=== PATIENT | male | born 1950 | race Caucasian/White ===

== ENCOUNTER 2020-04-30 17:19 | Inpatient (IN) ==
--- NOTE | 2020-04-30 18:06 | Emergency Department Note ---
Impression & Plan Acute confusion, Hyponatremia ED Provider Note NAME: JAMES JACKSON AGE: 69 SEX: M : 1950 ARRIVES VIA: Walk-In INFORMANT: Patient, ED PROVIDER(S): Kumar Moore MD Chief Complaint: Confusion, low sodium HPI: Patient does present from the outpatient setting due to concern for confusion and low sodium. The patient does have a known history of hypertension, hyperlipidemia, tobacco use, alcohol abuse, aortic root enlargement, pulmonary nodules and COPD. The patient has been confused and apparently when he showed up to the hospital today was not sure where he was. Patient did have a fall 2 weeks prior and broke 2 ribs. Patient has had some pain from that. The patient is not on any blood thinning medications and no falls within the last several days. Patient does drink greater than 6 drinks p er day. The patient did have blood work completed and was told that his sodium was quite low in the 120s. Patient has fevers chills chest pains or shortness of breath. The patient has had some right lower extremity edema which has been chronic in nature and has improved since beginning 2 weeks ago. Patient currently has no acute symptomatic complaints at this time. ROS: See HPI for pertinent positives and negatives. A total of 10 systems were reviewed and otherwise negative. Past medical history: See below Surgical history: See below Social history: See below Physical Exam: GENERAL: Wearing glasses and a mask. NAD, non-toxic. EYE EXAM: Normal conjunctiva. PERRL, no anisocoria and EOM's grossly intact w/o pain. NECK: Supple, no nuchal rigidity, no adenopathy, non-tender. No signs of meningismus. LUNGS: Clear to auscultation. Normal chest wall mechanics. HEART: NSR, no MRG. ABDOMEN: Abdomen soft, non-tender, normo-active bowel sounds, no masses, no rebound or guarding. BACK: No CVA TTP. SKIN: No rashes and no bruising. UPPER EXTREMITIES: Upper extremities are grossly normal. LOWER EXTREMITIES: Grossly normal, slight right lower extremity edema without any erythema or calf pain. Compartments are soft. NEURO EXAM: A&O x3, cranial nerves II-XII grossly intact, normal speech, moves all 4 extremities on command w/o issue. Differential diagnoses: Infection, dehydration, metabolic abnormality, hypo/hyperglycemia, electrolyte disturbance, anemia, hypoxia, cardiac sources, intracerebral event, toxicologic, neurologic, as well as other pathologies. Course: Patient was seen and evaluated the bedside. Full history physical exam was performed. EKG: Indication: Confusion Normal sinus rhythm, rate of 71, normal intervals, normal axis, T wave inversion in lead III not in contiguous leads. Slight depressions in the V5 and V6. Not in the high lateral leads. No prior EKG for comparison. Imaging Studies: Radiology results as stated below per my review in the radiologist's interpretation: CT OF THE HEAD WITHOUT CONTRAST CLINICAL HISTORY: Confusion. COMPARISON STUDY: No previous studies for comparison. CT DOSE: 614.27 mGy.cm TECHNIQUE: Helical axial images of the head were obtained without IV contrast. Automated exposure control was utilized for the study. A dose lowering technique was utilized adhering to the principles of ALARA. FINDINGS: No acute intracranial hemorrhage, midline shift or mass effect is present. The ventricular system is unremarkable. White matter hypodensity suggests small vessel disease. The basal cisterns are patent. No extra-axial collections are present. There are no findings to suggest acute dural sinus thrombosis or acute territorial infarct. No significant calvarial abnormalities are present. Visualized portions of the sinuses and mastoid air cells are clear. IMPRESSION: No acute intracranial findings. ACT 112: Negative or not required by law. Electronically signed by: Danny Hurtado M.D. 04/30/2020 7:15 PM Dictated: 04/30/201912 Transcribed: 04/30/201912 XR chest 1V portable CLINICAL HISTORY: weakness COMPARISON STUDY: No previous studies for comparison. FINDINGS: Lung volumes are normal. Lungs are clear. There is no pneumothorax or pleural effusion. Cardiac size is at the upper limits of normal. Mediastinal contours are normal. There is no evidence for pulmonary edema. IMPRESSION: No acute cardiopulmonary findings. ACT 112: Negative or not required by law. Electronically signed by: Danny Hurtado M.D. 04/30/2020 6:19 PM Dictated: 04/30/201817 Transcribed: 04/30/201817 Cardiac monitoring: An order was placed for continuous cardiac monitoring. The monitor shows a rate of 91 with sinus rhythm. MDM: Patient does present with concern for confusion and low sodium. Blood was obtained along with urine and serum awesome's as well as urine electrolytes. Alcohol level was obtained and the patient was given some IV fluids. Patient's last drink was sometime around 930. Patient does have a normal white count and hemoglobin. Platelet count is unrema rkable. Patient does have some hyponatremia with low serum osmolality. Urine awesome is also low likely secondary to beer potomania. Alcohol negative. Urinalysis negative. Covid was ordered. I did speak with the hospitalist Dr. Tyson the patient was admitted to the medicine service. CT of the head and chest x-ray unremarkable. EKG nonischemic. Past Med/Surg History Social History (Updated 04/30/20 @ 20:18 by Kumar Moore MD) Smoking Status: Current every day smoker Hx Alcohol Use: Yes Alcohol type: beer Alcohol Intake Frequency: 4 or More x per/Week Hx Substance Use: No Feels Safe at Home: Yes Allergies Allergies Allergy/AdvReac Type Severity Reaction Status Date / Time No Known Allergies Allergy Unverified 04/30/20 20:50 Home Meds Home Medications Medication Instructions Recorded Confirmed amlodipine [Norvasc] 5 mg PO DAILY 04/30/20 04/30/20 atorvastatin [Lipitor] 20 mg PO DAILY 04/30/20 04/30/20 losartan [Cozaar] 100 mg PO DAILY 04/30/20 04/30/20 metoprolol succinate 50 mg PO DAILY 04/30/20 04/30/20 thiamine HCl (vitamin B1) [Vitamin 100 mg PO DAILY 04/30/20 04/30/20 B-1] umeclidinium [Incruse Ellipta] 1 inh INHALATION DAILY 04/30/20 04/30/20 Results & Data (ED) Vital Signs Vital Signs - 24 hr 04/30/20 17:29 04/30/20 18:31 04/30/20 19:00 Temperature 36.7 C Temperature Source Oral Pulse Rate 114 H 77 77 Pulse Rate from SpO2 Sensor 76 76 Respiratory Rate 18 14 16 Respiratory Effort / Characteristics Non-Labored Respiratory Depth Normal Respiratory Pattern Regular Blood Pressure 150/77 H 142/65 H 142/69 H Blood Pressure Mean 101 90 93 Blood Pressure Position Sitting Pulse Oximetry 100 98 99 Oxygen Delivery Method Room Air Room Air Room Air Sepsis Recent Fever Within 48 Hours No Sepsis New/Unexplained Change in Mental Status No Sepsis Action Taken by Nursing No Action Required 04/30/20 19:30 04/30/20 20:00 04/30/20 20:30 Temperature Temperature Source Pulse Rate 76 78 91 H Pulse Rate from SpO2 Sensor 77 76 86 Respiratory Rate 14 19 25 H Respiratory Effort / Characteristics Respiratory Depth Respiratory Pattern Blood Pressure 137/69 138/65 149/80 H Blood Pressure Mean 91 89 103 Blood Pressure Position Pulse Oximetry 100 99 98 Oxygen Delivery Method Room Air Room Air Room Air Sepsis Recent Fever Within 48 Hours Sepsis New/Unexplained Change in Mental Status Sepsis Action Taken by Nursing Laboratory Data Result diagrams: 04/30/20 18:48 04/30/20 18:48 Lab Results 04/30/20 04/30/20 04/30/20 Range/Units 18:48 18:48 18:48 WBC 5.62 (4.8-10.8) K/uL RBC 4.21 L (4.7-6.1) M/uL Hgb 14.0 (14.0-18.0) g/dL Hct 38.2 L (42-52) % MCV 90.7 (80-100) fL MCH 33.3 (25-34) pg MCHC 36.6 H (32-36) g/dL RDW Std Deviation 41.6 (36.4-46.3) fL RDW Coeff of Daquan 12.6 (11.5-14.5) % Plt Count 274 (130-400) K/uL MPV 8.6 (7.4-10.4) fL Immature Gran % (Auto) 0.4 % Neut % (Auto) 73.8 % Lymph % (Auto) 16.9 % Parmer % (Auto) 8.4 % Eos % (Auto) 0.5 % Baso % (Auto) 0.0 % Neut # (Auto) 4.15 (1.4-6.5) K/uL Lymph # (Auto) 0.95 L (1.2-3.4) K/uL Parmer # (Auto) 0.47 (0.11-0.59) K/uL Eos # (Auto) 0.03 (0-0.5) K/uL Baso # (Auto) 0.00 (0-0.2) K/uL Immature Gran # (Auto) 0.02 (0.00-0.02) K/uL PT (9.0-12.0) Seconds INR (0.9-1.1) APTT (21.0-31.0) Seconds PTT Ratio Sodium 127 L (136-145) mmol/L Potassium 4.6 (3.5-5.1) mmol/L Chloride 96 L (98-107) mmol/L Carbon Dioxide 24 (21-32) mmol/L Anion Gap 7.0 (3-11) BUN 8 (7-18) mg/dl Creatinine 0.79 (0.6-1.4) mg/dl Est Cr Clr Drug Dosing Not Reportable Est GFR ( Amer) 105.4 Est GFR (Non-Af Amer) 91.0 BUN/Creatinine Ratio 9.6 L (10-20) Glucose 84 (70-99) mg/dl Osmolality 264 L (280-300) mOsm/kg Calcium 9.6 (8.5-10.1) mg/dl Total Bilirubin 0.9 (0.2-1) mg/dl AST 19 (15-37) U/L ALT 18 (12-78) U/L Alkaline Phosphatase 59 (45-117) U/L Total Protein 7.9 (6.4-8.2) gm/dl Albumin 3.8 (3.4-5.0) gm/dl Globulin 4.1 H (2.5-4.0) gm/dl Albumin/Globulin Ratio 0.9 (0.9-2) TSH 2.380 (0.300-4.500) uIu/ml Urine Color Urine Appearance (Clear) Urine pH (4.5-7.5) Ur Specific Bonneau (1.000-1.030) Urine Protein (Negative) Urine Glucose (UA) (Negative) Urine Ketones (Negative) Urine Blood (Negative) Urine Nitrite (Negative) Urine Bilirubin (Negative) Urine Urobilinogen (Negative) Ur Leukocyte Esterase (Negative) Urine Osmolality (500-800) mOsm/kg Urine Sodium mmol/L Urine Potassium mmol/L Urine Chloride mmol/L Ethyl Alcohol mg/dL (0-3) mg/dl COVID-19 Eval Order SARS-CoV-2, RNA, NAAT (NEGATIVE) 04/30/20 04/30/20 04/30/20 Range/Units 18:48 18:48 19:32 WBC (4.8-10.8) K/uL RBC (4.7-6.1) M/uL Hgb (14.0-18.0) g/dL Hct (42-52) % MCV (80-100) fL MCH (25-34) pg MCHC (32-36) g/dL RDW Std Deviation (36.4-46.3) fL RDW Coeff of Daquan (11.5-14.5) % Plt Count (130-400) K/uL MPV (7.4-10.4) fL Immature Gran % (Auto) % Neut % (Auto) % Lymph % (Auto) % Parmer % (Auto) % Eos % (Auto) % Baso % (Auto) % Neut # (Auto) (1.4-6.5) K/uL Lymph # (Auto) (1.2-3.4) K/uL Parmer # (Auto) (0.11-0.59) K/uL Eos # (Auto) (0-0.5) K/uL Baso # (Auto) (0-0.2) K/uL Immature Gran # (Auto) (0.00-0.02) K/uL PT 9.9 (9.0-12.0) Seconds INR 1.0 (0.9-1.1) APTT 26.2 (21.0-31.0) Seconds PTT Ratio 1.0 Sodium (136-145) mmol/L Potassium (3.5-5.1) mmol/L Chloride (98-107) mmol/L Carbon Dioxide (21-32) mmol/L Anion Gap (3-11) BUN (7-18) mg/dl Creatinine (0.6-1.4) mg/dl Est Cr Clr Drug Dosing Est GFR ( Amer) Est GFR (Non-Af Amer) BUN/Creatinine Ratio (10-20) Glucose (70-99) mg/dl Osmolality (280-300) mOsm/kg Calcium (8.5-10.1) mg/dl Total Bilirubin (0.2-1) mg/dl AST (15-37) U/L ALT (12-78) U/L Alkaline Phosphatase (45-117) U/L Total Protein (6.4-8.2) gm/dl Albumin (3.4-5.0) gm/dl Globulin (2.5-4.0) gm/dl Albumin/Globulin Ratio (0.9-2) TSH (0.300-4.500) uIu/ml Urine Color Yellow Urine Appearance Clear (Clear) Urine pH 7.0 (4.5-7.5) Ur Specific Bonneau 1.008 (1.000-1.030) Urine Protein Negative (Negative) Urine Glucose (UA) Negative (Negative) Urine Ketones Negative (Negative) Urine Blood Negative (Negative) Urine Nitrite Negative (Negative) Urine Bilirubin Negative (Negative) Urine Urobilinogen Negative (Negative) Ur Leukocyte Esterase Negative (Negative) Urine Osmolality (500-800) mOsm/kg Urine Sodium mmol/L Urine Potassium mmol/L Urine Chloride mmol/L Ethyl Alcohol mg/dL < 3.0 (0-3) mg/dl COVID-19 Eval Order SARS-CoV-2, RNA, NAAT (NEGATIVE) 04/30/20 04/30/20 04/30/20 Range/Units 19:32 19:32 20:26 WBC (4.8-10.8) K/uL RBC (4.7-6.1) M/uL Hgb (14.0-18.0) g/dL Hct (42-52) % MCV (80-100) fL MCH (25-34) pg MCHC (32-36) g/dL RDW Std Deviation (36.4-46.3) fL RDW Coeff of Daquan (11.5-14.5) % Plt Count (130-400) K/uL MPV (7.4-10.4) fL Immature Gran % (Auto) % Neut % (Auto) % Lymph % (Auto) % Parmer % (Auto) % Eos % (Auto) % Baso % (Auto) % Neut # (Auto) (1.4-6.5) K/uL Lymph # (Auto) (1.2-3.4) K/uL Parmer # (Auto) (0.11-0.59) K/uL Eos # (Auto) (0-0.5) K/uL Baso # (Auto) (0-0.2) K/uL Immature Gran # (Auto) (0.00-0.02) K/uL PT (9.0-12.0) Seconds INR (0.9-1.1) APTT (21.0-31.0) Seconds PTT Ratio Sodium (136-145) mmol/L Potassium (3.5-5.1) mmol/L Chloride (98-107) mmol/L Carbon Dioxide (21-32) mmol/L Anion Gap (3-11) BUN (7-18) mg/dl Creatinine (0.6-1.4) mg/dl Est Cr Clr Drug Dosing Est GFR ( Amer) Est GFR (Non-Af Amer) BUN/Creatinine Ratio (10-20) Glucose (70-99) mg/dl Osmolality (280-300) mOsm/kg Calcium (8.5-10.1) mg/dl Total Bilirubin (0.2-1) mg/dl AST (15-37) U/L ALT (12-78) U/L Alkaline Phosphatase (45-117) U/L Total Protein (6.4-8.2) gm/dl Albumin (3.4-5.0) gm/dl Globulin (2.5-4.0) gm/dl Albumin/Globulin Ratio (0.9-2) TSH (0.300-4.500) uIu/ml Urine Color Urine Appearance (Clear) Urine pH (4.5-7.5) Ur Specific Bonneau (1.000-1.030) Urine Protein (Negative) Urine Glucose (UA) (Negative) Urine Ketones (Negative) Urine Blood (Negative) Urine Nitrite (Negative) Urine Bilirubin (Negative) Urine Urobilinogen (Negative) Ur Leukocyte Esterase (Negative) Urine Osmolality 160 L (500-800) mOsm/kg Urine Sodium 40 mmol/L Urine Potassium 16.6 mmol/L Urine Chloride 33 mmol/L Ethyl Alcohol mg/dL (0-3) mg/dl COVID-19 Eval [facility] SARS-CoV-2, RNA, NAAT (NEGATIVE) 04/30/20 Range/Units 20:26 WBC (4.8-10.8) K/uL RBC (4.7-6.1) M/uL Hgb (14.0-18.0) g/dL Hct (42-52) % MCV (80-100) fL MCH (25-34) pg MCHC (32-36) g/dL RDW Std Deviation (36.4-46.3) fL RDW Coeff of Daquan (11.5-14.5) % Plt Count (130-400) K/uL MPV (7.4-10.4) fL Immature Gran % (Auto) % Neut % (Auto) % Lymph % (Auto) % Parmer % (Auto) % Eos % (Auto) % Baso % (Auto) % Neut # (Auto) (1.4-6.5) K/uL Lymph # (Auto) (1.2-3.4) K/uL Parmer # (Auto) (0.11-0.59) K/uL Eos # (Auto) (0-0.5) K/uL Baso # (Auto) (0-0.2) K/uL Immature Gran # (Auto) (0.00-0.02) K/uL PT (9.0-12.0) Seconds INR (0.9-1.1) APTT (21.0-31.0) Seconds PTT Ratio Sodium (136-145) mmol/L Potassium (3.5-5.1) mmol/L Chloride (98-107) mmol/L Carbon Dioxide (21-32) mmol/L Anion Gap (3-11) BUN (7-18) mg/dl Creatinine (0.6-1.4) mg/dl Est Cr Clr Drug Dosing Est GFR ( Amer) Est GFR (Non-Af Amer) BUN/Creatinine Ratio (10-20) Glucose (70-99) mg/dl Osmolality (280-300) mOsm/kg Calcium (8.5-10.1) mg/dl Total Bilirubin (0.2-1) mg/dl AST (15-37) U/L ALT (12-78) U/L Alkaline Phosphatase (45-117) U/L Total Protein (6.4-8.2) gm/dl Albumin (3.4-5.0) gm/dl Globulin (2.5-4.0) gm/dl Albumin/Globulin Ratio (0.9-2) TSH (0.300-4.500) uIu/ml Urine Color Urine Appearance (Clear) Urine pH (4.5-7.5) Ur Specific Bonneau (1.000-1.030) Urine Protein (Negative) Urine Glucose (UA) (Negative) Urine Ketones (Negative) Urine Blood (Negative) Urine Nitrite (Negative) Urine Bilirubin (Negative) Urine Urobilinogen (Negative) Ur Leukocyte Esterase (Negative) Urine Osmolality (500-800) mOsm/kg Urine Sodium mmol/L Urine Potassium mmol/L Urine Chloride mmol/L Ethyl Alcohol mg/dL (0-3) mg/dl COVID-19 Eval Order SARS-CoV-2, RNA, NAAT NEGATIVE (NEGATIVE) Administered Medications Discontinued Medications Sodium Chloride (Nss 1000ml) 1,000 mls @ 999 mls/hr IV .Q1H1M ONE Stop: 04/30/20 19:17 Last Infusion: 04/30/20 20:36 Dose: 0 mls/hr Documented by: [id number] Admin: 04/30/20 19:31 Dose: 999 mls/hr Documented by: [id number] Discharge Plan Visit Data Chief Complaint: Abnormal Labs/Diagnostic Testing Stated Complaint: LOW SODIUM, DR REF OVER ED Provider: Kumar Moore Discharge Problem: Acute confusion, Hyponatremia Forms Stand Alone Forms: My [facility] Prescriptions Prescriptions: No Action atorvastatin [Lipitor] 20 mg tablet 20 mg PO DAILY RF: 0 metoprolol succinate 50 mg Tablet Extended Release 24 Hr 50 mg PO DAILY RF: 0 thiamine HCl (vitamin B1) [Vitamin B-1] 100 mg Tablet 100 mg PO DAILY RF: 0 amlodipine [Norvasc] 5 mg tablet 5 mg PO DAILY RF: 0 losartan [Cozaar] 100 mg tablet 100 mg PO DAILY RF: 0 Incruse Ellipta 62.5 mcg/actuation blister with device 1 inh INHALATION DAILY RF: 0
[2020-04-30] MEDS ORDERED: SODIUM CHLORIDE 0.9% 1000ML 1,000 ML IV ONE (18:17)
--- NOTE | 2020-04-30 18:20 | XRay Report ---
XR chest 1V portable CLINICAL HISTORY: weakness COMPARISON STUDY: No previous studies for comparison. FINDINGS: Lung volumes are normal. Lungs are clear. There is no pneumothorax or pleural effusion. Car diac size is at the upper limits of normal. Mediastinal contours are normal. There is no evidence for pulmonary edema. IMPRESSION: No acute cardiopulmonary findings. ACT 112: Negative or not required by law. Electronically signed by: Danny Hurtado M.D. 04/30/2020 6:19 PM
[2020-04-30 19:11] LABS: Eosinophils # (auto) 0.03 K/uL (0-0.5); Eosinophils % (auto) 0.5 %; Hematocrit (blood only) 38.2 % (42-52); Immature Granulocytes # (auto) 0.02 K/uL (0.00-0.02); Immature Granulocytes % (auto) 0.4 %; Lymphocytes # (auto) 0.95 K/uL (1.2-3.4); Lymphocytes % (auto) 16.9 %; Mean Corpuscular Hemoglobin 33.3 pg (25-34); Mean Corpuscular Hgb Conc 36.6 g/dL (32-36); Mean Corpuscular Volume 90.7 fL (80-100); Mean Platelet Volume 8.6 fL (7.4-10.4); Monocytes # (auto) 0.47 K/uL (0.11-0.59); Monocytes % (auto) 8.4 %; Neutrophils # (auto) 4.15 K/uL (1.4-6.5); Neutrophils % (auto) 73.8 %; Platelet Count 274 K/uL (130-400); RDW Coefficient of Variation 12.6 % (11.5-14.5); RDW Standard Deviation 41.6 fL (36.4-46.3); Red Blood Count 4.21 M/uL (4.7-6.1); White Blood Count 5.62 K/uL (4.8-10.8)
[2020-04-30 19:14] LABS: Partial Thromboplastin Time 26.2 Seconds (21.0-31.0); Prothrombin Time 9.9 Seconds (9.0-12.0)
--- NOTE | 2020-04-30 19:16 | CT Scan Report ---
CT OF THE HEAD WITHOUT CONTRAST CLINICAL HISTORY: Confusion. COMPARISON STUDY: No previous studies for comparison. CT DOSE: 614.27 mGy.cm TECHNIQUE: Helical axial images of the head were obtained without IV contrast. Automated exposure con trol was utilized for the study. A dose lowering technique was utilized adhering to the principles o f ALARA. FINDINGS: No acute intracranial hemorrhage, midline shift or mass effect is present. The ventricular system is unremarkable. White matter hypodensity suggests small vessel disease. The basal cisterns ar e patent. No extra-axial collections are present. There are no findings to suggest acute dural sinus thrombosis or acute territorial infarct. No significant calvarial abnormalities are present. Visualiz ed portions of the sinuses and mastoid air cells are clear. IMPRESSION: No acute intracranial findings. ACT 112: Negative or not required by law. Electronically signed by: Danny Hurtado M.D. 04/30/2020 7:15 PM
[2020-04-30 19:34] LABS: Alanine Aminotransferase 18 U/L (12-78); Albumin Level 3.8 gm/dl (3.4-5.0); Aspartate Aminotransferase 19 U/L (15-37); BUN Creatinine Ratio 9.6 (10-20); Blood Urea Nitrogen 8 mg/dl (7-18); Calcium 9.6 mg/dl (8.5-10.1); Carbon Dioxide 24 mmol/L (21-32); Chloride 96 mmol/L (98-107); Est GFR (African American) 105.4; Glucose 84 mg/dl (70-99); Potassium 4.6 mmol/L (3.5-5.1); Sodium 127 mmol/L (136-145)
[2020-04-30 19:41] LABS: Appearance Urine Clear (Clear); Bilirubin Urine Negative (Negative); Blood Urine Negative (Negative); Color Urine Yellow; Glucose Urine UA Negative (Negative); Ketones Urine Negative (Negative); Leukocyte Esterase Urine Negative (Negative); Nitrite Urine Negative (Negative); Protein Urine Negative (Negative); Specific Gravity Urine 1.008 (1.000-1.030); Urobilinogen Urine Negative (Negative)
[2020-04-30 19:45] LABS: Albumin Globulin Ratio 0.9 (0.9-2); Alkaline Phosphatase 59 U/L (45-117); Bilirubin,Total 0.9 mg/dl (0.2-1); Globulin 4.1 gm/dl (2.5-4.0); Total Protein 7.9 gm/dl (6.4-8.2)
[2020-04-30 20:12] LABS: Urine Potassium 16.6 mmol/L
[2020-04-30] MEDS ORDERED: NITROGLYCERIN SL 0.4 MG/TAB TAB SL PRN (21:49)
[2020-04-30] MEDS ORDERED: ALBUTEROL 0.083% NEBU SOLN 3 ML VIAL INH PRN (21:49)
[2020-04-30] MEDS ORDERED: LORazepam 1 MG/2 ML VIAL IV PRN (21:49)
[2020-04-30] MEDS ORDERED: ATIVAN IV ALCOHOL WITHDRAWL IV PRN (21:49)
[2020-04-30] MEDS ORDERED: LORazepam 2 MG/4 ML VIAL IV PRN (21:49)
[2020-04-30] MEDS ORDERED: ONDANSETRON INJ 2 MG/ML 2 ML VIAL IV PRN (21:49)
[2020-04-30] MEDS ORDERED: LORazepam 3 MG/6 ML VIAL IV PRN (21:49)
[2020-04-30] MEDS ORDERED: GABAPENTIN 1200MG ALCOHOL WITHDRAWAL LOAD PO STA (21:49)
[2020-04-30] MEDS ORDERED: ACETAMINOPHEN 325 MG TAB PO PRN (21:49)
[2020-04-30] MEDS ORDERED: POLYETHYLENE (MIRALAX) 17 GM PACK PO PRN (21:49)
[2020-04-30] MEDS ORDERED: PHARMACIST DISCHARGE MED REC CONSULT PRN (21:49)
[2020-04-30] MEDS ORDERED: MULTI-VITAMIN INFUSION 10 ML, THIAMINE HCL 100 MG, FOLIC ACID 1 MG in SODIUM CHLORIDE 0... IV ONE (22:15)
[2020-04-30] MEDS ORDERED: GABAPENTIN 600 MG TAB PO ONE (22:15)
[2020-04-30] MEDS ORDERED: GADOBUTROL 65ML VIAL IV ONE (23:01)
--- NOTE | 2020-04-30 23:43 | History and Physical Report ---
DATE OF ADMISSION: 04/30/2020 Dictation ends here.
[2020-04-30] MEDS: NICOTINE 21 MG/24 HR TDSY TD SCH (23:47)
[2020-04-30] MEDS: THIAMINE HCL 100 MG TAB PO SCH (23:49)
--- NOTE | 2020-05-01 00:36 | History and Physical Report ---
DATE OF ADMISSION: 04/30/2020 CHIEF COMPLAINT: Confusion. HISTORY OF PRESENT ILLNESS: This is a 69-year-old male with past medical history significant for hyperlipidemia, COPD, history of lung nodule, history of aortic root enlargement, moderate aortic regurgitation, hypertension, history of colon polyp, ongoing alcohol abuse and tobacco abuse. Lives with his , was brought in because of confusion. The patient had a fall 2 weeks prior with healing fracture of the ribs left side, fell on the snow. The patient reports confusion this morning when the alarm went off. He had some appointment, could not remember what it was or where he was supposed to go, could not remember how to go to the office today. His who is a nurse, checked his pulse, it seemed to be regular on 2 occasions. He drinks 5-6 beers every day and smokes 1-2 packs of cigarettes everyday for many years. It seemed the patient had similar episode a couple of months ago, but the confusion lasted only for a couple of hours but since this lasted longer, he went to PCP's office and checked labs showing low sodium and he was advised to come to the hospital. At that time, he did not have any facial droop. No slurred speech, no imbalance. No weakness in the hands or legs. Currently resting comfortably and hemodynamically stable, able to answer all his questions. Denies any headache. Earlier he had some dizziness. Denies any blurred vision or double vision, no earache, no runny nose, no sore throat, no cough, no dysphagia. Appetite is okay. No chest pain, no shortness of breath, no nausea, no abdominal pain. Normal bowel and bladder movements. No blood in stools or black stools. No hematuria or burning micturition, no rash. Sleeps okay. is concerned that he was having TIAs. His father has history of TIAs and after that he had a stroke. ALLERGIES: No known drug allergies. PAST MEDICAL HISTORY: As mentioned above. PAST SURGICAL HISTORY: Biopsy of testes, cataract surgery, colonoscopy, EGDs, tooth removal. MEDICATIONS: The patient is on Incruse Ellipta 62.5 mcg 1 puff daily, amlodipine 5 mg p.o. daily, atorvastatin 20 mg p.o. daily, losartan 100 mg p.o. daily, metoprolol XL 50 mg p.o. daily, thiamine 100 mg p.o. daily, albuterol nebulization p.r.n. FAMILY HISTORY: Significant for sister has breast cancer. Father had CVA. Mother has bone cancer. SOCIAL HISTORY: and lives with his . Currently smokes 1-2 packs a day for the last 40 years. Alcohol, drinks 5-6 beers every day for last 50 years. No drug use. REVIEW OF SYMPTOMS: As per HPI. Rest of the review of systems negative. PHYSICAL EXAMINATION: GENERAL: The patient is of moderate build, not in acute distress. VITAL SIGNS: Temperature 36.7, pulse 91, respiratory rate 25, blood pressure 114/80, oxygen 98% on room air. HEENT: Pupils equal, round, and reactive to light. Extraocular muscles intact. No pallor, no icterus. Oral mucosa moist. No facial droop. NECK: No JVD, no neck masses. No rhonchi. CARDIOVASCULAR: S1, S2 heard, regular rate and rhythm, no murmur, no gallop. RESPIRATORY SYSTEM: Normal AP diameter. No accessory muscle use. No wheezing, no crackles. ABDOMEN: Soft, bowel sounds present, nontender. No distention. CENTRAL NERVOUS SYSTEM: Cranial nerves II-XII grossly intact. Speech clear. No facial droop. Extraocular muscles intact. Power 5/5 in all extremities. Sensation is intact, position sense intact. No pronator drift. Coordination of movements normal. EXTREMITIES: Bilateral lower extremity pedal edema present. No erythema seen. LABORATORY DATA: WBC 5.6, hemoglobin 14, hematocrit 38.2, platelets 274. PT 10.9, INR 1, APTT 26.2. Sodium 127, potassium 4.6, chloride 96, bicarbonate 24, BUN 38, creatinine 0.7, serum glucose 84. Osmolality 264, calcium 9.6, total bilirubin 0.9, AST 19, ALT 18, alkaline phosphatase 59. TSH 2.3. Urinalysis, negative , urine osmolality 160. Ethyl alcohol less than 3. SARS-CoV-[address] of the head: No acute intracranial findings. Chest x-ray: No acute cardiopulmonary findings. EKG: Normal sinus rhythm, rate of 71. No previous EKGs available. ASSESSMENT AND PLAN: This is a 69-year-old male who presents with confusion and hyponatremia. 1. Confusion, probably metabolic from hyponatremia, could be from his chronic alcoholism, rule out TIA, CVA. CT of the head is unremarkable. We will follow the stroke workup with, MRI scan, carotid Doppler, echo and neurology consult in a.m. and PT/OT. Monitor in the [facility] tele. 2. Hyponatremia. Sodium 127 could be possible beer potomania. We will give fluid restriction 1500 mL per hour, received fluids in the ER. We will follow the repeat labs in a.m. and consult nephrology. 3. Alcoholism, drinks 5-6 beers every day. Monitor for withdrawal, starting on gabapentin protocol, IV Ativan p.r.n., banana bag and continue with p.o. thiamine and folic acid in a.m. 4. Tobacco abuse, needs counseling. 5. COPD, continue his home inhalers, currently stable. 6. Hypertension. Continue his losartan, metoprolol and amlodipine. We will follow the blood pressure. 7. Hyperlipidemia. Continue statin. 8. History of aortic root enlargement, moderate aortic regurgitation. Follow the echocardiogram. 9. Deep venous thrombosis prophylaxis, sequential compression devices for now. 10. Disposition: Closely monitor in the [facility] tele. Level 1 full code. Expect discharge home and follow with family doctor. RUTH
[2020-05-01] MEDS: GABAPENTIN 600 MG TAB PO SCH ×3 (06:03→22:09)
[2020-05-01 07:17] LABS: Basophils # (auto) 0.01 K/uL (0-0.2); Basophils % (auto) 0.2 %; Eosinophils # (auto) 0.07 K/uL (0-0.5); Eosinophils % (auto) 1.7 %; Hematocrit (blood only) 34.8 % (42-52); Hemoglobin 12.4 g/dL (14.0-18.0); Immature Granulocytes # (auto) 0.01 K/uL (0.00-0.02); Immature Granulocytes % (auto) 0.2 %; Lymphocytes # (auto) 1.12 K/uL (1.2-3.4); Lymphocytes % (auto) 26.7 %; Mean Corpuscular Hemoglobin 32.7 pg (25-34); Mean Corpuscular Hgb Conc 35.6 g/dL (32-36); Mean Corpuscular Volume 91.8 fL (80-100); Mean Platelet Volume 8.4 fL (7.4-10.4); Monocytes # (auto) 0.75 K/uL (0.11-0.59); Monocytes % (auto) 17.9 %; Neutrophils # (auto) 2.23 K/uL (1.4-6.5); Neutrophils % (auto) 53.3 %; Platelet Count 248 K/uL (130-400); RDW Coefficient of Variation 12.7 % (11.5-14.5); RDW Standard Deviation 42.9 fL (36.4-46.3); Red Blood Count 3.79 M/uL (4.7-6.1); White Blood Count 4.19 K/uL (4.8-10.8)
--- NOTE | 2020-05-01 07:20 | Magnetic Resonance Report ---
MRI OF THE BRAIN WITHOUT AND WITH IV CONTRAST CLINICAL HISTORY: Confusion. Possible stroke. HISTORY OF FALL 2 WEEKS AGO. FEVER, CHILLS. COMPARISON STUDY: Noncontrast head CT dated 04/30/2020 TECHNIQUE: MRI of the brain was performed from the vertex to the skull base utilizing various T1 and T2 weighted sequences. Following the IV administration of 7 mL of Gadavist contrast, additional enhan samuel images were obtained. FINDINGS: Sagittal T1, axial diffusion, proton density and T2 weighted axial, coronal FLAIR, and pre and post a xial T1-weighted images were acquired. These were supplemented with post gadolinium coronal T1 weight ed images. No intra or extra-axial mass lesions are visualized. Axial diffusion-weighted images reveal no evidence of acute or subacute infarction. There is no evidence of ventricular dilatation. Proton density T2-weighted and FLAIR images reveal scattered foci of increased T2 signal within the w chinyere matter, likely on a small vessel basis. There are no abnormal flow voids. There is no evidence of pathologic enhancement. IMPRESSION: 1. No acute intracranial findings. 2. No evidence of acute or subacute infarction 3. No evidence of intracranial mass ACT 112: Negative or not required by law. Electronically signed by: José Miguel Floyd M.D. 05/01/2020 7:19 AM
[2020-05-01 07:22] LABS: Estimated Average Glucose 100 mg/dl; Hemoglobin A1C 5.1 % (4.5-5.6)
--- NOTE | 2020-05-01 07:39 | Ultrasound Report ---
BILATERAL CAROTID DOPPLER STUDY HISTORY: Confusion. COMPARISON: None. TECHNIQUE: Real-time, grayscale, and color Doppler sonography of the carotid arteries was performed. Imaging reviewed in the transverse and longitudinal planes. All measurements were calculated based on NASCET criteria. FINDINGS: Antegrade flow is seen in the bilateral vertebral arteries. The brachial pressures are hemodynamically similar. Mild calcified plaque within the bilateral carotid bifurcations and proximal left common carotid glenis ry. The peak systolic velocity within the right ICA is 105 cm/s. The right systolic ratio is 1.2. The peak systolic velocity within the left ICA is 90 cm/s. The left systolic ratio is 0.9. Mild stenosis within the right external carotid artery with a peak systolic velocity of 218 cm/s. IMPRESSION: No hemodynamically significant stenosis seen within the bilateral common or internal carotid arteries . Mild stenosis within the right external carotid artery. ACT 112: Negative or not required by law. Electronically signed by: Keny Malin M.D. 05/01/2020 7:38 AM
[2020-05-01 07:50] LABS: BUN Creatinine Ratio 9.2 (10-20); Calcium 8.8 mg/dl (8.5-10.1); Creatinine Clr Calc Pharmacy 88.1 ml/min; Est GFR (African American) 107.7; Est GFR (Non-African American) 92.9
[2020-05-01] MEDS: LOSARTAN POTASSIUM 50 MG TAB PO SCH (08:06)
[2020-05-01] MEDS: amLODIPine BESYLATE 5 MG TAB PO SCH (08:06)
[2020-05-01] MEDS: METOPROLOL SUCC 50MG EXT REL TAB PO SCH (08:07)
[2020-05-01] MEDS: FOLIC ACID 1 MG in SYRINGE 9.8 ML IV SCH (08:07)
[2020-05-01] MEDS: THIAMINE HCL 100 MG TAB PO SCH (08:08)
[2020-05-01] MEDS: NICOTINE 21 MG/24 HR TDSY TD SCH (08:08)
[2020-05-01] MEDS: ATORVASTATIN 20 MG TAB PO SCH (08:08)
[2020-05-01] MEDS: UMECLIDINIUM BROMIDE 62.5MCG/BLISTER 7 PUFFS/INHALER INH SCH (08:09)
--- NOTE | 2020-05-01 10:47 | Hospitalist Progress Note ---
Date of Service May 01, 2020 Assessment & Plan (1) Acute metabolic encephalopathy: Metabolic & Alcoholic encephalopathy in setting of hyponatremia and alcoholism (2) Hyponatremia: (3) Alcohol abuse: This is a 69 y/o male who presents with confusion and hyponatremia. 1. Confusion, probably metabolic from hyponatremia, could be from his chronic alcoholism, rule out TIA, CVA. CT of the head is unremarkable. MRI brain - negative for acute stroke. Carotid Doppler - No hemodynamically significant stenosis seen within the bilateral common or internal carotid arteries. Mild stenosis within the right external carotid artery. Echo - normal LV chamber size with moderate concentric LVH. Normal LV systolic function, EF 55 to 60%. No segmental left ventricular wall motion abnormalities are noted. Grade 1 diastolic dysfunction. Trileaflet aortic valve with mild sclerosis, no stenosis. Mild aortic regurg. Mild tricuspid regurg. Mild enlargement of the ascending aorta measuring 4.2 cm. The interatrial septum is intact with no evidence of an atrial septal defect. Injection of contrast documented no interatrial shunt. Neurology was also consulted, appreciate their input PT/OT. Monitor in the med tele. 2. Hyponatremia. Sodium 127, urine osmolality 160, urine sodium 40 Hyponatremia most likely due to beer potomania. Patient received 1 L of normal saline overnight from ED, and was on fluid restriction of 1500 mL. Sodium this a.m. 135 Nephrology consulted, appreciate their input. - pt does not necessarily need a fluid restriction like we do for SIADH as this is not a case of SIADH, but more of a case of beer potomania. - Recommend to increase food intake, especially protein. - Decrease the fluid intake to a normal level from excessive level at this time. - Follow up with primary care next week with BMP. 3. Alcoholism, drinks 5-6 beers every day. Monitor for withdrawal, starting on gabapentin protocol, IV Ativan p.r.n., banana bag and continue with p.o. thiamine and folic acid. 4. Tobacco abuse, counseling. 5. COPD, continue his home inhalers, currently stable. 6. Hypertension. Continue his losartan, metoprolol and amlodipine. We will follow the blood pressure. 7. Hyperlipidemia. Continue statin. 8. History of aortic root enlargement, moderate aortic regurgitation. Follow the echocardiogram, as above. DVT prophylaxis, SCDs for now. Disposition: Closely monitor in the med tele. Expect discharge home and follow with family doctor. Admission and Anticipated Discharge Date Admission Date: April 30, 2020 Subjective Patient seen in follow-up of AMS, hyponatremia Patient is sitting in bed, in no acute distress Reports that he feels back to himself, and is inquiring about going home Sodium this morning 135, last evening 127. Denies chest pain, shortness of breath, headache, dizziness Review of Systems Review of Systems: All systems reviewed & are unremarkable except as noted in HPI & below Constitutional: no fever and no chills Respiratory: no cough and no dyspnea Cardiovascular: no chest pain and no palpitations Gastrointestinal: no abdominal pain, no nausea and no vomiting Physical Exam Physical Exam: GENERAL: The patient is of moderate build, not in acute distress. HEENT: Pupils equal, round, and reactive to light. Extraocular muscles intact. No pallor, no icterus. Oral mucosa moist. No facial droop. NECK: No JVD, no neck masses. No rhonchi. CARDIOVASCULAR: S1, S2 heard, regular rate and rhythm, no murmur, no gallop. RESPIRATORY SYSTEM: Normal AP diameter. No accessory muscle use. No wheezing, no crackles. ABDOMEN: Soft, bowel sounds present, nontender. No distention. NEURO: Alert and oriented x3, speech fluent, no facial asymmetry, cranial nerves II-XII grossly intact. Extraocular muscles intact. Moves extremities spontaneously EXTREMITIES: Bilateral lower extremity pedal edema present. No erythema Results & Data Results & Data ([facility]) Vital Signs (Past 12 Hours) Vital Signs Temp Pulse Pulse Resp BP Pulse Ox 05/01/20 07:49 36.9 C 71 20 127/63 91 05/01/20 07:23 75 05/01/20 04:00 36.9 C 73 18 128/66 96 05/01/20 03:16 69 04/30/20 23:57 36.4 C L 72 18 144/66 H 99 Laboratory Results 05/01/20 05/01/20 05/01/20 Range/Units 06:58 06:58 06:58 WBC 4.19 L (4.8-10.8) K/uL RBC 3.79 L (4.7-6.1) M/uL Hgb 12.4 L (14.0-18.0) g/dL Hct 34.8 L (42-52) % MCV 91.8 (80-100) fL MCH 32.7 (25-34) pg MCHC 35.6 (32-36) g/dL RDW Std Deviation 42.9 (36.4-46.3) fL RDW Coeff of Daquan 12.7 (11.5-14.5) % Plt Count 248 (130-400) K/uL MPV 8.4 (7.4-10.4) fL Immature Gran % (Auto) 0.2 % Neut % (Auto) 53.3 % Lymph % (Auto) 26.7 % [place] % (Auto) 17.9 % Eos % (Auto) 1.7 % Baso % (Auto) 0.2 % Neut # (Auto) 2.23 (1.4-6.5) K/uL Lymph # (Auto) 1.12 L (1.2-3.4) K/uL [place] # (Auto) 0.75 H (0.11-0.59) K/uL Eos # (Auto) 0.07 (0-0.5) K/uL Baso # (Auto) 0.01 (0-0.2) K/uL Immature Gran # (Auto) 0.01 (0.00-0.02) K/uL PT (9.0-12.0) Seconds INR (0.9-1.1) APTT (21.0-31.0) Seconds PTT Ratio Sodium 135 L D (136-145) mmol/L Potassium 4.0 (3.5-5.1) mmol/L Chloride 104 (98-107) mmol/L Carbon Dioxide 24 (21-32) mmol/L Anion Gap 7.0 (3-11) BUN 7 (7-18) mg/dl Creatinine 0.75 (0.6-1.4) mg/dl Est Cr Clr Drug Dosing 88.1 Est GFR ( Amer) 107.7 Est GFR (Non-Af Amer) 92.9 BUN/Creatinine Ratio 9.2 L (10-20) Glucose 76 (70-99) mg/dl Estimat Average Glucose 100 mg/dl Hemoglobin A1c 5.1 (4.5-5.6) % Osmolality (280-300) mOsm/kg Calcium 8.8 (8.5-10.1) mg/dl Total Bilirubin (0.2-1) mg/dl AST (15-37) U/L ALT (12-78) U/L Alkaline Phosphatase (45-117) U/L Total Protein (6.4-8.2) gm/dl Albumin (3.4-5.0) gm/dl Globulin (2.5-4.0) gm/dl Albumin/Globulin Ratio (0.9-2) Triglycerides 64 (0-150) mg/dl Cholesterol 150 (0-200) mg/dl LDL Cholesterol, Calc 65 mg/dl VLDL Cholesterol, Calc 13 mg/dl HDL Cholesterol 72 mg/dl Cholesterol/HDL Ratio 2 TSH (0.300-4.500) uIu/ml Urine Color Urine Appearance (Clear) Urine pH (4.5-7.5) Ur Specific [place] (1.000-1.030) Urine Protein (Negative) Urine Glucose (UA) (Negative) Urine Ketones (Negative) Urine Blood (Negative) Urine Nitrite (Negative) Urine Bilirubin (Negative) Urine Urobilinogen (Negative) Ur Leukocyte Esterase (Negative) Urine Osmolality (500-800) mOsm/kg Urine Sodium mmol/L Urine Potassium mmol/L Urine Chloride mmol/L Ethyl Alcohol mg/dL (0-3) mg/dl COVID-19 Eval Order SARS-CoV-2, RNA, NAAT (NEGATIVE) 04/30/20 04/30/20 04/30/20 Range/Units 20:26 20:26 19:32 WBC (4.8-10.8) K/uL RBC (4.7-6.1) M/uL Hgb (14.0-18.0) g/dL Hct (42-52) % MCV (80-100) fL MCH (25-34) pg MCHC (32-36) g/dL RDW Std Deviation (36.4-46.3) fL RDW Coeff of Daquan (11.5-14.5) % Plt Count (130-400) K/uL MPV (7.4-10.4) fL Immature Gran % (Auto) % Neut % (Auto) % Lymph % (Auto) % [place] % (Auto) % Eos % (Auto) % Baso % (Auto) % Neut # (Auto) (1.4-6.5) K/uL Lymph # (Auto) (1.2-3.4) K/uL [place] # (Auto) (0.11-0.59) K/uL Eos # (Auto) (0-0.5) K/uL Baso # (Auto) (0-0.2) K/uL Immature Gran # (Auto) (0.00-0.02) K/uL PT (9.0-12.0) Seconds INR (0.9-1.1) APTT (21.0-31.0) Seconds PTT Ratio Sodium (136-145) mmol/L Potassium (3.5-5.1) mmol/L Chloride (98-107) mmol/L Carbon Dioxide (21-32) mmol/L Anion Gap (3-11) BUN (7-18) mg/dl Creatinine (0.6-1.4) mg/dl Est Cr Clr Drug Dosing Est GFR ( Amer) Est GFR (Non-Af Amer) BUN/Creatinine Ratio (10-20) Glucose (70-99) mg/dl Estimat Average Glucose mg/dl Hemoglobin A1c (4.5-5.6) % Osmolality (280-300) mOsm/kg Calcium (8.5-10.1) mg/dl Total Bilirubin (0.2-1) mg/dl AST (15-37) U/L ALT (12-78) U/L Alkaline Phosphatase (45-117) U/L Total Protein (6.4-8.2) gm/dl Albumin (3.4-5.0) gm/dl Globulin (2.5-4.0) gm/dl Albumin/Globulin Ratio (0.9-2) Triglycerides (0-150) mg/dl Cholesterol (0-200) mg/dl LDL Cholesterol, Calc mg/dl VLDL Cholesterol, Calc mg/dl HDL Cholesterol mg/dl Cholesterol/HDL Ratio TSH (0.300-4.500) uIu/ml Urine Color Urine Appearance (Clear) Urine pH (4.5-7.5) Ur Specific [place] (1.000-1.030) Urine Protein (Negative) Urine Glucose (UA) (Negative) Urine Ketones (Negative) Urine Blood (Negative) Urine Nitrite (Negative) Urine Bilirubin (Negative) Urine Urobilinogen (Negative) Ur Leukocyte Esterase (Negative) Urine Osmolality (500-800) mOsm/kg Urine Sodium 40 mmol/L Urine Potassium 16.6 mmol/L Urine Chloride 33 mmol/L Ethyl Alcohol mg/dL (0-3) mg/dl COVID-19 Eval Order Covid19 IDNow atMIAC SARS-CoV-2, RNA, NAAT NEGATIVE (NEGATIVE) 04/30/20 04/30/20 04/30/20 Range/Units 19:32 19:32 18:48 WBC (4.8-10.8) K/uL RBC (4.7-6.1) M/uL Hgb (14.0-18.0) g/dL Hct (42-52) % MCV (80-100) fL MCH (25-34) pg MCHC (32-36) g/dL RDW Std Deviation (36.4-46.3) fL RDW Coeff of Daquan (11.5-14.5) % Plt Count (130-400) K/uL MPV (7.4-10.4) fL Immature Gran % (Auto) % Neut % (Auto) % Lymph % (Auto) % [place] % (Auto) % Eos % (Auto) % Baso % (Auto) % Neut # (Auto) (1.4-6.5) K/uL Lymph # (Auto) (1.2-3.4) K/uL [place] # (Auto) (0.11-0.59) K/uL Eos # (Auto) (0-0.5) K/uL Baso # (Auto) (0-0.2) K/uL Immature Gran # (Auto) (0.00-0.02) K/uL PT (9.0-12.0) Seconds INR (0.9-1.1) APTT (21.0-31.0) Seconds PTT Ratio Sodium (136-145) mmol/L Potassium (3.5-5.1) mmol/L Chloride (98-107) mmol/L Carbon Dioxide (21-32) mmol/L Anion Gap (3-11) BUN (7-18) mg/dl Creatinine (0.6-1.4) mg/dl Est Cr Clr Drug Dosing Est GFR ( Amer) Est GFR (Non-Af Amer) BUN/Creatinine Ratio (10-20) Glucose (70-99) mg/dl Estimat Average Glucose mg/dl Hemoglobin A1c (4.5-5.6) % Osmolality (280-300) mOsm/kg Calcium (8.5-10.1) mg/dl Total Bilirubin (0.2-1) mg/dl AST (15-37) U/L ALT (12-78) U/L Alkaline Phosphatase (45-117) U/L Total Protein (6.4-8.2) gm/dl Albumin (3.4-5.0) gm/dl Globulin (2.5-4.0) gm/dl Albumin/Globulin Ratio (0.9-2) Triglycerides (0-150) mg/dl Cholesterol (0-200) mg/dl LDL Cholesterol, Calc mg/dl VLDL Cholesterol, Calc mg/dl HDL Cholesterol mg/dl Cholesterol/HDL Ratio TSH (0.300-4.500) uIu/ml Urine Color Yellow Urine Appearance Clear (Clear) Urine pH 7.0 (4.5-7.5) Ur Specific [place] 1.008 (1.000-1.030) Urine Protein Negative (Negative) Urine Glucose (UA) Negative (Negative) Urine Ketones Negative (Negative) Urine Blood Negative (Negative) Urine Nitrite Negative (Negative) Urine Bilirubin Negative (Negative) Urine Urobilinogen Negative (Negative) Ur Leukocyte Esterase Negative (Negative) Urine Osmolality 160 L (500-800) mOsm/kg Urine Sodium mmol/L Urine Potassium mmol/L Urine Chloride mmol/L Ethyl Alcohol mg/dL < 3.0 (0-3) mg/dl COVID-19 Eval Order SARS-CoV-2, RNA, NAAT (NEGATIVE) 04/30/20 04/30/20 04/30/20 Range/Units 18:48 18:48 18:48 WBC (4.8-10.8) K/uL RBC (4.7-6.1) M/uL Hgb (14.0-18.0) g/dL Hct (42-52) % MCV (80-100) fL MCH (25-34) pg MCHC (32-36) g/dL RDW Std Deviation (36.4-46.3) fL RDW Coeff of Daquan (11.5-14.5) % Plt Count (130-400) K/uL MPV (7.4-10.4) fL Immature Gran % (Auto) % Neut % (Auto) % Lymph % (Auto) % [place] % (Auto) % Eos % (Auto) % Baso % (Auto) % Neut # (Auto) (1.4-6.5) K/uL Lymph # (Auto) (1.2-3.4) K/uL [place] # (Auto) (0.11-0.59) K/uL Eos # (Auto) (0-0.5) K/uL Baso # (Auto) (0-0.2) K/uL Immature Gran # (Auto) (0.00-0.02) K/uL PT 9.9 (9.0-12.0) Seconds INR 1.0 (0.9-1.1) APTT 26.2 (21.0-31.0) Seconds PTT Ratio 1.0 Sodium 127 L (136-145) mmol/L Potassium 4.6 (3.5-5.1) mmol/L Chloride 96 L (98-107) mmol/L Carbon Dioxide 24 (21-32) mmol/L Anion Gap 7.0 (3-11) BUN 8 (7-18) mg/dl Creatinine 0.79 (0.6-1.4) mg/dl Est Cr Clr Drug Dosing Not Reportable Est GFR ( Amer) 105.4 Est GFR (Non-Af Amer) 91.0 BUN/Creatinine Ratio 9.6 L (10-20) Glucose 84 (70-99) mg/dl Estimat Average Glucose mg/dl Hemoglobin A1c (4.5-5.6) % Osmolality 264 L (280-300) mOsm/kg Calcium 9.6 (8.5-10.1) mg/dl Total Bilirubin 0.9 (0.2-1) mg/dl AST 19 (15-37) U/L ALT 18 (12-78) U/L Alkaline Phosphatase 59 (45-117) U/L Total Protein 7.9 (6.4-8.2) gm/dl Albumin 3.8 (3.4-5.0) gm/dl Globulin 4.1 H (2.5-4.0) gm/dl Albumin/Globulin Ratio 0.9 (0.9-2) Triglycerides (0-150) mg/dl Cholesterol (0-200) mg/dl LDL Cholesterol, Calc mg/dl VLDL Cholesterol, Calc mg/dl HDL Cholesterol mg/dl Cholesterol/HDL Ratio TSH 2.380 (0.300-4.500) uIu/ml Urine Color Urine Appearance (Clear) Urine pH (4.5-7.5) Ur Specific [place] (1.000-1.030) Urine Protein (Negative) Urine Glucose (UA) (Negative) Urine Ketones (Negative) Urine Blood (Negative) Urine Nitrite (Negative) Urine Bilirubin (Negative) Urine Urobilinogen (Negative) Ur Leukocyte Esterase (Negative) Urine Osmolality (500-800) mOsm/kg Urine Sodium mmol/L Urine Potassium mmol/L Urine Chloride mmol/L Ethyl Alcohol mg/dL (0-3) mg/dl COVID-19 Eval Order SARS-CoV-2, RNA, NAAT (NEGATIVE) 04/30/20 Range/Units 18:48 WBC 5.62 (4.8-10.8) K/uL RBC 4.21 L (4.7-6.1) M/uL Hgb 14.0 (14.0-18.0) g/dL Hct 38.2 L (42-52) % MCV 90.7 (80-100) fL MCH 33.3 (25-34) pg MCHC 36.6 H (32-36) g/dL RDW Std Deviation 41.6 (36.4-46.3) fL RDW Coeff of Daquan 12.6 (11.5-14.5) % Plt Count 274 (130-400) K/uL MPV 8.6 (7.4-10.4) fL Immature Gran % (Auto) 0.4 % Neut % (Auto) 73.8 % Lymph % (Auto) 16.9 % [place] % (Auto) 8.4 % Eos % (Auto) 0.5 % Baso % (Auto) 0.0 % Neut # (Auto) 4.15 (1.4-6.5) K/uL Lymph # (Auto) 0.95 L (1.2-3.4) K/uL [place] # (Auto) 0.47 (0.11-0.59) K/uL Eos # (Auto) 0.03 (0-0.5) K/uL Baso # (Auto) 0.00 (0-0.2) K/uL Immature Gran # (Auto) 0.02 (0.00-0.02) K/uL PT (9.0-12.0) Seconds INR (0.9-1.1) APTT (21.0-31.0) Seconds PTT Ratio Sodium (136-145) mmol/L Potassium (3.5-5.1) mmol/L Chloride (98-107) mmol/L Carbon Dioxide (21-32) mmol/L Anion Gap (3-11) BUN (7-18) mg/dl Creatinine (0.6-1.4) mg/dl Est Cr Clr Drug Dosing Est GFR ( Amer) Est GFR (Non-Af Amer) BUN/Creatinine Ratio (10-20) Glucose (70-99) mg/dl Estimat Average Glucose mg/dl Hemoglobin A1c (4.5-5.6) % Osmolality (280-300) mOsm/kg Calcium (8.5-10.1) mg/dl Total Bilirubin (0.2-1) mg/dl AST (15-37) U/L ALT (12-78) U/L Alkaline Phosphatase (45-117) U/L Total Protein (6.4-8.2) gm/dl Albumin (3.4-5.0) gm/dl Globulin (2.5-4.0) gm/dl Albumin/Globulin Ratio (0.9-2) Triglycerides (0-150) mg/dl Cholesterol (0-200) mg/dl LDL Cholesterol, Calc mg/dl VLDL Cholesterol, Calc mg/dl HDL Cholesterol mg/dl Cholesterol/HDL Ratio TSH (0.300-4.500) uIu/ml Urine Color Urine Appearance (Clear) Urine pH (4.5-7.5) Ur Specific [place] (1.000-1.030) Urine Protein (Negative) Urine Glucose (UA) (Negative) Urine Ketones (Negative) Urine Blood (Negative) Urine Nitrite (Negative) Urine Bilirubin (Negative) Urine Urobilinogen (Negative) Ur Leukocyte Esterase (Negative) Urine Osmolality (500-800) mOsm/kg Urine Sodium mmol/L Urine Potassium mmol/L Urine Chloride mmol/L Ethyl Alcohol mg/dL (0-3) mg/dl COVID-19 Eval Order SARS-CoV-2, RNA, NAAT (NEGATIVE)
--- NOTE | 2020-05-01 11:03 | Consultation Report ---
DATE OF CONSULTATION: 05/01/2020 NEPHROLOGY CONSULTATION NOTE REASON FOR CONSULT: Hyponatremia. HISTORY OF PRESENT ILLNESS: The patient is a 69-year-old male who presented to the hospital yesterday because of confusion. He was brought by his who thought the patient was very confused. The patient had a fall 2 weeks prior with healing fracture of the ribs on the left side. The patient has problem with drinking alcohol and even now he drinks at least 5-6 beers every day and smokes 1-2 pack of cigarettes every day. The patient was noted to have hyponatremia with a serum sodium of 127. Overnight, he was on fluid restriction and with that, serum sodium improved very fast and is now 135. He also got some IV fluid overnight. At this time, patient seems somewhat better from confusion standpoint. He denied any symptoms at this time. REVIEW OF SYSTEMS: Twelve systems reviewed and is negative. SOCIAL HISTORY: and lives with his , currently smokes 1-2 packs per day for the last 40 years. Alcohol, drinks 5-6 beers every day for the last 50 years. No drug use. FAMILY HISTORY: Negative for renal disease or dialysis. MEDICATIONS: At home includes Ellipta, amlodipine, atorvastatin, losartan, metoprolol, thiamine, and albuterol. It does not appear he is on any diuretics. No NSAIDs. PAST SURGICAL HISTORY: Testicular biopsy, cataracts, colonoscopy, EGDs. PAST MEDICAL HISTORY: Includes hyperlipidemia, COPD, hypertension, history of lung nodule, history of aortic root enlargement, moderate aortic regurgitation, history of colon polyp, ongoing alcohol abuse and tobacco abuse. ALLERGIES: None. PHYSICAL EXAMINATION: GENERAL: Elderly white male who is not in any major respiratory distress. He is of moderate build. VITAL SIGNS: Blood pressure 127/63, pulse rate 71, temperature 36.9, 91% on room air. HEENT: Mucous membranes moist. He does have facial redness. NECK: Supple. No jugular venous distention. CHEST: Bilaterally decreased breath sounds with prolonged expiration. CARDIOVASCULAR: S1 and S2, regular. Soft systolic murmur heard. ABDOMEN: Soft, nontender. EXTREMITIES: Show no edema. LABORATORY TESTS: Blood work shows serum sodium was 127 yesterday evening, this morning it is 135. Renal function is normal with a BUN of 7 and creatinine of 0.75. He had an MRI of his brain done yesterday, which did not show any acute findings. Chest x-ray shows unremarkable. ASSESSMENT AND PLAN: A 69-year-old male admitted with confusion. He was noted to have hyponatremia, which does not seem to be a completely new problem. I have been consulted for hyponatremia. Hyponatremia: This is related with excessive fluid intake in the form of beer. He drinks 5-6 beers that he admits to every day, but I have a strong suspicion he drinks more than that. Serum sodium was 127, which is low, but not really low enough to cause confusion. Overnight, it improved to 135 fairly easily and quickly. Even though the rate of rise is pretty high, but it is happening at a much higher level of hyponatremia, so there is really no risk of any overcorrection at this level. No further workup is needed. RECOMMENDATIONS: 1. Stable from hyponatremia standpoint. 2. At home, he needs to cut back on the amount of beer he is drinking. He does not necessarily need a fluid restriction like we do for SIADH as this is not a case of SIADH, but more of a case of beer potomania. 3. Recommend to increase food intake, especially protein. 4. Decrease the fluid intake to a normal level from excessive level at this time. 5. Follow up with primary care next week with BMP.
--- NOTE | 2020-05-01 13:01 | Neurology Consultation ---
Date of Consultation May 01, 2020 Assessment & Plan (1) Acute metabolic encephalopathy: 1. MRI no evidence of stroke, significant white matter changes 2. no evidence of seizure 3. if no contra indiction would start aspirin 81 mg 4. optimize HTN, HLD, LDL <70 5. no follow up with neurology needed back to baseline (2) Hyponatremia: 1. corrected and patient back to baseline 2. needs nutritional education Present on Admission?: Yes (3) Alcohol abuse: 1. currently EtOH use is 5-6 drinks or more per day- needs education on withdrawal symptoms 2. outpatient counciling for EtOH abuse 3. discussed smoking cessations- 03/14 ppd smoker currently 4. follow up with PCP for further medical management Present on Admission?: Yes Supervising Physician Co-Signing Physician Notes I have seen and discussed above patient with Dr Marcelo Ray, neurology I have examined and interviewed this man reviewed his chart discussed the above note with Dina Ch PA-C and suspect that this is a recurrent episode of hyponatremia with transient encephalopathy now improving. We certainly have no significant changes on MRI and some leukoencephalopathy and nothing acute, there is no evidence of significant extracranial vascular disease and an EEG is normal but his serum sodium was 127 and he does have a history of excessive ethanol use on a daily basis. Some of this may be delusional hyponatremia. I do not know how much the work-up he had on an outpatient basis guarding SIADH and I will know if he was on a program of fluid restriction but at this point I think he needs to try to taper off his ethanol consumption or least the volume of fluid he drinks per day and follow-up with his primary care physician and have his serum sodium monitored on a regular basis if it has not been done so already Neurology really does not need to see him in follow-up as there is no evidence for cerebrovascular event, an abnormality on EEG, a clinical seizure and I do not think this was an episode of transient global amnesia as he recalls all the events of yesterday but was unable to really formulate his thinking and was amnestic for appointments that he needed to attend. At this point his memory seems to be normal and his neurologic examination is unremarkable in terms revealing no focal findings or clear evidence of a polyneuropathy or cerebellar syndrome that may reflect the effects of his chronic ethanol ingestion If stable from medical point of view neurology has no reason to recommend that he stay in the hospital and no reason that he needs to be followed up in our clinic Marcelo Ray MD History of Present Illness Reason for Consultation: confusion TIA Requesting Physician: Ryan Mejia MD Attending Physician: Ryan Mejia MD History of Present Illness Handy is a 69 year old male with PMH- HLD, COPD, history of lung nodule, history of aortic root enlargement, moderate aortic regurgitation, HTN, history of colon polyp, ongoing EtOH and tobacco abuse. Lives with his and was brought to [facility] to be evaluated for confusion. He had a fall 2 weeks prior with healing fracture of the ribs left side, fell on the snow. He had some appointment, could not remember what it was or where he was supposed to go, could not remember how to go to the office today. His who is a nurse, checked his pulse, it seemed to be regular on 2 occasions. He drinks 5-6 beers every day and smokes 1-2 packs of cigarettes everyday for many years. There have been similar episodes in the past but only lasted a couple of hours. He went to his PCP showing low sodium and he was advised to come to the hospital. is concerned that he was having TIAs. he is feeling back to his baseline. He is planning on stopping his drinking habits and also plans to stop smoking. denies CP, SOB, abdominal pain, N, V. Allergies Allergy/AdvReac Type Severity Reaction Status Date / Time No Known Allergies Allergy Unverified 04/30/20 20:50 Home Medications Medication Instructions Recorded Confirmed Type amlodipine [Norvasc] 5 mg PO DAILY 04/30/20 04/30/20 History atorvastatin [Lipitor] 20 mg PO DAILY 04/30/20 04/30/20 History losartan [Cozaar] 100 mg PO DAILY 04/30/20 04/30/20 History metoprolol succinate 50 mg PO DAILY 04/30/20 04/30/20 History thiamine HCl (vitamin B1) [Vitamin 100 mg PO DAILY 04/30/20 04/30/20 History B-1] umeclidinium [Incruse Ellipta] 1 inh INHALATION DAILY 04/30/20 04/30/20 History Patient History Social History (Updated 04/30/20 @ 20:18 by Kumar Moore MD) Smoking Status: Current every day smoker Cigarettes Per Day: 1.5-2; Hx Alcohol Use: Yes Alcohol type: beer Alcohol Intake Frequency: 4 or More x per/Week Hx Substance Use: No Preferred Language: [place] Communication Ability: Effective Cellophane Bath Mixer Required: Yes Beliefs That Will Affect Care: None Current Living Situation: Spouse Other Information That Helps Us Care for You: No Feels Safe at Home: Yes Assistive Devices: None Review of Systems Review of Systems: All systems reviewed & are unremarkable except as noted in HPI & below Physical Exam Physical Exam: Physical Exam: Constitutional: appearance thin Ears, Nose, Mouth and Throat: mucous membranes moist, no injection and skin normal, eyes normal Cardiovascular: normal S-1 and S-2 and regular rate and rhythm Respiratory: course breath sounds Musculoskeletal: no peripheral edema Skin: rosacea of nose, LE to mid thigh venous stasis Eyes: extraocular muscles intact (EOMI) and pupils equal, round and reactive to light (PERRL) NEUROLOGIC EXAMINATION: Mental status: Alert and interactive Oriented to full date and location Oriented to person Speech fluent with no evidence of aphasia Cranial Nerves smile eye brow raise symmetric Reflexes: Deep tendon reflexes were symmetrical and graded 2/5. down going toes Sensory: decreased sensation mid calf to feet with cool touch, vibration hypersensative Coordination: finger to nose, fine tremor, heel to ashton Gait/Stance: Posture normal. Gait normal: with steady with steps, base, turning, tandem gait. Motor: Negative for pronator drift of out stretched arms with eyes closed. Strength: hand web feeder biceps triceps 5/5 bilaterally hip flex patellar plantar flex ext 5/5 bilaterally Results & Data ([facility]) Vital Signs (Past 12 Hours) Vital Signs Temp Pulse Pulse Resp BP Pulse Ox 05/01/20 07:49 36.9 C 71 20 127/63 91 05/01/20 07:23 75 05/01/20 04:00 36.9 C 73 18 128/66 96 05/01/20 03:16 69 Laboratory Results Abnormal lab results 04/30/20 04/30/20 04/30/20 Range/Units 18:48 18:48 18:48 WBC (4.8-10.8) K/uL RBC 4.21 L (4.7-6.1) M/uL Hgb (14.0-18.0) g/dL Hct 38.2 L (42-52) % MCHC 36.6 H (32-36) g/dL Lymph # (Auto) 0.95 L (1.2-3.4) K/uL [place] # (Auto) (0.11-0.59) K/uL Sodium 127 L (136-145) mmol/L Chloride 96 L (98-107) mmol/L BUN/Creatinine Ratio 9.6 L (10-20) Osmolality 264 L (280-300) mOsm/kg Globulin 4.1 H (2.5-4.0) gm/dl Urine Osmolality (500-800) mOsm/kg 04/30/20 05/01/20 05/01/20 Range/Units 19:32 06:58 06:58 WBC 4.19 L (4.8-10.8) K/uL RBC 3.79 L (4.7-6.1) M/uL Hgb 12.4 L (14.0-18.0) g/dL Hct 34.8 L (42-52) % MCHC (32-36) g/dL Lymph # (Auto) 1.12 L (1.2-3.4) K/uL [place] # (Auto) 0.75 H (0.11-0.59) K/uL Sodium 135 L D (136-145) mmol/L Chloride (98-107) mmol/L BUN/Creatinine Ratio 9.2 L (10-20) Osmolality (280-300) mOsm/kg Globulin (2.5-4.0) gm/dl Urine Osmolality 160 L (500-800) mOsm/kg Diagnostic Findings carotid doppler- No hemodynamically significant stenosis seen within the bilateral common or internal carotid arteries. Mild stenosis within the right external carotid artery. MRI brain- No acute intracranial findings. No evidence of acute or subacute infarction No evidence of intracranial mass This EEG is normal and reveals no evidence for focal generalized encephalopathy no evidence for potentially epileptogenic activity.
--- NOTE | 2020-05-01 13:43 | Electroencephalogram ---
EEG Procedure Note Date of Service May 01, 2020 Start / End Times Start Time: 216 End Time: 236 Referring Physician Ryan Mejia MD History Confusion with hyponatremia question nonconvulsive seizures Home Medication List Medication Instructions Recorded Confirmed Type amlodipine [Norvasc] 5 mg PO DAILY 04/30/20 04/30/20 History atorvastatin [Lipitor] 20 mg PO DAILY 04/30/20 04/30/20 History losartan [Cozaar] 100 mg PO DAILY 04/30/20 04/30/20 History metoprolol succinate 50 mg PO DAILY 04/30/20 04/30/20 History thiamine HCl (vitamin B1) [Vitamin 100 mg PO DAILY 04/30/20 04/30/20 History B-1] umeclidinium [Incruse Ellipta] 1 inh INHALATION DAILY 04/30/20 04/30/20 History Inpatient Medication List Acetaminophen (Acetaminophen 325 Mg Tab) 650 mg PO Q4H PRN PRN Reason: Pain or Fever Stop: 05/30/20 21:48 Last Admin: 05/01/20 09:42 Dose: 650 mg Documented by: [id number] Amlodipine Besylate (Amlodipine Besylate 5 Mg Tab) 5 mg PO DAILY [facility] Stop: 05/31/20 08:59 Last Admin: 05/01/20 08:06 Dose: 5 mg Documented by: [id number] Atorvastatin Calcium (Atorvastatin 20 Mg Tab) 20 mg PO DAILY [facility] Stop: 05/31/20 08:59 Last Admin: 05/01/20 08:08 Dose: 20 mg Documented by: [id number] Folic Acid 1 mg/ Syringe 10 mls @ 5 mls/min IV QAM [facility] Stop: 05/31/20 08:59 Last Admin: 05/01/20 08:07 Dose: 5 mls/min Documented by: [id number] Losartan Potassium (Losartan Potassium 50 Mg Tab) 100 mg PO DAILY [facility] Stop: 05/31/20 08:59 Last Admin: 05/01/20 08:06 Dose: 100 mg Documented by: [id number] Metoprolol Succinate (Metoprolol Succ 50mg Ext Rel Tab) 50 mg PO DAILY [facility] Stop: 05/31/20 08:59 Last Admin: 05/01/20 08:07 Dose: 50 mg Documented by: [id number] Miscellaneous (Remove Nicoderm Patch) 1 ea N/A DAILY@[id number] [facility] Stop: 05/31/20 08:58 Last Admin: 05/01/20 08:09 Dose: Not Given Documented by: [id number] Nicotine (Nicotine 21 Mg/24 Hr Tdsy) 21 mg TD DAILY [facility] Stop: 05/30/20 22:14 Last Admin: 05/01/20 08:08 Dose: 21 mg Documented by: [id number] Admin: 04/30/20 23:47 Dose: Not Given Documented by: [id number] Thiamine HCl (Thiamine Hcl 100 Mg Tab) 100 mg PO QAM [facility] Stop: 05/30/20 22:14 Last Admin: 05/01/20 08:08 Dose: 100 mg Documented by: [id number] Admin: 04/30/20 23:49 Dose: 100 mg Documented by: [id number] Umeclidinium [place] (Umeclidinium [place] 62.5mcg/Blister 7 Puffs/Inhaler) 1 puffs INH DAILY [facility] Stop: 05/31/20 08:59 Last Admin: 05/01/20 08:09 Dose: 1 puffs Documented by: [id number] Discontinued Medications Gabapentin (Gabapentin 600 Mg Tab) 1,200 mg PO NOW ONE Stop: 04/30/20 22:16 Last Admin: 04/30/20 23:49 Dose: 1,200 mg Documented by: [id number] Gabapentin (Gabapentin 600 Mg Tab) 600 mg PO Q6H [facility] Stop: 05/01/20 12:01 Last Admin: 05/01/20 11:35 Dose: 600 mg Documented by: [id number] Admin: 05/01/20 06:03 Dose: 600 mg Documented by: [id number] Gadobutrol (Gadobutrol 65ml Vial) 7 ml IV ONCE ONE Stop: 04/30/20 23:02 Last Admin: 04/30/20 23:01 Dose: 7 ml Documented by: [id number] Sodium Chloride (Nss 1000ml) 1,000 mls @ 999 mls/hr IV .Q1H1M ONE Stop: 04/30/20 19:17 Last Infusion: 04/30/20 20:36 Dose: 0 mls/hr Documented by: [id number] Admin: 04/30/20 19:31 Dose: 999 mls/hr Documented by: [id number] Multivitamins 10 ml/ Thiamine HCl 100 mg/ Folic Acid 1 mg/Sodium Chloride 1,011.2 mls @ 500 mls/hr IV .Q2H2M ONE Stop: 05/01/20 00:16 Last Infusion: 05/01/20 01:51 Dose: 0 mls/hr Documented by: [id number] Admin: 04/30/20 23:48 Dose: 500 mls/hr Documented by: [id number] Description This is a 21 electrode EEG with a single channel dedicated to limited EKG. The electrodes were placed in accordance with the International 10-20 system. This EEG is done as a bedside recording and is of excellent technical quality with few or no muscle movement artifacts. Video analysis of patient behavior was obtained. Photic stimulation was performed. After elation was not obtained nor were drowsiness and light sleep. Under these conditions there is evidence for normal-appearing background rhythm in the alpha range of up to 10 Hz maximal frequency of up to 30 V maximal amplitude. This attenuates during eye opening. The pattern is maximumin posterior head regions, is bilaterally symmetrical. Theta activity of mid range and of moderate amplitude is seen symmetrically over the central regions. Beta activity seen bifrontally. Functionally provokes modest driving response No evidence for potentially epileptogenic activity was seen Interpretation This a normal EEG during wakefulness Clinical Correlation This EEG is normal and reveals no evidence for focal generalized encephalopathy no evidence for potentially epileptogenic activity. Marcelo Ray MD
--- NOTE | 2020-05-02 05:05 | Electrocardiogram Report ---
Test Reason : Blood Pressure : / mmHG Vent. Rate : 071 BPM Atrial Rate : 071 BPM P-R Int : 152 ms QRS Dur : 080 ms QT Int : 430 ms P-R-T Axes : 041 -26 010 degrees QTc Int : 467 ms Normal sinus rhythm Cannot rule out Septal infarct , age undetermined Abnormal ECG No previous ECGs available Confirmed by Bryant Ruiz ([id number]) on 05/02/2020 5:05:06 AM Referred By: REFERRED SELF Confirmed By:Bryant Ruiz
[2020-05-02] MEDS: GABAPENTIN 600 MG TAB PO SCH (06:07)
[2020-05-02 07:29] LABS: Basophils # (auto) 0.02 K/uL (0-0.2); Basophils % (auto) 0.4 %; Eosinophils # (auto) 0.15 K/uL (0-0.5); Eosinophils % (auto) 3.1 %; Hematocrit (blood only) 33.6 % (42-52); Immature Granulocytes # (auto) 0.01 K/uL (0.00-0.02); Immature Granulocytes % (auto) 0.2 %; Lymphocytes # (auto) 1.24 K/uL (1.2-3.4); Lymphocytes % (auto) 25.3 %; Mean Corpuscular Hgb Conc 35.7 g/dL (32-36); Mean Corpuscular Volume 92.3 fL (80-100); Mean Platelet Volume 8.5 fL (7.4-10.4); Monocytes # (auto) 0.82 K/uL (0.11-0.59); Monocytes % (auto) 16.7 %; Neutrophils # (auto) 2.67 K/uL (1.4-6.5); Neutrophils % (auto) 54.3 %; Platelet Count 232 K/uL (130-400); RDW Coefficient of Variation 12.9 % (11.5-14.5); RDW Standard Deviation 43.7 fL (36.4-46.3); Red Blood Count 3.64 M/uL (4.7-6.1); White Blood Count 4.91 K/uL (4.8-10.8)
[2020-05-02 07:57] LABS: BUN Creatinine Ratio 18.6 (10-20); Calcium 8.5 mg/dl (8.5-10.1); Creatinine Clr Calc Pharmacy 78.7 ml/min; Est GFR (African American) 102.8; Est GFR (Non-African American) 88.7; Potassium 3.6 mmol/L (3.5-5.1)
--- NOTE | 2020-05-02 08:00 | Hospitalist Progress Note ---
Date of Service May 02, 2020 Assessment & Plan (1) Acute metabolic encephalopathy: Metabolic & Alcoholic encephalopathy in setting of hyponatremia and alcoholism (2) Hyponatremia: (3) Alcohol abuse: This is a 69 y/o male who presents with confusion and hyponatremia. 1. Confusion, probably metabolic from hyponatremia, could be from his chronic alcoholism, rule out TIA, CVA. CT of the head is unremarkable. MRI brain - negative for acute stroke. Carotid Doppler - No hemodynamically significant stenosis seen within the bilateral common or internal carotid arteries. Mild stenosis within the right external carotid artery. Echo - normal LV chamber size with moderate concentric LVH. Normal LV systolic function, EF 55 to 60%. No segmental left ventricular wall motion abnormalities are noted. Grade 1 diastolic dysfunction. Trileaflet aortic valve with mild sclerosis, no stenosis. Mild aortic regurg. Mild tricuspid regurg. Mild enlargement of the ascending aorta measuring 4.2 cm. The interatrial septum is intact with no evidence of an atrial septal defect. Injection of contrast documented no interatrial shunt. Neurology was also consulted, appreciate their input EEG - negative for any possible seizure activity Recommend smoking cessation, and taper off alcohol use Consider aspirin 81 mg daily PT/OT. Monitor in the med tele. 2. Hyponatremia. Sodium 127, urine osmolality 160, urine sodium 40 Hyponatremia most likely due to beer potomania. Patient received 1 L of normal saline overnight from ED, and was on fluid restriction of 1500 mL. Sodium repeat a.m. 135, now 133 Nephrology consulted, appreciate their input. - pt does not necessarily need a fluid restriction like we do for SIADH as this is not a case of SIADH, but more of a case of beer potomania. - Recommend to increase food intake, especially protein. - Decrease the fluid intake to a normal level from excessive level at this time. - Follow up with primary care next week with BMP. 3. Alcoholism, drinks 5-6 beers every day. Monitor for withdrawal, starting on gabapentin protocol, IV Ativan p.r.n., banana bag and continue with p.o. thiamine and folic acid. 4. Tobacco abuse, counseling. 5. COPD, continue his home inhalers, currently stable. 6. Hypertension. Continue his losartan, metoprolol and amlodipine. We will follow the blood pressure. 7. Hyperlipidemia. Continue statin. 8. History of aortic root enlargement, moderate aortic regurgitation. Follow the echocardiogram, as above. DVT prophylaxis, SCDs . Disposition: Closely monitor in the med tele. Expect discharge home and follow with family doctor. Admission and Anticipated Discharge Date Admission Date: April 30, 2020 Subjective Patient seen in follow-up of AMS, hyponatremia Patient is sitting in bed, in no acute distress Reports that he feels back to himself, and is inquiring about going home Sodium this morning 133 Denies chest pain, shortness of breath, headache, dizziness Review of Systems Review of Systems: All systems reviewed & are unremarkable except as noted in HPI & below Constitutional: no fever and no chills Respiratory: no cough and no dyspnea Cardiovascular: no chest pain and no palpitations Gastrointestinal: no abdominal pain, no nausea and no vomiting Physical Exam Physical Exam: GENERAL: The patient is of moderate build, not in acute distress. HEENT: Pupils equal, round, and reactive to light. Extraocular muscles intact. No pallor, no icterus. Oral mucosa moist. No facial droop. NECK: No JVD, no neck masses. No rhonchi. CARDIOVASCULAR: S1, S2 heard, regular rate and rhythm, no murmur, no gallop. RESPIRATORY SYSTEM: Normal AP diameter. No accessory muscle use. No wheezing, no crackles. ABDOMEN: Soft, bowel sounds present, nontender. No distention. NEURO: Alert and oriented x3, speech fluent, no facial asymmetry, cranial nerves II-XII grossly intact. Extraocular muscles intact. Moves extremities spontaneously EXTREMITIES: Bilateral lower extremity pedal edema present. No erythema Results & Data Results & Data ([facility]) Vital Signs (Past 12 Hours) Vital Signs Temp Pulse Pulse Resp BP Pulse Ox 05/02/20 07:21 37.4 C 67 18 114/60 94 05/02/20 04:34 36.4 C L 67 18 115/60 96 05/02/20 04:04 70 05/01/20 23:19 36.7 C 73 18 116/58 L 96 Laboratory Results 05/02/20 05/02/20 Range/Units 07:07 07:07 WBC 4.91 (4.8-10.8) K/uL RBC 3.64 L (4.7-6.1) M/uL Hgb 12.0 L (14.0-18.0) g/dL Hct 33.6 L (42-52) % MCV 92.3 (80-100) fL MCH 33.0 (25-34) pg MCHC 35.7 (32-36) g/dL RDW Std Deviation 43.7 (36.4-46.3) fL RDW Coeff of [place]qu[place] 12.9 (11.5-14.5) % Plt Count 232 (130-400) K/uL MPV 8.5 (7.4-10.4) fL Immature Gran % (Auto) 0.2 % Neut % (Auto) 54.3 % Lymph % (Auto) 25.3 % [place] % (Auto) 16.7 % Eos % (Auto) 3.1 % Baso % (Auto) 0.4 % Neut # (Auto) 2.67 (1.4-6.5) K/uL Lymph # (Auto) 1.24 (1.2-3.4) K/uL [place] # (Auto) 0.82 H (0.11-0.59) K/uL Eos # (Auto) 0.15 (0-0.5) K/uL Baso # (Auto) 0.02 (0-0.2) K/uL Immature Gran # (Auto) 0.01 (0.00-0.02) K/uL Sodium 133 L (136-145) mmol/L Potassium 3.6 (3.5-5.1) mmol/L Chloride 103 (98-107) mmol/L Carbon Dioxide 25 (21-32) mmol/L Anion Gap 5.0 (3-11) BUN 16 D (7-18) mg/dl Creatinine 0.84 (0.6-1.4) mg/dl Est Cr Clr Drug Dosing 78.7 ml/min Est GFR ( Amer) 102.8 Est GFR (Non-Af Amer) 88.7 BUN/Creatinine Ratio 18.6 (10-20) Glucose 88 (70-99) mg/dl Calcium 8.5 (8.5-10.1) mg/dl Medications Administered Current Inpatient Medications Acetaminophen (Acetaminophen 325 Mg Tab) 650 mg PO Q4H PRN PRN Reason: Pain or Fever Stop: 05/30/20 21:48 Last Admin: 05/01/20 09:42 Dose: 650 mg Documented by: Albuterol (Albuterol 0.083% Nebu Soln 3 Ml Vial) 2.5 mg INH QID PRN PRN Reason: Shortness Of Breath Or Wheezing Stop: 05/30/20 21:48 Amlodipine Besylate (Amlodipine Besylate 5 Mg Tab) 5 mg PO DAILY [facility] Stop: 05/31/20 08:59 Last Admin: 05/01/20 08:06 Dose: 5 mg Documented by: Atorvastatin Calcium (Atorvastatin 20 Mg Tab) 20 mg PO DAILY [facility] Stop: 05/31/20 08:59 Last Admin: 05/01/20 08:08 Dose: 20 mg Documented by: Gabapentin (Gabapentin 600 Mg Tab) 600 mg PO Q8H [facility] Stop: 05/02/20 14:01 Last Admin: 05/02/20 06:07 Dose: 600 mg Documented by: Gabapentin (Gabapentin 600 Mg Tab) 600 mg PO Q12H [facility] Stop: 05/03/20 12:01 Gabapentin (Gabapentin 600 Mg Tab) 600 mg PO Q24H [facility] Stop: 05/04/20 12:01 Folic Acid 1 mg/ Syringe 10 mls @ 5 mls/min IV QAM [facility] Stop: 05/31/20 08:59 Last Admin: 05/01/20 08:07 Dose: 5 mls/min Documented by: Lorazepam (Ativan) 1 mg in 2 mls @ 2 mls/min IV UD PRN; Protocol PRN Reason: EtOH Withdrawl AWSS Score 6,7 Stop: 05/30/20 21:48 Lorazepam (Ativan) 2 mg in 4 mls @ 4 mls/min IV UD PRN; Protocol PRN Reason: EtOH Withdrawl AWSS Score 8,9 Stop: 05/30/20 21:48 Lorazepam (Ativan) 3 mg in 6 mls @ 4 mls/min IV ONCE PRN; Protocol PRN Reason: EtOH Withdrawl AWSS Score >=10 Stop: 05/30/20 21:48 Losartan Potassium (Losartan Potassium 50 Mg Tab) 100 mg PO DAILY [facility] Stop: 05/31/20 08:59 Last Admin: 05/01/20 08:06 Dose: 100 mg Documented by: Metoprolol Succinate (Metoprolol Succ 50mg Ext Rel Tab) 50 mg PO DAILY [facility] Stop: 05/31/20 08:59 Last Admin: 05/01/20 08:07 Dose: 50 mg Documented by: Miscellaneous (Remove Nicoderm Patch) 1 ea N/A DAILY@0859 [facility] Stop: 05/31/20 08:58 Last Admin: 05/01/20 08:09 Dose: Not Given Documented by: Miscellaneous Information (Pharmacist Discharge Med Rec Consult) 1 ea N/A UD PRN PRN Reason: Consult Stop: 05/30/20 21:48 Nicotine (Nicotine 21 Mg/24 Hr Tdsy) 21 mg TD DAILY [facility] Stop: 05/30/20 22:14 Last Admin: 05/01/20 08:08 Dose: 21 mg Documented by: Nitroglycerin (Nitroglycerin Sl 0.4 Mg/Tab Tab) 0.4 mg SL UD PRN PRN Reason: Chest Pain Stop: 05/30/20 21:48 Ondansetron HCl (Ondansetron Inj 2 Mg/Ml 2 Ml Vial) 4 mg IV Q6H PRN PRN Reason: Nausea Stop: 05/30/20 21:48 Polyethylene Glycol (Polyethylene (Miralax) 17 Gm Pack) 17 gm PO DAILY PRN PRN Reason: Constipation Stop: 05/30/20 21:48 Thiamine HCl (Thiamine Hcl 100 Mg Tab) 100 mg PO QAM [facility] Stop: 05/30/20 22:14 Last Admin: 05/01/20 08:08 Dose: 100 mg Documented by: Umeclidinium [place] (Umeclidinium [place] 62.5mcg/Blister 7 Puffs/Inhaler) 1 puffs INH DAILY [facility] Stop: 05/31/20 08:59 Last Admin: 05/01/20 08:09 Dose: 1 puffs Documented by:
[2020-05-02] MEDS: UMECLIDINIUM BROMIDE 62.5MCG/BLISTER 7 PUFFS/INHALER INH SCH (08:22)
[2020-05-02] MEDS: NICOTINE 21 MG/24 HR TDSY TD SCH (08:23)
[2020-05-02] MEDS: LOSARTAN POTASSIUM 50 MG TAB PO SCH (08:23)
[2020-05-02] MEDS: METOPROLOL SUCC 50MG EXT REL TAB PO SCH (08:23)
[2020-05-02] MEDS: ATORVASTATIN 20 MG TAB PO SCH (08:23)
[2020-05-02] MEDS: THIAMINE HCL 100 MG TAB PO SCH (08:23)
[2020-05-02] MEDS: FOLIC ACID 1 MG in SYRINGE 9.8 ML IV SCH (08:23)
[2020-05-02] MEDS: amLODIPine BESYLATE 5 MG TAB PO SCH (08:24)
[2020-05-02] MEDS ORDERED: STROKE PATIENT DISCHARGE STA (09:37)
--- NOTE | 2020-05-02 09:47 | Discharge Summary ---
Date of Service May 02, 2020 Admission HPI Per Admitting Provider This is a 69-year-old male with past medical history significant for hyperlipidemia, COPD, history of lung nodule, history of aortic root enlargement, moderate aortic regurgitation, hypertension, history of colon polyp, ongoing alcohol abuse and tobacco abuse. Lives with his , was brought in because of confusion. The patient had a fall 2 weeks prior with healing fracture of the ribs left side, fell on the snow. The patient reports confusion this morning when the alarm went off. He had some appointment, could not remember what it was or where he was supposed to go, could not remember how to go to the office today. His who is a nurse, checked his pulse, it seemed to be regular on 2 occasions. He drinks 5-6 beers every day and smokes 1-2 packs of cigarettes everyday for many years. It seemed the patient had similar episode a couple of months ago, but the confusion lasted only for a couple of hours but since this lasted longer, he went to PCP's office and checked labs showing low sodium and he was advised to come to the hospital. At that time, he did not have any facial droop. No slurred speech, no imbalance. No weakness in the hands or legs. Currently resting comfortably and hemodynamically stable, able to answer all his questions. Denies any headache. Earlier he had some dizziness. Denies any blurred vision or double vision, no earache, no runny nose, no sore throat, no cough, no dysphagia. Appetite is okay. No chest pain, no shortness of breath, no nausea, no abdominal pain. Normal bowel and bladder movements. No blood in stools or black stools. No hematuria or burning micturition, no rash. Sleeps okay. is concerned that he was having TIAs. His father has history of TIAs and after that he had a stroke. Admission Exam Per Admitting Provider GENERAL: The patient is of moderate build, not in acute distress. VITAL SIGNS: Temperature 36.7, pulse 91, respiratory rate 25, blood pressure 114/80, oxygen 98% on room air. HEENT: Pupils equal, round, and reactive to light. Extraocular muscles intact. No pallor, no icterus. Oral mucosa moist. No facial droop. NECK: No JVD, no neck masses. No rhonchi. CARDIOVASCULAR: S1, S2 heard, regular rate and rhythm, no murmur, no gallop. RESPIRATORY SYSTEM: Normal AP diameter. No accessory muscle use. No wheezing, no crackles. ABDOMEN: Soft, bowel sounds present, nontender. No distention. CENTRAL NERVOUS SYSTEM: Cranial nerves II-XII grossly intact. Speech clear. No facial droop. Extraocular muscles intact. Power 5/5 in all extremities. Sensation is intact, position sense intact. No pronator drift. Coordination of movements normal. EXTREMITIES: Bilateral lower extremity pedal edema present. No erythema seen. Principal Diagnosis Acute metabolic encephalopathy secondary to hyponatremia and alcohol use Discharge Exam GENERAL: The patient is of moderate build, not in acute distress. HEENT: Pupils equal, round, and reactive to light. Extraocular muscles intact. No pallor, no icterus. Oral mucosa moist. No facial droop. NECK: No JVD, no neck masses. No rhonchi. CARDIOVASCULAR: S1, S2 heard, regular rate and rhythm, no murmur, no gallop. RESPIRATORY SYSTEM: Normal AP diameter. No accessory muscle use. No wheezing, no crackles. ABDOMEN: Soft, bowel sounds present, nontender. No distention. NEURO: Alert and oriented x3, speech fluent, no facial asymmetry, cranial nerves II-XII grossly intact. Extraocular muscles intact. Moves extremities spontaneously EXTREMITIES: Bilateral lower extremity pedal edema present. No erythema Discharge Data Allergies Allergy/AdvReac Type Severity Reaction Status Date / Time No Known Allergies Allergy Unverified 04/30/20 20:50 Consultations 04/30/20 19:41 ED Decision to Admit Stat 04/30/20 21:49 Consult Case Management - Discharge Planning Routine Consult Case Management - Discharge Planning Routine 05/01/20 08:00 Consult Nephrology Routine Consult Neurology Routine Ordered Studies 04/30/20 18:17 CT head/brain wo con Stat IMPRESSION: No acute intracranial findings. 04/30/20 21:49 MR brain wo/w con Urgent IMPRESSION: 1. No acute intracranial findings. 2. No evidence of acute or subacute infarction 3. No evidence of intracranial mass US carotid doppler BI Routine IMPRESSION: No hemodynamically significant stenosis seen within the bilateral common or internal carotid arteries. Mild stenosis within the right external carotid artery. Hospital Course (1) Acute metabolic encephalopathy: Metabolic & Alcoholic encephalopathy in setting of hyponatremia and alcoholism (2) Hyponatremia: (3) Alcohol abuse: This is a 69 y/o male who presents with confusion and hyponatremia. 1. Confusion, probably metabolic from hyponatremia, could be from his chronic alcoholism, rule out TIA, CVA. CT of the head is unremarkable. MRI brain - negative for acute stroke. Carotid Doppler - No hemodynamically significant stenosis seen within the bilateral common or internal carotid arteries. Mild stenosis within the right external carotid artery. Echo - normal LV chamber size with moderate concentric LVH. Normal LV systolic function, EF 55 to 60%. No segmental left ventricular wall motion abnormalities are noted. Grade 1 diastolic dysfunction. Trileaflet aortic valve with mild sclerosis, no stenosis. Mild aortic regurg. Mild tricuspid regurg. Mild enlargement of the ascending aorta measuring 4.2 cm. The interatrial septum is intact with no evidence of an atrial septal defect. Injection of contrast documented no interatrial shunt. Neurology was also consulted, appreciate their input EEG - negative for any possible seizure activity Recommend smoking cessation, and taper off alcohol use Consider aspirin 81 mg daily PT/OT. Monitor in the med tele. 2. Hyponatremia. Sodium 127, urine osmolality 160, urine sodium 40 Hyponatremia most likely due to beer potomania. Patient received 1 L of normal saline overnight from ED, and was on fluid restriction of 1500 mL. Sodium repeat a.m. 135, now 133 Nephrology consulted, appreciate their input. - pt does not necessarily need a fluid restriction like we do for SIADH as this is not a case of SIADH, but more of a case of beer potomania. - Recommend to increase food intake, especially protein. - Decrease the fluid intake to a normal level from excessive level at this time. - Follow up with primary care next week with BMP. 3. Alcoholism, drinks 5-6 beers every day. Monitor for withdrawal, starting on gabapentin protocol, IV Ativan p.r.n., banana bag and continue with p.o. thiamine and folic acid. 4. Tobacco abuse, counseling provided. Also provided the patient with 1 800 quit now, free smoke cessation line. 5. COPD, continue his home inhalers, currently stable. 6. Hypertension. Continue his losartan, metoprolol and amlodipine. We will follow the blood pressure. 7. Hyperlipidemia. Continue statin. 8. History of aortic root enlargement, moderate aortic regurgitation. Follow the echocardiogram, as above. Disposition:Expect discharge home and follow with family doctor. Total Time Total Time Spent Total Time Spent (In Minutes): 35 Total Time Includes: Examination of the Patient, Discharge Planning, Medication Reconciliation and Communication With Other Providers Discharge Plan Discharge Items Patient Disposition: Home - Self-Care Reason For Visit: CONFUSION, ABNORMAL LABS Discharge Diagnosis: Acute metabolic encephalopathy secondary to hyponatremia and alcohol use Activity: Per Instructions section Non-emergency contact: Primary Care Provider Call non-emergency contact if: you have any medication questions and your symptoms worsen Follow-up/Referrals: Conner Pedersen MD [Primary Care Provider] - (Date & Time 05/08/2020 12:00 PM Provider Conner Pedersen MD Department General Internal Medicine [facility] ) Diet: Regular Diet Comment: Recommend increased protein intake Addtl Attending Provider Instructions: Follow-up with your primary care doctor, the appointment was scheduled for you for May 08. At that time you will need blood work done, BMP, to monitor your sodium level. It is recommended that you have a good healthy diet, and increase your protein intake. You can try to drink protein shakes, such as boost. It is strongly recommended that you significantly decrease your beer intake. For smoking cessation, consider calling 1 [employer] smoking cessation line. Your sodium level will need to be monitored by your primary care doctor. Pending Studies at Discharge: No Stand-Alone Forms: [facility], Smoking Cessation Medications and DC Order Prescriptions: Continued atorvastatin [Lipitor] 20 mg tablet 20 mg PO DAILY RF: 0 metoprolol succinate 50 mg Tablet Extended Release 24 Hr 50 mg PO DAILY RF: 0 thiamine HCl (vitamin B1) [Vitamin B-1] 100 mg Tablet 100 mg PO DAILY RF: 0 amlodipine [Norvasc] 5 mg tablet 5 mg PO DAILY RF: 0 losartan [Cozaar] 100 mg tablet 100 mg PO DAILY RF: 0 Incruse Ellipta 62.5 mcg/actuation blister with device 1 inh INHALATION DAILY RF: 0 Discharge Orders: Discharge Order (Routine); Ordered 05/02/20 Ordered By: Ryan Mejia Admission Data Admit Date/Time: 04/30/20 20:36 Attending Provider: Ryan Mejia Admit Provider: Mukul Tyson Primary Care Provider: Conner Pedersen Other Providers: Mukul Tyson ; Leticia Yoder ; Dina Ch ; Marcelo Ray ; Dina Stratton ; Maurizio Romero.
--- NOTE | 2020-05-02 09:56 | Nephrology Progress Note ---
Date of Service May 02, 2020 Assessment & Plan (1) Hyponatremia: Hyponatremia secondary to alcohol intake- beer potomania. Sodium is improved today down to 125 with fluid restriction. Is back to baseline alert and oriented. Okay to DC the strict fluid restriction, but he needs to cut down on his alcohol and stop it altogether. Increase calorie intake. Especially protein Needs to follow-up with PCP in 1 week with repeat BMP. (2) Acute metabolic encephalopathy: Resolved patient back to baseline. UNLikely secondary to hyponatremia sodium was more than 120. Admission and Anticipated Discharge Date Admission Date: April 30, 2020 Subjective Seen for hyponatremia. Sodium 127, reactive to 135 with fluid restriction within 24 hours. Admitted with confusion, History of alcohol abuse. Patient is sitting in bed, in no acute distress Reports that he feels back to himself, no complaints wants to go home Review of Systems Review of Systems: All systems reviewed & are unremarkable except as noted in HPI & below Physical Exam Physical Exam: GENERAL: Elderly white male, comfortable, normal mentation He is of moderate build. HEENT: Mucous membranes moist. He does have facial redness. NECK: Supple. No jugular venous distention. CHEST: Bilaterally decreased breath sounds with prolonged expiration. CARDIOVASCULAR: S1 and S2, regular. Soft systolic murmur heard. ABDOMEN: Soft, nontender. EXTREMITIES: Show no edema Results & Data ([facility]) Vital Signs (Past 12 Hours) Vital Signs Temp Pulse Pulse Resp BP Pulse Ox 05/02/20 07:30 64 05/02/20 07:21 37.4 C 67 18 114/60 94 05/02/20 04:34 36.4 C L 67 18 115/60 96 05/02/20 04:04 70 05/01/20 23:19 36.7 C 73 18 116/58 L 96 Laboratory Results 05/02/20 07:07 05/02/20 07:07
[2020-05-03] MEDS ORDERED: GABAPENTIN 600 MG TAB PO SCH
[2020-05-04] MEDS ORDERED: GABAPENTIN 600 MG TAB PO SCH (12:00)
== END 2020-05-02 10:59 | disposition home or self-care (01) | DRG 640 ==
LOC: ED 17:19 → 2N 20:36

== ENCOUNTER 2021-08-19 10:42 | Inpatient (IN) ==
[2021-08-19] MEDS ORDERED: MULTI-VITAMIN INFUSION 10 ML, THIAMINE HCL 100 MG, FOLIC ACID 1 MG in SODIUM CHLORIDE 0... IV ONE (11:17)
--- NOTE | 2021-08-19 11:24 | Emergency Department Note ---
History of Present Illness General Chief complaint: Abnormal Labs/Diagnostic Testing Stated complaint: REF BY , ABNORMAL LABS Time Seen by Provider: 08/19/21 11:04 Source: patient Mode of arrival: ambulatory Limitations: no limitations History of Present Illness Maximum Pain Intensity: 4 This patient is a 71-year-old male who comes in after he has had some intermittent confusion over the last week or so. His said he got lost when he was driving an area he should not of. He also fell 2 days ago after he was confused and hit the nightstand with his left arm. He saw his doctor yesterday and had labs done this morning was told that his sodium was low and and he was anemic and was told to come to the ED. He has had hyponatremia before he does drink alcohol and his says he is an alcoholic. He last drank yesterday he does not typically withdrawal or get shaky both the patient and his tell me. He denies any pain anywhere with exception of his left arm slightly. Denies headache or head trauma no neck pain or trauma no change in vision no difficulty speaking or swallowing no focal numbness weakness. No nausea vomiting or blood or melena stool no dysuria hematuria no chest pain or nuris rtness of breath or abdominal pain Home Medications Medication Instructions Recorded Confirmed Type atorvastatin 20 mg tablet (Lipitor) 20 mg PO DAILY 04/30/20 08/19/21 History losartan 100 mg tablet (Cozaar) 100 mg PO DAILY 04/30/20 08/19/21 History metoprolol succinate 50 mg 50 mg PO DAILY 04/30/20 08/19/21 History tablet,extended release 24 hr thiamine HCl (vitamin B1) 100 mg 100 mg PO DAILY 04/30/20 08/19/21 History tablet (Vitamin B-1) umeclidinium 62.5 mcg/actuation 1 inh INHALATION DAILY 04/30/20 08/19/21 History blister powder for inhalation (Incruse Ellipta) amlodipine 2.5 mg tablet 2.5 mg PO DAILY 08/19/21 08/19/21 History cholecalciferol (vitamin D3) 25 25 mcg PO 5XWK 08/19/21 08/19/21 History mcg (1,000 unit) capsule (Vitamin D3) ketoconazole 2 % topical cream 1 applic TOPICAL DAILY 08/19/21 08/19/21 History Allergies Allergy/AdvReac Type Severity Reaction Status Date / Time No Known Allergies Allergy Verified 08/19/21 12:42 Past Med/Surg History Medical History (Updated 08/19/21 @ 14:54 by Francis Francisco MD) Alcohol use disorder Complex renal cyst HLD (hyperlipidemia) HTN (hypertension) Hyponatremia SIADH (syndrome of inappropriate ADH production) Tobacco use disorder Surgical History (Updated 08/19/21 @ 14:11 by Laura Adan PA-C) Cataract History of dental surgery Family History (Updated 08/19/21 @ 14:11 by Laura Adan PA-C) Other Cancer Stroke Social History Smoking Status: Current every day smoker Tobacco Type: Cigarettes Cigarettes Per Day: 1.5-2; Hx Alcohol Use: Yes Alcohol type: beer Alcohol Intake Frequency: 4 or More x per/Week Alcohol Intake Frequency Comment: 5+ beers nightly Hx Substance Use: No Preferred Language: Austrian Communication Ability: Effective Infection Control Practitioner Required: Yes Beliefs That Will Affect Care: None Current Living Situation: Spouse Feels Safe at Home: Yes Assistive Devices: None Review of Systems A total of 10 systems reviewed and were otherwise negative Physical Exam Vital Signs Vital Signs - 24 hr 08/19/21 10:46 08/19/21 11:17 08/19/21 11:59 Temperature 36.5 C Temperature Source Temporal Artery Scan Pulse Rate 66 62 Pulse Rate from SpO2 Sensor 61 Respiratory Rate 16 17 Blood Pressure 140/71 Blood Pressure Mean 94 Pulse Oximetry 99 97 Oxygen Delivery Method Room Air Room Air Sepsis Recent Fever Within 48 Hours No Sepsis New/Unexplained Change in Mental Status No Sepsis Action Taken by Nursing No Action Required 08/19/21 12:00 08/19/21 12:10 08/19/21 12:28 Temperature Temperature Source Pulse Rate 58 L 60 62 Pulse Rate from SpO2 Sensor 58 L 60 62 Respiratory Rate 17 20 16 Blood Pressure 147/67 H Blood Pressure Mean 93 Pulse Oximetry 96 96 94 Oxygen Delivery Method Sepsis Recent Fever Within 48 Hours Sepsis New/Unexplained Change in Mental Status Sepsis Action Taken by Nursing 08/19/21 12:30 08/19/21 12:40 08/19/21 12:50 Temperature Temperature Source Pulse Rate 57 L 62 60 Pulse Rate from SpO2 Sensor 57 L 61 59 L Respiratory Rate 18 23 20 Blood Pressure 134/64 Blood Pressure Mean 87 Pulse Oximetry 97 97 96 Oxygen Delivery Method Sepsis Recent Fever Within 48 Hours Sepsis New/Unexplained Change in Mental Status Sepsis Action Taken by Nursing 08/19/21 13:00 08/19/21 13:10 08/19/21 13:20 Temperature Temperature Source Pulse Rate 59 L 65 59 L Pulse Rate from SpO2 Sensor 59 L 60 59 L Respiratory Rate 15 17 18 Blood Pressure 131/64 Blood Pressure Mean 86 Pulse Oximetry 98 98 99 Oxygen Delivery Method Sepsis Recent Fever Within 48 Hours Sepsis New/Unexplained Change in Mental Status Sepsis Action Taken by Nursing 08/19/21 13:26 08/19/21 13:30 08/19/21 13:31 Temperature Temperature Source Pulse Rate 65 63 Pulse Rate from SpO2 Sensor 65 61 Respiratory Rate 18 21 Blood Pressure 106/73 Blood Pressure Mean 84 Pulse Oximetry 97 94 Oxygen Delivery Method Sepsis Recent Fever Within 48 Hours Sepsis New/Unexplained Change in Mental Status Sepsis Action Taken by Nursing 08/19/21 13:40 08/19/21 13:50 08/19/21 14:00 Temperature Temperature Source Pulse Rate 65 67 63 Pulse Rate from SpO2 Sensor 65 67 63 Respiratory Rate 25 H 23 20 Blood Pressure 136/64 Blood Pressure Mean 88 Pulse Oximetry 94 99 98 Oxygen Delivery Method Sepsis Recent Fever Within 48 Hours Sepsis New/Unexplained Change in Mental Status Sepsis Action Taken by Nursing 08/19/21 14:10 08/19/21 14:20 Temperature Temperature Source Pulse Rate 64 63 Pulse Rate from SpO2 Sensor 64 63 Respiratory Rate 21 20 Blood Pressure Blood Pressure Mean Pulse Oximetry 99 99 Oxygen Delivery Method Sepsis Recent Fever Within 48 Hours Sepsis New/Unexplained Change in Mental Status Sepsis Action Taken by Nursing General: Well developed well nourished older male who appears in no acute distress, breathing comfortably on room air. Normal speech HEENT: Normal cephalic atraumatic. Pupils are equal round and reactive to light . Extraocular movements are intact. Oropharynx is pink with moist mucous membranes. No swelling of the mouth lips or tongue. Neck: Supple with a midline trachea. No meningeal signs or stiffness, no JVD or bruits. No Stridor. Chest: Clear to auscultation bilaterally. No wheezes or rhonchi. No increased work of breathing. Heart: Regular rate and rhythm without murmurs or gallops. Abdomen: Soft nontender, nondistended without rebound guarding or rigidity. Extremities: No cyanosis clubbing or edema. No calf tenderness or assymetry Spine/Back. Non tender to palpation. No CVA tenderness Skin: Good turgor without rashes. Neurologic exam: Cranial nerves two through 12 are intact. Motor and sensation are intact and symmetrical throughout. Not shaky and does not appear to be withdrawing. No tremor. Course Administered Medications Sodium Chloride (Nss 1000ml) 1,000 mls @ 70 mls/hr IV .[id number] SINDY Stop: 08/20/21 04:47 Last Admin: 08/19/21 14:38 Dose: 70 mls/hr Documented by: [id number] Discontinued Medications Multivitamins 10 ml/ Thiamine HCl 100 mg/ Folic Acid 1 mg/Sodium Chloride 1,011.2 mls @ 1,011.2 mls/hr IV .Q1H ONE Stop: 08/19/21 12:16 Last Admin: 08/19/21 11:58 Dose: 1,011.2 mls/hr Documented by: [id number] Medical Decision Making Differential Diagnosis Hyponatremia, electrolyte or metabolic abnormality. Alcohol withdrawal, alcohol intoxication, cardiac disease, neurologic disease, anemia, GI bleed, infection, covid Medical Records Attestation: I reviewed the patient's medical records. Home Medications Current Medication List: was personally reviewed by me Laboratory Data Attestation: I reviewed the patient's lab results. Result diagrams: 08/19/21 11:40 08/19/21 11:40 Lab Results 08/19/21 08/19/21 08/19/21 Range/Units 11:40 11:40 11:40 WBC 6.18 (4.8-10.8) K/uL RBC 4.19 L (4.7-6.1) M/uL Hgb 14.1 (14.0-18.0) g/dL Hct 39.1 L (42-52) % MCV 93.3 (80-100) fL MCH 33.7 (25-34) pg MCHC 36.1 H (32-36) g/dL RDW Std Deviation 44.8 (36.4-46.3) fL RDW Coeff of Daqu[place] 13.0 (11.5-14.5) % Plt Count 255 (130-400) K/uL MPV 8.7 (7.4-10.4) fL Immature Gran % (Auto) 0.3 % Neut % (Auto) 59.9 % Lymph % (Auto) 24.8 % Ponce % (Auto) 12.3 % Eos % (Auto) 2.4 % Baso % (Auto) 0.3 % Neut # (Auto) 3.70 (1.4-6.5) K/uL Lymph # (Auto) 1.53 (1.2-3.4) K/uL Ponce # (Auto) 0.76 H (0.11-0.59) K/uL Eos # (Auto) 0.15 (0-0.5) K/uL Baso # (Auto) 0.02 (0-0.2) K/uL Immature Gran # (Auto) 0.02 (0.00-0.02) K/uL PT 10.7 (9.0-12.0) Seconds INR 1.0 (0.9-1.1) Sodium 125 L (136-145) mmol/L Potassium 4.0 (3.5-5.1) mmol/L Chloride 94 L (98-107) mmol/L Carbon Dioxide 26 (21-32) mmol/L Anion Gap 5 (3-11) BUN 12 (6-23) mg/dl Creatinine 0.75 (0.6-1.4) mg/dl Est Cr Clr Drug Dosing 85.8 ml/min Est GFR ( Amer) 106.2 ml/min Est GFR (Non-Af Amer) 91.6 ml/min BUN/Creatinine Ratio 16.0 (10-20) Glucose 89 (70-99(Fasting)) mg/dl Osmolality (280-300) mOsm/kg Calcium 9.2 (8.5-10.1) mg/dl Magnesium 1.8 (1.7-2.4) mg/dl Total Bilirubin 0.8 (0.2-1.0) mg/dl AST 22 (13-39) U/L ALT 10 (7-52) U/L Alkaline Phosphatase 31 L (34-104) U/L Troponin I High Sens 3.4 (0-20) pg/ml Total Protein 6.8 (6.0-8.3) gm/dl Albumin 4.1 (3.4-5.0) gm/dl Globulin 2.7 (2.5-4.0) gm/dl Albumin/Globulin Ratio 1.5 (0.9-2) TSH (0.300-4.500) uIu/ml Urine Color Urine Appearance (Clear) Urine pH (4.5-7.5) Ur Specific [place] (1.000-1.030) Urine Protein (Negative) Urine Glucose (UA) (Negative) Urine Ketones (Negative) Urine Blood (Negative) Urine Nitrite (Negative) Urine Bilirubin (Negative) Urine Urobilinogen (Negative) Ur Leukocyte Esterase (Negative) Ethyl Alcohol mg/dL (<10.0) mg/dl SARS-CoV-2, RNA, NAAT (NEGATIVE) 08/19/21 08/19/21 08/19/21 Range/Units 11:40 11:40 11:40 WBC (4.8-10.8) K/uL RBC (4.7-6.1) M/uL Hgb (14.0-18.0) g/dL Hct (42-52) % MCV (80-100) fL MCH (25-34) pg MCHC (32-36) g/dL RDW Std Deviation (36.4-46.3) fL RDW Coeff of Daquan (11.5-14.5) % Plt Count (130-400) K/uL MPV (7.4-10.4) fL Immature Gran % (Auto) % Neut % (Auto) % Lymph % (Auto) % Ponce % (Auto) % Eos % (Auto) % Baso % (Auto) % Neut # (Auto) (1.4-6.5) K/uL Lymph # (Auto) (1.2-3.4) K/uL Ponce # (Auto) (0.11-0.59) K/uL Eos # (Auto) (0-0.5) K/uL Baso # (Auto) (0-0.2) K/uL Immature Gran # (Auto) (0.00-0.02) K/uL PT (9.0-12.0) Seconds INR (0.9-1.1) Sodium (136-145) mmol/L Potassium (3.5-5.1) mmol/L Chloride (98-107) mmol/L Carbon Dioxide (21-32) mmol/L Anion Gap (3-11) BUN (6-23) mg/dl Creatinine (0.6-1.4) mg/dl Est Cr Clr Drug Dosing ml/min Est GFR ( Amer) ml/min Est GFR (Non-Af Amer) ml/min BUN/Creatinine Ratio (10-20) Glucose (70-99(Fasting)) mg/dl Osmolality 260 L (280-300) mOsm/kg Calcium (8.5-10.1) mg/dl Magnesium (1.7-2.4) mg/dl Total Bilirubin (0.2-1.0) mg/dl AST (13-39) U/L ALT (7-52) U/L Alkaline Phosphatase (34-104) U/L Troponin I High Sens (0-20) pg/ml Total Protein (6.0-8.3) gm/dl Albumin (3.4-5.0) gm/dl Globulin (2.5-4.0) gm/dl Albumin/Globulin Ratio (0.9-2) TSH 2.129 (0.300-4.500) uIu/ml Urine Color Urine Appearance (Clear) Urine pH (4.5-7.5) Ur Specific [place] (1.000-1.030) Urine Protein (Negative) Urine Glucose (UA) (Negative) Urine Ketones (Negative) Urine Blood (Negative) Urine Nitrite (Negative) Urine Bilirubin (Negative) Urine Urobilinogen (Negative) Ur Leukocyte Esterase (Negative) Ethyl Alcohol mg/dL (<10.0) mg/dl SARS-CoV-2, RNA, NAAT NEGATIVE (NEGATIVE) 08/19/21 08/19/21 Range/Units 12:08 12:30 WBC (4.8-10.8) K/uL RBC (4.7-6.1) M/uL Hgb (14.0-18.0) g/dL Hct (42-52) % MCV (80-100) fL MCH (25-34) pg MCHC (32-36) g/dL RDW Std Deviation (36.4-46.3) fL RDW Coeff of Daquan (11.5-14.5) % Plt Count (130-400) K/uL MPV (7.4-10.4) fL Immature Gran % (Auto) % Neut % (Auto) % Lymph % (Auto) % [place]once % (Auto) % Eos % (Auto) % Baso % (Auto) % Neut # (Auto) (1.4-6.5) K/uL Lymph # (Auto) (1.2-3.4) K/uL [place]once # (Auto) (0.11-0.59) K/uL Eos # (Auto) (0-0.5) K/uL Baso # (Auto) (0-0.2) K/uL Immature Gran # (Auto) (0.00-0.02) K/uL PT (9.0-12.0) Seconds INR (0.9-1.1) Sodium (136-145) mmol/L Potassium (3.5-5.1) mmol/L Chloride (98-107) mmol/L Carbon Dioxide (21-32) mmol/L Anion Gap (3-11) BUN (6-23) mg/dl Creatinine (0.6-1.4) mg/dl Est Cr Clr Drug Dosing ml/min Est GFR ( Amer) ml/min Est GFR (Non-Af Amer) ml/min BUN/Creatinine Ratio (10-20) Glucose (70-99(Fasting)) mg/dl Osmolality (280-300) mOsm/kg Calcium (8.5-10.1) mg/dl Magnesium (1.7-2.4) mg/dl Total Bilirubin (0.2-1.0) mg/dl AST (13-39) U/L ALT (7-52) U/L Alkaline Phosphatase (34-104) U/L Troponin I High Sens (0-20) pg/ml Total Protein (6.0-8.3) gm/dl Albumin (3.4-5.0) gm/dl Globulin (2.5-4.0) gm/dl Albumin/Globulin Ratio (0.9-2) TSH (0.300-4.500) uIu/ml Urine Color Dark Yellow Urine Appearance Clear (Clear) Urine pH 7.0 (4.5-7.5) Ur Specific [place] 1.007 (1.000-1.030) Urine Protein Negative (Negative) Urine Glucose (UA) Negative (Negative) Urine Ketones Negative (Negative) Urine Blood Negative (Negative) Urine Nitrite Negative (Negative) Urine Bilirubin Negative (Negative) Urine Urobilinogen Negative (Negative) Ur Leukocyte Esterase Negative (Negative) Ethyl Alcohol mg/dL < 10.0 (<10.0) mg/dl SARS-CoV-2, RNA, NAAT (NEGATIVE) Imaging Data Attestation: I personally reviewed and interpreted this imaging study as follows: My Impression: Chest x-rayno acute infiltrate, failure, pneumothorax seen Radiologist's Impression: Chest X-Ray 08/19/21 11:17 XR chest 1V portable CLINICAL HISTORY: weakness. Evaluate cardiopulmonary status COMPARISON STUDY: 04/30/2020 TECHNIQUE: 1 view of the chest FINDINGS: Single frontal view of the chest demonstrates the cardiomediastinal silhouette to be within normal limits. The lungs are clear of alveolar opacities. There is no evidence for pleural effusion. There is no evidence for vascular congestion. There is no acute osseous pathology. IMPRESSION: 1. No acute cardiopulmonary disease. ACT 112: Negative or not required by law. Electronically signed by: Anthony Hernandez M.D. 08/19/2021 11:[address] 08/19/21 11:17 CT head/brain wo con CLINICAL HISTORY: 71 years-old Male with weakness. Acute weakness TECHNIQUE: Multiple axial CT images of the head were obtained without contrast. A dose lowering technique was utilized adhering to the principles of ALARA. CT DOSE: 614.27 mGy.cm COMPARISON: Head CT 05/21/2020 FINDINGS: No acute intracranial hemorrhage, midline shift, intracranial mass, hydrocephalus, territorial ischemia or abnormal extra-axial collection. Age- related involutional changes. Mild white matter hypodensities are suggestive of chronic microvascular ischemic disease. Cerebral vascular calcifications. The calvarium is intact. Prior left-sided lens replacement. Mastoid air cells are clear. Mild mucosal thickening of the paranasal sinuses. IMPRESSION: No acute intracranial abnormality. ACT 112: Negative or not required by law. The above report was generated using voice recognition software. It may contain grammatical, syntax or spelling errors. Electronically signed by: Mt Uriostegui M.D. 08/19/2021 12:27 PM ECG Data Attestation: I personally reviewed and interpreted this ECG as follows: Indication: + weakness Rate (beats per minute): 61 Rhythm: + normal sinus ECG Intervals/blocks: + Normal QRS, + Normal QT and + Normal MD ECG [place]: + Left axis deviation ECG ST segments: + Normal ST segments ECG Findings: no PACs or no PVCs Comparison ECG Date: from (04/30/20) Change: no significant change MDM Narrative This patient comes in as described above. He was placed in room A4 on a awake overnight monitor. He looks well at present but apparently has had low sodium and has been intermittently confused. He also had a low hemoglobin. He said no blood or melena stool. he has no external signs of trauma to the abdomen or any abdominal tenderness. IV access was established and he was given an IV banana bag given his history of alcohol abuse. EKG was obtained as well as multiple blood testing. I also did a CAT scan of his head. He was reassessed frequent ly. His sodium was low at 125. EKG does not suggest any acute coronary syndrome or arrhythmia or any significant abnormality of his intervals. He is hemoglobin was normal here he has not suggest infection or sepsis. CAT scan of his head is unremarkable he has a nonfocal neurologic exam. I do think he needs to be admitted/observed given his symptoms and his low sodium and I have consulted the [facility] hospitalist. He was also COVID tested and was negative. He does not have any signs of alcohol withdrawal in the ED. Continuous cardiac monitoring: Orders placed in EMR for continuous cardiac monitoring. Upon my interpretation the patient noted to be normal sinus rhythm with a rate of 60 Impression & Plan Hyponatremia, Alcohol abuse, Episodic confusion, Lab test negative for COVID-19 virus Discharge Plan Visit Data Chief Complaint: Abnormal Labs/Diagnostic Testing Stated Complaint: REF BY , ABNORMAL LABS ED Provider: Francis Francisco Discharge Problem: Hyponatremia, Alcohol abuse, Episodic confusion, Lab test negative for COVID-19 virus Forms Stand Alone Forms: My [facility] Prescriptions Prescriptions: No Action atorvastatin [Lipitor] 20 mg tablet 20 mg PO DAILY RF: 0 metoprolol succinate 50 mg Tablet Extended Release 24 Hr 50 mg PO DAILY RF: 0 thiamine HCl (vitamin B1) [Vitamin B-1] 100 mg Tablet 100 mg PO DAILY RF: 0 losartan [Cozaar] 100 mg tablet 100 mg PO DAILY RF: 0 Incruse Ellipta 62.5 mcg/actuation blister with device 1 inh INHALATION DAILY RF: 0 ketoconazole 2 % cream 1 applic TOPICAL DAILY RF: 0 cholecalciferol (vitamin D3) [Vitamin D3] 25 mcg (1,000 unit) Capsule 25 mcg PO 5XWK RF: 0 amlodipine 2.5 mg tablet 2.5 mg PO DAILY RF: 0 Referrals Referrals: Conner Pedersen MD [Primary Care Provider] -
--- NOTE | 2021-08-19 11:55 | XRay Report ---
XR chest 1V portable CLINICAL HISTORY: weakness. Evaluate cardiopulmonary status COMPARISON STUDY: 04/30/2020 TECHNIQUE: 1 view of the chest FINDINGS: Single frontal view of the chest demonstrates the cardiomediastinal silhouette to be within normal li mits. The lungs are clear of alveolar opacities. There is no evidence for pleural effusion. There is no evidence for vascular congestion. There is no acute osseous pathology. IMPRESSION: 1. No acute cardiopulmonary disease. ACT 112: Negative or not required by law. Electronically signed by: Anthony Hernandez M.D. 08/19/2021 11:53 AM
[2021-08-19 12:20] LABS: Basophils # (auto) 0.02 K/uL (0-0.2); Basophils % (auto) 0.3 %; Eosinophils # (auto) 0.15 K/uL (0-0.5); Eosinophils % (auto) 2.4 %; Hematocrit (blood only) 39.1 % (42-52); Hemoglobin 14.1 g/dL (14.0-18.0); Immature Granulocytes # (auto) 0.02 K/uL (0.00-0.02); Immature Granulocytes % (auto) 0.3 %; Lymphocytes # (auto) 1.53 K/uL (1.2-3.4); Lymphocytes % (auto) 24.8 %; Mean Corpuscular Hemoglobin 33.7 pg (25-34); Mean Corpuscular Hgb Conc 36.1 g/dL (32-36); Mean Corpuscular Volume 93.3 fL (80-100); Mean Platelet Volume 8.7 fL (7.4-10.4); Monocytes # (auto) 0.76 K/uL (0.11-0.59); Monocytes % (auto) 12.3 %; Neutrophils % (auto) 59.9 %; Platelet Count 255 K/uL (130-400); RDW Standard Deviation 44.8 fL (36.4-46.3); Red Blood Count 4.19 M/uL (4.7-6.1); White Blood Count 6.18 K/uL (4.8-10.8)
[2021-08-19 12:22] LABS: Prothrombin Time 10.7 Seconds (9.0-12.0)
--- NOTE | 2021-08-19 12:29 | CT Scan Report ---
CT head/brain wo con CLINICAL HISTORY: 71 years-old Male with weakness. Acute weakness TECHNIQUE: Multiple axial CT images of the head were obtained without contrast. A dose lowering tech nique was utilized adhering to the principles of ALARA. CT DOSE: 614.27 mGy.cm COMPARISON: Head CT 05/21/2020 FINDINGS: No acute intracranial hemorrhage, midline shift, intracranial mass, hydrocephalus, territorial ischem ia or abnormal extra-axial collection. Age-related involutional changes. Mild white matter hypodensit ies are suggestive of chronic microvascular ischemic disease. Cerebral vascular calcifications. The calvarium is intact. Prior left-sided lens replacement. Mastoid air cells are clear. Mild mucosal thickening of the paranasal sinuses. IMPRESSION: No acute intracranial abnormality. ACT 112: Negative or not required by law. The above report was generated using voice recognition software. It may contain grammatical, syntax o r spelling errors. Electronically signed by: Mt Uriostegui M.D. 08/19/2021 12:27 PM
[2021-08-19 12:38] LABS: Albumin Globulin Ratio 1.5 (0.9-2); Albumin Level 4.1 gm/dl (3.4-5.0); Bilirubin,Total 0.8 mg/dl (0.2-1.0); Calcium 9.2 mg/dl (8.5-10.1); Creatinine Clr Calc Pharmacy 85.8 ml/min; Est GFR (African American) 106.2 ml/min; Est GFR (Non-African American) 91.6 ml/min; Globulin 2.7 gm/dl (2.5-4.0); Magnesium 1.8 mg/dl (1.7-2.4); Total Protein 6.8 gm/dl (6.0-8.3)
[2021-08-19 12:41] LABS: Troponin I High Sensitivity 3.4 pg/ml (0-20)
[2021-08-19 12:51] LABS: Appearance Urine Clear (Clear); Bilirubin Urine Negative (Negative); Blood Urine Negative (Negative); Color Urine Dark Yellow; Glucose Urine UA Negative (Negative); Ketones Urine Negative (Negative); Leukocyte Esterase Urine Negative (Negative); Nitrite Urine Negative (Negative); Protein Urine Negative (Negative); Specific Gravity Urine 1.007 (1.000-1.030); Urobilinogen Urine Negative (Negative)
[2021-08-19] MEDS ORDERED: POLYETHYLENE (MIRALAX) 17 GM PACK PO PRN (13:15)
[2021-08-19] MEDS ORDERED: ACETAMINOPHEN 325 MG TAB PO PRN (13:15)
[2021-08-19] MEDS ORDERED: ONDANSETRON INJ 2 MG/ML 2 ML VIAL IV PRN (13:15)
--- NOTE | 2021-08-19 13:27 | History & Physical Report ---
Date of Service August 19, 2021 Assessment & Plan (1) Hyponatremia: Plan: This is a 71yo M with a PMH of chronic hyponatremia in the setting of alcohol abuse, COPD, current tobacco use, HTN and other medical problems listed below who presents with worsening confusion over the past week. 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 No longer on a diuretics. Instructed to fluid restriction of 60 oz, increase protein - goal sodium ~ 130 Serum, urine osm pending. CT head without acute intracranial abnormality Received banana bag in ED. Will give 1 L NSS @ 70 ml/hr, fluid restriction of 1.5, nephrology consult Repeat BMP this evening Fall precautions (2) HLD (hyperlipidemia): Plan: Continue statin (3) HTN (hypertension): Plan: Normotensive. Continue amlodipine, losartan, Toprol (4) Alcohol use disorder: Plan: Chronic alcohol use, at least 5 beers nightly indicated some alcohol withdrawal during previous admission Alcohol withdrawal precaution with gabapentin and as needed IV Ativan Daily folate, continue home dose thiamine (5) Tobacco use disorder: Plan: Nicotine patch ordered. Smoking cessation discussed DVT Ppx: SQ Lovenox Code status: FULL PCP: Slava Dispo: Admitted to PCU Patient seen in collaboration with Dr. Bailey. Please see addendum. (6) Acute metabolic encephalopathy: History of Present Illness Chief Complaint: confusion Primary Care Provider: Conner Pedersen MD This is a 71yo M with a PMH of chronic hyponatremia in the setting of alcohol abuse, COPD, current tobacco use, HTN and other medical problems listed below who presents with worsening confusion over the past week. Patient was seen in PCPs office yesterday for confusion that has been progressing over the past few years but more prominent since last Monday. Got lost while driving, which is unusual for him. Got out of bed 2 nights ago and lost balance, falling onto L elbow. Had episode of urinary incontinence 2 nights ago when this happened. No LOC or head trauma. Has history of alcohol use, drinking at least 5 beers a night. Last drink last evening. Denies history of withdrawal although does not remember the last time he went without alcohol. Smokes 1-1.5 ppd. Had lab work done in clinic revealing low sodium and was directed to come to ED for further evaluation. No fever, chills, headache, chest pain, SOB, nausea, vomiting, abdominal pain, dysuria, diarrhea or constipation. Denies focal weakness or sensory deficits. 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 Allergies Allergy/AdvReac Type Severity Reaction Status Date / Time No Known Allergies Allergy Verified 08/19/21 12:42 Home Medications Medication Instructions Recorded Confirmed Type atorvastatin 20 mg tablet (Lipitor) 20 mg PO DAILY 04/30/20 08/19/21 History losartan 100 mg tablet (Cozaar) 100 mg PO DAILY 04/30/20 08/19/21 History metoprolol succinate 50 mg 50 mg PO DAILY 04/30/20 08/19/21 History tablet,extended release 24 hr thiamine HCl (vitamin B1) 100 mg 100 mg PO DAILY 04/30/20 08/19/21 History tablet (Vitamin B-1) umeclidinium 62.5 mcg/actuation 1 inh INHALATION DAILY 04/30/20 08/19/21 History blister powder for inhalation (Incruse Ellipta) amlodipine 2.5 mg tablet 2.5 mg PO DAILY 08/19/21 08/19/21 History cholecalciferol (vitamin D3) 25 25 mcg PO 5XWK 08/19/21 08/19/21 History mcg (1,000 unit) capsule (Vitamin D3) ketoconazole 2 % topical cream 1 applic TOPICAL DAILY 08/19/21 08/19/21 History Past Med/Surg History Medical History (Updated 08/19/21 @ 14:11 by Laura Adan PA-C) Alcohol use disorder Complex renal cyst HLD (hyperlipidemia) HTN (hypertension) Hyponatremia SIADH (syndrome of inappropriate ADH production) Tobacco use disorder Surgical History (Updated 08/19/21 @ 14:11 by Laura Adan PA-C) Cataract History of dental surgery Family History (Updated 08/19/21 @ 14:11 by Laura Adan PA-C) Other Cancer Stroke Social History Smoking Status: Current every day smoker Tobacco Type: Cigarettes Cigarettes Per Day: 1.5-2; Hx Alcohol Use: Yes Alcohol type: beer Alcohol Intake Frequency: 4 or More x per/Week Alcohol Intake Frequency Comment: 5+ beers nightly Hx Substance Use: No Preferred Language: Japanese Communication Ability: Effective 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 Physical Exam Physical Exam: Please see Dr. Bailey's addendum for physical exam. Results & Data Results & Data ([facility]) Vital Signs (Past 12 Hours) Vital Signs Temp Pulse Resp BP Pulse Ox 08/19/21 10:46 36.5 C 66 16 140/71 99 Laboratory Results Short CBC 08/19/21 Range/Units 11:40 WBC 6.18 (4.8-10.8) K/uL Hgb 14.1 (14.0-18.0) g/dL Hct 39.1 L (42-52) % Plt Count 255 (130-400) K/uL BMP 08/19/21 11:40 Sodium 125 L Potassium 4.0 Chloride 94 L Carbon Dioxide 26 BUN 12 Creatinine 0.75 Glucose 89 Calcium 9.2 Liver Function 08/19/21 Range/Units 11:40 Total Bilirubin 0.8 (0.2-1.0) mg/dl AST 22 (13-39) U/L ALT 10 (7-52) U/L Alkaline Phosphatase 31 L (34-104) U/L Albumin 4.1 (3.4-5.0) gm/dl Urine 08/19/21 Range/Units 12:30 Urine Color Dark Yellow Urine Appearance Clear (Clear) Urine pH 7.0 (4.5-7.5) Ur Specific [place] 1.007 (1.000-1.030) Urine Protein Negative (Negative) Urine Glucose (UA) Negative (Negative) Diagnostic Findings Chest X-Ray 08/19/21 11:17 XR chest 1V portable CLINICAL HISTORY: weakness. Evaluate cardiopulmonary status COMPARISON STUDY: 04/30/2020 TECHNIQUE: 1 view of the chest FINDINGS: Single frontal view of the chest demonstrates the cardiomediastinal silhouette to be within normal limits. The lungs are clear of alveolar opacities. There is no evidence for pleural effusion. There is no evidence for vascular congestion. There is no acute osseous pathology. IMPRESSION: 1. No acute cardiopulmonary disease. ACT 112: Negative or not required by law. Electronically signed by: Anthony Hernandez M.D. 08/19/2021 11:[address] 08/19/21 11:17 CT head/brain wo con CLINICAL HISTORY: 71 years-old Male with weakness. Acute weakness TECHNIQUE: Multiple axial CT images of the head were obtained without contrast. A dose lowering technique was utilized adhering to the principles of ALARA. CT DOSE: 614.27 mGy.cm COMPARISON: Head CT 05/21/2020 FINDINGS: No acute intracranial hemorrhage, midline shift, intracranial mass, hydrocephalus, territorial ischemia or abnormal extra-axial collection. Age- related involutional changes. Mild white matter hypodensities are suggestive of chronic microvascular ischemic disease. Cerebral vascular calcifications. The calvarium is intact. Prior left-sided lens replacement. Mastoid air cells are clear. Mild mucosal thickening of the paranasal sinuses. IMPRESSION: No acute intracranial abnormality. ACT 112: Negative or not required by law. The above report was generated using voice recognition software. It may contain grammatical, syntax or spelling errors. Electronically signed by: Mt Uriostegui M.D. 08/19/2021 12:27 PM Supervising Physician Co-Signing Physician Notes 71 yo M w/ PMH of SIADH, chronic hyponatremia, alc abuse, tobacco abuse, HLD, aortic root enlargement, renal cyst, monoclonal paraproteinemia presented 08/19 to our ED w/ c/o worsening confusion frequency on and off. Per pt's present at bedside, pt is on and off confused for "a long time" but since the last week, the frequency has worsened. Pt fell 2 days ago and was incontinent of urine as well. He hit his left forearm. denies loc and hitting head. Pt continues to smoke 1.5 PPD for 50+ years and drinks 4-5 beers a day, last drink yesterday evening. Labs reviewed, N 125, TSH wnl, BMP 6hours, ?? Nephro consult, IVF for now. OP records w/ Na around 129-130. F/u BMP in evening. Admitting imagings CT Head and CXR w/ no acute findings. AWSS protocol.folate and thiamine supplementation. PT/OT. Upon exam: GENERAL: Alert and oriented x3. NAD, on RA. Flushed face. HEENT: No pallor, no icterus. Pupils equal, round and reactive to light. Oral mucosa moist. NECK: No JVD, no neck masses. HEART: S1 and S2 heard. Regular rate and rhythm. Systolic murmur at Aortic area, no gallop. RESPIRATORY SYSTEM: Normal AP diameter. No accessory muscle use. No wheezing, no crackles. ABDOMEN: Soft, bowel sounds present, nontender, no distention. CENTRAL NERVOUS SYSTEM: No facial droop. Speech is clear. Obeys simple commands. Moves extremities. EXTREMITIES: No edema, no erythema seen. I have seen and examined the patient and have discussed the case with the provider above. I agree with the assessment and plan as stated.
[2021-08-19] MEDS ORDERED: SODIUM CHLORIDE 0.9% 1000ML 1,000 ML IV SCH (14:30)
[2021-08-19] MEDS ORDERED: GABAPENTIN 1200MG ALCOHOL WITHDRAWAL LOAD PO STA (16:22)
[2021-08-19] MEDS ORDERED: LORazepam 2 MG/1 ML VIAL IV PRN ×2 (16:22)
[2021-08-19] MEDS ORDERED: ATIVAN IV ALCOHOL WITHDRAWL IV PRN (16:22)
[2021-08-19] MEDS ORDERED: GABAPENTIN 600 MG TAB PO ONE (16:45)
[2021-08-19] MEDS: NICOTINE 21 MG/24 HR TDSY TD SCH (17:24)
[2021-08-19] MEDS: CHOLECALCIFEROL 1,000 UNITS 25 MCG TAB PO SCH (17:24)
[2021-08-19] MEDS: ENOXAPARIN INJ 40 MG/0.4 ML SYR SQ SCH (17:25)
[2021-08-19 19:28] LABS: BUN Creatinine Ratio 13.6 (10-20); Calcium 8.4 mg/dl (8.5-10.1); Creatinine Clr Calc Pharmacy 78.6 ml/min; Est GFR (African American) 102.9 ml/min; Est GFR (Non-African American) 88.8 ml/min; Potassium 3.8 mmol/L (3.5-5.1)
[2021-08-19] MEDS: GABAPENTIN 600 MG TAB PO SCH (21:28)
[2021-08-20] MEDS: GABAPENTIN 600 MG TAB PO SCH ×3 (03:20→21:21)
--- NOTE | 2021-08-20 03:39 | Consultation Report ---
NEPHROLOGY CONSULTATION NOTE REASON FOR CONSULTATION: Hyponatremia. HISTORY OF PRESENT ILLNESS: The patient is a 71-year-old male who has a history of chronic hyponatre cade secondary to underlying SIADH with beer potomania. The patient usually has a serum sodium in the 127-130 range and does follow with me in the clinic for hyponatremia. Even now, the patient is drin shahid at least 8-10 beers according to his and is every day. He also smokes a lot and has underl kavin COPD. The patient was brought to the hospital because of increasing confusion for the last 1 we ek. He was seen by primary care yesterday and had blood work done. Serum sodium 125. He also had a recent fall. CT head did not show any active pathology. Serum sodium on admission was 125. Kidney function is normal. Serum osmolarity is 260, which is slightly low. Urine osmolarity is pending. est x-ray with no acute pathology. As per the , the patient did have some withdrawal syndrome du ring his previous admission. The patient is currently getting normal saline at 70 mL per hour. He i s also getting gabapentin for withdrawal protocol. The patient was not having any nausea, vomiting, diarrhea, fever, chills or really any other symptoms prior to hospitalization. PAST MEDICAL HISTORY: Includes alcohol use disorder, complex renal cyst, hypertension, hyperlipidemi a, hyponatremia, SIADH, tobacco use disorder. PAST SURGICAL HISTORY: Cataract and dental surgery. FAMILY HISTORY: Negative for renal disease or dialysis. SOCIAL HISTORY: Current everyday smoker. Current heavy alcohol use as much as 8-10 beers every day. He is and lives with his spouse who is a retired registered nurse. ALLERGIES: List reviewed. CURRENT MEDICATIONS: Home medication list was reviewed and includes Lipitor, losartan, metoprolol, t hiamine, Incruse Ellipta, amlodipine, vitamin D, ketoconazole. REVIEW OF SYSTEMS: Essentially 12-system was reviewed and everything was negative, except for increa sing confusion and forgetfulness for the last 1 week. PHYSICAL EXAMINATION: GENERAL: Elderly white male who is not in any overt respiratory distress. He is awake, alert and or iented x3. VITAL SIGNS: Blood pressure is 131/59, pulse rate 65, temperature 36.5, 100% on room air. HEENT: Mucous membrane is moist. NECK: Supple. No jugular venous distention. CHEST: Bilateral decreased breath sounds, occasional wheezing. CARDIOVASCULAR: S1 and S2, regular. ABDOMEN: Soft, nontender. EXTREMITIES: Show no edema. LABORATORY TEST: Reviewed and shows sodium 125, potassium 4.0, chloride 94, CO2 of 26. Serum osmola rity 260, BUN 12, creatinine 0.75. TSH 2.129. Urine specific gravity was 1.007. Urine sodium, urin e osmolarity is pending at this time. Chest x-ray unremarkable. CT head unremarkable. ASSESSMENT AND PLAN: A 71-year-old male with chronic established diagnosis of underlying syndrome of inappropriate antidiuretic hormone secretion with superimposed beer potomania. The patient is admit ezra because of increasing confusion and forgetfulness for the last 1 week and was brought to the hosp ital by his . 1. Hyponatremia. This is not a new diagnosis for him. He has been admitted with same problem in e past and the diagnosis has been established as underlying SIADH with beer potomania from excessive beer drinking every day. On top of that, he eats very little solid food as per his . He is stil l having ongoing smoking and has underlying COPD. No further workup is needed for the etiology of hy ponatremia. RECOMMENDATIONS: 1. Continue normal saline at 70 mL per hour as is being done. 2. Fluid restriction 1800 mL per day. 3. Since serum sodium is 125, there is no real danger of very excessive correction. If his serum so dium is more than 130+ and he is otherwise stable, can be discharged tomorrow. 4. Extensive discussion with the patient as well as his who is at the bedside about the need to stop excessive chronic beer intake. As long as he continues to drink this much beer, there is absol utely no way to control the serum sodium. This was clearly explained to the patient. He says he tena l have to listen to his now. Thank you very much for the consult. Job ID: [id number]
[2021-08-20 07:18] LABS: Hematocrit (blood only) 34.8 % (42-52); Hemoglobin 12.3 g/dL (14.0-18.0); Mean Corpuscular Hemoglobin 32.9 pg (25-34); Mean Corpuscular Hgb Conc 35.3 g/dL (32-36); Mean Platelet Volume 8.6 fL (7.4-10.4); Platelet Count 220 K/uL (130-400); RDW Coefficient of Variation 13.3 % (11.5-14.5); RDW Standard Deviation 45.2 fL (36.4-46.3); Red Blood Count 3.74 M/uL (4.7-6.1); White Blood Count 5.36 K/uL (4.8-10.8)
[2021-08-20 07:46] LABS: BUN Creatinine Ratio 13.6 (10-20); Calcium 7.9 mg/dl (8.5-10.1); Creatinine Clr Calc Pharmacy 96.4 ml/min; Est GFR (African American) 111.9 ml/min; Est GFR (Non-African American) 96.6 ml/min; Potassium 4.1 mmol/L (3.5-5.1)
[2021-08-20] MEDS: NICOTINE 21 MG/24 HR TDSY TD SCH (09:14)
[2021-08-20] MEDS: amLODIPine BESYLATE 5 MG TAB PO SCH (09:18)
[2021-08-20] MEDS: THIAMINE HCL 100 MG TAB PO SCH (09:19)
[2021-08-20] MEDS: CHOLECALCIFEROL 1,000 UNITS 25 MCG TAB PO SCH (09:19)
[2021-08-20] MEDS: ATORVASTATIN 20 MG TAB PO SCH (09:19)
[2021-08-20] MEDS: FOLIC ACID 1 MG TAB PO SCH (09:19)
[2021-08-20] MEDS: METOPROLOL SUCC 50MG EXT REL TAB PO SCH (09:20)
[2021-08-20] MEDS: LOSARTAN POTASSIUM 50 MG TAB PO SCH (09:21)
[2021-08-20] MEDS: UMECLIDINIUM BROMIDE 62.5MCG/BLISTER 7 PUFFS/INHALER INH SCH (09:21)
[2021-08-20] MEDS: KETOCONAZOLE 2% CR 15 GM TUBE EXT SCH (09:22)
--- NOTE | 2021-08-20 11:38 | Hospitalist Progress Note ---
Date of Service August 20, 2021 Assessment & Plan (1) Hyponatremia: Plan: 71yo M with a PMH of chronic hyponatremia in the setting of alcohol abuse, COPD, current tobacco use, HTN and other medical problems listed below who presents with worsening confusion over the past week. 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 No longer on diuretics. Instructed to fluid restriction of 60 oz, increase protein Serum osm [address] head without acute intracranial abnormality Nephrology consult noted Counseled patient extensively on need to stop alcohol intake and to stick to daily fluid restriction Na 129 today Will continue fluid restriction and monitor (2) HLD (hyperlipidemia): Plan: Continue statin (3) HTN (hypertension): Plan: Normotensive. Continue amlodipine, losartan, Toprol (4) Alcohol use disorder: Plan: Chronic alcohol use, at least 5 beers nightly indicated some alcohol withdrawal during previous admission Alcohol withdrawal precaution with gabapentin and as needed IV Ativan Daily folate, continue home dose thiamine (5) Tobacco use disorder: Plan: Nicotine patch ordered. Smoking cessation discussed DVT Ppx: SQ Lovenox Code status: FULL PCP: Slava Plan for DC tomorrow (6) Acute metabolic encephalopathy: Plan: Resolved Admission and Anticipated Discharge Date Admission Date: August 19, 2021 Subjective Patient seen and examined Reports feeling better. Stated the confusion he had at home is resolved Denied any dizziness, headache Denied any cough, SOB, palpitations, chest pain Denied fever, chills, nausea, vomiting, abd pain, diarrhea Denied dysuria, freq, urgency Physical Exam Constitutional: + well hydrated; no acute distress Eyes: PERRL, conjunctivae normal, anicteric sclerae ENMT: external ear and nose normal, oropharynx normal Respiratory: normal respiratory effort, lungs clear to auscultation Cardiovascular: Rate/Rhythm: regular rate and regular rhythm S1 S2 Gastrointestinal (Abdomen): normal bowel sounds, soft, nontender, no hepatosplenomegaly Musculoskeletal: no cyanosis or clubbing, extremities motor strength 5/5 Neurologic: PERRL, EOMI, accommodation nl, no face palsy, no dysarthria Psychiatric: A+Ox3, euthymic affect Results & Data Results & Data ([facility]) Vital Signs (Past 12 Hours) Vital Signs Temp Pulse Pulse Resp BP Pulse Ox 08/20/21 10:19 67 08/20/21 09:17 116/70 08/20/21 09:15 82 08/20/21 07:28 36.7 C 74 16 155/76 H 98 08/20/21 03:27 36.6 C 64 18 125/70 96 Laboratory Results Abnormal lab results 08/19/21 08/19/21 08/19/21 Range/Units 11:40 11:40 11:40 RBC 4.19 L (4.7-6.1) M/uL Hgb (14.0-18.0) g/dL Hct 39.1 L (42-52) % MCHC 36.1 H (32-36) g/dL [place] # (Auto) 0.76 H (0.11-0.59) K/uL Sodium 125 L (136-145) mmol/L Chloride 94 L (98-107) mmol/L Glucose (70-99(Fasting)) mg/dl Osmolality 260 L (280-300) mOsm/kg Calcium (8.5-10.1) mg/dl Alkaline Phosphatase 31 L (34-104) U/L Urine Osmolality (500-800) mOsm/kg 08/19/21 08/20/21 08/20/21 Range/Units 18:51 01:59 06:50 RBC 3.74 L (4.7-6.1) M/uL Hgb 12.3 L (14.0-18.0) g/dL Hct 34.8 L (42-52) % MCHC (32-36) g/dL [place] # (Auto) (0.11-0.59) K/uL Sodium 128 L (136-145) mmol/L Chloride (98-107) mmol/L Glucose 117 H (70-99(Fasting)) mg/dl Osmolality (280-300) mOsm/kg Calcium 8.4 L (8.5-10.1) mg/dl Alkaline Phosphatase (34-104) U/L Urine Osmolality 226 L (500-800) mOsm/kg 08/20/21 Range/Units 06:50 RBC (4.7-6.1) M/uL Hgb (14.0-18.0) g/dL Hct (42-52) % MCHC (32-36) g/dL [place] # (Auto) (0.11-0.59) K/uL Sodium 129 L (136-145) mmol/L Chloride (98-107) mmol/L Glucose (70-99(Fasting)) mg/dl Osmolality (280-300) mOsm/kg Calcium 7.9 L (8.5-10.1) mg/dl Alkaline Phosphatase (34-104) U/L Urine Osmolality (500-800) mOsm/kg
--- NOTE | 2021-08-20 15:05 | Nephrology Progress Note ---
Date of Service August 20, 2021 Assessment & Plan Admission and Anticipated Discharge Date Admission Date: August 19, 2021 Subjective S--no new issues PHYSICAL EXAMINATION: GENERAL: Elderly white male who is not in any overt respiratory distress. He is awake, alert and oriented x3. HEENT: Mucous membrane is moist. NECK: Supple. No jugular venous distention. CHEST: Bilateral decreased breath sounds, occasional wheezing. CARDIOVASCULAR: S1 and S2, regular. ABDOMEN: Soft, nontender. EXTREMITIES: Show no edema. LABORATORY TEST: Reviewed and shows sodium 129 now, ASSESSMENT AND PLAN: A 71-year-old male with chronic established diagnosis of underlying syndrome of inappropriate antidiuretic hormone secretion with superimposed beer potomania. The patient is admitted because of increasing confusion and forgetfulness for the last 1 week and was brought to the hospital by his . 1. Hyponatremia. This is not a new diagnosis for him. He has been admitted with same problem in the past and the diagnosis has been established as underlying SIADH with beer potomania from excessive beer drinking every day. On top of that, he eats very little solid food as per his . He is still having ongoing smoking and has underlying COPD. No further workup is needed for the etiology of hyponatremia. RECOMMENDATIONS: 1. Can stop iv fluid. 2. Fluid restriction 1500 mL per day. 3. Give urea na 30 gm today x 1 . If his serum sodium is more than 130+ and he is otherwise stable, can be discharged tomorrow. 4. Extensive discussion with the patient as well as his who is at the bedside about the need to stop excessive chronic beer intake. As long as he continues to drink this much beer, there is absolutely no way to control the serum sodium. This was clearly explained to the patient. He says he will have to listen to his now. Results & Data ([facility]) Vital Signs (Past 12 Hours) Vital Signs Temp Pulse Pulse Resp BP Pulse Ox 08/20/21 12:52 36.4 C L 70 16 132/73 97 08/20/21 11:56 36.7 C 08/20/21 10:19 67 08/20/21 09:17 116/70 08/20/21 09:15 82 08/20/21 07:28 36.7 C 74 16 155/76 H 98 08/20/21 03:27 36.6 C 64 18 125/70 96
[2021-08-20] MEDS ORDERED: UREA (UREA-NA) 15 GM PACK PO ONE (15:06)
[2021-08-20 15:51] LABS: BUN Creatinine Ratio 18.4 (10-20); Calcium 8.8 mg/dl (8.5-10.1); Creatinine Clr Calc Pharmacy 83.3 ml/min; Est GFR (African American) 105.6 ml/min; Est GFR (Non-African American) 91.1 ml/min; Potassium 4.2 mmol/L (3.5-5.1)
--- NOTE | 2021-08-20 18:49 | Electrocardiogram Report ---
Test Reason : Blood Pressure : / mmHG Vent. Rate : 061 BPM Atrial Rate : 061 BPM P-R Int : 170 ms QRS Dur : 080 ms QT Int : 462 ms P-R-T Axes : 037 -36 033 degrees QTc Int : 465 ms Normal sinus rhythm Left axis deviation Septal infarct (cited on or before 30-APR-2020) Abnormal ECG When compared with ECG of 30-APR-2020 19:18, No significant change was found Confirmed by Bryant Ruiz ([id number]) on 08/20/2021 6:48:56 PM Referred By: SELF Confirmed By:Bryant Ruiz
[2021-08-20] MEDS: ENOXAPARIN INJ 40 MG/0.4 ML SYR SQ SCH (19:10)
[2021-08-21] MEDS: GABAPENTIN 600 MG TAB PO SCH (05:31)
[2021-08-21 07:31] LABS: Hemoglobin 12.4 g/dL (14.0-18.0); Mean Corpuscular Hgb Conc 35.4 g/dL (32-36); Mean Corpuscular Volume 93.1 fL (80-100); Platelet Count 236 K/uL (130-400); RDW Coefficient of Variation 13.3 % (11.5-14.5); RDW Standard Deviation 45.5 fL (36.4-46.3); Red Blood Count 3.76 M/uL (4.7-6.1); White Blood Count 5.18 K/uL (4.8-10.8)
[2021-08-21 07:50] LABS: Est GFR (African American) 108.6 ml/min
[2021-08-21 07:51] LABS: Calcium 8.3 mg/dl (8.5-10.1); Creatinine Clr Calc Pharmacy 90.3 ml/min; Est GFR (Non-African American) 93.7 ml/min
[2021-08-21] MEDS: amLODIPine BESYLATE 5 MG TAB PO SCH (08:14)
[2021-08-21] MEDS: ATORVASTATIN 20 MG TAB PO SCH (08:15)
[2021-08-21] MEDS: FOLIC ACID 1 MG TAB PO SCH (08:16)
[2021-08-21] MEDS: KETOCONAZOLE 2% CR 15 GM TUBE EXT SCH (08:16)
[2021-08-21] MEDS: NICOTINE 21 MG/24 HR TDSY TD SCH (08:17)
[2021-08-21] MEDS: METOPROLOL SUCC 50MG EXT REL TAB PO SCH (08:17)
[2021-08-21] MEDS: LOSARTAN POTASSIUM 50 MG TAB PO SCH (08:17)
[2021-08-21] MEDS: THIAMINE HCL 100 MG TAB PO SCH (08:17)
[2021-08-21] MEDS: UMECLIDINIUM BROMIDE 62.5MCG/BLISTER 7 PUFFS/INHALER INH SCH (08:18)
--- NOTE | 2021-08-21 10:42 | Discharge Summary ---
Date of Service August 21, 2021 Admission HPI Per Admitting Provider This is a 71yo M with a PMH of chronic hyponatremia in the setting of alcohol abuse, COPD, current tobacco use, HTN and other medical problems listed below who presents with worsening confusion over the past week. Patient was seen in PCPs office yesterday for confusion that has been progressing over the past few years but more prominent since last Monday. Got lost while driving, which is unusual for him. Got out of bed 2 nights ago and lost balance, falling onto L elbow. Had episode of urinary incontinence 2 nights ago when this happened. No LOC or head trauma. Has history of alcohol use, drinking at least 5 beers a night. Last drink last evening. Denies history of withdrawal although does not remember the last time he went without alcohol. Smokes 1-1.5 ppd. Had lab work done in clinic revealing low sodium and was directed to come to ED for further evaluation. No fever, chills, headache, chest pain, SOB, nausea, vomiting, abdominal pain, dysuria, diarrhea or constipation. Denies focal weakness or sensory deficits. 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 Admission Exam Per Admitting Provider GENERAL: Alert and oriented x3. NAD, on RA. Flushed face. HEENT: No pallor, no icterus. Pupils equal, round and reactive to light. Oral mucosa moist. NECK: No JVD, no neck masses. HEART: S1 and S2 heard. Regular rate and rhythm. Systolic murmur at Aortic area, no gallop. RESPIRATORY SYSTEM: Normal AP diameter. No accessory muscle use. No wheezing, no crackles. ABDOMEN: Soft, bowel sounds present, nontender, no distention. CENTRAL NERVOUS SYSTEM: No facial droop. Speech is clear. Obeys simple commands. Moves extremities. EXTREMITIES: No edema, no erythema seen. Principal Diagnosis Hyponatremia Alcohol use disorder Discharge Exam Constitutional + well hydrated; no acute distress Eyes PERRL, conjunctivae normal, anicteric sclerae ENMT external ear and nose normal, oropharynx normal Respiratory normal respiratory effort, lungs clear to auscultation Cardiovascular Rate/Rhythm: regular rate and regular rhythm S1 S2 Gastrointestinal (Abdomen) normal bowel sounds, soft, nontender, no hepatosplenomegaly Musculoskeletal no cyanosis or clubbing, extremities motor strength 5/5 Neurologic PERRL, EOMI, accommodation nl, no face palsy, no dysarthria Psychiatric A+Ox3, euthymic affect Discharge Data Allergies Allergy/AdvReac Type Severity Reaction Status Date / Time No Known Allergies Allergy Verified 08/19/21 12:42 Consultations 08/19/21 13:25 ED Decision to Admit Stat 08/19/21 14:25 Consult Nephrology Routine Ordered Studies 08/19/21 11:17 CT head/brain wo con Stat No acute intracranial hemorrhage, midline shift, intracranial mass, hydro cephalus, territorial ischemia or abnormal extra-axial collection. Age-related involutional changes. Mild white matter hypodensities are suggestive of chronic microvascular ischemic disease. Cerebral vascular calcifications. The calvarium is intact. Prior left-sided lens replacement. Mastoid air cells are clear. Mild mucosal thickening of the paranasal sinuses. IMPRESSION: No acute intracranial abnormality. Hospital Course (1) Hyponatremia: 71yo M with a PMH of chronic hyponatremia in the setting of alcohol abuse, COPD, current tobacco use, HTN and other medical problems listed below who presents with worsening confusion over the past week. 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 No longer on diuretics. 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 Continue amlodipine, losartan, Toprol (4) Alcohol use disorder: (5) Tobacco use disorder: Chronic alcohol use, at least 5 beers nightly Patient counseled about quitting alcohol and smoking cessation (6) Acute metabolic encephalopathy: Resolved Total Time Total Time Spent Total Time Spent (In Minutes): 45 Total Time Includes: Examination of the Patient, Discharge Planning, Medication Reconciliation and Communication With Other Providers Discharge Plan Discharge Items Patient Disposition: Home - Self-Care Reason For Visit: HYPONATREMIA, CONFUSION Discharge Diagnosis: Hyponatremia Activity: Resume your previous activity Non-emergency contact: Primary Care Provider Call non-emergency contact if: you have any medication questions Follow-up/Referrals: Conner Pedersen MD [Primary Care Provider] - (Call for appointment within 1 week) Diet: Heart Healthy Fluids: 1500ml (6 cups) Addtl Attending Provider Instructions: Mr Colindres You came to the hospital with confusion and you were noted to have low sodium levels. It is very important that you quit alcohol use completely and stick to the daily fluid restriction. You were started on urea sodium. Please follow up with your Primary Doctor. Pending Studies at Discharge: No Stand-Alone Forms: My [facility] Doctor Fun, Smoking Cessation Medications and DC Order Prescriptions: New Ure-Na 15 gram powder in packet 1 packet PO BID Qty: 8 RF: 1 Continued atorvastatin [Lipitor] 20 mg tablet 20 mg PO DAILY RF: 0 metoprolol succinate 50 mg Tablet Extended Release 24 Hr 50 mg PO DAILY RF: 0 thiamine HCl (vitamin B1) [Vitamin B-1] 100 mg Tablet 100 mg PO DAILY RF: 0 losartan [Cozaar] 100 mg tablet 100 mg PO DAILY RF: 0 Incruse Ellipta 62.5 mcg/actuation blister with device 1 inh INHALATION DAILY RF: 0 ketoconazole 2 % cream 1 applic TOPICAL DAILY RF: 0 cholecalciferol (vitamin D3) [Vitamin D3] 25 mcg (1,000 unit) Capsule 25 mcg PO 5XWK RF: 0 amlodipine 2.5 mg tablet 2.5 mg PO DAILY RF: 0 Discharge Orders: Discharge Order (Routine); Ordered 08/21/21 Ordered By: Katie Max Admission Data Admit Date/Time: 08/19/21 13:15 Attending Provider: Katie Max I. Admit Provider: Deysi Bailey Primary Care Provider: Conner Pedersen Other Providers: Db Marie ; Deysi Bailey Other Interventions: Discharge Summary Assessment (RN) Last Done: 08/21/21 10:51
[2021-08-21] MEDS ORDERED: GABAPENTIN 600 MG TAB PO SCH (18:00)
[2021-08-23] MEDS ORDERED: GABAPENTIN 600 MG TAB PO SCH (06:00)
== END 2021-08-21 11:29 | disposition home or self-care (01) | DRG 643 ==
LOC: ED 10:42 → EDINP 13:15 → SUATTDRO 13:15 → 2S 16:07

== ENCOUNTER 2023-06-16 11:15 | Inpatient (IN) ==
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
--- NOTE | 2023-06-16 11:53 | XRay Report ---
XR shoulder RT min 2V routine CLINICAL HISTORY: fall, pain COMPARISON: Right shoulder radiographs May 21, 2020. FINDINGS: Alignment of the right shoulder is anatomic. There is no acute fracture. There are no osse ous lesions. There is mild osteoarthritis of the right acromioclavicular and glenohumeral joints. IMPRESSION: No fracture or dislocation within the right shoulder. ACT 112: Negative or not required by law. Electronically signed by: Danny Hurtado M.D. 06/16/2023 11:51 AM
[2023-06-16] MEDS: ACETAMINOPHEN 500 MG TAB PO STA (12:06)
[2023-06-16 12:12] LABS: Basophils # (auto) 0.03 K/uL (0.00-0.20); Basophils % (auto) 0.4 %; Eosinophils # (auto) 0.15 K/uL (0.00-0.50); Eosinophils % (auto) 1.8 %; Hematocrit (blood only) 39.5 % (42.0-52.0); Hemoglobin 14.5 g/dl (14.0-18.0); Immature Granulocytes # (auto) 0.03 K/uL (0.01-0.20); Immature Granulocytes % (auto) 0.4 %; Lymphocytes # (auto) 0.79 K/uL (1.20-3.40); Lymphocytes % (auto) 9.5 %; Mean Corpuscular Hgb Conc 36.7 g/dL (32.0-36.0); Mean Platelet Volume 8.5 fL (9.4-12.4); Monocytes # (auto) 0.91 K/uL (0.11-0.59); Monocytes % (auto) 10.9 %; Neutrophils # (auto) 6.41 K/uL (1.40-6.50); Platelet Count 224 K/uL (130-400); RDW Coefficient of Variation 12.3 % (11.5-14.5); RDW Standard Deviation 40.3 fL (36.4-46.3); Red Blood Count 4.39 M/uL (4.70-6.10); White Blood Count 8.32 K/ul (4.8-10.8)
--- NOTE | 2023-06-16 12:12 | XRay Report ---
XR elbow LT min 3V routine HISTORY: 73 years-old Male fall, skin tear acute left elbow pain status post fall COMPARISON: None TECHNIQUE: 3 views of the left elbow FINDINGS: Mild osteoarthritis. Moderate dorsal soft tissue swelling. No acute fracture, dislocation or large jose alfredo int effusion. No opaque foreign bodies. IMPRESSION: No acute fracture or dislocation. ACT 112: Negative or not required by law. The above report was generated using voice recognition software. It may contain grammatical, syntax o r spelling errors. Electronically signed by: Mt Uriostegui M.D. 06/16/2023 12:11 PM
[2023-06-16 12:32] LABS: Albumin Globulin Ratio 1.3 (0.9-2); Albumin Level 3.9 gm/dl (3.4-5.0); BUN Creatinine Ratio 9.8 (10-20); Bilirubin,Total 0.6 mg/dl (0.2-1.0); Calcium 8.8 mg/dl (8.6-10.3); Est GFR (Non-African American) 87.1 ml/min; Potassium 4.3 mmol/L (3.5-5.1); Total Protein 6.9 gm/dl (6.0-8.3)
[2023-06-16 12:38] LABS: Troponin I High Sensitivity 10.4 pg/ml (0-20)
--- NOTE | 2023-06-16 12:59 | CT Scan Report ---
CT OF THE HEAD WITHOUT CONTRAST CLINICAL HISTORY: fall COMPARISON STUDY: MRI of the brain April 30, 2020. Head CT August 19, 2021. TECHNIQUE: Helical axial images of the head were obtained without IV contrast. Automated exposure con trol was utilized for the study. A dose lowering technique was utilized adhering to the principles o f ALARA. FINDINGS: No acute intracranial hemorrhage, midline shift or mass effect is present. The ventricular system is unremarkable. The basal cisterns are patent. No extra-axial collections are present. There are no findings to suggest acute dural sinus thrombosis or acute territorial infarct. White matter hy podensities favor small vessel disease. There are no calvarial fractures. IMPRESSION: 1. No acute intracranial findings. 2. No calvarial fractures. ACT 112: Negative or not required by law. Electronically signed by: Danny Hurtado M.D. 06/16/2023 12:58 PM
--- NOTE | 2023-06-16 13:18 | CT Scan Report ---
CT SCAN OF THE CERVICAL SPINE CLINICAL HISTORY: Fall. COMPARISON STUDY: CT of the cervical spine dated 05/21/2020. TECHNIQUE: CT scan of the cervical spine is performed from the skull base to the upper thoracic spine . Images are reviewed in the axial, sagittal, and coronal planes. IV contrast was not administered fo r this examination. A dose lowering technique was utilized adhering to the principles of ALARA. FINDINGS: Skeletal structures: The skeletal structures are osteopenic. There is no evidence of fracture or subl uxation involving the cervical spine. Vertebral body height is maintained. There is minimal anteroli sthesis at C7-T1. Alignment is otherwise preserved. There is straightening of the cervical lordosis. Anterior osteophytes are seen throughout. The odontoid process and lateral masses are intact. The mera antoaxial articulation is preserved noting advanced productive degenerative change. The spinous proce sses appear intact. There is moderate multilevel cervical spondylosis. Uncovertebral and facet arthro ana contribute to neural foraminal narrowing at several levels. Intervertebral discs: There is severe disc space narrowing at C4-C5, C5-C6, and C6-C7 with multilevel endplate sclerosis. Moderate disc space narrowing is seen at C7-T1. Central canal: Posterior disc osteophyte complexes are seen at all cervical levels between C4-C5 and C7-T1. This likely contributes to multilevel acquired compromise of the central canal. Soft tissues: The prevertebral and paraspinous soft tissues are within normal limits. There is athero sclerotic calcification of the carotid bulbs. Calvarium: The visualized calvarium at the skull base appears intact. Brain parenchyma: Partially visualized brain parenchyma at the skull base is within normal limits. Sinuses and mastoids: There is mild mucosal thickening in the right maxillary antrum. Trace mucosal t hickening is noted in the sphenoid sinuses. The mastoid air cells are well pneumatized. Lung apices: Clear as visualized. IMPRESSION: 1. There is no evidence of fracture or subluxation involving the cervical spine. 2. Osteopenia and spondylotic change as above. ACT 112: Negative or not required by law. Electronically signed by: Alvarado Gray M.D. 06/16/2023 1:16 PM
--- NOTE | 2023-06-16 13:33 | CT Scan Report ---
CT SCAN OF THE LUMBAR SPINE WITHOUT IV CONTRAST CLINICAL HISTORY: Fall. COMPARISON STUDY: MRI of the lumbar spine dated 05/21/2020. Abdominal CT dated 03/17/2020. TECHNIQUE: CT scan of the lumbar spine is performed from the lower thoracic spine to the sacrum. Imag es are reviewed in the axial, sagittal, and coronal planes. IV contrast was not administered for this examination. A dose lowering technique was utilized adhering to the principles of ALARA. CT DOSE: 2422.13 mGy.cm FINDINGS: The skeletal structures are osteopenic. There is a chronic compression deformity of T12 wit h evidence of previous vertebroplasty. There is a mild chronic superior endplate compression deformit y of L1. Loss of height has modestly progressed from 05/21/2020. There is an age-indeterminate but chr onic-appearing superior endplate compression deformity of L2, which is new from the 2020 examinations . Fragments are retropulsed at this level by up to 4.5 mm. This does not contribute to significant ce ntral canal stenosis. There is a minimal chronic superior endplate compression deformity of L3. Verte bral body height at L4 and L5 is preserved. Alignment is maintained. Anterior and lateral marginal os teophytes are seen throughout. The transverse and spinous processes appear intact. There is no spondy lolysis. No lytic or blastic lesion is seen. There is sggz-va-[id number] multilevel degenerative disc s pace narrowing, greatest at L3-L4 where there is associated endplate sclerosis. Posterior disc bulges are seen at several levels. There is no CT evidence of high-grade central canal stenosis. Facet arth ropathy is noted in the lower lumbar region. A right lateral disc bulge at L5-S1 contributes to subar ticular stenosis and may abut the exiting right L5 nerve root. The visualized sacrum and bony pelvis appear intact. There is no significant paravertebral edema. Fatty atrophy is noted in the paraspinous musculature. There is ubrujarf-sp-kvprwtij atherosclerotic calcification and ectasia of the abdomina l aorta. No retroperitoneal lymphadenopathy is seen. IMPRESSION: 1. No acute fracture or malalignment is clearly identified involving the lumbar spine. 2. A compression deformity of L2 is chronic-appearing but new from 2020. 3. Additional chronic compression deformities detailed above were seen on prior examinations. ACT 112: Negative or not required by law. Dictated: 06/16/2023 1:17 PM Transcribed: 06/16/2023 1:30 PM Jose Antonio [id number] [email or web address] Electronically signed by: Alvarado Gray M.D. 06/16/2023 1:32 PM
[2023-06-16] MEDS ORDERED: ALUMINUM/MAGNESIUM SUSP 30 ML UDC PO PRN (14:13)
[2023-06-16] MEDS ORDERED: ONDANSETRON INJ 2 MG/ML 2 ML VIAL IV PRN (14:13)
[2023-06-16] MEDS ORDERED: POLYETHYLENE (MIRALAX) 17 GM PACK PO PRN (14:13)
[2023-06-16] MEDS ORDERED: MAGNESIUM HYDROXIDE SUSP 30 ML UDC PO PRN (14:13)
[2023-06-16] MEDS ORDERED: LORazepam 1 MG in SYRINGE 0.5 ML IV PRN (14:13)
[2023-06-16] MEDS: SODIUM CHLORIDE 0.9% 1,000 ML IV SCH (14:28)
[2023-06-16] MEDS: NICOTINE 21 MG/24 HR TDSY TD SCH (14:28)
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
[2023-06-16] MEDS: FOLIC ACID 1 MG in SYRINGE 9.8 ML IV SCH (16:14)
[2023-06-16] MEDS: THIAMINE HCL 100 MG in SYRINGE 9 ML IV SCH (16:15)
[2023-06-16] MEDS: GABAPENTIN 600 MG TAB PO ONE (16:17)
[2023-06-16] MEDS: ENOXAPARIN INJ 40 MG/0.4 ML SYR SQ SCH (16:18)
[2023-06-16] MEDS: CYANOCOBALAMIN 1000 MCG/ML VIAL IM SCH (16:18)
[2023-06-16] MEDS: ACETAMINOPHEN 325 MG TAB PO PRN (16:21)
[2023-06-16] MEDS: LIDOCAINE 5% 1 PATCH TD STA (16:22)
[2023-06-16] MEDS: GABAPENTIN 1200MG ALCOHOL WITHDRAWAL LOAD PO ONE (16:26)
[2023-06-16] MEDS: DICLOFENAC SOD 1% GEL 100 GM TUBE EXT SCH (19:58)
[2023-06-16 22:06] LABS: Calcium 8.2 mg/dl (8.6-10.3); Creatinine Clr Calc Pharmacy 64.8 ml/min; Est GFR (African American) 85.6 ml/min; Est GFR (Non-African American) 73.8 ml/min; Potassium 3.9 mmol/L (3.5-5.1)
[2023-06-16] MEDS: GABAPENTIN 600 MG TAB PO SCH (22:16)
[2023-06-16] MEDS: ACETAMINOPHEN 325 MG TAB PO SCH (22:16)
--- OUTSIDE RECORDS SUMMARY | 2023-06-16 23:12 | External Medical Summary | Summary of Care ---
Author Name Unknown Organization [facility] Address [address] [place] [address] Phone [phone] Care Team Providers Care Drawing Instructor Name Role Phone Conner Pedersen MD Primary Care Provider + Encounter Details Date Type Department Care Team (Late st Contact Info) Description 03/15/2023 Telephone Dermatology [facility] [address] [place], [place] [phone] Services, Scheduling [address] [place] [address] Allergies Active Allergy Reactions Criticality Noted Date Comments Fexofenadine-Pseudoephed Er Other (Please comment) 03/22/2023 Jittery Losartan Rash 11/02/2022 documented as of this encounter (statuses as of 06/14/2023) Medications Medication Sig Dispensed Refills Start Date End Date Status THIAMINE (VITAMIN B-1) 100 MG Tablet Take 1 Tablet by mouth in the morning. 0 07/31/2018 Active Vitamin D3 25 MCG (1000 UT) Oral Tablet (Vitamin D3) Take 1 Tablet by mouth in the morning. Takes once daily 5 times per week . 0 Active Incruse Ellipta 62.5 MCG/ACT Inhalation Aerosol Powder Breath Activated (umeclidinium [place])Indications:PBX TECHNICIAN D, group A, by GOLD 2017 classification ([facility]) INHALE 1 PUFF BY MOUTH EVERY DAY 90 Each 3 08/10/2022 Active Aspirin 81 MG Oral Tablet ChewableIndications:Chr onic right arterial ischemic stroke, MCA (middle cerebral artery),Ataxia Take 1 Tablet by mouth in the morning. 90 Tablet 3 09/27/2022 Active documented as of this encounter (statuses as of 06/14/2023) Active Problems Problem Noted Date Diagnosed Date Chronic right arterial ische obdulia stroke, MCA (middle cerebral artery) 11/02/2022 MGUS (monoclonal gammopathy of unknown significa nce) 11/02/2022 Mild carotid artery disease 10/20/2021 SIADH (syndrome of inappropriate ADH production) 04/08/2021 Vasospasm 04/08/2021 Essential hypertension with goal blood pressure less than 130/80 04/08/2021 Monoclonal paraproteinemia 04/08/2021 Bicuspid aortic valve 04/08/2021 Overview: Partial fusion Chronic hyponatremia 10/02/2020 High risk for fracture due to osteoporosis by DE XA scan 07/08/2020 Renal cyst 05/12/2020 Mixed hyperlipidemia 01/31/2019 COPD, group A, by GOLD 2017 classification 08/20 Overview: Per COPD GOLD Classification In Check dial performed to assess inhaler technique: 04/10/19 Name of inhalers Albuterol Pass: Yes at 55L/min and Incruse Ellipta Pass: Yes at 45 L/min. Encouraged to take deep breaths, use aero chamber, and rinse after steroid. Test performed by [facility] PRESSURE WASHER CPFT Alcohol abuse 01/29/2018 Lung nodule 10/26/2017 Aortic root enlargement 07/25/2017 Moderate aortic regurgitation 07/17/2017 Tobacco abuse documented as of this encounter (statuses as of 06/14/2023) Resolved Problems Problem Noted Date Diagnosed Date Resolved Date Compression fracture of T12 vertebra with routine healing 05/14/2020 04/26/2022 COPD, mild 01/29/2018 08/22/2018 Overview: Per COPD GOLD Classification HTN, goal below 140/90 10/26/201704/08 Emphysema lung 10/26/2017 01/29/2018 Colonic polyp 05/12/2014 04/26/2022 Tendonitis 05/12/2014 06/15/2017 Overview: Shoulder pain - Dr. Chacon documented as of this encounter (statuses as of 06/14/2023) Immunizations Name Administration Dates Next Due COVID-19 mRNA, LNP-s, No Pre serve, 2-Dose Series (Sova) 01/08/2021,06/04/2020,05/08/2020 COVID-19, MRNA-LNP, 23-24, P F, 30 MCG/0.3 mL, 12 YRS AND ABOVE, IM (PFIZER-Comirnaty) 03/04/2023 Pneumococcal Conjugate Vacc, 13 Valent (Prevnar) 12/03/2015 Pneumococcal Polysaccharide PPV23 (Pneumovax) 12/11/2019,05/12/2014 Seasonal Influenza Virus Vac cine, Unspecified Formulation 02/19/2023 Seasonal Influenza, PF, 6 M & above, IM , (FluLaval or Fluzone) 12/20/2017 Seasonal Influenza, Quadriva lent Hd (Fluzone Hd) 11/28/2020 Seasonal Influenza, Quadriva lent Hd, 65+ Yrs 01/03/2022,11/05/2019 Seasonal Influenza, Trivalen t, Adjuvanted, 65+ yrs 11/10/2019,12/04/2018 TDAP (age 10 and older)(Boostrix) 10/20/2013 documented as of this encounter Social History Tobacco Use Types Packs/Day Years Used Date Smoking Tobacco: Every Day Cigarettes 1.5 49.3 Started: 1975 Smokeless Tobacco: Never Alcohol Use Standard Drinks/Week Comments Yes 21 (1 standard drink = 0.6 oz pu re alcohol) PHQ-2 Answer Date Recorded PHQ Adult Total Score 0 03/22/2023 Hunger Vital Sign Answer Date Recorded Within the past 12 months, y ou worried that your food would run out before you got the money to buy more. Never true 03/21/19 23 Within the past 12 months, t he food you bought just didn't last and you didn't have money to get more. Never true 03/21/2022 Sex and Gender Information Value Date Recorded Sex Assigned at Male 07/31/2018 8:57 AM EDT Gender Identity Male 07/31/2018 8:57 AM EDT Sexual Orientation Straight 07/31/2018 8: 57 AM EDT Job Start Date Occupation Industry Not on file Not on file Not on file documented as of this encounter Plan of Treatment Upcoming Encounters Date Type Department Care Team (Late st Contact Info) Description 07/03/2023 9:30 AM EDT Office Visit Allergy/Immunology [facility] [address] [place] [address] Adriana Robb PA-C [address] [place] [address] 09/04/2023 10:30 AM EDT Imaging Radiology [facility] [address] [place] [address] 09/06/2023 2:30 PM EDT Hospital Encounter ENDO [facility], Endoscopy Room [facility] [address] [place] [phone] Justin Ernst MD [address] [place] [address] 09/06/2023 2:30 PM EDT - 09/06/2023 3:00 PM EDT Surgery ENDO [facility], Endoscopy Room [facility] [address] [place] [phone] Justin Ernst MD [address] [place] [address] COLONOSCOPY FLEXIBLE PROXIMAL DIAGNOSTIC 09/19/2023 11:45 AM EDT Office Visit Urology, [facility] [place] [address] Sivakumar Huston MD [address] [address] [place] [address] 10/11/2023 2:30 PM EDT Nurse Only Rheumatology [facility] [address] [place] [address] Pf, Nurse Rheum [address] [place] [address] 12/13/2023 10:20 AM EDT Office Visit General Internal Medicine [facility] [address] [place] [address] Conner Pedersen MD [address] [facility] [place] [address] 12/21/2023 11:00 AM EDT Cardiac Studies Cardiac Studies, [facility] [address] [place] [address] Scheduled Procedures Name Priority Associated Diagnoses Date/Ti me COLONOSCOPY FLEXIBLE PROXIMAL DIAGNOSTIC Recall History of colon polyps 09/06/2023 2:30 PM EDT Health Maintenance Due Date Last Done Comments Zoster Vaccines (1 of 2) 05/28/1999 DISCUSS TOBACCO CESSATION (REFER TO SMARTSET #3291) 01/22/2022 01/22/2021, 06/26/2020 COLONOSCOPY-EVERY 5 YRS AGES 18-100 02/15/2023 02/15/2018, 02/15/2018 DTaP,Tdap,and Td Vaccines (2 - Td or Tdap) 10/21/2023 10/20/2013 Depression Screening 03/22/2024 03/22/2023, 11/13/19 15 O2 ASSESSMENT COMPLETED IN PAST YEAR FOR COPD 05/03/2024 05/03/2023 GFR 06/12/2024 06/13/2023, 05/11, 05/03/2023, Additional history exists DXA Scan 07/11/2024 07/11/2022, 03/2022, 07/07/2020 Albumin/Creatinine Ratio 04/14/2025 04/14/2022, 1206/2017 Alpha-1 Antitrypsin Completed 04/23/2019 Pneumococcal Vaccine: 65+ Years Completed 12/11/2019, 12/03/2015, 05/12/2014 AAA Screening Completed 08/29/2022, 07/2 08/2021, 09/25/2020, Additional history exists Influenza Vaccine (FLU shot) Completed 12/2022, 01/03/2022, 11/28/2020, Additional history exists COVID-19 Vaccine Completed 03/04/2023, , 06/04/2020, Additional history exists VITAMIN D LEVEL ONCE IN A LIFETIME-USE SMARTSET# 13575 Completed 04/07/2023, 10/18/2021, 03/25/2021, Additional history exists GARDASIL-HPV IMMUNIZATION SERIES Aged Out No longer eligible based on patient's age to complete this topic Hepatitis B Aged Out No longer eligi ble based on patient's age to complete this topic MENINGOCOCCAL (MENACTRA/MENVEO) Aged Out No longer eligible based on patient's age to complete this topic documented as of this encounter Medical Devices Implanted Type Area National Secretary Device Identifier Shelf Expiration Date Model / Serial / Lot Cement Hv-R C01a - [id number] Implanted:Qty: 1 on 06/02/2020 [place]andal [place] [facility] [place] Spine Thoracic [employer] : NEURO CARE 11/10/2022 C01A / / [id number] Pack Cement & Mixer C01b - [id number] Implanted:Qty: 1 on 06/02/2020 by Randal Wharton [place] [facility] [place] Spine Thoracic [employer] : NEURO CARE 11/10/2022 C01B / / [id number] documented as of this encounter Advance Directives Latest Code Status on File Code Status Date Activated Date Inactivated Comments Full Code 06/02/2020 8:23 AM 06/02/2020 4:48 PM This order reflects the patients wishes and were consensually agreed upon. Question Answer Comments Discussion of Advance Directives occurred with: Not Discussed Care Teams Drawing Instructor Relationship Specialty Start Date End Date Conner Pedersen MD [address] [place] [address] PCP - General Internal Medicine 11/07/20 documented as of this encounter
--- OUTSIDE RECORDS SUMMARY | 2023-06-16 23:12 | External Medical Summary | Summary of Care ---
Author Name Unknown Organization [facility] Address [address] [place] [address] Phone [phone] Care Team Providers Care Front Office Assistant Name Role Phone Conner Pedersne MD Primary Care Provider + Reason for Visit * Reason Comments Outpatient Testing Encounter Details Date Type Department Care Team (Late st Contact Info) Description 06/13/2023 1:50 PM EDT Laboratory Laboratory [facility] [place] [address] [place] [phone] [facility] [address] [address] [place] [address] Hyperkalemia Allergies Active Allergy Reactions Criticality Noted Date Comments Fexofenadine-Pseudoephed Er Other (Please comment) 03/22/2023 Jittery Losartan Rash 11/02/2022 documented as of this encounter (statuses as of 06/13/2023) Medications Medication Sig Dispensed Refills Start Date [...] MCG/ACT Inhalation Aerosol Powder Breath Activated (umeclidinium [place])Indications:C OPD, group A, by GOLD 2017 classification ([facility]) INHALE 1 PUFF BY MOUTH EVERY DAY 90 Each 3 08/10/2022 Active Aspirin 81 MG Oral Tablet ChewableIndications:C hronic right arterial ischemic stroke, MCA (middle cerebral artery),Ataxia Take 1 Tablet by mouth in the morning. 90 Tablet 3 09/27/2022 Active Magnesium 400 MG Oral Capsule Take by mouth. 0 Active Fexofenadine HCl 180 MG Oral Tablet (Iram Allergy) Take 1 Tablet by mouth in the morning. 90 Tablet 3 05/03/2023 Active Albuterol Sulfate HFA 108 (90 Base) MCG/ACT Inhalation Aerosol Solution Inhale 2 Puffs by mouth every 6 hours as needed for Wheezing or Shortness of Breath. 18 g 1 05/17/2023 Active Calcium Carbonate 600 MG Oral Tablet (Calcium 600) Take 1 Tablet by mouth 2 times a day with morning and evening meals. 0 Active Fluticasone Propionate 50 MCG/ACT Nasal Suspension (Flonase)Indications: Acute frontal sinusitis, recurrence not specified Administer 2 Sprays into each nostril in the morning. 0 05/22/2023 Active Atorvastatin Calcium 20 MG Oral Tablet (Lipitor)Indications: Mixed hyperlipidemia TAKE 1 TABLET BY MOUTH EVERY DAY 90 Tablet 3 06/09/2023 Active Hospital, Clinic, or Other Facility Administered Medication Ordered Dose Route Frequency Start Date End Date Status Denosumab (Prolia) subcut inj 60 mgIndications:Senile osteoporosis 60 mg SC [id number] 04/11/2023 04/05/2024 Active documented as of this encounter (statuses as of 06/13/2023) Active Problems Problem Noted Date Diagnosed Date [...] rinse after steroid. Test performed by [facility] HELP DESK CONSULTANT CPFT Alcohol abuse 01/29/2018 Lung nodule 10/26/2017 Aortic root enlargement 07/25/2017 Moderate aortic regurgitation 07/17/2017 Tobacco abuse documented as of this encounter (statuses as of 06/13/2023) Resolved Problems Problem Noted Date Diagnosed Date Resolved Date Compression fracture of T12 vertebra with routine healing 05/14/2020 04/26/2022 COPD, mild 01/29/2018 08/22/2018 Overview: Per COPD GOLD Classification HTN, goal below 140/90 10/26/201704/08 Emphysema lung 10/26/2017 01/29/2018 Colonic polyp 05/12/2014 04/26/2022 Tendonitis 05/12/2014 06/15/2017 Overview: Shoulder pain - Dr. Chacon documented as of this encounter (statuses as of 06/13/2023) Immunizations Name Administration Dates Next Due COVID-19 mRNA, LNP-s, No Pre serve, 2-Dose Series (Questra) 01/08/2021,06/04/2020,05/08/2020 COVID-19, MRNA-LNP, 23-24, P F, 30 MCG/0.3 mL, 12 YRS AND ABOVE, IM (Overblog-Comirnaty) 03/04/2023 Pneumococcal Conjugate Vacc, 13 Valent (Prevnar) 12/03/2015 Pneumococcal Polysaccharide PPV23 (Pneumovax) 12/11/2019,05/12/2014 Respiratory Syncytial Virus (Rsv) Mab, Unspecified 05/04/2023 Seasonal Influenza Virus Vac cine, Unspecified Formulation [...] drink = 0.6 oz pu re alcohol) 3-4 beers daily PHQ-2 Answer Date Recorded PHQ Adult Total [...] 07/03/2023 9:30 AM EDT Office Visit Allergy/Immunology [facility] [place] [address] [place] [address] Adriana Robb PA-C [address] [place] [address] 09/04/2023 10:30 AM EDT Imaging Radiology [facility] [address] [place] [address] 09/06/2023 2:30 PM EDT Hospital Encounter ENDO [facility], Endoscopy Room [facility] [address] [place] [phone] Justin Ernst MD [address] [place] [address] 09/06/2023 2:30 PM EDT - 09/06/2023 3:00 PM EDT Surgery ENDO [facility], Endoscopy Room [facility] [address] [place] [phone] Justin Ernst MD [address] [facility] [address] [place] [address] COLONOSCOPY FLEXIBLE PROXIMAL DIAGNOSTIC 09/19/2023 11:45 AM EDT Office Visit Urology, [facility] [address] [facility] [place] [address] Sivakumar Huston MD [address] [facility] [address] [place] [address] 10/11/2023 2:30 PM EDT Nurse Only Rheumatology [address] [address] [facility] [place] [address] Pf, Nurse Rheum [facility] [place] [address] 12/13/2023 10:20 AM EDT Office Visit General Internal Medicine [facility] [address] [facility] [place] [address] Conner Pedersen MD [address] [place] [place] [address] 12/21/2023 11:00 AM EDT Cardiac Studies Cardiac Studies, [facility] [address] [facility] [place] [address] Pending Results Name Type Priority Associated Diagnoses Date /Time BASIC METABOLIC PANEL Lab Routine Hyperkalemia 06/13/2023 1:50 PM EDT Scheduled Procedures Name Priority Associated Diagnoses Date/Ti me COLONOSCOPY FLEXIBLE PROXIMAL DIAGNOSTIC Recall History of colon polyps 09/06/2023 2:30 PM EDT Health Maintenance Due Date Last Done Comments Zoster Vaccines (1 of 2) 05/28/1999 DISCUSS TOBACCO CESSATION (REFER TO SMARTSET #3362) 01/22/2022 01/22/2021, 06/26/2020 COLONOSCOPY-EVERY 5 YRS AGES 18-100 02/15/2023 02/15/2018, 02/15/2018 DTaP,Tdap,and Td Vaccines (2 - Td or Tdap) 10/21/2023 10/20/2013 Depression Screening 03/22/2024 03/22/2023, 11/13/19 15 O2 ASSESSMENT COMPLETED IN PAST YEAR FOR COPD 05/03/2024 05/03/2023 GFR 05/21/2024 05/22/2023, 04/14, 03/22/2023, Additional history exists DXA Scan 07/11/2024 07/11/2022, 03/2022, 07/07/2020 Albumin/Creatinine Ratio 04/14/2025 04/14/2022, 06/2017 Alpha-1 Antitrypsin Completed 04/23/2019 Pneumococcal Vaccine: 65+ Years Completed 12/11/2019, 12/03/2015, 05/12/2014 AAA Screening Completed 08/29/2022, 09/11, 09/25/2020, Additional history exists Influenza Vaccine (FLU shot) Completed 12/2022, 01/03/2022, 11/28/2020, Additional history exists COVID-19 Vaccine Completed 03/04/2023, , 06/04/2020, Additional history exists VITAMIN D LEVEL ONCE IN A LIFETIME-USE SMARTSET# [id number] Completed 04/07/2023, 10/18/2021, 03/25/2021, Additional history exists [...] this encounter Medical Devices Implanted Type Area Cold Press Operator Device Identifier Shelf Expiration Date Model / Serial / Lot Cement Hv-R C01a - [id number] Implanted:Qty: 1 [place] 06/02/2020 [place] [facility] [place] Spine Thoracic [employer] : NEURO CARE 11/10/2022 C01A / / [id number] Pack Cement & Mixer C01b - [id number] Implanted:Qty: 1 on 06/02/2020 [place] Randal Wharton [place] [facility] [place] Spine Thoracic [employer] : NEURO CARE 11/10/2022 C01B / / [id number] documented as of this encounter Visit Diagnoses Diagnosis Hyperkalemia Hyperpotassemia History of colon polyps Personal history of colonic polyps documented in this encounter Advance Directives Latest Code Status on File Code Status Date Activated Date Inactivated Comments Full Code 06/02/2020 8:23 AM 06/02/2020 4:48 PM This order reflects the patients wishes and were consensually agreed upon. Question Answer Comments Discussion of Advance Directives occurred with: Not Discussed Care Teams Front Office Assistant Relationship Specialty Start Date End Date Conner Pedersen MD [address] [place] [place] [address] PCP - General Internal Medicine 11/07/20 documented as of this encounter
--- OUTSIDE RECORDS SUMMARY | 2023-06-16 23:12 | External Medical Summary | Summary of Care ---
Author Name Unknown Organization [facility] Address [address] [place] [address] Phone [phone] Care Team Providers Care Antisqueak Applier Name Role Phone Conner Pedersen MD Primary Care Provider + Reason for Visit * Reason Onset Date Comments Follow Up 03/14/2023 Encounter Details Date Type Department Care Team (Late st Contact Info) Description 03/14/2023 Telephone Dermatology [facility] [place] [address] [place] [address] Mia Zhang PA-C [address] [place] [phone] Follow Up Allergies Active Allergy Reactions Criticality Noted Date Comments Fexofenadine-Pseudoephed Er Other (Please comment) 03/22/2023 Jittery Losartan Rash 11/02/2022 documented as of this encounter (statuses as of 06/12/2023) Medications Medication Sig Dispensed Refills Start Date [...] MCG/ACT Inhalation Aerosol Powder Breath Activated (umeclidinium [place])Indications :COPD, group A, by GOLD 2017 classification ([facility]) INHALE 1 PUFF BY MOUTH EVERY DAY 90 Each 3 08/10/2022 Active Aspirin 81 MG Oral Tablet ChewableIndications :Chronic right arterial ischemic stroke, MCA (middle cerebral artery),Ataxia Take 1 Tablet by mouth in the morning. 90 Tablet 3 09/27/2022 Active amLODIPine Besylate 2.5 MG Oral Tablet (Norvasc) Take 1 Tablet by mouth in the morning. 90 Tablet 3 08/19/2022 4 Discontinued(Pat ient preference/disco ntinuation) Atorvastatin Calcium 20 MG Oral Tablet (Lipitor)Indication s:Mixed hyperlipidemia TAKE 1 TABLET BY MOUTH EVERY DAY 90 Tablet 2 10/17/2022 4 Discontinued documented as of this encounter (statuses as of 06/12/2023) Active Problems Problem Noted Date Diagnosed Date [...] rinse after steroid. Test performed by Reilly TYPE PHOTOGRAPHY SUPERVISOR CPFT Alcohol abuse 01/29/2018 Lung nodule 10/26/2017 Aortic root enlargement 07/25/2017 Moderate aortic regurgitation 07/17/2017 Tobacco abuse documented as of this encounter (statuses as of 06/12/2023) Resolved Problems Problem Noted Date Diagnosed Date Resolved Date Compression fracture of T12 vertebra with routine healing 05/14/2020 04/26/2022 COPD, mild 01/29/2018 08/22/2018 Overview: Per COPD GOLD Classification HTN, goal below 140/90 10/26/201704/08 Emphysema lung 10/26/2017 01/29/2018 Colonic polyp 05/12/2014 04/26/2022 Tendonitis 05/12/2014 06/15/2017 Overview: Shoulder pain - Dr. 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 They will call in with result of BP in the 2 week time period. He says his skin has been doing better, has been trying different anti-itch cream, gold nuno with oatmeal, benadryl geland others. Will keep us updated. * Telephone Encounter - Salena Dickson MED ASSIST - 03/23/2023 9:42 AM EST Message left for patient to contact the office. * Telephone Encounter - Dena Blas LPN - 03/21/2023 1:07 PM EST Message left for patient to call office for below information * Telephone Encounter - Mia Zhang PA-C - 03/17/2023 8:28 AM EST Can you please call pt and let him know that I discussed with Dr. Pedersen and we are going to stop the amlodipine again. We will try for [address] Pedersen recommends he come in for a BP check in 2 weeks after stopping. Can he schedule this with pcp office? Once he is aware, please remove amlodipine from med list. * Telephone Encounter - Conner Pedersen MD - 03/16/2023 7:06 PM EST We can try again, but I suggest he come in for a nurse visit 2 weeks into stopping medicine for bp check, let me know if you need me to schedule anything and once he is aware, please remove amlodipine from med list so there is no confusion - thanks * Telephone Encounter - Mia Zhang PA-C - 03/16/2023 9:[address] Pedersen, I started working with Mr. Colindres for his rash, we did another biopsy which showed drug reaction again. I know you and Dr. Ospina did trials off medications in the past and nothing seemed to improve. I was wondering how long he was off the amlodipine. Would you be okay with taking him off the amlodipine again for at least 6 weeks? Thanks, Mia Zhang PA-C * Telephone Encounter - Xuan Turner LPN - 03/14/2023 9:49 AM EST Spoke with patient, he says that the prednisone did help with the rash, it's gone, but he continuesto be itchy. He has been using the gold nuno eczema cream and cerave itch relief cream. Any follow-up? 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 (He has been doing trials off different medications without improvement) Didthe prednisone help at all? documented in this encounter Plan of Treatment Upcoming Encounters Date Type Department Care Team (Late st Contact Info) Description 07/03/2023 9:30 AM EDT Office Visit Allergy/Immunology [facility] [address] [place] [address] Adriana Robb PA-C [address] [place] [address] 09/04/2023 10:30 AM EDT Imaging Radiology [facility] [address] [place] [address] 09/06/2023 2:30 PM EDT Hospital Encounter ENDO [facility], Endoscopy Room [facility] [address] [place] [phone] Justin Ernst MD [address] [place] [address] 09/06/2023 2:30 PM EDT - 09/06/2023 3:00 PM EDT Surgery ENDO [facility], Endoscopy Room [facility] [address] [place] [phone] Justin Ernst MD [address] [place] [address] COLONOSCOPY FLEXIBLE PROXIMAL DIAGNOSTIC 09/19/2023 11:45 AM EDT Office Visit Urology, [facility] [address] [place] [address] Sivakumar Huston MD [address] [place] [address] [place] [address] 10/11/2023 2:30 PM EDT Nurse Only Rheumatology [facility] [address] [facility] [place] [address] Pf, Nurse Rheum [address] [facility] [place] [address] 12/13/2023 10:20 AM EDT Office Visit General Internal Medicine [facility] 200 [facility] [place] [address] Conner Pedersen MD 200 [facility] [place] [address] 12/21/2023 11:00 AM EDT Cardiac Studies Cardiac Studies, [facility] [address] [facility] [place] [address] Scheduled Procedures Name Priority Associated Diagnoses Date/Ti [...] D LEVEL ONCE IN A LIFETIME-USE SMARTSET# 29839 Completed 04/07/2023, 10/18/2021, 03/25/2021, Additional history exists [...] this encounter Medical Devices Implanted Type Area Ham Clerk Device Identifier Shelf Expiration Date Model / Serial / Lot Cement Hv-R C01a - [id number] Implanted:Qty: 1 on 06/02/2020 by Randal Wharton MD at OR [facility] N/A: Spine Thoracic [employer] : NEURO CARE 11/10/2022 C01A / / [id number] Pack Cement & Mixer C01b - [id number] Implanted:Qty: 1 on 06/02/2020 by Randal Wharton MD at OR [facility] N/A: Spine Thoracic [employer] : NEURO CARE 11/10/2022 C01B / / [id number] documented as of this encounter Advance Directives Latest Code Status on File Code Status Date Activated Date Inactivated Comments Full Code 06/02/2020 8:23 AM 06/02/2020 4:48 PM This order reflects the patients wishes and were consensually agreed upon. Question Answer Comments Discussion of Advance Directives occurred with: Not Discussed Care Teams Antisqueak Applier Relationship Specialty Start Date End Date Conner Pedersen MD [address] [place] [address] PCP - General Internal Medicine 11/07/20 documented as of this encounter
--- OUTSIDE RECORDS SUMMARY | 2023-06-16 23:12 | External Medical Summary ---
Author Name Unknown Address Unknown Organization K09:[facility] [place] [address] Laboratory Report Ordering Provider Test Date Status ROXANN MOSELEY 06/13/2023 13:50:02 Final Observation Date Value Abnormality Reference (Units ) Status BUN 06/13/2023 13:50:02 10 6-20 (mg/dL) Final Creatinine 06/13/2023 13:50:02 1.0 0.6-1.2 (mg/dL) Final Glomerular filtration rate/1.73 sq M.predicted [Volume Rate/Area] in Serum, Plasma or Blood by Creatinine-based formula (CKD-EPI) 06/13/2023 13:50:02 80 >=60 (mL/min) Final eGFR is calculated based on the CKD-EPI 2020 equation Sodium 06/13/2023 13:50:02 133 Below low normal 135 -146 (mmol/L) Final Potassium 06/13/2023 13:50:02 4.4 3.5-5.1 (m mol/L) Final Cl 06/13/2023 13:50:02 96 Below low normal 98- 107 (mmol/L) Final CO2 06/13/2023 13:50:02 25 22-32 (mmo l/L) Final Anion gap 06/13/2023 13:50:02 12 7-15 (mmol /L) Final Glucose 06/13/2023 13:50:02 103 70-120 (mg /dL) Final Calcium 06/13/2023 13:50:02 9.6 8.4-10.2 ( mg/dL) Final Performing Location [facility] [place] [address]
--- OUTSIDE RECORDS SUMMARY | 2023-06-16 23:12 | External Medical Summary | Summary of Care ---
Author Name Unknown Organization [facility] Address [address] [place] [address] Phone [phone] Care Team Providers Care Salesperson Florist Supplies Name Role Phone Conner Pedersen MD Primary Care Provider + Reason for Visit * Reason Onset Date Comments Advice 03/08/2023 Encounter Details Date Type Department Care Team (Late st Contact Info) Description 03/08/2023 Telephone General Internal Medicine [facility] [place] [address] [facility] [place] [address] Conner [facility]ersen MD [facility] [address] Advice Allergies Active Allergy Reactions Criticality Noted Date Comments Fexofenadine-Pseudoephed Er Other (Please comment) 03/22/2023 Jittery Losartan Rash 11/02/2022 documented as of this encounter (statuses as of 06/07/2023) Medications Medication Sig Dispensed Refills Start Date [...] MCG/ACT Inhalation Aerosol Powder Breath Activated (umeclidinium [place])Indications:MANAGER OF COMPLIANCE D, group A, by GOLD 2017 classification ([facility]) INHALE 1 PUFF BY MOUTH EVERY DAY 90 Each 3 08/10/2022 Active Aspirin 81 MG Oral Tablet ChewableIndications:Chr onic right arterial ischemic stroke, MCA (middle cerebral artery),Ataxia Take 1 Tablet by mouth in the morning. 90 Tablet 3 09/27/2022 Active Atorvastatin Calcium 20 MG Oral Tablet (Lipitor)Indications:Mi xed hyperlipidemia TAKE 1 TABLET BY MOUTH EVERY DAY 90 Tablet 2 10/17/2022 Active documented as of this encounter (statuses as of 06/07/2023) Active Problems Problem Noted Date Diagnosed Date [...] rinse after steroid. Test performed by Reilly BONBON DIPPER CPFT Alcohol abuse 01/29/2018 Lung nodule 10/26/2017 Aortic root enlargement 07/25/2017 Moderate aortic regurgitation 07/17/2017 Tobacco abuse documented as of this encounter (statuses as of 06/07/2023) Resolved Problems Problem Noted Date Diagnosed Date Resolved Date Compression fracture of T12 vertebra with routine healing 05/14/2020 04/26/2022 COPD, mild 01/29/2018 08/22/2018 Overview: Per COPD GOLD Classification HTN, goal below 140/90 10/26/201704/08 Emphysema lung 10/26/2017 01/29/2018 Colonic polyp 05/12/2014 04/26/2022 Tendonitis 05/12/2014 06/15/2017 Overview: Shoulder pain - Dr. Chacon documented as of this encounter (statuses as of 06/07/2023) Immunizations Name Administration Dates Next Due COVID-19 mRNA, LNP-s, No Pre serve, 2-Dose Series ([employer]) 01/08/2021,06/04/2020,05/08/2020 COVID-19, MRNA-LNP, 23-24, P F, 30 [...] encounter Miscellaneous Notes * Telephone Encounter - Lily Macdonald LPN - 03/08/2023 3:55 PM EST Patient notified of message below. Verbalized understanding. He started wearing a compression stocking and is going to give it a week and if it doesn't improve, he will call us for an appointment. * Telephone Encounter - Conner Pedersen MD - 03/08/2023 3:48 PM EST He should schedule a visit garrett for evaul * Telephone Encounter - Joseph Harris OSA - 03/08/2023 10:14 AM EST Patient has developed a swollen foot from ankle to is toes. Would like a callback. He is wondering if he should be seen or if there is a medication for it he isn't experiencing any discomfort just worried. documented in this encounter Plan of Treatment Upcoming Encounters Date Type Department Care Team (Late st Contact Info) Description 07/03/2023 9:30 AM EDT Office Visit Allergy/Immunology [facility] [place] [address] [place] [address] [address] Adriana Robb PA-C [address] [place] [address] [address] 09/04/2023 10:30 AM EDT Imaging Radiology [facility] [address] [facility] [place] [address] 09/06/2023 2:30 PM EDT Hospital Encounter [facility]O [facility], Endoscopy Room [facility] [address] [facility] [place] [phone] Justin Ernst MD [address] [place] [address] 09/06/2023 2:30 PM EDT - 09/06/2023 3:00 PM EDT Surgery ENDO [facility], Endoscopy Room [facility] [place] [phone] Justin Ernst MD [address] [place] [address] COLONOSCOPY FLEXIBLE PROXIMAL DIAGNOSTIC 09/19/2023 11:45 AM EDT Office Visit Urology, [facility] [address] [facility] [place] [address] [facility]iv[facility]umar [facility]uston MD [facility] [address] [place] [address] 10/11/2023 2:30 PM EDT Nurse Only Rheumatology [place] [address] [facility] [place] [address] Pf, Nurse Rheum [facility] [place] [address] 12/13/2023 10:20 AM EDT Office Visit General Internal Medicine [facility] [address] [facility] [place] [address] Conner Pedersen MD 200 [facility] [place] [address] 12/21/2023 11:00 AM EDT Cardiac Studies Cardiac Studies, [facility] [address] [facility] [place] [address] Scheduled Procedures Name Priority Associated Diagnoses Date/Ti me COLONOSCOPY FLEXIBLE PROXIMAL DIAGNOSTIC Recall History of colon polyps 09/06/2023 2:30 PM EDT Health Maintenance Due Date Last Done Comments Zoster Vaccines (1 of 2) 05/28/1999 DISCUSS TOBACCO CESSATION (REFER TO SMARTSET #5691) 01/22/2022 01/22/2021, 06/26/2020 COLONOSCOPY-EVERY 5 YRS AGES 18-100 02/15/2023 02/15/2018, 02/15/2018 DTaP,Tdap,and Td Vaccines (2 - Td or Tdap) 10/21/2023 10/20/2013 Depression Screening 03/22/2024 03/22/2023, 11/13/19 15 O2 ASSESSMENT COMPLETED IN PAST YEAR FOR COPD 05/03/2024 05/03/2023 GFR 05/21/2024 05/22/2023, /03/2023, 03/22/2023, Additional history exists DXA Scan 07/11/2024 [...] D LEVEL ONCE IN A LIFETIME-USE SMARTSET# 58959 Completed 04/07/2023, 10/18/2021, 03/25/2021, Additional history exists [...] this encounter Medical Devices Implanted Type Area Food Safety Coordinator Device Identifier Shelf Expiration Date Model / Serial / Lot Cement Hv-R C01a - [id number] Implanted:Qty: 1 on 06/02/2020 by Randal Wharton MD at [place] [facility] N/A: Spine Thoracic [employer] : NEURO CARE 11/10/2022 C01A / / [id number] Pack Cement & Mixer C01b - [id number] Implanted:Qty: 1 on 06/02/2020 by Randal Wharton MD at [place] [facility] [place] N/A: Spine Thoracic [employer] : NEURO CARE 11/10/2022 C01B / / [id number] documented as of this encounter Advance Directives Latest Code Status on File Code Status Date Activated Date Inactivated Comments Full Code 06/02/2020 8:23 AM 06/02/2020 4:48 PM This order reflects the patients wishes and were consensually agreed upon. Question Answer Comments Discussion of Advance Directives occurred with: Not Discussed Care Teams Salesperson Florist Supplies Relationship Specialty Start Date End Date Conner Pedersen MD [address] [facility] [place] [address] PCP - General Internal Medicine 11/07/20 documented as of this encounter
--- OUTSIDE RECORDS SUMMARY | 2023-06-16 23:12 | External Medical Summary | Summary of Care ---
Author Name Unknown Organization [facility] Address [address] [place] [address] Phone [phone] Care Team Providers Care [employer] Member Name Role Phone Conner Pedersen MD Primary Care Provider + Reason for Visit * Reason Comments Follow Up 6 month follow up - Pt c/o right food swelling that started 2-3 months ago. Pt states he has been having trouble with balance and hand-eye coordination that he noticed over the past 4-5 months. Pt also states in the morning both of his hands are shaky and his hand writing is worsening over the past 4-5 months. Pt also states he has a deep, productive cough and is constantly blowing his nose that began 2-3 weeks ago. Pt c/o frequent urination, gets up multiple times a night. Encounter Details Date Type Department Care Team (Latest Contact Info) Description 05/22/2023 10:00 AM EDT Office Visit General Internal Medicine [address] [place] [address] Conner Pedersen MD [address] [place], [place] [id number] Essential hypertension with goal blood pressure less than 130/80*; COPD, group A, by GOLD 2017 classification ([facility]); High risk for fracture due to osteoporosis by DEXA scan; Lung nodule; MGUS (monoclonal gammopathy of unknown significance); Mixed hyperlipidemia; Monoclonal paraproteinemia; SIADH (syndrome of inappropriate ADH production) ([facility]); Tobacco abuse; Peripheral edema; Nocturia; Balance disorder; Tremor; Itch; Acute frontal sinusitis, recurrence not specified; Hyperkalemia Allergies Active Allergy Reactions Criticality Noted Date Comments Fexofenadine-Pseudoephed Er Other (Please comment) 03/22/2023 Jittery Losartan Rash 11/02/2022 documented as of this encounter (statuses as of 06/14/2023) Medications Medication Sig Dispensed Refills Start Date End Date Status THIAMINE (VITAMIN B-1) 100 MG Tablet Take 1 Tablet by mouth in the morning. 0 9 Active Vitamin D3 25 MCG (1000 UT) Oral Tablet (Vitamin D3) Take 1 Tablet by mouth in the morning. Takes once daily 5 times per week . 0 Active Incruse Ellipta 62.5 MCG/ACT Inhalation Aerosol Powder Breath Activated (umeclidinium [place])Indication s:COPD, group A, by GOLD 2017 classification ([facility]) INHALE 1 PUFF BY MOUTH EVERY DAY 90 Each 3 3 Active Aspirin 81 MG Oral Tablet ChewableIndication s:Chronic right arterial ischemic stroke, MCA (middle cerebral artery),Ataxia Take 1 Tablet by mouth in the morning. 90 Tablet 3 3 Active Magnesium 400 MG Oral Capsule Take by mouth. 0 Active Fexofenadine HCl 180 MG Oral Tablet (Iram Allergy) Take 1 Tablet by mouth in the morning. 90 Tablet 3 4 Active Albuterol Sulfate HFA 108 (90 Base) MCG/ACT Inhalation Aerosol Solution Inhale 2 Puffs by mouth every 6 hours as needed for Wheezing or Shortness of Breath. 18 g 1 4 Active Calcium Carbonate 600 MG Oral Tablet (Calcium 600) Take 1 Tablet by mouth 2 times a day with morning and evening meals. 0 Active Fluticasone Propionate 50 MCG/ACT Nasal Suspension (Flonase)Indicatio ns:Acute frontal sinusitis, recurrence not specified Administer 2 Sprays into each nostril in the morning. 0 4 Active amLODIPine Besylate 2.5 MG Oral Tablet (Norvasc) Take 1 Tablet by mouth in the morning. 90 Tablet 3 3 05/22/19 24 Discontinued(Pat ient preference/disco ntinuation) Atorvastatin Calcium 20 MG Oral Tablet (Lipitor)Indicatio ns:Mixed hyperlipidemia TAKE 1 TABLET BY MOUTH EVERY DAY 90 Tablet 2 3 06/09/19 24 Discontinued Hospital, Clinic, or Other Facility Administered Medication Ordered Dose Route Frequency Start Date End Date Status Denosumab (Prolia) subcut inj 60 mgIndications:Senile osteoporosis 60 mg SC [id number] 04/11/2023 04/05/2024 Active documented as of this [...] rinse after steroid. Test performed by [facility] [employer] Alcohol abuse 01/29/2018 Lung nodule 10/26/2017 [...] mRNA, LNP-s, No Pre serve, 2-Dose Series ([employer] 01/08/2021,06/04/2020,05/08/2020 COVID-19, MRNA-LNP, 23-24, P F, 30 [...] on file documented as of this encounter Last Filed Vital Signs Vital Sign Reading Time Taken Comments Blood Pressure 128/62 05/22/2023 9:58 AM EDT Pulse 68 05/22/2023 9:58 AM EDT Temperature 35.6 C (96 F) 05/22/2023 9:58 AM EDT Respiratory Rate - - Oxygen Saturation - - Inhaled Oxygen Concentration - - Weight 70 kg (154 lb 6.4 oz) 05/22/2023 9:58 AM EDT Height 175.3 cm (5' 9") 05/22/2023 9:58 AM EDT Body Mass Index 22.8 05/22/2023 9:58 AM EDT documented in this encounter Progress Notes * Conner Pedersen MD - 05/22/2023 10:24 AM EDT Chief Complaint Patient presents with Follow Up 6 month follow up - Pt c/o right food swelling that started 2-3 months ago. Pt states he has been having trouble with balance and hand-eye coordination that he noticed over the past 4-5 months. Pt also states in the morning both of his hands are shaky and his hand writing is worsening over the past4-5 months. Pt also states he has a deep, productive cough and is constantly blowing his nose that began 2-3 weeks ago. Pt c/o frequent urination, gets up multiple times a night. SUBJECTIVE: Handy Colindres is a 72 year old male with PMH as below who presents for follow up COPD, lipids, hyponatremia, mgus. No cp, sob, rodas. No n/v/d. For past 6 months, noticed balance a little more off, getting more tremor in left hand, especially in am or when tries to grasp something or write. No falls, headache. He is cutting back tobacco, but still smoking, drinking 4 beers or so/day still. He iseating ok, no weight loss, dysphagia. He also c/o cough with nasal congestion 2-3 weeks ago. No fevers, fatigue, sob, rodas, nasal drip is clear. No wheezing. Also has to urinate multiple times/night for some time, no pain or blood. Feet occasionally swell, bilateral but R>L. No pain, falls, trauma. Has been seeing derm for itchy skin, off norvasc, bp has been good, is recommended to do trial off asa. Patient Active Problem List Diagnosis Code Tobacco abuse Z72.0 Moderate aortic regurgitation I35.1 Aortic root enlargement ([facility]) I77.89 Lung nodule R91.1 Alcohol abuse F10.10 COPD, group A, by GOLD 2017 classification ([facility]) J44.9 Mixed hyperlipidemia E78.2 Renal cyst N28.1 High risk for fracture due to osteoporosis by DEXA scan M81.0 Chronic hyponatremia E87.1 SIADH (syndrome of inappropriate ADH production) ([facility]) E22.2 Vasospasm ([facility]) I73.9 Essential hypertension with goal blood pressure less than 130/80 I10 Monoclonal paraproteinemia D47.2 Bicuspid aortic valve Q23.1 Mild carotid artery disease ([facility]) I77.9 Chronic right arterial ischemic stroke, MCA (middle cerebral artery) Z86.73 MGUS (monoclonal gammopathy of unknown significance) D47.2 Current Outpatient Medications Medication Sig Dispense Refill THIAMINE (VITAMIN B-1) 100 MG Tablet Take 1 Tablet by mouth in the morning. Vitamin D3 25 MCG (1000 UT) Oral Tablet (Vitamin D3) Take 1 Tablet by mouth in the morning. Takes once daily 5 times per week . Incruse Ellipta 62.5 MCG/ACT Inhalation Aerosol Powder Breath Activated (umeclidinium [place]) INHALE 1 PUFF BY MOUTH EVERY DAY 90 Each 3 Aspirin 81 MG Oral Tablet Chewable Take 1 Tablet by mouth in the morning. 90 Tablet 3 Atorvastatin Calcium 20 MG Oral Tablet (Lipitor) TAKE 1 TABLET BY MOUTH EVERY DAY 90 Tablet 2 Magnesium 400 MG Oral Capsule Take by mouth. Fexofenadine HCl 180 MG Oral Tablet (Iram Allergy) Take 1 Tablet by mouth in the morning. 90 Tablet 3 Albuterol Sulfate HFA 108 (90 Base) MCG/ACT Inhalation Aerosol Solution Inhale 2 Puffs by mouth every 6 hours as needed for Wheezing or Shortness of Breath. 18 g 1 Calcium Carbonate 600 MG Oral Tablet (Calcium 600) Take 1 Tablet by mouth 2 times a day with morning and evening meals. Fluticasone Propionate 50 MCG/ACT Nasal Suspension (Flonase) Administer 2 Sprays into each nostril in the morning. Current Facility-Administered Medications Medication Dose Route Frequency Provider Last Rate Last Admin Denosumab (Prolia) subcut inj 60 mg 60 mg Subcutaneous Q6 Months David Pugh CRNP 60 mg at 04/11/23 2128 Review of patient's allergies indicates: Allergen Reactions Antihistamine & Nasal Deconges [Fexofenadine-Pseudoephed Er] Other (Please comment) Jittery Losartan Rash Health Maintenance Due Topic Date Due Zoster Vaccines (1 of 2) Never done DISCUSS TOBACCO CESSATION (REFER TO [facility]ix #3292) 01/22/2022 Influenza Vaccine (FLU shot) (1) 11/11/2022 COVID-19 Vaccine ( season) 2022 COLONOSCOPY-EVERY 5 YRS AGES 18-100 02/15/2023 ROS: CONSTITUTIONAL: No change in weight, No weakness, and No fevers, sweats, or chills EYE: No recent significant change in vision, No eye pain, redness, discharge, and No diplopia EARS: No ear pain, No drainage, No tinnitus or vertigo, and No recent change in hearing PULMONARY: No hemoptysis, No wheezing, No rales, No shortness of breath, and No recent change in breathing CARDIOVASCULAR: No chest pain, No shortness of breath, No dyspnea on exertion, No orthopnea, No paroxysmal nocturnal dyspnea, No edema, No palpitations, and No syncope GASTROINTESTINAL: No abdominal pain, No change in bowel habits, No significant heartburn, No significant change in appetite, No nausea, vomiting, diarrhea, or constipation, No hematemesis, No blood in stools or black tarry stools, No abdominal bloating or early satiety, and No dysphagia ALL OTHER SYSTEMS NEGATIVE I reviewed social, PMH, PSH, and family history and updated where needed. 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 Social Determinants of Health Financial Resource Strain: Not on file Food Insecurity: No Food Insecurity (03/21/2022) Hunger Vital Sign Worried About Running Out of Food in the Last Year: Never true Ran Out of Food in the Last Year: Never true Transportation Needs: Not on file Physical Activity: Not on file Stress: Not on file Social Connections: Not on file Intimate Partner Violence: Not on file Housing Stability: Not on file Past Medical History: Diagnosis Date Chronic right arterial ischemic stroke, MCA (middle cerebral artery) 11/02/2022 Colonic polyp 05/12/2014 Compression fracture of T12 vertebra with routine healing 05/14/2020 COPD (chronic obstructive pulmonary disease) (HCC) High risk for fracture due to osteoporosis by DEXA scan 07/08/2020 Lung nodule Mild carotid artery disease (HCC) 10/20/2021 Mixed hyperlipidemia 01/31/2019 Renal cyst 05/12/2020 Tendonitis 05/12/2014 Shoulder pain - Dr. Chacon Tobacco abuse Past Surgical History: Procedure Laterality Date BIOPSY OF TESTIS 1958 bilateral ?not distended CATARACT SURGERY,COMPLEX Left 2008 COLONOSCOPY, DIAGNOSTIC (RECTUM) 02/15/2018 adenomatous polyp, repeat 5 yrs/COLONOSCOPY FLEXIBLE PROXIMAL DIAGNOSTIC performed by Bowen Montejo MD at ENDOSCOPY [facility] EGD, FLEXIBLE, DIAGNOSTIC 04/15/2015 Andressa yanez, repeat 2 mo/ESOPHAGOGASTRODUODENOSCOPY (EGD), FLEXIBLE, TRANSORAL, DIAGNOSTIC performed by Justin Ernst MD at ENDOSCOPY [facility] EGD, FLEXIBLE, DIAGNOSTIC 04/22/2015 Andressa yanez, repeat 1 mo EGD, FLEXIBLE, DIAGNOSTIC 2015 Andressa ring/ESOPHAGOGASTRODUODENOSCOPY (EGD), FLEXIBLE, TRANSORAL, DIAGNOSTIC performed by Justin Ernst MD at ENDOSCOPY [facility] EGD, FLEXIBLE, DIAGNOSTIC 04/22/2015 ESOPHAGOGASTRODUODENOSCOPY (EGD), FLEXIBLE, TRANSORAL, DIAGNOSTIC performed by Justin Ernst MD at ENDOSCOPY [facility] IR VERTEBRAL AUGMENTATION THORACIC N/A 06/02/2020 PERCUTANEOUS VERTEBRAL AUGMENTATION THORACIC KYPHOPLASTY performed by Randal Wharton MD [place] [facility] [place]EDURE - GENERAL Left 01/24/2022 Left inguinal hernia reapir by Dr Johnnie Cook TOOTH ROOT REMOVAL 2015 Family History Problem Relation Age of Onset Cancer Mother bone Other (CVA) Father Breast Cancer Sister OBJECTIVE: PHYSICAL EXAM: BP 128/62 | Pulse 68 | Temp 35.6 C (96 F) (Tympanic) | Ht 1.753 m (5' 9") | Wt 70 kg (154 lb 6.4 oz) | BMI 22.80 kg/m | BSA 1.85 m General: alert, healthy, and no distress Head: Normocephalic, No masses, lesions, tenderness or abnormalities Eye Exam: conjunctiva are pink and non-injected, sclera clear Ears: External ears normal, Canals clear, TM's Normal Nose: no mucosal erythema, no mucosal edema, no purulent discharge Oropharynx: no exudate, no erythema, lips, buccal mucosa, and tongue normal, and mucous membranes are moist Heart: regular rate & rhythm, no murmur, no gallops, PMI non-displaced, S-1 normal, and S-2 normal Lungs: normal respiratory rate and rhythm, lungs clear to auscultation Extremities: no clubbing, no cyanosis, trace edema ankles Neuro Exam: alert with fluent speech, gait normal ASSESSMENT: I10 Essential hypertension with goal blood pressure less than 130/80 (primary encounter diagnosis) J44.9 COPD, group A, by GOLD 2017 classification ([facility]) M81.0 High risk for fracture due to osteoporosis by DEXA scan R91.1 Lung nodule D47.2 MGUS (monoclonal gammopathy of unknown significance) E78.2 Mixed hyperlipidemia D47.2 Monoclonal paraproteinemia E22.2 SIADH (syndrome of inappropriate ADH production) ([facility]) Z72.0 Tobacco abuse R60.9 Peripheral edema R35.1 Nocturia R26.89 Balance disorder R25.1 Tremor L29.9 Itch J01.10 Acute frontal sinusitis, recurrence not specified PLAN: Essential hypertension with goal blood pressure less than 130/80 (Primary) - COMPREHENSIVE METABOLIC PANEL; Future; Expected date: 05/22/2023 - LIPID PANEL WITH DIRECT LDL IF TG IS HIGH; Future; Expected date: 05/22/2023 Controlled off med Follow COPD, group A, by GOLD 2017 classification ([facility]) Gets lung screen Cont inhaler Follow High risk for fracture due to osteoporosis by DEXA scan Sees hiroc Lung nodule Being managed by STAIR Follow MGUS (monoclonal gammopathy of unknown significance) - SERUM PROTEIN ELECTROPHORESIS REFLEX PROFILE; Future; Expected date: 05/22/2023 - URINE IMMUNOFIXATION, BENCE OLIVAS PROTEIN, RANDOM URINE; Future; Expected date: 05/22/2023 - IMMUNOGLOBULIN QUANTITATIVE; Future; Expected date: 05/22/2023 Recheck Mixed hyperlipidemia - COMPREHENSIVE METABOLIC PANEL; Future; Expected date: 05/22/2023 - LIPID PANEL WITH DIRECT LDL IF TG IS HIGH; Future; Expected date: 05/22/2023 Cont lipitor Monoclonal paraproteinemia - SERUM PROTEIN ELECTROPHORESIS REFLEX PROFILE; Future; Expected date: 05/22/2023 - URINE IMMUNOFIXATION, BENCE OLIVAS PROTEIN, RANDOM URINE; Future; Expected date: 05/22/2023 - IMMUNOGLOBULIN QUANTITATIVE; Future; Expected date: 05/22/2023 SIADH (syndrome of inappropriate ADH production) ([facility]) Again urged cutting back alcohol, tapering off He will consider Tobacco abuse He is cutting back on own, Follow ct screen Peripheral edema Await labs Nocturia - URINALYSIS WITH MICROSCOPIC EXAM; Future; Expected date: 05/22/2023 - PSA; Future; Expected date: 05/22/2023 Balance disorder - CBC WITH WBC DIFFERENTIAL; Future; Expected date: 05/22/2023 - VITAMIN B1 (THIAMINE), BLOOD, LC/MS/MS; Future; Expected date: 05/22/2023 - VITAMIN B12; Future; Expected date: 05/22/2023 Possible from chronic hyponatremia, alcohol, will check labs, discussed tapering off alcohol, will let me know if has withdrawal and will let me know if symptoms persist Tremor - CBC WITH WBC DIFFERENTIAL; Future; Expected date: 05/22/2023 - VITAMIN B1 (THIAMINE), BLOOD, LC/MS/MS; Future; Expected date: 05/22/2023 - VITAMIN B12; Future; Expected date: 05/22/2023 As above Itch Off norvasc maY NEED alternate med if asa felt to be cause Await labs Acute frontal sinusitis, recurrence not specified Trial flonase, will let me know if symptoms persist, if cough ongoing despite this, may image lungs Follow Up: Return in about 6 months (around 11/22/2023), or if symptoms worsen or fail to improve, for Labs Today. | For: Labs Today Conner Pedersen MD documented in this encounter Nursing Notes * Toma Ivy MED ASSIST - 05/22/2023 10:07 AM EDT Chief Complaint Patient presents with Follow Up 6 month follow up - Pt c/o right food swelling that started 2-3 months ago. Pt states he has been having trouble with balance and hand-eye coordination that he noticed over the past 4-5 months. Pt also states in the morning both of his hands are shaky and his hand writing is worsening over the past4-5 months. Pt also states he has a deep, productive cough and is constantly blowing his nose that began 2-3 weeks ago. Pt c/o frequent urination, gets up multiple times a night. documented in this encounter Miscellaneous Notes * Addendum Note - Conner Pedersen MD - 06/14/2023 8:42 AM EDTAddended by: CONNER PEDERSEN on: 06/14/2023 08:42 AM Modules accepted: Orders * Addendum Note - Conner Pedersen MD - 05/29/2023 8:37 AM EDTAddended by: CONNER PEDERSEN on: 05/29/2023 08:37 AM Modules accepted: Orders documented in this encounter Plan of Treatment Upcoming Encounters Date Type Department Care Team (Late st Contact Info) Description 07/03/2023 9:30 AM EDT Office Visit Allergy/Immunology [place] [place] [address] [place] [address] Adriana Robb PA-C [address] [place] [address] 09/04/2023 10:30 AM EDT Imaging Radiology [facility] [address] [place] [address] 09/06/2023 2:30 PM EDT Hospital Encounter ENDO [facility], Endoscopy Room [facility] [address] [place] [phone] Justin Ernst MD [address] [place] [address] 09/06/2023 2:30 PM EDT - 09/06/2023 3:00 PM EDT Surgery ENDO [facility], Endoscopy Room [facility] [address] [place] [phone] Justin Ernst MD [address] [place] [address] COLONOSCOPY FLEXIBLE PROXIMAL DIAGNOSTIC 09/19/2023 11:45 AM EDT Office Visit Urology, [facility] [address] [place] [address] Sivakumar Huston MD [address] [facility] [address] [place] [address] 10/11/2023 2:30 PM EDT Nurse Only Rheumatology [facility] [address] [place] [address] Pf, Nurse Rheum [address] [place] [address] 12/13/2023 10:20 AM EDT Office Visit General Internal Medicine [facility] [address] [place] [address] Conner Pedersen MD [address] [facility] [place] [address] 12/21/2023 11:00 AM EDT Cardiac Studies Cardiac Studies, [facility] [address] [place] [address] Scheduled Orders Name Type Priority Associated Diagnoses Orde r Schedule BASIC METABOLIC PANEL Lab Routine SIADH (syndrome of inappropriate ADH production) (HCC) Expected: 09/13/2023 (Approximate), Expires: 06/13/2024 Scheduled Procedures Name Priority Associated Diagnoses Date/Ti [...] D LEVEL ONCE IN A LIFETIME-USE SMARTSET# [id number] Completed 04/07/2023, 10/18/2021, 03/25/2021, Additional history exists [...] this encounter Medical Devices Implanted Type Area Production Cell Leader Device Identifier Shelf Expiration Date Model / Serial / Lot Cement Hv-R C01a - [id number] Implanted:Qty: 1 on 06/02/2020 by Randal Wharton MD [place] [facility] [place]/A: Spine Thoracic [employer] : NEURO CARE 11/10/2022 C01A / / [id number] Pack Cement & Mixer C01b - [id number] Implanted:Qty: 1 on 06/02/2020 by Randal Wharton MD [place] [facility] N/A: Spine Thoracic [employer] : NEURO CARE 11/10/2022 C01B / / [id number] documented as of this encounter Results * (ABNORMAL) BASIC METABOLIC PANEL (06/13/2023 1:50 PM EDT) BUN 10 6 - 20 mg/dL 06/13/2023 3:20 PM EDT [facility] 56- Creatinine 1.0 0.6 - 1.2 mg/dL 06/13/2023 3:20 PM EDT [facility] 56- Estimated Glomerular Filtration Rate 80 >=60 mL/min 06/13/2023 3:20 PM EDT [facility] 56- Comment:eGFR is calculated b ased on the CKD-EPI 2020 equation Sodium 133(L) 135 - 146 mmol/L 06/13/2023 3:20 PM EDT [facility] 56- Potassium 4.4 3.5 - 5.1 mmol/L 06/13/2023 3:20 PM EDT [facility] 56- Chloride 96(L) 98 - 107 mmol/L 06/13/2023 3:20 PM EDT [facility] CO2 25 22 - 32 mmol/L 06/13/2023 3:20 PM EDT [facility] 56 Anion Gap 12 7 - 15 mmol/L 06/13/2023 3:20 PM EDT [facility] [place] Glucose 103 70 - 120 mg/dL 06/13/2023 3:20 PM EDT [facility] [place] Calcium 9.6 8.4 - 10.2 mg/dL 06/13/2023 3:20 PM EDT [facility] [place] Blood Venous blood specimen / Unknown Venipuncture / Unknown 06/13/2023 1:50 PM EDT 06/13/2023 1:50 PM EDT Conner Pedersen MD LAB BLOOD ORDERA BLES [facility] [address] [place] [address] * (ABNORMAL) URINALYSIS WITH MICROSCOPIC EXAM (05/22/2023 10:36 AM EDT) Color, Urine Dark Yellow Colorless, Light Yellow, Yellow, Dark Yellow 05/22/2023 4:47 PM EDT [facility] Clarity, Urine Clear Clear 05/22/2023 4:47 PM EDT [facility] Glucose, Urine Negative Negative mg/dL 05/22/2023 4:47 PM EDT [facility] Bilirubin, Urine Negative Negative 05/22/2023 4:47 PM EDT [facility] Ketone, Urine Negative Negative mg/dL 05/22/2023 4:47 PM EDT [facility] Specific [place], Urine 1.018 1.003 - 1.030 05/22/2023 4:47 PM EDT [facility] Blood, Urine Negative Negative 05/22/2023 4:47 PM EDT [facility] pH, Urine 6.0 5.0 - 7.5 Units 05/22/2023 4:47 PM EDT [facility] Protein, Urine Trace(A) Negative mg/dL 05/22/2023 4:47 PM EDT [facility] Urobilinogen, Urine Normal Normal mg/dL 05/22/2023 4:47 PM EDT [facility] Nitrite, Urine Negative Negative 05/22/2023 4:47 PM EDT [facility] Esterase, Urine Negative Negative 05/22/2023 4:47 PM EDT [facility] RBC, Urine 0-2 0 - 2 /HPF 05/22/2023 4:47 PM EDT [facility] WBC, Urine 0-2 0 - 2 /HPF 05/22/2023 4:47 PM EDT [facility] Bacteria, Urine 0-25 0 - 25 /HPF 05/22/2023 4:47 PM EDT [facility] Hyaline, Cast, Urine 10-19(A) None /LPF 05/22/2023 4:47 PM EDT [facility] Urine Non-blood Collection / Unknown 05/22/2023 10:36 AM EDT 05/22/2023 10:36 AM EDT Conner Pedersen MD LAB URINE ORDERA BLES Performing Organization Address [facility] de Phone Number LABORATORY [address] [address] * URINE IMMUNOFIXATION, BENCE OLIVAS PROTEIN, RANDOM URINE (05/22/2023 10:36 AM EDT) [facility] Normal/Abnormal Normal Normal 6:20 PM EDT [facility] Protein, Random Urine 21 mg/dL 05/23/2023 6:20 PM EDT [facility] Immunofixation Interpretation No monoclonal free light chains present (Bence Olivas protein). 05/23/2023 6:20 PM EDT [facility] Urine Urine specimen obtained by clean catch procedure / Unknown Non-blood Collection / Unknown 05/22/2023 10:36 AM EDT 05/22/2023 10:42 AM EDT Conner Pedersen MD LAB URINE ORDERA BLES Performing Organization Address City/[facility]/ZIP Co de Phone Number [facility] [address] [place] [address] * VITAMIN B12 (05/22/2023 10:34 AM EDT) [facility] Vitamin B12 379 232 - 1,245 pg/mL 05/22/2023 11:09 PM EDT [facility] Blood Venous blood specimen / Unknown Venipuncture / Unknown 05/22/2023 10:34 AM EDT 05/22/2023 10:34 AM EDT Conner Pedersen MD LAB BLOOD ORDERA BLES [facility] [address] [place] [address] * VITAMIN B1 (THIAMINE), BLOOD, LC/MS/MS (05/22/2023 10:34 AM EDT) [facility] Vitamin B1 (Thiamine),B 154 78 - 185 nmol/L 05/28/2023 3:44 AM EDT [facility] Comment: Vitamin supplementation within 24 hours prior to blood draw may affect the accuracy of the results. This test was developed and its analytical performance characteristics have been determined by [employer] [place], [place]. It has not been cleared or approved by the U.S. Food and Drug Administration. This assay has been validated pursuant to the CLIA regulations and is used for clinical purposes. Test Performed at: [facility] [address] [address] Keny Rosas M.D., Ph.D.,Director of Laboratories Blood Venous blood specimen / Unknown Venipuncture / Unknown 05/22/2023 10:34 AM EDT 05/22/2023 10:34 AM EDT Conner Pedersen MD LAB BLOOD ORDERA BLES Performing Organization Address City/[facility]/ZIP Co de Phone Number GFRANQ ASHLEY [address] [place] [address] * PSA (05/22/2023 10:34 AM EDT) [facility] PSA 0.68 <4.10 ng/mL 05/22/2023 10:16 PM EDT [facility] Blood Venous blood specimen / Unknown Venipuncture / Unknown 05/22/2023 10:34 AM EDT 05/22/2023 10:34 AM EDT Conner Pedersen MD LAB BLOOD ORDERA BLES Performing Organization Address City/[facility]/ZIP Co de Phone Number [facility] [address] [place] [address] * (ABNORMAL) IMMUNOGLOBULIN QUANTITATIVE (05/22/2023 10:34 AM EDT) Pathologist [facility] IgG 1,175 700 - 1,600 mg/dL 05/22/2023 10:15 PM EDT [facility] IgA 259 70 - 400 mg/dL 05/22/2023 10:15 PM EDT [facility] IgM 393(H) 40 - 230 mg/dL 05/22/2023 10:15 PM EDT [facility] Blood Venous blood specimen / Unknown Venipuncture / Unknown 05/22/2023 10:34 AM EDT 05/22/2023 10:34 AM EDT Conner Pedersen MD LAB BLOOD ORDERA BLES Performing Organization Address [facility] de Phone Number [facility] [address] [place] [address] * (ABNORMAL) SERUM PROTEIN ELECTROPHORESIS REFLEX PROFILE (05/22/2023 10:34 AM EDT) [facility] Normal/Abnormal Abnormal(A) Normal 05/23/19 6:20 PM EDT [facility] Protein 7.0 6.0 - 8.3 g/dL 05/23/2023 6:20 PM EDT [facility] Albumin 3.48 3.30 - 4.40 g/dL 05/23/2023 6:20 PM EDT [facility] Alpha-1 Globulin 0.29 0.10 - 0.30 g/dL 05/23/2023 6:20 PM EDT [facility] Alpha-2 Globulin 1.00 0.60 - 1.00 g/dL 05/23/2023 6:20 PM EDT [facility] Beta-Globulin 0.76(L) 0.80 - 1.30 g/dL 05/23/2023 6:20 PM EDT [facility] Gamma-Globulin 1.47 0.70 - 1.70 g/dL 05/23/2023 6:20 PM EDT [facility] Electrophoresis Interpretation Abnormal. 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 Paraprotein concentration is detectable, but less than 0.5 g/dL, unable to be accurately quantified by this method. 05/23/2023 6:20 PM EDT [facility] Blood Venous blood specimen / Unknown Venipuncture / Unknown 05/22/2023 10:34 AM EDT 05/22/2023 10:34 AM EDT Conner Pedersen MD LAB BLOOD ORDERA BLES [facility] [address] [place] [address] * LIPID PANEL WITH DIRECT LDL IF TG IS HIGH (05/22/2023 10:34 AM EDT) Triglycerides 74 <=174 mg/dL 05/22/2023 10:15 PM EDT [facility] Comment: Triglyceride Reference Ranges (mg/dL): <150 Acceptable 150-174 Borderline high 175-499 High >=500 Very high Cholesterol 166 <200 mg/dL 05/22/2023 10:15 PM EDT [facility] Comment: Total Cholesterol Reference Ranges (mg/dL): <200 Desirable 200-239 Borderline high >=240 High HDL Cholesterol 69 >39 mg/dL 10:15 PM EDT [facility] Comment: HDL Cholesterol Reference Ranges (mg/dL): >=60 High (Desirable) <50 Low (Undesirable) For Females <40 Low (Undesirable) For Males Non-HDL Cholesterol 97 <=159 mg/dL 05/22/2023 10:15 PM EDT [facility] Comment: Non-HDL Cholesterol Reference Range (mg/dL): <100 Target level for high risk ASCVD patient <130 Optimal for general population 130-159 Near optimal for general population 160-189 Borderline High 190-219 High >=220 Very High LDL Cholesterol 82 <=129 mg/dL 05/22/2023 10:15 PM EDT [facility] Comment: LDL Cholesterol Reference Ranges (mg/dL): <70 Target level for high risk ASCVD patient <100 Optimal for general population 100-129 Near optimal for general population 130-159 Borderline high 160-189 High >=190 Very high Blood Venous blood specimen / Unknown Venipuncture / Unknown 05/22/2023 10:34 AM EDT 05/22/2023 10:34 AM EDT Conner Pedersen MD LAB BLOOD ORDERA BLES [facility] [address] [place] [address] * (ABNORMAL) COMPREHENSIVE METABOLIC PANEL (05/22/2023 10:34 AM EDT) BUN 8 6 - 20 mg/dL 05/22/2023 12:58 PM EDT [place] [address] Creatinine 0.9 0.6 - 1.2 mg/dL 05/22/2023 12:58 PM EDT [address] Estimated Glomerular Filtration Rate 88 >=60 mL/min 05/22/2023 12:58 PM EDT [facility] 56 Comment:eGFR is calculated b ased on the CKD-EPI 2020 equation Sodium 131(L) 135 - 146 mmol/L 05/22/2023 12:58 PM EDT [facility] 56- Potassium 5.5(H) 3.5 - 5.1 mmol/L 05/22/2023 12:58 PM EDT [facility] 56- Chloride 94(L) 98 - 107 mmol/L 05/22/2023 12:58 PM EDT [facility] 56- CO2 26 22 - 32 mmol/L 05/22/2023 12:58 PM EDT [facility] 56- Anion Gap 11 7 - 15 mmol/L 05/22/2023 12:58 PM EDT [facility] 56- Glucose 99 70 - 120 mg/dL 05/22/2023 12:58 PM EDT [facility] 56- Albumin 4.2 3.8 - 5.0 g/dL 05/22/2023 12:58 PM EDT [facility] 56- AST 24 10 - 50 U/L 05/22/2023 12:58 PM EDT [facility] 56 Comment:Result may be falsel y elevated due to hemolysis. Alkaline Phosphatase 43 35 - 130 U/L 05/22/2023 12:58 PM EDT [address] Bilirubin, Total 0.9 <=1.2 mg/dL 05/22/2023 12:58 PM EDT [address] Calcium 9.9 8.4 - 10.2 mg/dL 05/22/2023 12:58 PM EDT [address] Protein 7.1 6.0 - 8.3 g/dL 05/22/2023 12:58 PM EDT [address] ALT 11 10 - 50 U/L 05/22/2023 12:58 PM EDT [address] Blood Venous blood specimen / Unknown Venipuncture / Unknown 05/22/2023 10:34 AM EDT 05/22/2023 10:34 AM EDT Conner Pedersen MD LAB BLOOD ORDERA BLES [place] [address] [place] [address] documented in this encounter Visit Diagnoses Diagnosis Essential hypertension with goal blood pressure less than 130/80- Primary COPD, group A, by GOLD 2017 classification ([facility]) High risk for fracture due to osteoporosis by DEXA scan Osteoporosis, unspecified Lung nodule Solitary pulmonary nodule MGUS (monoclonal gammopathy of unknown significance) Monoclonal paraproteinemia Mixed hyperlipidemia Monoclonal paraproteinemia SIADH (syndrome of inappropriate ADH production) ([facility]) Other disorders of neurohypophysis Tobacco abuse Tobacco use disorder Peripheral edema Edema Nocturia Balance disorder Other symptoms involving nervous and musculoskeletal systems Tremor Abnormal involuntary movements Itch Unspecified pruritic disorder Acute frontal sinusitis, recurrence not specified Hyperkalemia Hyperpotassemia History of colon polyps Personal history of colonic polyps documented in this encounter Advance Directives Latest Code Status on File Code Status Date Activated Date Inactivated Comments Full Code 06/02/2020 8:23 AM 06/02/2020 4:48 PM This order reflects the patients wishes and were consensually agreed upon. Question Answer Comments Discussion of Advance Directives occurred with: Not Discussed Care Teams Aboriginal Community Council Member Relationship Specialty Start Date End Date Conner Pedersen MD 200 [place] [address] PCP - General Internal Medicine 11/07/20 documented as of this encounter
--- OUTSIDE RECORDS SUMMARY | 2023-06-16 23:12 | External Medical Summary | Summary of Care ---
Author Name Unknown Organization [facility] Address [address] [place] [address] Phone [phone] Care Team Providers Care Roofer Applicator Name Role Phone Conner Pedersen MD Primary Care Provider + Reason for Visit * Reason Comments eRx-Medication Refill Encounter Details Date Type Department Care Team (Late st Contact Info) Description 06/08/2023 Refill General Internal Medicine [facility] [id number] [facility] [address] Mixed hyperlipidemia Allergies Active Allergy Reactions Criticality Noted Date Comments Fexofenadine-Pseudoephed Er Other (Please comment) 03/22/2023 Jittery Losartan Rash 11/02/2022 documented as of this encounter (statuses as of 06/09/2023) Medications Medication Sig Dispensed Refills Start Date [...] MCG/ACT Inhalation Aerosol Powder Breath Activated (umeclidinium Oran)Indications :COPD, group A, by GOLD 2017 classification ([facility]) INHALE 1 PUFF BY MOUTH [...] Active Fluticasone Propionate 50 MCG/ACT Nasal Suspension (Flonase)Indication s:Acute frontal sinusitis, recurrence not specified Administer 2 Sprays into each nostril in the morning. 0 05/22/2023 Active Atorvastatin Calcium 20 MG Oral Tablet (Lipitor)Indication s:Mixed hyperlipidemia TAKE 1 TABLET BY MOUTH EVERY DAY 90 Tablet 3 06/09/2023 Active Atorvastatin Calcium 20 MG Oral Tablet (Lipitor)Indication s:Mixed hyperlipidemia TAKE 1 TABLET BY MOUTH EVERY DAY 90 Tablet 2 10/17/2022 06/09/19 24 Discontinued Hospital, Clinic, or Other Facility Administered Medication Ordered Dose Route Frequency Start Date End Date Status Denosumab (Prolia) subcut inj 60 mgIndications:Senile osteoporosis 60 mg SC [id number] 04/11/2023 04/05/2024 Active documented as of this encounter (statuses as of 06/09/2023) Active Problems Problem Noted Date Diagnosed Date [...] rinse after steroid. Test performed by Reilly ROLL TENDER CPFT Alcohol abuse 01/29/2018 Lung nodule 10/26/2017 Aortic root enlargement 07/25/2017 Moderate aortic regurgitation 07/17/2017 Tobacco abuse documented as of this encounter (statuses as of 06/09/2023) Resolved Problems Problem Noted Date Diagnosed Date Resolved Date Compression fracture of T12 vertebra with routine healing 05/14/2020 04/26/2022 COPD, mild 01/29/2018 08/22/2018 Overview: Per COPD GOLD Classification HTN, goal below 140/90 10/26/201704/08 Emphysema lung 10/26/2017 01/29/2018 Colonic polyp 05/12/2014 04/26/2022 Tendonitis 05/12/2014 06/15/2017 Overview: Shoulder pain - Dr. Chacon documented as of this encounter (statuses as of 06/09/2023) Immunizations Name Administration Dates Next Due COVID-19 mRNA, LNP-s, No Pre serve, 2-Dose Series ([employer]) 01/08/2021,06/04/2020,05/08/2020 COVID-19, MRNA-LNP, 23-24, P F, 30 MCG/0.3 mL, 12 YRS AND ABOVE, IM ([employer]moms-Comirnaty) 03/04/2023 Pneumococcal Conjugate Vacc, 13 Valent (Prevnar) [...] encounter Miscellaneous Notes * Telephone Encounter - Tierra Fox RPh - 06/09/2023 8:53 AM EDTSigned Prescriptions: Disp Refills Atorvastatin Calcium 20 MG Oral Tablet (Li*90 Tab*3 Sig: TAKE 1TABLET BY MOUTH EVERY DAYAuthorizing Provider: CONNER PEDERSEN User: TIERRA FOX- documented in this encounter Plan of Treatment Upcoming Encounters Date Type Department Care Team (Late st Contact Info) Description 07/03/2023 9:30 AM EDT Office Visit Allergy/Immunology [facility] [place] [address] [place] [address] Adriana Robb PA-C [address] [place] [address] 09/04/2023 10:30 AM EDT Imaging Radiology [facility] [address] [place] [address] 09/06/2023 2:30 PM EDT Hospital Encounter [facility]O [facility], Endoscopy Room [facility] [address] [place] [phone] Justin Ernst MD [address] [place] [address] 09/06/2023 2:30 PM EDT - 09/06/2023 3:00 PM EDT Surgery ENDO [facility], Endoscopy Room [facility] [address] [place] [phone] Justin Ernst MD [address] [place] [address] COLONOSCOPY FLEXIBLE PROXIMAL DIAGNOSTIC 09/19/2023 11:45 AM EDT Office Visit Urology, [facility] [address] [place] [address] Sivakumar Huston MD [address] [place] [address] [place] [address] 10/11/2023 2:30 PM EDT Nurse Only Rheumatology [facility] [address] [facility] [place] [address] Pf, Nurse Rheum [address] [facility] [place] [address] 12/13/2023 10:20 AM EDT Office Visit General Internal Medicine [facility] 200 [facility] [place] [address] Conner Pedersen MD 200 [facility] [place] [address] 12/21/2023 11:00 AM EDT Cardiac Studies Cardiac Studies, [facility] [address] [facility] [place] [address] Scheduled Procedures Name Priority Associated Diagnoses Date/Ti [...] D LEVEL ONCE IN A LIFETIME-USE SMARTSET# [id number] Completed 04/07/2023, 10/18/2021, 03/25/2021, Additional history exists [...] this encounter Medical Devices Implanted Type Area Ground Wirer Device Identifier Shelf Expiration Date Model / Serial / Lot Cement Hv-R C01a - [id number] Implanted:Qty: 1 on 06/02/2020 by Randal Wharton MD [place] [facility] [place]/A: Spine Thoracic [employer] : NEURO CARE 11/10/2022 C01A / / [id number] Pack Cement & Mixer C01b - [id number] Implanted:Qty: 1 on 06/02/2020 by Randal Wharton MD at [place] [facility] N/A: Spine Thoracic [employer] : NEURO CARE 11/10/2022 C01B / / [id number] documented as of this encounter Visit Diagnoses Diagnosis Mixed hyperlipidemia History of colon polyps Personal history of colonic polyps documented in this encounter Advance Directives Latest Code Status on File Code Status Date Activated Date Inactivated Comments Full Code 06/02/2020 8:23 AM 06/02/2020 4:48 PM This order reflects the patients wishes and were consensually agreed upon. Question Answer Comments Discussion of Advance Directives occurred with: Not Discussed Care Teams Roofer Applicator Relationship Specialty Start Date End Date Conner Pedersen MD 200 [place] [address] PCP - General Internal Medicine 11/07/20 documented as of this encounter
--- OUTSIDE RECORDS SUMMARY | 2023-06-16 23:12 | External Medical Summary | Summary of Care ---
Author Name Unknown Organization [facility] Address [address] [place] [address] Phone [phone] Care Team Providers Care Bullet Assembly Press Operator Name Role Phone Conner Pedersen MD Primary Care Provider + Reason for Visit * Reason Onset Date Comments Test Results 06/01/2023 Encounter Details Date Type Department Care Team (Late st Contact Info) Description 06/01/2023 Telephone General Internal Medicine [facility] 200 [facility] [place] [address] Conner Pedersen MD 200 [place] [address] Test Results Allergies Active Allergy Reactions Criticality Noted Date Comments Fexofenadine-Pseudoephed Er Other (Please comment) 03/22/2023 Jittery Losartan Rash 11/02/2022 documented as of this encounter (statuses as of 06/02/2023) Medications Medication Sig Dispensed Refills Start Date [...] MCG/ACT Inhalation Aerosol Powder Breath Activated (umeclidinium [place])Indications:C OPD, group A, by GOLD 2017 classification ([facility]) INHALE 1 PUFF BY MOUTH EVERY DAY 90 Each 3 08/10/2022 Active Aspirin 81 MG Oral Tablet ChewableIndications:C hronic right arterial ischemic stroke, MCA (middle cerebral artery),Ataxia Take 1 Tablet by mouth in the morning. 90 Tablet 3 09/27/2022 Active Atorvastatin Calcium 20 MG Oral Tablet (Lipitor)Indications: Mixed hyperlipidemia TAKE 1 TABLET BY MOUTH EVERY DAY 90 Tablet 2 10/17/2022 Active Magnesium 400 MG Oral Capsule Take [...] nostril in the morning. 0 05/22/2023 Active Hospital, Clinic, or Other Facility Administered Medication Ordered Dose Route Frequency Start Date End Date Status Denosumab (Prolia) subcut inj 60 mgIndications:Senile osteoporosis 60 mg SC [id number] 04/11/2023 04/05/2024 Active documented as of this encounter (statuses as of 06/02/2023) Active Problems Problem Noted Date Diagnosed Date [...] rinse after steroid. Test performed by Reilly BUS ANALYST CPFT Alcohol abuse 01/29/2018 Lung nodule 10/26/2017 Aortic root enlargement 07/25/2017 Moderate aortic regurgitation 07/17/2017 Tobacco abuse documented as of this encounter (statuses as of 06/02/2023) Resolved Problems Problem Noted Date Diagnosed Date Resolved Date Compression fracture of T12 vertebra with routine healing 05/14/2020 04/26/2022 COPD, mild 01/29/2018 08/22/2018 Overview: Per COPD GOLD Classification HTN, goal below 140/90 10/26/201704/08 Emphysema lung 10/26/2017 01/29/2018 Colonic polyp 05/12/2014 04/26/2022 Tendonitis 05/12/2014 06/15/2017 Overview: Shoulder pain - Dr. Chacon documented as of this encounter (statuses as of 06/02/2023) Immunizations Name Administration Dates Next Due COVID-19 mRNA, LNP-s, No Pre serve, 2-Dose Series ([employer]) 01/08/2021,06/04/2020,05/08/2020 COVID-19, MRNA-LNP, 23-24, P F, 30 MCG/0.3 mL, 12 YRS AND ABOVE, IM ([employer]irnat) 03/04/2023 Pneumococcal Conjugate Vacc, 13 Valent (Prevnar) [...] encounter Miscellaneous Notes * Telephone Encounter - Caity Eng LPN - 06/02/2023 10:02 AM EDT Patient is aware and verbalizes understanding. * Telephone Encounter - Greta Chapin LPN - 06/01/2023 1:28 PM EDT Attempted to call pt's mobile - said call could not be completed due to number Called mobile number for pt's spouse Left message for pt to call back. Please verify number for pt in chart if they call back * Telephone Encounter - Greta Chapin LPN - 06/01/2023 1:21 PM EDT ----- Message from Conner Pedersen MD sent at 05/29/2023 8:37 AM EDT ----- 1. Urine without blood 2. IgM low, continue follow up with allergy/immunology for this 3. Potassium is high, sodium again low. Again strongly recommend cutting back alcohol as discussed in visit, keeping fluids to 1.5 L/day total. Recheck bmp this week to follow 4. Rest of labs ok, if tremor keeps up despite cutting back/out alcohol, let me know, will ask neurology to see. documented in this encounter Plan of Treatment Upcoming Encounters Date Type Department Care Team (Late st Contact Info) Description 07/03/2023 9:30 AM EDT Office Visit Allergy/Immunology [facility] [address] [facility] [place] [address] Adriana Robb PA-C 200 [facility] [place] [address] 09/04/2023 10:30 AM EDT Imaging Radiology [facility] [address] [place] [address] 09/06/2023 2:30 PM EDT Hospital Encounter ENDO [facility], Endoscopy Room [facility] [address] [place] [phone] Justin Ernst MD [address] [place] [address] 09/06/2023 2:30 PM EDT - 09/06/2023 3:00 PM EDT Surgery ENDO [facility], Endoscopy Room [facility] [address] [place] [phone] Justin Ernst MD [address] [place] [address] COLONOSCOPY FLEXIBLE PROXIMAL DIAGNOSTIC 09/19/2023 11:45 AM EDT Office Visit Urology, [facility] 132 [facility] [place] [address] Sivakumar Huston MD [address] [place] [address] [place] [address] 10/11/2023 2:30 PM EDT Nurse Only Rheumatology [address] [place] [address] Pf, Nurse Rheum [address] [place] [address] [place] [address] 12/13/2023 10:20 AM EDT Office Visit General Internal Medicine [facility] [address] [facility] [place] [address] Conner Pedersen MD [address] [facility] [place] [address] 12/21/2023 11:00 AM EDT Cardiac Studies Cardiac Studies, [facility] [address] [facility] [place] [address] Scheduled Procedures Name Priority Associated Diagnoses Date/Ti me COLONOSCOPY FLEXIBLE PROXIMAL DIAGNOSTIC Recall History of colon polyps 09/06/2023 2:30 PM EDT Health Maintenance Due Date Last Done Comments Zoster Vaccines (1 of 2) 05/28/1999 DISCUSS TOBACCO CESSATION (REFER TO SMARTSET #1112) 01/22/2022 01/22/2021, 06/26/2020 COLONOSCOPY-EVERY 5 YRS AGES [...] D LEVEL ONCE IN A LIFETIME-USE SMARTSET# [id number] Completed 04/07/2023, 10/18/2021, 03/25/2021, Additional history exists [...] this encounter Medical Devices Implanted Type Area Sanitation Tank Washer Device Identifier Shelf Expiration Date Model / Serial / Lot Cement Hv-R C01a - [id number] Implanted:Qty: 1 on 06/02/2020 by Randal Wharton MD at [place] [facility] N/A: Spine Thoracic [employer] : NEURO CARE 11/10/2022 C01A / / [id number] Pack Cement & Mixer C01b - [id number] Implanted:Qty: 1 on 06/02/2020 by Randal Wharton MD at OR [facility] N/A: Spine Thoracic [employer] : NEURO CARE 11/10/2022 C01B / / [id number] documented as of this encounter Advance Directives Latest Code Status on File Code Status Date Activated Date Inactivated Comments Full Code 06/02/2020 8:23 AM 06/02/2020 4:48 PM This order reflects the patients wishes and were consensually agreed upon. Question Answer Comments Discussion of Advance Directives occurred with: Not Discussed Care Teams Bullet Assembly Press Operator Relationship Specialty Start Date End Date Conner Pedersen MD 200 [facility], [place] [id number] PCP - General Internal Medicine 11/07/20 documented as of this encounter
--- OUTSIDE RECORDS SUMMARY | 2023-06-16 23:13 | External Medical Summary ---
Author Name Unknown Address Unknown Organization K01:[facility] [address] [facility] [address] Laboratory Report Ordering Provider Test Date Status ROXANN MOSELEY 05/22/2023 10:36:56 Final Observation Date Value Abnormality Reference (Units ) Status Color of Urine by Auto 05/22/2023 10:36:56 Dark Yellow Colorless, Light Yellow, Yellow, Dark Yellow Final Clarity, Urine 05/22/2023 10:36:56 Clear Clear Final Glucose [Mass/volume] in Urine by Automated test strip 05/22/2023 10:36:56 Negative Negative (mg/dL) Final Bilirubin.total [Presence] in Urine by Automated test strip 05/22/2023 10:36:56 Negative Negative Final Ketones [Mass/volume] in Urine by Automated test strip 05/22/2023 10:36:56 Negative Negative (mg/dL) Final Specific gravity, Urine 05/22/2023 10:36:56 1.018 1.003-1.030 Final Hemoglobin [Presence] in Urine by Automated test strip 05/22/2023 10:36:56 Negative Negative Final pH, Urine 05/22/2023 10:36:56 6.0 5.0-7.5 (Units) Final Protein [Mass/volume] in Urine by Automated test strip 05/22/2023 10:36:56 Trace Abnormal Negative (mg/dL) Final Urobilinogen [Mass/volume] in Urine by Automated test strip 05/22/2023 10:36:56 Normal Normal (mg/dL) Final Nitrite [Presence] in Urine by Automated test strip 05/22/2023 10:36:56 Negative Negative Final Leukocyte esterase [Presence] in Urine by Automated test strip 05/22/2023 10:36:56 Negative Negative Final RBC, Urine 05/22/2023 10:36:56 0-2 0-2 (/HPF) Final WBC, Urine 05/22/2023 10:36:56 0-2 0-2 (/HPF) Final Bacteria [#/area] in Urine sediment by Microscopy high power field 05/22/2023 10:36:56 0-25 0-25 (/HPF) Final Hyaline casts, Urine 05/22/2023 10:36:56 10-19 Abnormal None (/LPF) Final Performing Location [facility] [address] [facility] [address]
--- OUTSIDE RECORDS SUMMARY | 2023-06-16 23:13 | External Medical Summary | Summary of Care ---
Author Name Unknown Organization [facility] Address [address] [place] [address] Phone [phone] Care Team Providers Care Buyers' Agent Name Role Phone Conner Pedersen MD Primary Care Provider + Reason for Visit * Reason Comments Outpatient Testing Encounter Details Date Type Department Care Team (Late st Contact Info) Description 05/22/2023 11:10 AM EDT Laboratory Laboratory [facility] [place] [address] [place] [phone] [place], Lab Scen[address] [place] [address] Essential hypertension with goal blood pressure less than 130/80; Mixed hyperlipidemia; MGUS (monoclonal gammopathy of unknown significance); Monoclonal paraproteinemia; Nocturia; Balance disorder; Tremor Allergies Active Allergy Reactions Criticality Noted Date Comments Fexofenadine-Pseudoephed Er Other (Please comment) 03/22/2023 Jittery Losartan Rash 11/02/2022 documented as of this encounter (statuses as of 05/22/2023) Medications Medication Sig Dispensed Refills Start Date [...] MCG/ACT Inhalation Aerosol Powder Breath Activated (umeclidinium Crowell)Indications:C OPD, group A, by GOLD 2017 classification (HCC) INHALE 1 PUFF BY MOUTH EVERY DAY [...] inj 60 mgIndications:Senile osteoporosis 60 mg SC [id number] 04/11/2023 04/05/2024 Active documented as of this encounter (statuses as of 05/22/2023) Active Problems Problem Noted Date Diagnosed Date [...] rinse after steroid. Test performed by Reilly CARPENTER'S ASSISTANT CPFT Alcohol abuse 01/29/2018 Lung nodule 10/26/2017 Aortic root enlargement 07/25/2017 Moderate aortic regurgitation 07/17/2017 Tobacco abuse documented as of this encounter (statuses as of 05/22/2023) Resolved Problems Problem Noted Date Diagnosed Date Resolved Date Compression fracture of T12 vertebra with routine healing 05/14/2020 04/26/2022 COPD, mild 01/29/2018 08/22/2018 Overview: Per COPD GOLD Classification HTN, goal below 140/90 10/26/201704/08 Emphysema lung 10/26/2017 01/29/2018 Colonic polyp 05/12/2014 04/26/2022 Tendonitis 05/12/2014 06/15/2017 Overview: Shoulder pain - Dr. Chacon documented as of this encounter (statuses as of 05/22/2023) Immunizations Name Administration Dates Next Due COVID-19 mRNA, LNP-s, No Pre serve, 2-Dose Series ([employer]) 01/08/2021,06/04/2020,05/08/2020 Pneumococcal Conjugate Vacc, 13 Valent (Prevnar) 12/03/2015 Pneumococcal Polysaccharide PPV23 (Pneumovax) 12/11/2019,05/12/2014 Seasonal Influenza, PF, 6 M & above, [...] AM EDT Office Visit Allergy/Immunology [facility] [place] [address] [place] [address] Adriana Robb PA-C [address] [place] [address] 09/04/2023 10:30 AM EDT Imaging Radiology [facility] [address] [place] [address] 09/06/2023 2:30 PM EDT Hospital Encounter ENDO [facility], Endoscopy Room [facility] [address] [place] [phone] Justin Ernst MD [address] [place] [address] 09/06/2023 2:30 PM EDT - 09/06/2023 3:00 PM EDT Surgery ENDO [facility], Endoscopy Room [facility] [address] [place] [phone] Justin Ernst MD [address] [place] [address] COLONOSCOPY FLEXIBLE PROXIMAL DIAGNOSTIC 09/19/2023 11:45 AM EDT Office Visit Urology, [facility] [address] [place] [address] Sivakumar Huston MD [address] [place] [address] [place] [address] 10/11/2023 2:30 PM EDT Nurse Only Rheumatology [facility] [address] [facility] [place] [address] Pf, Nurse Rheum [address] [facility] [place] [address] 12/13/2023 10:20 AM EDT Office Visit General Internal Medicine [facility] [address] [facility] [place] [address] Conner Pedersen MD [address] [facility] [place] [address] 12/21/2023 11:00 AM EDT Cardiac Studies Cardiac Studies, [facility] [address] [facility] [place] [address] Pending Results Name Type Priority Associated Diagnoses Date /Time COMPREHENSIVE METABOLIC PANEL Lab Routine Essential hypertension with goal blood pressure less than 130/80 Mixed hyperlipidemia 05/22/2023 10:34 AM EDT LIPID PANEL WITH DIRECT LDL IF TG IS HIGH Lab Routine Essential hypertension with goal blood pressure less than 130/80 Mixed hyperlipidemia 05/22/2023 10:34 AM EDT SERUM PROTEIN ELECTROPHORESIS REFLEX PROFILE Lab Routine MGUS (monoclonal gammopathy of unknown significance) Monoclonal paraproteinemia 05/22/2023 10:34 AM EDT IMMUNOGLOBULIN QUANTITATIVE Lab Routine MGUS (monoclonal gammopathy of unknown significance) Monoclonal paraproteinemia 05/22/2023 10:34 AM EDT PSA Lab Routine Nocturia 05/22/2023 10:34 AM EDT VITAMIN B1 (THIAMINE), BLOOD, LC/MS/MS Lab Routine Balance disorder Tremor 05/22/2023 10:34 AM EDT VITAMIN B12 Lab Routine Balance disorder Tremor 05/22/2023 10:34 AM EDT URINE IMMUNOFIXATION, BENCE OLIVAS PROTEIN, RANDOM URINE Lab Routine MGUS (monoclonal gammopathy of unknown significance) Monoclonal paraproteinemia 05/22/2023 10:36 AM EDT URINALYSIS WITH MICROSCOPIC EXAM Lab Routine Nocturia 05/22/2023 10:36 AM EDT Scheduled Procedures Name Priority Associated Diagnoses Date/Ti me COLONOSCOPY FLEXIBLE PROXIMAL DIAGNOSTIC Recall History of colon polyps 09/06/2023 2:30 PM EDT Health Maintenance Due Date Last Done Comments Zoster Vaccines (1 of 2) 05/28/1999 DISCUSS TOBACCO CESSATION (REFER TO SMARTSET #3291) 01/22/2022 01/22/2021, 06/26/2020 COVID-19 Vaccine ( season) 2022 01/08/2021, 06/04/2020, 05/08/2020 Influenza Vaccine (FLU shot) (#1) 2022 01/03/2022, 11/28/2020, 11/10/2019, Additional history exists COLONOSCOPY-EVERY 5 YRS AGES 18-100 02/15/2023 02/15/2018, 02/15/2018 DTaP,Tdap,and Td Vaccines (2 - Td or Tdap) 10/21/2023 10/20/2013 Depression Screening 03/22/2024 03/22/2023, 11/13/19 15 GFR 05/03/2024 05/03/2023, 03/13, 11/02/2022, Additional history exists O2 ASSESSMENT COMPLETED IN PAST YEAR FOR COPD 05/03/2024 05/03/2023 DXA Scan 07/11/2024 07/11/2022, 03/2022, 07/07/2020 Albumin/Creatinine Ratio 04/14/2025 04/14/2022, 06/2017 Alpha-1 Antitrypsin Completed 04/23/2019 Pneumococcal Vaccine: 65+ Years Completed 12/11/2019, 12/03/2015, 05/12/2014 AAA Screening Completed 08/29/2022, 09/11, 09/25/2020, Additional history exists VITAMIN D LEVEL ONCE IN A LIFETIME-USE SMARTSET# [id number] Completed 04/07/2023, 10/18/2021, 03/25/2021, Additional history exists [...] this encounter Medical Devices Implanted Type Area Teletype Technician Device Identifier Shelf Expiration Date Model / Serial / Lot Cement Hv-R C01a - [id number] Implanted:Qty: 1 on 06/02/2020 by Randal Wharton [place] [facility] [place]: Spine Thoracic [employer] : NEURO CARE 11/10/2022 C01A / / [id number] Pack Cement & Mixer C01b - [id number] Implanted:Qty: 1 on 06/02/2020 by Randal Wharton MD at [place] [facility] [place]/A: Spine Thoracic [employer] : NEURO CARE 11/10/2022 C01B / / [id number] documented as of this encounter Procedures Procedure Name Priority Date/Time Associated Diagnosis Comments DIFFERENTIAL, AUTOMATED Routine 05/22/2023 10:34 AM EDT Balance disorder Tremor CBC Routine 05/22/2023 10:34 AM EDT Balance disorder Tremor CBC Routine 05/22/2023 10:34 AM EDT Balance disorder Tremor documented in this encounter Results * (ABNORMAL) DIFFERENTIAL, AUTOMATED (05/22/2023 10:34 AM EDT) WBC 6.53 4.00 - 10.80 K/uL 05/22/2023 10:47 AM EDT [facility] [place] 56-02 Neutrophils % 54.0 40.0 - 75.0 % 05/22/2023 10:47 AM EDT [facility] [place] 56-02 Lymphocytes % 23.9 18.0 - 42.0 % 05/22/2023 10:47 AM EDT [facility] 56-02 Monocytes % 15.3(H) 1.0 - 11.0 % 05/22/2023 10:47 AM EDT [facility] 56-02 Eosinophils % 6.3(H) 0.0 - 6.0 % 05/22/2023 10:47 AM EDT [facility] 56-02 Basophils % 0.5 0.0 - 2.0 % 05/22/2023 10:47 AM EDT [facility] 56-02 Absolute Neutrophils 3.53 1.80 - 7.70 K/uL 05/22/2023 10:47 AM EDT [facility] 56-02 Absolute Lymphocytes 1.56 1.00 - 4.80 K/ul 05/22/2023 10:47 AM EDT [facility] 56-02 Absolute Monocytes 1.00 0.00 - 1.10 K/uL 05/22/2023 10:47 AM EDT [facility] 56-02 Absolute Eosinophils 0.41 0.00 - 0.70 K/uL 05/22/2023 10:47 AM EDT [facility] 56-02 Absolute Basophils 0.03 0.00 - 0.20 K/uL 05/22/2023 10:47 AM EDT [facility] 56-02 Blood Venous blood specimen / Unknown Venipuncture / Unknown 05/22/2023 10:34 AM EDT 05/22/2023 10:34 AM EDT Conner Pedersen MD LAB BLOOD ORDERA BLES [facility] 56-02 [address] [place] [address] * CBC (05/22/2023 10:34 AM EDT) WBC 6.53 4.00 - 10.80 K/uL 05/22/2023 10:47 AM EDT [facility] 56-02 RBC 4.54 4.50 - 5.25 M/uL 05/22/2023 10:47 AM EDT [facility] 56-02 HGB 14.9 14.0 - 16.8 g/dL 05/22/2023 10:47 AM EDT [facility] 56- HCT 42.5 40.0 - 48.4 % 05/22/2023 10:47 AM EDT [facility] 56- MCV 93.6 82.0 - 99.5 fL 05/22/2023 10:47 AM EDT [facility] 56- MCH 32.8 27.0 - 34.0 pg 05/22/2023 10:47 AM EDT [facility] 56 MCHC 35.1 32.0 - 36.0 g/dL 05/22/2023 10:47 AM EDT [facility] 56 RDW 12.5 11.5 - 15.5 % 05/22/2023 10:47 AM EDT [facility] 56- PLT 294 140 - 400 K/uL 05/22/2023 10:47 AM T [facility] 56 MPV 8.5 6.6 - 11.1 fL 05/22/2023 10:47 AM T [facility] 56 Blood Venous blood specimen / Unknown Venipuncture / Unknown 05/22/2023 10:34 AM EDT 05/22/2023 10:34 AM EDT Conner Pedersen MD LAB BLOOD ORDERA BLES [facility] 56 [address] [facility] [place] [address] documented in this encounter Visit Diagnoses Diagnosis Essential hypertension with goal blood pressure less than 130/80 Mixed hyperlipidemia MGUS (monoclonal gammopathy of unknown significance) Monoclonal paraproteinemia Monoclonal paraproteinemia Nocturia Balance disorder Other symptoms involving nervous and musculoskeletal systems Tremor Abnormal involuntary movements History of colon polyps Personal history of colonic polyps documented in this encounter Advance Directives Latest Code Status on File Code Status Date Activated Date Inactivated Comments Full Code 06/02/2020 8:23 AM 06/02/2020 4:48 PM This order reflects the patients wishes and were consensually agreed upon. Question Answer Comments Discussion of Advance Directives occurred with: Not Discussed Care Teams Buyers' Agent Relationship Specialty Start Date End Date [facility]ersen [facility] [address] [facility] [address] PCP - General Internal Medicine 11/07/20 documented as of this encounter
--- OUTSIDE RECORDS SUMMARY | 2023-06-16 23:13 | External Medical Summary | Summary of Care ---
Author Name Unknown Organization [facility] Address [address] [place] [address] Phone [phone] Care Team Providers Care Sql Database Administrator Name Role Phone Conner Pedersen MD Primary Care Provider + Reason for Visit * Reason Onset Date Comments Advice 05/25/2023 Encounter Details Date Type Department Care Team (Late st Contact Info) Description 05/25/2023 Telephone General Internal Medicine [facility] [place] [address] [facility] [address] [facility] [address] Advice Allergies Active Allergy Reactions Criticality Noted Date Comments Fexofenadine-Pseudoephed Er Other (Please comment) 03/22/2023 Jittery Losartan Rash 11/02/2022 documented as of this encounter (statuses as of 05/26/2023) Medications Medication Sig Dispensed Refills Start Date [...] MCG/ACT Inhalation Aerosol Powder Breath Activated (umeclidinium [place])Indications:C OPD, group A, by GOLD 2017 classification ([facility]) INHALE 1 PUFF BY MOUTH EVERY DAY [...] inj 60 mgIndications:Senile osteoporosis 60 mg SC [id number] 04/11/2023 04/05/2024 Active documented as of this encounter (statuses as of 05/26/2023) Active Problems Problem Noted Date Diagnosed Date [...] rinse after steroid. Test performed by Reilly [employer] CPFT Alcohol abuse 01/29/2018 Lung nodule 10/26/2017 Aortic root enlargement 07/25/2017 Moderate aortic regurgitation 07/17/2017 Tobacco abuse documented as of this encounter (statuses as of 05/26/2023) Resolved Problems Problem Noted Date Diagnosed Date Resolved Date Compression fracture of T12 vertebra with routine healing 05/14/2020 04/26/2022 COPD, mild 01/29/2018 08/22/2018 Overview: Per COPD GOLD Classification HTN, goal below 140/90 10/26/201704/08 Emphysema lung 10/26/2017 01/29/2018 Colonic polyp 05/12/2014 04/26/2022 Tendonitis 05/12/2014 06/15/2017 Overview: Shoulder pain - Dr. Chacon documented as of this encounter (statuses as of 05/26/2023) Immunizations Name Administration Dates Next Due COVID-19 mRNA, LNP-s, No Pre serve, 2-Dose Series (geolad) 01/08/2021,06/04/2020,05/08/2020 COVID-19, MRNA-LNP, 23-24, P F, 30 MCG/0.3 mL, 12 YRS AND ABOVE, IM ([employer]-Comirnaty) 03/04/2023 Pneumococcal Conjugate Vacc, 13 Valent (Prevnar) [...] encounter Miscellaneous Notes * Telephone Encounter - Toma Ivy MED ASSIST - 05/25/2023 5:08 PM EDT Called and spoke to pt. Pt stated rash has not changed. Pt agreed to taking asa 81mg daily. * Telephone Encounter - Conner Pedersen MD - 05/25/2023 4:47 PM EDT Please call. How is his rash? If not much changed, would consider going back on asa 81 mg daily (hemention may stop) given h/o stroke. Let me know documented in this encounter Plan of Treatment Upcoming Encounters Date Type Department Care Team (Late st Contact Info) Description 07/03/2023 9:30 AM EDT Office Visit Allergy/Immunology [facility] [address] [place] [address] Adriana Robb PA-C [address] [place] [address] 09/04/2023 10:30 AM EDT Imaging Radiology [facility] [address] [place] [address] 09/06/2023 2:30 PM EDT Hospital Encounter ENDO [facility], Endoscopy Room [facility] [address] [place] [phone] Justin Ernst MD [address] [place] [address] 09/06/2023 2:30 PM EDT - 09/06/2023 3:00 PM EDT Surgery ENDO [facility], Endoscopy Room [facility] [address] [place] [phone] Justin Ernst MD [address] [place] [address] COLONOSCOPY FLEXIBLE PROXIMAL DIAGNOSTIC 09/19/2023 11:45 AM EDT Office Visit Urology, [facility] [address] [facility] [place] [address] Sivakumar Huston MD [address] [address] [place] [address] 10/11/2023 2:30 PM EDT Nurse Only Rheumatology [facility] [address] [place] [address] Pf, Nurse Rheum [address] [place] [address] 12/13/2023 10:20 AM EDT Office Visit General Internal Medicine [facility] [address] [place] [address] Conner Pedersen MD [address] [facility] [address] [place] [address] 12/21/2023 11:00 AM EDT Cardiac Studies Cardiac Studies, [facility] [address] [place] [place] [address] Scheduled Procedures Name Priority Associated Diagnoses Date/Ti me COLONOSCOPY FLEXIBLE PROXIMAL DIAGNOSTIC Recall History of colon polyps 09/06/2023 2:30 PM EDT Health Maintenance Due Date Last Done Comments Zoster Vaccines (1 of 2) 05/28/1999 DISCUSS TOBACCO CESSATION (REFER TO SMARTSET #6221) 01/22/2022 01/22/2021, 06/26/2020 COLONOSCOPY-EVERY 5 YRS AGES 18-100 02/15/2023 02/15/2018, 02/15/2018 DTaP,Tdap,and Td Vaccines (2 - Td or Tdap) 10/21/2023 10/20/2013 Depression Screening 03/22/2024 03/22/2023, 11/13/19 15 O2 ASSESSMENT COMPLETED IN PAST YEAR FOR COPD 05/03/2024 05/03/2023 GFR 05/21/2024 05/22/2023, 04/14, 03/22/2023, Additional history exists DXA Scan 07/11/2024 07/11/2022, 0503/2022, 07/07/2020 Albumin/Creatinine Ratio 04/14/2025 04/14/2022, 06/2017 Alpha-1 Antitrypsin Completed 04/23/2019 Pneumococcal Vaccine: 65+ Years Completed 12/11/2019, 12/03/2015, 05/12/2014 AAA Screening Completed 08/29/2022, 09/11, 09/25/2020, Additional history exists Influenza Vaccine (FLU shot) Completed 12/2022, 01/03/2022, 11/28/2020, Additional history exists COVID-19 Vaccine Completed 03/04/2023, , 06/04/2020, Additional history exists VITAMIN D LEVEL ONCE IN A LIFETIME-USE SMARTSET# [id number] Completed 04/07/2023, 10/18/2021, 03/25/2021, Additional history exists [...] this encounter Medical Devices Implanted Type Area After School Program Director Device Identifier Shelf Expiration Date Model / Serial / Lot Cement Hv-R C01a - [id number] Implanted:Qty: 1 on 06/02/2020 by Randal Wharton MD at OR [facility] [place] N/A: Spine Thoracic [employer] : NEURO CARE 11/10/2022 C01A / / [id number] Pack Cement & Mixer C01b - [id number] Implanted:Qty: 1 on 06/02/2020 by Randal Wharton MD at OR [facility] [place] N/A: Spine Thoracic [employer] : NEURO CARE 11/10/2022 C01B / / [id number] documented as of this encounter Advance Directives Latest Code Status on File Code Status Date Activated Date Inactivated Comments Full Code 06/02/2020 8:23 AM 06/02/2020 4:48 PM This order reflects the patients wishes and were consensually agreed upon. Question Answer Comments Discussion of Advance Directives occurred with: Not Discussed Care Teams Sql Database Administrator Relationship Specialty Start Date End Date Conner Pedersen MD [address] [place] [address] PCP - General Internal Medicine 11/07/20 documented as of this encounter
--- OUTSIDE RECORDS SUMMARY | 2023-06-16 23:13 | External Medical Summary | Summary of Care ---
Author Name Unknown Organization [facility] Address [address] [place] [address] Phone [phone] Care Team Providers Care Field Support Representative Name Role Phone Conner Pedersen MD Primary Care Provider + Reason for Visit * Reason Onset Date Comments Test Results 05/08/2023 Encounter Details Date Type Department Care Team (Late st Contact Info) Description 05/08/2023 Telephone Allergy/Immunology Tamie Hernandez [place] [address] [place] [address] Jaya Davis MD [address] [place] [address] Test Results Allergies Active Allergy Reactions Criticality Noted Date Comments Fexofenadine-Pseudoephed Er Other (Please comment) 03/22/2023 Jittery Losartan Rash 11/02/2022 documented as of this encounter (statuses as of 05/12/2023) Medications Medication Sig Dispensed Refills Start Date [...] MCG/ACT Inhalation Aerosol Powder Breath Activated (umeclidinium [place])Indications:C OPD, group A, by GOLD 2017 classification ([facility]) INHALE 1 PUFF BY MOUTH EVERY DAY 90 Each 3 08/10/2022 Active amLODIPine Besylate 2.5 MG Oral Tablet (Norvasc) Take 1 Tablet by mouth in the morning. 90 Tablet 3 08/19/2022 Active Additional Information Patient not taking.Reported on 04/11/2023 Aspirin 81 MG Oral Tablet ChewableIndications:C hronic [...] the morning. 90 Tablet 3 05/03/2023 Active Hospital, Clinic, or Other Facility Administered Medication Ordered Dose Route Frequency Start Date End Date Status Denosumab (Prolia) subcut inj 60 mgIndications:Senile osteoporosis 60 mg SC [id number] 04/11/2023 04/05/2024 Active documented as of this encounter (statuses as of 05/12/2023) Active Problems Problem Noted Date Diagnosed Date [...] rinse after steroid. Test performed by [facility] [employer] Alcohol abuse 01/29/2018 Lung nodule 10/26/2017 Aortic root enlargement 07/25/2017 Moderate aortic regurgitation 07/17/2017 Tobacco abuse documented as of this encounter (statuses as of 05/12/2023) Resolved Problems Problem Noted Date Diagnosed Date Resolved Date Compression fracture of T12 vertebra with routine healing 05/14/2020 04/26/2022 COPD, mild 01/29/2018 08/22/2018 Overview: Per COPD GOLD Classification HTN, goal below 140/90 10/26/201704/08 Emphysema lung 10/26/2017 01/29/2018 Colonic polyp 05/12/2014 04/26/2022 Tendonitis 05/12/2014 06/15/2017 Overview: Shoulder pain - Dr. Chacon documented as of this encounter (statuses as of 05/12/2023) Immunizations Name Administration Dates Next Due COVID-19 mRNA, LNP-s, No Pre serve, 2-Dose Series ([employer]) 01/08/2021,06/04/2020,05/08/2020 Pneumococcal Conjugate Vacc, 13 Valent (Prevnar) [...] encounter Miscellaneous Notes * Telephone Encounter - Adrianna Sosa LPN - 05/12/2023 8:47 AM EST Letter sent in regards to this. Both phone numbers listed in pt's chart did not work. * Telephone Encounter - Jaya Davis MD - 05/10/2023 11:48 AM EST The elevated IgE level can be from the generalized itch, environmental allergies (which we did see on the bloodwork), smoking, and alcohol use. Some or all of these can contribute to an elevated IgE level. No further workup is necessary at the present moment. As for your generalized itch, it has only been seven days since the last visit so we would recommend patience. We would recommend that you continue with the fexofenadine. If your symptoms persist, wemay choose to increase the fexofenadine to twice daily if necessary. Jaya Davis MD * Telephone Encounter - Samantha Lechuga LPN - 05/10/2023 11:43 AM EST Please see my chart reply * Telephone Encounter - Adrianna Sosa LPN - 05/10/2023 8:05 AM EST LVM for pt notifying MyChart message sent in regards to labs and to call with any questions. * Telephone Encounter - Adrianna Sosa LPN - 05/08/2023 7:51 AM EST ----- Message from Jaya Davis MD sent at 05/08/2023 7:45 AM EST ----- Bloodwork reviewed. White blood cell count, red blood cell count, electrolytes, kidney function, liver function, and thyroid function all returned within normal limits with exception of slightly low sodium level (which is stable for you). Environmental allergy testing shows slight allergies to grass pollen and outdoor mold, which likely would not be contributing to your symptoms. No changes to helen n of care. Jaya Davis MD documented in this encounter Plan of Treatment Upcoming Encounters Date Type Department Care Team (Late st Contact Info) Description 05/22/2023 10:00 AM EDT Office Visit General Internal Medicine [place] [address] [place] [address] Conner Pedersen MD [address] [facility] [place] [address] 07/03/2023 9:30 AM EDT Office Visit Allergy/Immunology [facility] [place] [address] [place] [address] Adriana Robb PA-C [address] [place] [address] 09/04/2023 10:30 AM EDT Imaging Radiology [facility] [address] [facility] [place] [address] 09/06/2023 2:30 PM EDT Hospital Encounter ENDO [facility], Endoscopy Room [facility] [address] [place] [phone] Justin Ernst MD [address] [place] [address] 09/06/2023 2:30 PM EDT - 09/06/2023 3:00 PM EDT Surgery ENDO [facility], Endoscopy Room [facility] [address] [place] [phone] Justin Ernst MD [address] [place] [address] COLONOSCOPY FLEXIBLE PROXIMAL DIAGNOSTIC 09/19/2023 11:45 AM EDT Office Visit Urology, [facility] [address] [place] [address] Sivakumar Huston MD [address] [facility] [address] [place] [address] 10/11/2023 2:30 PM EDT Nurse Only Rheumatology [address] [place] [address] Pf, Nurse Rheum [address] [place] [address] [place] [address] 12/21/2023 11:00 AM EDT Cardiac Studies Cardiac Studies, [facility] [address] [facility] [place] [address] Scheduled Procedures Name Priority Associated Diagnoses Date/Ti me COLONOSCOPY FLEXIBLE PROXIMAL DIAGNOSTIC Recall History of colon polyps 09/06/2023 2:30 PM EDT Health Maintenance Due Date Last Done Comments Zoster Vaccines (1 of 2) 05/28/1999 DISCUSS TOBACCO CESSATION (REFER TO SMARTSET #7131) 01/22/2022 01/22/2021, 06/26/2020 COVID-19 Vaccine ( season) [...] D LEVEL ONCE IN A LIFETIME-USE SMARTSET# [id number] Completed 04/07/2023, 10/18/2021, 03/25/2021, Additional history exists [...] this encounter Medical Devices Implanted Type Area Railcar Foreman Device Identifier Shelf Expiration Date Model / Serial / Lot Cement Hv-[id number] C01a - [id number] Implanted:Qty: 1 on 06/02/2020 by Randal Wharton MD at OR [facility] N/A: Spine Thoracic [employer] : NEURO CARE 11/10/2022 C01A / / [id number] Pack Cement & Mixer C01b - [id number] Implanted:Qty: 1 on 06/02/2020 by Randal Wharton MD at OR [facility] N/A: Spine Thoracic [employer] : NEURO CARE 11/10/2022 C01B / / [id number] documented as of this encounter Advance Directives Latest Code Status on File Code Status Date Activated Date Inactivated Comments Full Code 06/02/2020 8:23 AM 06/02/2020 4:48 PM This order reflects the patients wishes and were consensually agreed upon. Question Answer Comments Discussion of Advance Directives occurred with: Not Discussed Care Teams Field Support Representative Relationship Specialty Start Date End Date Conner Pedersen MD [address] [place] [address] PCP - General Internal Medicine 11/07/20 documented as of this encounter
--- OUTSIDE RECORDS SUMMARY | 2023-06-16 23:13 | External Medical Summary | Summary of Care ---
Author Name Unknown Organization [facility] Address [address] [place] [address] Phone [phone] Care Team Providers Care Director Of Software Development Name Role Phone Conner Pedersen MD Primary [...] AM EDT Office Visit General Internal Medicine [address] [place] [address] Conner Pedersen MD [address] [place], [place] [address] Essential hypertension with goal blood pressure less than 130/80*; COPD, group A, by GOLD 2017 classification ([facility]); High risk for fracture due to osteoporosis by DEXA scan; Lung nodule; MGUS (monoclonal gammopathy of unknown significance); Mixed hyperlipidemia; Monoclonal paraproteinemia; SIADH (syndrome of inappropriate ADH production) ([facility]); Tobacco abuse; Peripheral edema; Nocturia; Balance disorder; Tremor; Itch; Acute frontal sinusitis, recurrence not specified; Hyperkalemia Allergies Active Allergy Reactions Criticality Noted Date Comments Fexofenadine-Pseudoephed Er Other (Please comment) 03/22/2023 Jittery Losartan Rash 11/02/2022 documented as of this encounter (statuses as of 05/29/2023) Medications Medication Sig Dispensed Refills Start Date [...] MCG/ACT Inhalation Aerosol Powder Breath Activated (umeclidinium Benge)Indications: COPD, group A, by GOLD 2017 classification ([facility]) INHALE 1 PUFF BY MOUTH EVERY DAY 90 Each 3 08/10/2022 Active Aspirin 81 MG Oral Tablet ChewableIndications: Chronic right arterial ischemic stroke, MCA (middle cerebral artery),Ataxia Take 1 Tablet by mouth in the morning. 90 Tablet 3 09/27/2022 Active Atorvastatin Calcium 20 MG Oral Tablet (Lipitor)Indications :Mixed hyperlipidemia TAKE 1 TABLET BY MOUTH EVERY [...] Active Fluticasone Propionate 50 MCG/ACT Nasal Suspension (Flonase)Indications :Acute frontal sinusitis, recurrence not specified Administer 2 Sprays into each nostril in the morning. 0 05/22/2023 Active amLODIPine Besylate 2.5 MG Oral Tablet (Norvasc) Take 1 Tablet by mouth in the morning. 90 Tablet 3 08/19/2022 Discontinue d(Patient preference/ discontinua tion) Hospital, Clinic, or Other Facility Administered Medication Ordered Dose Route Frequency Start Date End Date Status Denosumab (Prolia) subcut inj 60 mgIndications:Senile osteoporosis 60 mg SC [id number] 04/11/2023 04/05/2024 Active documented as of this encounter (statuses as of 05/29/2023) Active Problems Problem Noted Date Diagnosed Date [...] rinse after steroid. Test performed by [facility] [employer]NAGEMENT ASSIST[employer] CPFT Alcohol abuse 01/29/2018 Lung nodule 10/26/2017 Aortic root enlargement 07/25/2017 Moderate aortic regurgitation 07/17/2017 Tobacco abuse documented as of this encounter (statuses as of 05/29/2023) Resolved Problems Problem Noted Date Diagnosed Date Resolved Date Compression fracture of T12 vertebra with routine healing 05/14/2020 04/26/2022 COPD, mild 01/29/2018 08/22/2018 Overview: Per COPD GOLD Classification HTN, goal below 140/90 10/26/201704/08 Emphysema lung 10/26/2017 01/29/2018 Colonic polyp 05/12/2014 04/26/2022 Tendonitis 05/12/2014 06/15/2017 Overview: Shoulder pain - Dr. Chacon documented as of this encounter (statuses as of 05/29/2023) Immunizations Name Administration Dates Next Due COVID-19 mRNA, LNP-s, No Pre serve, 2-Dose Series (QuantConnect) 01/08/2021,06/04/2020,05/08/2020 COVID-19, MRNA-LNP, 23-24, P F, 30 [...] Moderate aortic regurgitation I35.1 Aortic root enlargement ([facility]) I77.89 Lung nodule R91.1 Alcohol abuse F10.10 COPD, group A, by GOLD 2017 classification ([facility]) J44.9 Mixed hyperlipidemia E78.2 Renal cyst N28.1 High risk for fracture due to osteoporosis by DEXA scan M81.0 Chronic hyponatremia E87.1 SIADH (syndrome of inappropriate ADH production) ([facility]) E22.2 Vasospasm ([facility]) I73.9 Essential hypertension with goal blood pressure less than 130/80 I10 Monoclonal paraproteinemia D47.2 Bicuspid aortic valve Q23.1 Mild carotid artery disease ([facility]) I77.9 Chronic right arterial ischemic stroke, MCA [...] MCG/ACT Inhalation Aerosol Powder Breath Activated (umeclidinium Benge) INHALE 1 PUFF BY MOUTH EVERY DAY [...] David Pugh CRNP 60 mg at 04/11/23 1518 Review of patient's allergies indicates: Allergen Reactions Antihistamine & Nasal Deconges [Fexofenadine-Pseudoephed Er] Other (Please comment) Jittery Losartan Rash Health Maintenance Due Topic Date Due Zoster Vaccines (1 of 2) Never done DISCUSS TOBACCO CESSATION (REFER TO SMARTSET #9515) 01/22/2022 Influenza Vaccine (FLU shot) (1) 11/11/2022 [...] file Occupational History 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 - [employer] Tobacco Use Smoking status: Every Day Current [...] performed by Bowen Montejo MD at ENDOSCOPY [facility] EGD, FLEXIBLE, DIAGNOSTIC 04/15/2015 Andressa yanez, repeat 2 mo/ESOPHAGOGASTRODUODENOSCOPY (EGD), FLEXIBLE, TRANSORAL, DIAGNOSTIC performed by Justin Ernst MD at ENDOSCOPY [facility] EGD, FLEXIBLE, DIAGNOSTIC 04/22/2015 Andressa yanez, repeat 1 mo EGD, FLEXIBLE, DIAGNOSTIC 2015 Andressa ring/ESOPHAGOGASTRODUODENOSCOPY (EGD), FLEXIBLE, TRANSORAL, DIAGNOSTIC performed by Justin Ernst MD at ENDOSCOPY [facility] EGD, FLEXIBLE, DIAGNOSTIC 04/22/2015 ESOPHAGOGASTRODUODENOSCOPY (EGD), FLEXIBLE, TRANSORAL, DIAGNOSTIC performed by Justin Ernst MD at ENDOSCOPY [facility] IR VERTEBRAL AUGMENTATION THORACIC N/A 06/02/2020 PERCUTANEOUS VERTEBRAL AUGMENTATION THORACIC KYPHOPLASTY performed by Randal Wharton MD at [facility] PROCEDURE - GENERAL Left 01/24/2022 Left inguinal hernia reapir by Dr Johnnie Cook TOOTH ROOT REMOVAL 2016 Family History Problem Relation Age of Onset [...] COPD, group A, by GOLD 2017 classification ([facility]) M81.0 High risk for fracture due to osteoporosis by DEXA scan R91.1 Lung nodule D47.2 MGUS (monoclonal gammopathy of unknown significance) E78.2 Mixed hyperlipidemia D47.2 Monoclonal paraproteinemia E22.2 SIADH (syndrome of inappropriate ADH production) ([facility]) Z72.0 Tobacco abuse R60.9 Peripheral edema R35.1 [...] COPD, group A, by GOLD 2017 classification ([facility]) Gets lung screen Cont inhaler Follow High [...] 05/22/2023 SIADH (syndrome of inappropriate ADH production) ([facility]) Again urged cutting back alcohol, tapering off [...] 07/03/2023 9:30 AM EDT Office Visit Allergy/Immunology [facility] [address] [place] [address] Adriana Robb PA-C 200 [facility] [place] [address] 09/04/2023 10:30 AM EDT Imaging Radiology [facility] [address] [place] [address] 09/06/2023 2:30 PM EDT Hospital Encounter ENDO OSSC, Endoscopy Room [facility] [address] [place] [id number] Justin Ernst MD [address] [place] [address] 09/06/2023 2:30 PM EDT - 09/06/2023 3:00 PM EDT Surgery ENDO OSS[facility], Endoscopy Room [facility] [address] [place] [phone] Justin Ernst MD [address] [place] [address] COLONOSCOPY FLEXIBLE PROXIMAL DIAGNOSTIC 09/19/2023 11:45 AM EDT Office Visit Urology, [facility] [address] [place] [address] Sivakumar Huston MD [address] [place] [address] [facility] [place] [address] 10/11/2023 2:30 PM EDT Nurse Only Rheumatology [address] [place] [address] Pf, Nurse Rheum [address] [place] [address] [place] [address] 12/13/2023 10:20 AM EDT Office Visit General Internal Medicine [facility] 200 [facility] [place] [address] Conner Pedersen MD 200 [facility] [place] [address] 12/21/2023 11:00 AM EDT Cardiac Studies Cardiac Studies, [facility] 132 [facility] [place] [address] Scheduled Orders Name Type Priority Associated Diagnoses Orde r Schedule BASIC METABOLIC PANEL Lab Routine Hyperkalemia Expected: 05/29/2023 (Approximate), Expires: 05/28/2024 Scheduled Procedures Name Priority Associated Diagnoses Date/Ti me COLONOSCOPY FLEXIBLE PROXIMAL DIAGNOSTIC Recall History of colon polyps 09/06/2023 2:30 PM EDT Health Maintenance Due Date Last Done Comments Zoster Vaccines (1 of 2) 05/28/1999 DISCUSS TOBACCO CESSATION (REFER TO SMARTSET #3801) 01/22/2022 01/22/2021, 06/26/2020 COLONOSCOPY-EVERY 5 YRS AGES [...] D LEVEL ONCE IN A LIFETIME-USE SMARTSET# 30688 Completed 04/07/2023, 10/18/2021, 03/25/2021, Additional history exists [...] encounter Medical Devices Implanted Type Area Production Control Expert Device Identifier Shelf Expiration Date Model / Serial / Lot Cement Hv-R C01a - [id number] Implanted:Qty: 1 on 06/02/2020 by Randal Whartno MD at [facility] N/A: Spine Thoracic [employer] : NEURO CARE 11/10/2022 C01A / / [id number] Cement & Mixer C01b - [id number] Implanted:Qty: 1 on 06/02/2020 by Randal Wharton MD at OR [facility] N/A: Spine Thoracic [employer] : NEURO CARE 11/10/2022 C01B / / [id number] documented as of this encounter Results * (ABNORMAL) URINALYSIS WITH MICROSCOPIC EXAM (05/22/2023 10:36 AM EDT) Color, Urine Dark Yellow Colorless, Light Yellow, Yellow, Dark Yellow 05/22/2023 4:47 PM EDT LABORATORY C Clarity, Urine Clear Clear 05/22/2023 4:47 PM EDT LABORATORY C Glucose, Urine Negative Negative mg/dL 05/22/2023 4:47 PM EDT LABORATORY C Bilirubin, Urine Negative Negative 05/22/2023 4:47 PM EDT LABORATORY C Ketone, Urine Negative Negative mg/dL 05/22/2023 4:47 PM EDT LABORATORY C Specific [place], Urine 1.018 1.003 - 1.030 05/22/2023 4:47 PM EDT LABORATORY C Blood, Urine Negative Negative 05/22/2023 4:47 PM EDT LABORATORY C pH, Urine 6.0 5.0 - 7.5 Units 05/22/2023 4:47 PM EDT LABORATORY C Protein, Urine Trace(A) Negative mg/dL 05/22/2023 4:47 PM EDT LABORATORY C Urobilinogen, Urine Normal Normal mg/dL 05/22/2023 4:47 PM EDT LABORATORY C Nitrite, Urine Negative Negative 05/22/2023 4:47 PM EDT LABORATORY C Esterase, Urine Negative Negative 05/22/2023 4:47 PM EDT LABORATORY C RBC, Urine 0-2 0 - 2 /HPF [...] LAB URINE ORDERA BLES Performing Organization Address [facility]/ZIP Co de Phone Number LABORATORY [facility] [address] [place] [address] * URINE IMMUNOFIXATION, BENCE OLIVAS PROTEIN, RANDOM URINE (05/22/2023 10:36 AM EDT) Pathologist [facility] [place] Normal/Abnormal Normal Normal 6:20 PM EDT LABORATORY [facility] Protein, Random Urine 21 mg/dL 05/23/2023 6:20 PM EDT LABORATORY [facility] Immunofixation Interpretation No monoclonal free light chains present (Bence Olivas protein). 05/23/2023 6:20 PM EDT LABORATORY C Urine Urine specimen obtained by clean catch procedure / Unknown Non-blood Collection / Unknown 05/22/2023 10:36 AM EDT 05/22/2023 10:42 AM EDT Conner Pedersen MD LAB URINE ORDERA BLES Performing Organization Address City/[facility]/ZIP Co de Phone Number LABORATORY [facility] [address] [place] [address] * VITAMIN B12 (05/22/2023 10:34 AM EDT) Pathologist [facility] Vitamin B12 379 232 - 1,245 pg/mL 05/22/2023 11:09 PM EDT LABORATORY [facility] Blood Venous blood specimen / Unknown Venipuncture / Unknown 05/22/2023 10:34 AM EDT 05/22/2023 10:34 AM EDT Conner Pedersen MD LAB BLOOD ORDERA BLES LABORATORY [facility] [address] [place] [address] * VITAMIN B1 (THIAMINE), BLOOD, LC/MS/MS (05/22/2023 10:34 AM EDT) Pathologist [facility] [place] Vitamin B1 (Thiamine),B 154 78 - 185 nmol/L 05/28/2023 3:44 AM EDT [facility] Comment: Vitamin supplementation within 24 hours prior to blood draw may affect the accuracy of the results. This test was developed and its analytical performance characteristics have been determined by [facility] [place], [place]. It has not been cleared or approved by the U.S. Food and Drug Administration. This assay has been validated pursuant to the CLIA regulations and is used for clinical purposes. Test Performed at: [facility] [id number] [place] [address] Keny Rosas M.D., Ph.D.,Director of Laboratories Blood Venous blood specimen / Unknown Venipuncture / Unknown 05/22/2023 10:34 AM EDT 05/22/2023 10:34 AM EDT Conner Pedersen MD LAB BLOOD ORDERA BLES Performing Organization Address [facility]/ZIP Co de Phone Number [facility] [address] [place] [address] * PSA (05/22/2023 10:34 AM EDT) Pathologist [facility] [place] PSA 0.68 <4.10 ng/mL 05/22/2023 10:16 PM EDT LABORATORY [facility] Blood Venous blood specimen / Unknown Venipuncture / Unknown 05/22/2023 10:34 AM EDT 05/22/2023 10:34 AM EDT Conner Pedersen MD LAB BLOOD ORDERA BLES Performing Organization Address [facility]/ZIP Co de Phone Number [facility]ATORY [facility] [address] [place] [address] * (ABNORMAL) IMMUNOGLOBULIN QUANTITATIVE (05/22/2023 10:34 AM EDT) Pathologist [facility] [place] IgG 1,175 700 - 1,600 mg/dL 05/22/2023 10:15 PM EDT LABORATORY [facility] IgA 259 70 - 400 mg/dL 05/22/2023 10:15 PM EDT LAB[facility]ORY [facility] IgM 393(H) 40 - 230 mg/dL 05/22/2023 10:15 PM EDT [facility] Blood Venous blood specimen / Unknown Venipuncture / Unknown 05/22/2023 10:34 AM EDT 05/22/2023 10:34 AM EDT Conner Pedersen MD LAB BLOOD ORDERA BLES Performing Organization Address [facility] de Phone Number LABORATORY [facility] [address] [place] [address] * (ABNORMAL) SERUM PROTEIN ELECTROPHORESIS REFLEX PROFILE (05/22/2023 10:34 AM EDT) [facility] Normal/Abnormal Abnormal(A) Normal 05/23/19 6:20 PM EDT [...] 1.30 g/dL 05/23/2023 6:20 PM EDT LABORATORY [facility] Gamma-Globulin 1.47 0.70 - 1.70 g/dL 05/23/2023 6:20 PM EDT LAB[facility]ATORY [facility] Electrophoresis Interpretation Abnormal. 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 Paraprotein concentration is detectable, but less than 0.5 g/dL, unable to be accurately quantified by this method. 05/23/2023 6:20 PM EDT LABORATORY [facility] Blood Venous blood specimen / Unknown Venipuncture / Unknown 05/22/2023 10:34 AM EDT 05/22/2023 10:34 AM EDT Conner Pedersen MD LAB BLOOD ORDERA BLES LABORATORY [facility] [address] [place] [address] * LIPID PANEL WITH DIRECT LDL IF TG IS HIGH (05/22/2023 10:34 AM EDT) Triglycerides 74 <=174 mg/dL 05/22/2023 10:15 PM EDT LABORATORY [facility] Comment: Triglyceride Reference Ranges (mg/dL): <150 Acceptable 150-174 Borderline high 175-499 High >=500 Very high Cholesterol 166 <200 mg/dL 05/22/2023 10:15 PM EDT LABORATORY [facility] Comment: Total Cholesterol Reference Ranges (mg/dL): <200 Desirable 200-239 Borderline high >=240 High HDL Cholesterol 69 >39 mg/dL 10:15 PM EDT LABORATORY [facility] Comment: HDL Cholesterol Reference Ranges (mg/dL): >=60 High (Desirable) <50 Low (Undesirable) For Females <40 Low (Undesirable) For Males Non-HDL Cholesterol 97 <=159 mg/dL 05/22/2023 10:15 PM EDT LABORATORY [facility] Comment: Non-HDL Cholesterol Reference Range (mg/dL): <100 Target level for high risk ASCVD patient <130 Optimal for general population 130-159 Near optimal for general population 160-189 Borderline High 190-219 High >=220 Very High LDL Cholesterol 82 <=129 mg/dL 05/22/2023 10:15 PM EDT LABORATORY [facility] Comment: LDL Cholesterol Reference Ranges (mg/dL): <70 Target level for high risk ASCVD patient <100 Optimal for general population 100-129 Near optimal for general population 130-159 Borderline high 160-189 High >=190 Very high Blood Venous blood specimen / Unknown Venipuncture / Unknown 05/22/2023 10:34 AM EDT 05/22/2023 10:34 AM EDT Conner Pedersen MD LAB BLOOD ORDERA BLES LABORATORY [facility] [address] [place] [address] * (ABNORMAL) COMPREHENSIVE METABOLIC PANEL (05/22/2023 10:34 AM EDT) Pathologist [facility] BUN 8 6 - 20 mg/dL 05/22/2023 12:58 PM EDT [facility] Creatinine 0.9 0.6 - 1.2 mg/dL 05/22/2023 12:58 PM EDT [facility] 56 Estimated Glomerular Filtration Rate 88 >=60 mL/min 05/22/2023 12:58 PM EDT [facility] 56 Comment:eGFR is calculated b ased on the CKD-EPI 2020 equation Sodium 131(L) 135 - 146 mmol/L 05/22/2023 12:58 PM EDT [facility] 56- Potassium 5.5(H) 3.5 - 5.1 mmol/L 05/22/2023 12:58 PM EDT [facility] 56- Chloride 94(L) 98 - 107 mmol/L 05/22/2023 12:58 PM EDT [facility] 56- CO2 26 22 - 32 mmol/L 05/22/2023 12:58 PM EDT [facility] 56 Anion Gap 11 7 - 15 mmol/L 05/22/2023 12:58 PM EDT [facility] 56- Glucose 99 70 - 120 mg/dL 05/22/2023 12:58 PM EDT [facility] 56- Albumin 4.2 3.8 - 5.0 g/dL 05/22/2023 12:58 PM EDT [facility] 56- AST 24 10 - 50 U/L 05/22/2023 12:58 PM EDT [facility] 56 Comment:Result may be falsel y elevated due to hemolysis. Alkaline Phosphatase 43 35 - 130 U/L 05/22/2023 12:58 PM EDT [facility] 56 Bilirubin, Total 0.9 <=1.2 mg/dL 05/22/2023 12:58 PM EDT [facility] 56- Calcium 9.9 8.4 - 10.2 mg/dL 05/22/2023 12:58 PM EDT [facility] 56 Protein 7.1 6.0 - 8.3 g/dL 05/22/2023 12:58 PM EDT [facility] 56 ALT 11 10 - 50 U/L 05/22/2023 12:58 PM EDT [facility] 56- Blood Venous blood specimen / Unknown Venipuncture / Unknown 05/22/2023 10:34 AM EDT 05/22/2023 10:34 AM EDT Conner Pedersen MD LAB BLOOD ORDERA BLES [facility] 56 [address] [facility] [address] documented in this encounter Visit Diagnoses Diagnosis Essential hypertension with goal blood pressure less than 130/80- Primary COPD, group A, by GOLD 2017 classification ([facility]) High risk for fracture due to osteoporosis by DEXA scan Osteoporosis, unspecified Lung nodule Solitary pulmonary nodule MGUS (monoclonal gammopathy of unknown significance) Monoclonal paraproteinemia Mixed hyperlipidemia Monoclonal paraproteinemia SIADH (syndrome of inappropriate ADH production) ([facility]) Other disorders of neurohypophysis Tobacco abuse Tobacco [...] Directives occurred with: Not Discussed Care Teams Director Of Software Development Relationship Specialty Start Date End Date Conner Pedersen MD [address] [place] [address] PCP - General Internal Medicine 11/07/20 documented as of this encounter
--- OUTSIDE RECORDS SUMMARY | 2023-06-16 23:13 | External Medical Summary | Summary of Care ---
Author Name Unknown Organization [facility] Address [address] [place] [address] Phone [phone] Care Team Providers Care Concrete Pipe Plant Supervisor Name Role Phone Conner Pedersen MD Primary Care Provider + Reason for Visit * Reason Onset Date Comments Other 05/11/2023 Encounter Details Date Type Department Care Team (Late st Contact Info) Description 05/11/2023 Telephone General Internal Medicine [facility] [place] [address] [facility] [place] [address] Conner Pedersen MD 200 [facility] [address] Other Allergies Active Allergy Reactions Criticality Noted Date Comments Fexofenadine-Pseudoephed Er Other (Please comment) 03/22/2023 Jittery Losartan Rash 11/02/2022 documented as of this encounter (statuses as of 05/11/2023) Medications Medication Sig Dispensed Refills Start Date [...] MCG/ACT Inhalation Aerosol Powder Breath Activated (umeclidinium [place])Indications:C OPD, group A, by GOLD 2017 classification ([facility]) INHALE 1 PUFF BY MOUTH EVERY [...] inj 60 mgIndications:Senile osteoporosis 60 mg SC [id number] 04/11/2023 04/05/2024 Active documented as of this encounter (statuses as of 05/11/2023) Active Problems Problem Noted Date Diagnosed Date [...] and rinse after steroid. Test performed by A.[employer] INFORMATION TECHNOLOGY CONSULTANT CPFT Alcohol abuse 01/29/2018 Lung nodule 10/26/2017 Aortic root enlargement 07/25/2017 Moderate aortic regurgitation 07/17/2017 Tobacco abuse documented as of this encounter (statuses as of 05/11/2023) Resolved Problems Problem Noted Date Diagnosed Date Resolved Date Compression fracture of T12 vertebra with routine healing 05/14/2020 04/26/2022 COPD, mild 01/29/2018 08/22/2018 Overview: Per COPD GOLD Classification HTN, goal below 140/90 10/26/201704/08 Emphysema lung 10/26/2017 01/29/2018 Colonic polyp 05/12/2014 04/26/2022 Tendonitis 05/12/2014 06/15/2017 Overview: Shoulder pain - Dr. Chacon documented as of this encounter (statuses as of 05/11/2023) Immunizations Name Administration Dates Next Due COVID-19 mRNA, LNP-s, No Pre serve, 2-Dose Series (Pfizer) 01/08/2021,06/04/2020,05/08/2020 Pneumococcal Conjugate Vacc, 13 Valent (Prevnar) [...] encounter Miscellaneous Notes * Telephone Encounter - Namrata Bhatt, ZELAL[place] - 05/11/2023 12:18 PM EST Patient gave verbal permission to speak with his lewis gaitan for this call onyl documented in this encounter Plan of Treatment Upcoming Encounters Date Type Department Care Team (Late st Contact Info) Description 05/22/2023 10:00 AM EDT Office Visit General Internal Medicine [facility] [address] [place] [address] Conner Pedersen MD 200 [facility] [place] [address] 07/03/2023 9:30 AM EDT Office Visit Allergy/Immunology [facility] [address] [place] [address] Adriana Robb PA-C 200 [facility] [place] [address] 09/04/2023 10:30 AM EDT Imaging Radiology [facility] [address] [place] [address] 09/06/2023 2:30 PM EDT Hospital Encounter ENDO [facility], Endoscopy Room [facility] [address] [phone] Justin Ernst MD [address] [place] [address] 09/06/2023 2:30 PM EDT - 09/06/2023 3:00 PM EDT Surgery ENDO [facility], Endoscopy Room [facility] [address] [place] [phone] Justin Ernst MD [address] [place] [address] COLONOSCOPY FLEXIBLE PROXIMAL DIAGNOSTIC 09/19/2023 11:45 AM EDT Office Visit Urology, [facility] 132 [facility] [place] [address] Sivakumar Huston MD [address] [facility] [address] [place] [address] 10/11/2023 2:30 PM EDT Nurse Only Rheumatology [place] [id number] [facility] [place] [address] Pf, Nurse Rheum [facility]0 [facility] [place] [address] 12/21/2023 11:00 AM EDT Cardiac Studies Cardiac Studies, [facility] 132 [facility] [place] [address] Scheduled Procedures Name Priority Associated Diagnoses Date/Ti [...] COPD 05/03/2024 05/03/2023 DXA Scan 07/11/2024 07/11/2022, 0503/2022, 07/07/2020 Albumin/Creatinine Ratio 04/14/2025 04/14/2022, 06/2017 Alpha-1 Antitrypsin Completed 04/23/2019 Pneumococcal Vaccine: 65+ Years Completed 12/11/2019, 12/03/2015, 05/12/2014 AAA Screening Completed 08/29/2022, 09/11, 09/25/2020, Additional history exists VITAMIN D LEVEL ONCE IN A LIFETIME-USE SMARTSET# [id number] Completed 04/07/2023, 10/18/2021, 03/25/2021, Additional history exists [...] this encounter Medical Devices Implanted Type Area Automobile Club Travel Counselor Device Identifier Shelf Expiration Date Model / Serial / Lot Cement Hv-R C01a - [id number] Implanted:Qty: 1 on 06/02/2020 by Randal Wharton MD at OR [facility] [facility] N/A: Spine Thoracic [employer] : NEURO CARE 11/10/2022 C01A / / [id number] Pack Cement & Mixer C01b - [id number] Implanted:Qty: 1 on 06/02/2020 by Randal Wharton MD at OR [facility] [facility] N/A: Spine Thoracic [employer] : NEURO CARE 11/10/2022 C01B / / [id number] documented as of this encounter Advance Directives Latest Code Status on File Code Status Date Activated Date Inactivated Comments Full Code 06/02/2020 8:23 AM 06/02/2020 4:48 PM This order reflects the patients wishes and were consensually agreed upon. Question Answer Comments Discussion of Advance Directives occurred with: Not Discussed Care Teams Concrete Pipe Plant Supervisor Relationship Specialty Start Date End Date Conner Pedersen MD 200 [facility] [place] [address] PCP - General Internal Medicine 11/07/20 documented as of this encounter
--- OUTSIDE RECORDS SUMMARY | 2023-06-16 23:13 | External Medical Summary | Summary of Care ---
Author Name Unknown Organization [facility] Address [address] [place] [address] Phone [phone] Care Team Providers Care Export Agent Name Role Phone Conner Pedersen MD Primary Care Provider + Reason for Visit * Reason Comments Outpatient Testing Encounter Details Date Type Department Care Team (Late st Contact Info) Description 05/22/2023 11:10 AM EDT Laboratory Laboratory [facility] [place] [address] [place] [address] [place], Lab Scen[address] [place] [address] Essential hypertension with goal blood pressure less [...] MCG/ACT Inhalation Aerosol Powder Breath Activated (umeclidinium [place])Indications:C OPD, group A, by GOLD 2017 classification [...] inj 60 mgIndications:Senile osteoporosis 60 mg SC [id number] 04/11/2023 04/05/2024 Active documented as of this [...] rinse after steroid. Test performed by Reilly CSW CPFT Alcohol abuse 01/29/2018 Lung nodule 10/26/2017 [...] mRNA, LNP-s, No Pre serve, 2-Dose Series ([employer]) 01/08/2021,06/04/2020,05/08/2020 Pneumococcal Conjugate Vacc, 13 Valent (Prevnar) [...] AM EDT Office Visit Allergy/Immunology [facility] [place] [address] [place] [address] Adriana Robb PA-C [address] [place] [address] 09/04/2023 10:30 AM EDT Imaging Radiology [facility] [address] [address] 09/06/2023 2:30 PM EDT Hospital Encounter ENDO [facility], Endoscopy Room [facility] [address] [phone] Justin Ernst MD [address] [place] [address] 09/06/2023 2:30 PM EDT - 09/06/2023 3:00 PM EDT Surgery ENDO [facility], Endoscopy Room [facility] [address] [place] [phone] Justin Ernst MD [address] [place] [address] COLONOSCOPY FLEXIBLE PROXIMAL DIAGNOSTIC 09/19/2023 11:45 AM EDT Office Visit Urology, [facility] [address] [place] [address] Sivakumar Huston MD [address] [place] [address] [place] [address] 10/11/2023 2:30 PM EDT Nurse Only Rheumatology [facility] 25[address] [facility] [place] [address] Pf, Nurse Rheum [address] [facility] [place] [address] 12/13/2023 10:20 AM EDT Office Visit General Internal Medicine [facility] 200 [facility] [place] [address] Conner Pedersen MD 200 [facility] [place] [address] 12/21/2023 11:00 AM EDT Cardiac Studies Cardiac Studies, [facility] 132 [facility] [place] [address] Pending Results Name Type Priority Associated Diagnoses [...] Lab Routine Nocturia 05/22/2023 10:34 AM EDT CBC WITH WBC DIFFERENTIAL Lab Routine Balance disorder Tremor 05/22/2023 10:34 AM EDT VITAMIN B1 (THIAMINE), BLOOD, LC/MS/MS Lab Routine Balance disorder Tremor 05/22/2023 10:34 AM EDT VITAMIN B12 Lab Routine Balance disorder Tremor 05/22/2023 10:34 AM EDT CBC Lab Routine Balance disorder Tremor 05/22/2023 10:34 AM EDT DIFFERENTIAL, AUTOMATED Lab Routine Balance disorder Tremor 05/22/2023 10:34 AM EDT URINALYSIS WITH MICROSCOPIC EXAM Lab Routine Nocturia 05/22/2023 10:36 AM EDT Scheduled Procedures Name Priority Associated Diagnoses Date/Ti me COLONOSCOPY FLEXIBLE PROXIMAL DIAGNOSTIC Recall History of colon polyps 09/06/2023 2:30 PM EDT Health Maintenance Due Date Last Done Comments Zoster Vaccines (1 of 2) 05/28/1999 DISCUSS TOBACCO CESSATION (REFER TO SMARTSET #3291) 01/22/2022 01/22/2021, 06/26/2020 COVID-19 Vaccine ( - season) 2022 01/08/2021, 06/04/2020, 05/08/2020 Influenza Vaccine [...] D LEVEL ONCE IN A LIFETIME-USE SMARTSET# [id number] Completed 04/07/2023, 10/18/2021, 03/25/2021, Additional history exists [...] this encounter Medical Devices Implanted Type Area Realtime Reporter Device Identifier Shelf Expiration Date Model / Serial / Lot Cement Hv-R C01a - [id number] Implanted:Qty: 1 on 06/02/2020 by Randal Wharton MD at OR [facility] N/A: Spine Thoracic [employer] : NEURO CARE 11/10/2022 C01A / / [id number] Pack Cement & Mixer C01b - [id number] Implanted:Qty: 1 on 06/02/2020 by Randal Wharton MD at OR [facility] N/A: Spine Thoracic [employer] : NEURO CARE 11/10/2022 C01B / / [id number] documented as of this encounter Visit Diagnoses Diagnosis Essential hypertension [...] Directives occurred with: Not Discussed Care Teams Export Agent Relationship Specialty Start Date End Date Conner Pedersen MD [address] [place] [address] PCP - General Internal Medicine 11/07/20 documented as of this encounter
--- OUTSIDE RECORDS SUMMARY | 2023-06-16 23:13 | External Medical Summary | Summary of Care ---
Author Name Unknown Organization [facility] Address [address] [place] [address] Phone [phone] Care Team Providers Care Underground Mining Section Foreman Name Role Phone Conner Pedersen MD Primary [...] AM EDT Office Visit General Internal Medicine [address] [place] [address] Conner Pedersen MD [address] [place] [address] [place] [address] Essential hypertension with goal blood pressure less than 130/80*; COPD, group A, by GOLD 2017 classification ([facility]); High risk for fracture due to osteoporosis by DEXA scan; Lung nodule; MGUS (monoclonal gammopathy of unknown significance); Mixed hyperlipidemia; Monoclonal paraproteinemia; SIADH (syndrome of inappropriate ADH production) ([facility]); Tobacco abuse; Peripheral edema; Nocturia; Balance disorder; Tremor; Itch; Acute frontal sinusitis, recurrence not specified Allergies Active Allergy Reactions Criticality Noted Date [...] MCG/ACT Inhalation Aerosol Powder Breath Activated (umeclidinium [place])Indications: COPD, group A, by GOLD 2017 classification (H[facility]) [...] inj 60 mgIndications:Senile osteoporosis 60 mg SC [id number] 04/11/2023 04/05/2024 Active documented as of this [...] rinse after steroid. Test performed by Reilly GRIPPER MACHINE OPERATOR CPFT Alcohol abuse 01/29/2018 Lung nodule 10/26/2017 [...] Moderate aortic regurgitation I35.1 Aortic root enlargement ([facility]) I77.89 Lung nodule R91.1 Alcohol abuse F10.10 COPD, group A, by GOLD 2017 classification ([facility]) J44.9 Mixed hyperlipidemia E78.2 Renal cyst N28.1 High risk for fracture due to osteoporosis by DEXA scan M81.0 Chronic hyponatremia E87.1 SIADH (syndrome of inappropriate ADH production) ([facility]) E22.2 Vasospasm ([facility]) I73.9 Essential hypertension with goal blood pressure less than 130/80 I10 Monoclonal paraproteinemia D47.2 Bicuspid aortic valve Q23.1 Mild carotid artery disease ([facility]) I77.9 Chronic right arterial ischemic stroke, [...] MCG/ACT Inhalation Aerosol Powder Breath Activated (umeclidinium [place]) INHALE 1 PUFF BY MOUTH EVERY DAY [...] David Pugh CRNP 60 mg at 04/11/23 9148 Review of patient's allergies indicates: Allergen Reactions Antihistamine & Nasal Deconges [Fexofenadine-Pseudoephed Er] Other (Please comment) Jittery Losartan Rash Health Maintenance Due Topic Date Due Zoster Vaccines (1 of 2) Never done DISCUSS TOBACCO CESSATION (REFER TO SMARTSET #1141) 01/22/2022 Influenza Vaccine (FLU shot) (1) 11/11/2022 [...] level: Not on file Occupational History 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 - [employer] Tobacco Use Smoking status: Every Day Current [...] performed by Bowen Montejo MD at ENDOSCOPY [facility] EGD, FLEXIBLE, DIAGNOSTIC 04/15/2015 Schatzki ring, repeat 2 mo/ESOPHAGOGASTRODUODENOSCOPY (EGD), FLEXIBLE, TRANSORAL, DIAGNOSTIC performed by Justin Ernst MD at ENDOSCOPY [facility] EGD, FLEXIBLE, DIAGNOSTIC 04/22/2015 Schatzki ring, repeat 1 mo EGD, FLEXIBLE, DIAGNOSTIC 2015 Schatzki ring/ESOPHAGOGASTRODUODENOSCOPY (EGD), FLEXIBLE, TRANSORAL, DIAGNOSTIC performed by Justin Ernst MD at ENDOSCOPY [facility] EGD, FLEXIBLE, DIAGNOSTIC 04/22/2015 ESOPHAGOGASTRODUODENOSCOPY (EGD), FLEXIBLE, TRANSORAL, DIAGNOSTIC performed by Justin Ernst MD at ENDOSCOPY [facility] IR VERTEBRAL AUGMENTATION THORACIC N/A 06/02/2020 PERCUTANEOUS VERTEBRAL AUGMENTATION THORACIC KYPHOPLASTY performed by Randal Wharton MD at [place] [facility] [place] [place] PROCEDURE - GENERAL Left 01/24/2022 Left inguinal [...] COPD, group A, by GOLD 2017 classification ([facility]) M81.0 High risk for fracture due to osteoporosis by DEXA scan R91.1 Lung nodule D47.2 MGUS (monoclonal gammopathy of unknown significance) E78.2 Mixed hyperlipidemia D47.2 Monoclonal paraproteinemia E22.2 SIADH (syndrome of inappropriate ADH production) ([facility]) Z72.0 Tobacco abuse R60.9 Peripheral edema [...] COPD, group A, by GOLD 2017 classification ([facility]) Gets lung screen Cont inhaler Follow [...] 05/22/2023 SIADH (syndrome of inappropriate ADH production) ([facility]) Again urged cutting back alcohol, tapering [...] times a night. documented in this encounter Plan of Treatment Upcoming Encounters Date Type Department Care Team (Late st Contact Info) Description 05/22/2023 11:10 AM EDT Laboratory Laboratory [facility] [place] [address] [place] [phone] [facility] 200 [facility] [place] [address] Essential hypertension with goal blood pressure less than 130/80; Mixed hyperlipidemia; MGUS (monoclonal gammopathy of unknown significance); Monoclonal paraproteinemia; Nocturia; Balance disorder; Tremor 07/03/2023 9:30 AM EDT Office Visit Allergy/Immunology [facility] [place] [address] [place] [address] [address] [address] Adriana Robb PA-C [address] [place] [address] 09/04/2023 10:30 AM EDT Imaging Radiology [facility] [address] [facility] [place] [address] 09/06/2023 2:30 PM EDT Hospital Encounter ENDO [facility], Endoscopy Room OSS [address] [place] [phone] Justin Ernst MD [address] [place] [address] 09/06/2023 2:30 PM EDT - 09/06/2023 3:00 PM EDT Surgery ENDO [facility], Endoscopy Room [facility] [address] [place] [phone] Justin Ernst MD [address] [place] [address] COLONOSCOPY FLEXIBLE PROXIMAL DIAGNOSTIC 09/19/2023 11:45 AM EDT Office Visit Urology, [facility] [address] [place] [address] Sivakumar Huston MD [address] [place] [address] [place] [address] 10/11/2023 2:30 PM EDT Nurse Only Rheumatology [facility] 25[address] [facility] [place] [address] Pf, Nurse Rheum [facility]0 [facility] [place] [address] 12/13/2023 10:20 AM EDT Office Visit General Internal Medicine [facility] 200 [facility] [place] [address] Conner Pedesren MD 200 [facility] [place] [address] 12/21/2023 11:00 AM EDT Cardiac Studies Cardiac Studies, [facility] [address] [place] [address] Pending Results Name Type Priority Associated Diagnoses [...] significance) Monoclonal paraproteinemia 05/22/2023 10:34 AM EDT URINE IMMUNOFIXATION, BENCE OLIVAS PROTEIN, RANDOM URINE Lab Routine MGUS (monoclonal gammopathy of unknown significance) Monoclonal paraproteinemia 05/22/2023 10:36 AM EDT IMMUNOGLOBULIN QUANTITATIVE Lab Routine MGUS (monoclonal gammopathy of unknown significance) Monoclonal paraproteinemia 05/22/2023 10:34 AM EDT URINALYSIS WITH MICROSCOPIC EXAM Lab Routine Nocturia 05/22/2023 10:36 AM EDT PSA Lab Routine Nocturia 05/22/2023 10:34 AM EDT VITAMIN B1 (THIAMINE), BLOOD, LC/MS/MS Lab Routine Balance disorder Tremor 05/22/2023 10:34 AM EDT VITAMIN B12 Lab Routine Balance disorder Tremor 05/22/2023 10:34 AM EDT Scheduled Orders Name Type Priority Associated Diagnoses Orde r Schedule COMPREHENSIVE METABOLIC PANEL Lab Routine Essential hypertension with goal blood pressure less than 130/80 Mixed hyperlipidemia Expected: 05/22/2023 (Approximate), Expires: 05/21/2024 LIPID PANEL WITH DIRECT LDL IF TG IS HIGH Lab Routine Essential hypertension with goal blood pressure less than 130/80 Mixed hyperlipidemia Expected: 05/22/2023, Expires: 05/21/2024 SERUM PROTEIN ELECTROPHORESIS REFLEX PROFILE Lab Routine MGUS (monoclonal gammopathy of unknown significance) Monoclonal paraproteinemia Expected: 05/22/2023 (Approximate), Expires: 05/21/2024 URINE IMMUNOFIXATION, BENCE OLIVAS PROTEIN, RANDOM URINE Lab Routine MGUS (monoclonal gammopathy of unknown significance) Monoclonal paraproteinemia Expected: 05/22/2023 (Approximate), Expires: 05/21/2024 IMMUNOGLOBULIN QUANTITATIVE Lab Routine MGUS (monoclonal gammopathy of unknown significance) Monoclonal paraproteinemia Expected: 05/22/2023 (Approximate), Expires: 05/21/2024 URINALYSIS WITH MICROSCOPIC EXAM Lab Routine Nocturia Expected: 05/22/2023 (Approximate), Expires: 05/21/2024 PSA Lab Routine Nocturia Expected: 05/22/2023 (Approximate), Expires: 05/21/2024 VITAMIN B1 (THIAMINE), BLOOD, LC/MS/MS Lab Routine Balance disorder Tremor Expected: 05/22/2023, Expires: 05/21/2024 VITAMIN B12 Lab Routine Balance disorder Tremor Expected: 05/22/2023 (Approximate), Expires: 05/21/2024 Scheduled Procedures Name Priority Associated Diagnoses Date/Ti [...] D LEVEL ONCE IN A LIFETIME-USE SMARTSET# 64761 Completed 04/07/2023, 10/18/2021, 03/25/2021, Additional history exists [...] this encounter Medical Devices Implanted Type Area Sugar Cane Planter Device Identifier Shelf Expiration Date Model / Serial / Lot Cement Hv-R C01a - [id number] Implanted:Qty: 1 on 06/02/2020 by Randal Wharton MD at OR [facility] [place] [place] N/A: Spine Thoracic [employer] : NEURO CARE 11/10/2022 C01A / / [id number] Pack Cement & Mixer C01b - [id number] Implanted:Qty: 1 on 06/02/2020 by Randal Wharton MD at OR [facility] [place] [place] N/A: Spine Thoracic [employer] : NEURO CARE 11/10/2022 C01B / / [id number] documented as of this encounter Visit Diagnoses Diagnosis Essential hypertension with goal blood pressure less than 130/80- Primary COPD, group A, by GOLD 2017 classification ([facility]) High risk for fracture due to osteoporosis by DEXA scan Osteoporosis, unspecified Lung nodule Solitary pulmonary nodule MGUS (monoclonal gammopathy of unknown significance) Monoclonal paraproteinemia Mixed hyperlipidemia Monoclonal paraproteinemia SIADH (syndrome of inappropriate ADH production) ([facility]) Other disorders of neurohypophysis Tobacco abuse Tobacco use disorder Peripheral edema Edema Nocturia Balance disorder Other symptoms involving nervous and musculoskeletal systems Tremor Abnormal involuntary movements Itch Unspecified pruritic disorder Acute frontal sinusitis, recurrence not specified Essential hypertension with goal blood pressure less [...] Directives occurred with: Not Discussed Care Teams Underground Mining Section Foreman Relationship Specialty Start Date End Date Conner Pedersen MD [address] [place] [address], [place] [address] PCP - General Internal Medicine 11/07/20 documented as of this encounter
--- OUTSIDE RECORDS SUMMARY | 2023-06-16 23:13 | External Medical Summary ---
Author Name Unknown Address Unknown Organization [id number]:LABORATORY [facility] [place] - [address] [place] [address] Laboratory Report Ordering Provider Test Date Status ROXANN MOSELEY 05/22/2023 10:34:33 Final Observation Date Value Abnormality Reference (Units ) Status Vitamin B12 05/22/2023 10:34:33 675 206-2709 (pg/mL) Final Performing Location LABORATORY [facility] [place] - [address] [place] [address]
--- OUTSIDE RECORDS SUMMARY | 2023-06-16 23:13 | External Medical Summary ---
Author Name Unknown Address Unknown Organization [id number]:[place]ORATORY [facility] [place] [address] [place] [address] Laboratory Report Ordering Provider Test Date Status ROXANN MOSELEY 05/22/2023 10:34:33 Final Observation Date Value Abnormality Reference (Units ) Status PSA 05/22/2023 10:34:33 0.68 <4.10 (ng/ mL) Final Performing Location LABORATORY [facility] - [address] [place] [address]
--- OUTSIDE RECORDS SUMMARY | 2023-06-16 23:13 | External Medical Summary ---
Author Name Unknown Address Unknown Organization : Laboratory Report Ordering Provider Test Date Status DO PRADIPYOSVANY 05/22/2023 10:34:33 Final Observation Date Value Abnormality Reference (Units ) Status Thiamine [Moles/volume] in Blood 05/22/2023 10:34:33 154 78-185 (nmol/L) Final Vitamin supplementation with in 24 hours prior to
blood draw may affect the accuracy of the results.
This test was developed and its analytical performance
characteristics have been determined by [facility] [place], [place]. It has
not been cleared or approved by the U.S. Food and Drug
Administration. This assay has been validated pursuant
to the CLIA regulations and is used for clinical
purposes.

Test Performed at:
[facility]
[address] [facility]
[place] [address]
Keny Rosas M.D., Ph.D.,Director of Laboratories Performing Location
--- OUTSIDE RECORDS SUMMARY | 2023-06-16 23:13 | External Medical Summary ---
Author Name Unknown Address Unknown Organization K01:[place] [facility] [place] [address] [place] [address] Laboratory Report Ordering Provider Test Date Status ROXANN MOSELEY 05/22/2023 10:34:33 Final Observation Date Value Abnormality Reference (Units ) Status IgG 05/22/2023 10:34:33 7544 618-7662 ( mg/dL) Final IgA 05/22/2023 10:34:33 259 70-400 (mg /dL) Final IgM 05/22/2023 10:34:33 393 Above high normal 40 -230 (mg/dL) Final Performing Location [place] [facility] [place] [address] [place] [place] [address]
--- OUTSIDE RECORDS SUMMARY | 2023-06-16 23:13 | External Medical Summary ---
Author Name Unknown Address Unknown Organization [id number]:[facility] Tamie PEREZ [address] Laboratory Report Ordering Provider Test Date Status ROXANN MOSELEY 05/22/2023 10:34:33 Final Observation Date Value Abnormality Reference (Units ) Status WBC, Total 05/22/2023 10:34:33 6.53 4.00-10.8 0 (K/uL) Final RBC 05/22/2023 10:34:33 4.54 4.50-5.25 (M/uL) Final Hemoglobin 05/22/2023 10:34:33 14.9 14.0-16.8 (g/dL) Final HCT 05/22/2023 10:34:33 42.5 40.0-48.4 (%) Final MCV 05/22/2023 10:34:33 93.6 82.0-99.5 (fL) Final MCH 05/22/2023 10:34:33 32.8 27.0-34.0 (pg) Final MCHC 05/22/2023 10:34:33 35.1 32.0-36.0 (g/dL) Final RDW 05/22/2023 10:34:33 12.5 11.5-15.5 (%) Final Platelets 05/22/2023 10:34:33 294 140-400 (K /uL) Final MPV 05/22/2023 10:34:33 8.5 6.6-11.1 ( fL) Final Performing Location [facility] Tamie PEREZ [address]
--- OUTSIDE RECORDS SUMMARY | 2023-06-16 23:13 | External Medical Summary ---
Author Name Unknown Address Unknown Organization K09:[facility] [place] [address] Laboratory Report Ordering Provider Test Date Status ROXANN MOSELEY 05/22/2023 10:34:33 Final Observation Date Value Abnormality Reference (Units ) Status SYNC LEUKOCYTES IN BLOOD BY AUTOMATED COUNT 05/22/2023 10:34:33 6.53 4.00-10.80 (K/uL) Final Segs 05/22/2023 10:34:33 54.0 40.0-75.0 (%) Final Lymphs % 05/22/2023 10:34:33 23.9 18.0-42.0 (%) Final Monos 05/22/2023 10:34:33 15.3 Above high normal 1.0-11.0 (%) Final Eosinophils 05/22/2023 10:34:33 6.3 Above high normal 0.0-6.0 (%) Final Basos 05/22/2023 10:34:33 0.5 0.0-2.0 (%) Final Absolute Segs 05/22/2023 10:34:33 3.53 1.80-7.70 (K/uL) Final Lymphs, absolute 05/22/2023 10:34:33 1.56 1.00-4.80 (K/ul) Final Monos, Abs 05/22/2023 10:34:33 1.00 0.00-1.10 (K/uL) Final Eos, Abs 05/22/2023 10:34:33 0.41 0.00-0.70 (K/uL) Final Basos, Abs 05/22/2023 10:34:33 0.03 0.00-0.20 (K/uL) Final Performing Location [facility] [place] [place] [address]
--- OUTSIDE RECORDS SUMMARY | 2023-06-16 23:13 | External Medical Summary ---
Author Name Unknown Address Unknown Organization K09:[facility] [address] [place] [address] Laboratory Report Ordering Provider Test Date Status ROXANN MOSELEY 05/22/2023 10:34:33 Final Observation Date Value Abnormality Reference (Units ) Status BUN 05/22/2023 10:34:33 8 6-20 (mg/dL) Final Creatinine 05/22/2023 10:34:33 0.9 0.6-1.2 (mg/dL) Final Glomerular filtration rate/1.73 sq M.predicted [Volume Rate/Area] in Serum, Plasma or Blood by Creatinine-based formula (CKD-EPI) 05/22/2023 10:34:33 88 >=60 (mL/min) Final eGFR is calculated based on the CKD-EPI 2020 equation SODIUM 05/22/2023 10:34:33 131 Below low normal 135 -146 (mmol/L) Final Potassium 05/22/2023 10:34:33 5.5 Above high normal 3. 5-5.1 (mmol/L) Final Cl 05/22/2023 10:34:33 94 Below low normal 98- 107 (mmol/L) Final CO2 05/22/2023 10:34:33 26 22-32 (mmo l/L) Final Anion gap 05/22/2023 10:34:33 11 7-15 (mmol /L) Final Glucose 05/22/2023 10:34:33 99 70-120 (mg /dL) Final Albumin 05/22/2023 10:34:33 4.2 3.8-5.0 (g /dL) Final AST (Aspartate aminotransferase) 05/22/2023 10:34:33 24 10-50 (U/L) Fin al Result may be falsely elevat ed due to hemolysis. Alk Phos 05/22/2023 10:34:33 43 35-130 (U/ L) Final Bilirubin, Total 05/22/2023 10:34:33 0.9 <=1 .2 (mg/dL) Final Calcium 05/22/2023 10:34:33 9.9 8.4-10.2 ( mg/dL) Final Protein 05/22/2023 10:34:33 7.1 6.0-8.3 (g /dL) Final ALT (Alanine aminotransferase) 05/22/2023 10:34:33 11 10-50 (U/L) Final Performing Location [facility] [address] [place] [address]
--- OUTSIDE RECORDS SUMMARY | 2023-06-16 23:13 | External Medical Summary | Summary of Care ---
Author Name Unknown Organization [facility] Address [address] [place] [address] Phone [phone] Care Team Providers Care Pipe Stripper Name Role Phone Conner Pedersen MD Primary Care Provider + Reason for Visit * Reason Onset Date Comments Test Results 05/08/2023 Encounter Details Date Type Department Care Team (Late st Contact Info) Description 05/08/2023 Telephone Allergy/Immunology [facility] [address] [place] [address] Jaya aDvis MD [address] [place] [place] [address] Test Results Allergies Active Allergy Reactions Criticality Noted Date Comments Fexofenadine-Pseudoephed Er Other (Please comment) 03/22/2023 Jittery Losartan Rash 11/02/2022 documented as of this encounter (statuses as of 05/10/2023) Medications Medication Sig Dispensed Refills Start Date [...] MCG/ACT Inhalation Aerosol Powder Breath Activated (umeclidinium [place])Indications:C OPD, group A, by GOLD 2017 classification ([facility]) INHALE 1 PUFF BY MOUTH [...] inj 60 mgIndications:Senile osteoporosis 60 mg SC [id number] 04/11/2023 04/05/2024 Active documented as of this encounter (statuses as of 05/10/2023) Active Problems Problem Noted Date Diagnosed Date [...] rinse after steroid. 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 Chacon documented as of this encounter (statuses as of 05/10/2023) Immunizations Name Administration Dates Next Due COVID-19 mRNA, LNP-s, No Pre serve, 2-Dose Series ([employer]) 01/08/2021,06/04/2020,05/08/2020 Pneumococcal Conjugate Vacc, 13 Valent (Prevnar) [...] encounter Miscellaneous Notes * Telephone Encounter - Samantha Lechuga LPN [...] AM EDT Office Visit General Internal Medicine [facility] [address] [place] [address] Conner Pedersen MD [address] [place] [address] 07/03/2023 9:30 AM EDT Office Visit Allergy/Immunology [facility] [place] [address] [place] [address] Adriana Robb PA-C [address] [place] [address] 09/04/2023 10:30 AM EDT Imaging Radiology [facility] [address] [place] [address] 09/06/2023 2:30 PM EDT Hospital Encounter ENDO [facility], Endoscopy Room [facility] [address] [place] [phone] Justin rEnst MD [address] [place] [address] 09/06/2023 2:30 PM EDT - 09/06/2023 3:00 PM EDT Surgery ENDO [facility], Endoscopy Room [facility] [address] [place] [phone] Justin Ernst MD [address] [place] [address] COLONOSCOPY FLEXIBLE PROXIMAL DIAGNOSTIC 09/19/2023 11:45 AM EDT Office Visit Urology, [facility] [address] [place] [address] Sivakumar Huston MD [address] [place] [address] [place] [address] 10/11/2023 2:30 PM EDT Nurse Only Rheumatology [place] [id number] [place] [address] Pf, Nurse Rheum [address] [facility] [place] [address] 12/21/2023 11:00 AM EDT Cardiac Studies Cardiac Studies, [facility] [address] [place] [address] Scheduled Procedures Name Priority Associated Diagnoses Date/Ti me COLONOSCOPY FLEXIBLE PROXIMAL DIAGNOSTIC Recall History of colon polyps 09/06/2023 2:30 PM EDT Health Maintenance Due Date Last Done Comments Zoster Vaccines (1 of 2) 05/28/1999 DISCUSS TOBACCO CESSATION (REFER TO SMARTSET #7631) 01/22/2022 01/22/2021, 06/26/2020 COVID-19 Vaccine ( season) [...] D LEVEL ONCE IN A LIFETIME-USE SMARTSET# 51148 Completed 04/07/2023, 10/18/2021, 03/25/2021, Additional history exists [...] this encounter Medical Devices Implanted Type Area Furnace Combination Analyst Device Identifier Shelf Expiration Date Model / Serial / Lot Cement Hv-R C01a - [id number] Implanted:Qty: 1 on 06/02/2020 by Randal Wharton MD at OR [facility] [place] N/A: Spine Thoracic [employer] : NEURO CARE 11/10/2022 C01A / / [id number] Pack Cement & Mixer C01b - [id number] Implanted:Qty: 1 on 06/02/2020 by Randal Wharton MD at OR [facility] N/A: Spine Thoracic [employer] : NEURO CARE 11/10/2022 C01B / / [id number] documented as of this encounter Advance Directives Latest Code Status on File Code Status Date Activated Date Inactivated Comments Full Code 06/02/2020 8:23 AM 06/02/2020 4:48 PM This order reflects the patients wishes and were consensually agreed upon. Question Answer Comments Discussion of Advance Directives occurred with: Not Discussed Care Teams Pipe Stripper Relationship Specialty Start Date End Date Conner Pedersen MD [address] [place] [address] PCP - General Internal Medicine 11/07/20 documented as of this encounter
--- OUTSIDE RECORDS SUMMARY | 2023-06-16 23:13 | External Medical Summary | Summary of Care ---
Author Name Unknown Organization [facility] Address [address] [place] [address] Phone [phone] Care Team Providers Care [employer] English Teacher Name Role Phone Conner Pedersen MD Primary Care Provider + Reason for Visit * Reason Onset Date Comments Advice 05/25/2023 Encounter Details Date Type Department Care Team (Late st Contact Info) Description 05/25/2023 Telephone General Internal Medicine [facility] [place] [address] [facility] [address] Conner Pedersen MD [address] [facility] [address] Advice Allergies Active Allergy Reactions Criticality Noted Date Comments Fexofenadine-Pseudoephed Er Other (Please comment) 03/22/2023 Jittery Losartan Rash 11/02/2022 documented as of this encounter (statuses as of 06/01/2023) Medications Medication Sig Dispensed Refills Start Date [...] MCG/ACT Inhalation Aerosol Powder Breath Activated (umeclidinium [place])Indications:C OPD, group A, by GOLD 2017 classification ([facility]) INHALE 1 PUFF BY MOUTH [...] inj 60 mgIndications:Senile osteoporosis 60 mg SC [id number] 04/11/2023 04/05/2024 Active documented as of this encounter (statuses as of 06/01/2023) Active Problems Problem Noted Date Diagnosed Date [...] rinse after steroid. Test performed by Reilly LEGAL RESEARCHER CPFT Alcohol abuse 01/29/2018 Lung nodule 10/26/2017 Aortic root enlargement 07/25/2017 Moderate aortic regurgitation 07/17/2017 Tobacco abuse documented as of this encounter (statuses as of 06/01/2023) Resolved Problems Problem Noted Date Diagnosed Date Resolved Date Compression fracture of T12 vertebra with routine healing 05/14/2020 04/26/2022 COPD, mild 01/29/2018 08/22/2018 Overview: Per COPD GOLD Classification HTN, goal below 140/90 10/26/201704/08 Emphysema lung 10/26/2017 01/29/2018 Colonic polyp 05/12/2014 04/26/2022 Tendonitis 05/12/2014 06/15/2017 Overview: Shoulder pain - Dr. Chacon documented as of this encounter (statuses as of 06/01/2023) Immunizations Name Administration Dates Next Due COVID-19 mRNA, LNP-s, No Pre serve, 2-Dose Series (Essensium) 01/08/2021,06/04/2020,05/08/2020 COVID-19, MRNA-LNP, 23-24, P F, 30 MCG/0.3 mL, 12 YRS AND ABOVE, IM ([employer]-Comirnaty) 03/04/2023 Pneumococcal Conjugate Vacc, 13 Valent (Prevnar) [...] 07/03/2023 9:30 AM EDT Office Visit Allergy/Immunology [facility] [address] [place] [address] Adriana Robb PA-C 200 [facility] [address] 09/04/2023 10:30 AM EDT Imaging Radiology [facility] [address] [place] [address] 09/06/2023 2:30 PM EDT Hospital Encounter [facility], Endoscopy Room [facility] [address] [place] [phone] Justin Ernst MD [address] [place] [address] 09/06/2023 2:30 PM EDT - 09/06/2023 3:00 PM EDT Surgery [facility], Endoscopy Room [facility] [address] [place] [phone] Justin Ernst MD [address] [place] [address] COLONOSCOPY FLEXIBLE PROXIMAL DIAGNOSTIC 09/19/2023 11:45 AM EDT Office Visit Urology, [facility] [address] [facility] [place] [address] Sivakumar Huston MD [address] [place] [address] [place] [address] 10/11/2023 2:30 PM EDT Nurse Only Rheumatology [facility] [address] [place] [address] Pf, Nurse Rheum [address] [place] [address] 12/13/2023 10:20 AM EDT Office Visit General Internal Medicine [facility] [address] [place] [address] Conner Pedersen MD 200 [facility] [place] [address] 12/21/2023 11:00 AM EDT Cardiac Studies Cardiac Studies, [facility] [address] [place] [address] Scheduled Procedures Name Priority Associated Diagnoses Date/Ti me COLONOSCOPY FLEXIBLE PROXIMAL DIAGNOSTIC Recall History of colon polyps 09/06/2023 2:30 PM EDT Health Maintenance Due Date Last Done Comments Zoster Vaccines (1 of 2) 05/28/1999 DISCUSS TOBACCO CESSATION (REFER TO SMARTSET #7261) 01/22/2022 01/22/2021, 06/26/2020 COLONOSCOPY-EVERY 5 YRS AGES [...] D LEVEL ONCE IN A LIFETIME-USE SMARTSET# 30140 Completed 04/07/2023, 10/18/2021, 03/25/2021, Additional history exists [...] this encounter Medical Devices Implanted Type Area Reporting Coordinator Device Identifier Shelf Expiration Date Model / Serial / Lot Cement Hv-R C01a - [id number] Implanted:Qty: 1 on 06/02/2020 by Randal Wharton MD at OR [facility] N/A: Spine Thoracic [employer] : NEURO CARE 11/10/2022 C01A / / [id number] Pack Cement & Mixer C01b - [id number] Implanted:Qty: 1 on 06/02/2020 by Randal Wharton MD at OR [facility] N/A: Spine Thoracic [employer] : NEURO CARE 11/10/2022 C01B / / [id number] documented as of this encounter Advance Directives Latest Code Status on File Code Status Date Activated Date Inactivated Comments Full Code 06/02/2020 8:23 AM 06/02/2020 4:48 PM This order reflects the patients wishes and were consensually agreed upon. Question Answer Comments Discussion of Advance Directives occurred with: Not Discussed Care Teams High School English Teacher Relationship Specialty Start Date End Date Conner Pedersen MD 200 [facility] [place] [address] PCP - General Internal Medicine 11/07/20 documented as of this encounter
--- OUTSIDE RECORDS SUMMARY | 2023-06-16 23:13 | External Medical Summary | Summary of Care ---
Author Name Unknown Organization [facility] Address [address] [place] [address] Phone [phone] Care Team Providers Care Etl Consultant Name Role Phone Conner Pedersen MD Primary Care Provider + Reason for Visit * Reason Onset Date Comments Test Results 05/08/2023 Encounter Details Date Type Department Care Team (Late st Contact Info) Description 05/08/2023 Telephone Allergy/Immunology [facility] [address] [place] [address] Jaya Davis MD [address] [facility] [address] Test Results Allergies Active Allergy Reactions Criticality [...] MCG/ACT Inhalation Aerosol Powder Breath Activated (umeclidinium [place])Indications:C OPD, group A, by GOLD 2017 classification ([facility]) INHALE 1 PUFF BY MOUTH EVERY [...] inj 60 mgIndications:Senile osteoporosis 60 mg SC [id number] 04/11/2023 04/05/2024 Active documented as of this [...] rinse after steroid. Test performed by Reilly EMPLOYEE RELATIONS REPRESENTATIVE CPFT Alcohol abuse 01/29/2018 Lung nodule [...] mRNA, LNP-s, No Pre serve, 2-Dose Series (Exavio) 01/08/2021,06/04/2020,05/08/2020 Pneumococcal Conjugate Vacc, 13 Valent (Prevnar) [...] encounter Miscellaneous Notes * Telephone Encounter - Jaya Davis MD [...] AM EDT Office Visit General Internal Medicine [address] [place] [address] Conner Pedersen MD 200 [facility] [place] [address] 07/03/2023 9:30 AM EDT Office Visit Allergy/Immunology [facility] 200 [facility] [place] [address] Adriana Robb PA-C [address] [place] [address] [place] [address] 09/04/2023 10:30 AM EDT Imaging Radiology [facility] [address] [place] [address] 09/06/2023 2:30 PM EDT Hospital Encounter [facility], Endoscopy Room [facility] [address] [place] [phone] Justin Ernst MD [address] [place] [address] 09/06/2023 2:30 PM EDT - 09/06/2023 3:00 PM EDT Surgery [facility], Endoscopy Room [facility] [address] [place] [phone] Justin Ernst MD 132 [facility] [place] [address] COLONOSCOPY FLEXIBLE PROXIMAL DIAGNOSTIC 09/19/2023 11:45 AM EDT Office Visit Urology, [facility] 132 [facility] [place] [address] Sivakumar Huston MD [address] [place] [address] [facility] [place] [address] 10/11/2023 2:30 PM EDT Nurse Only Rheumatology [address] [place] [address] Pf, Nurse Rheum [facility] [place] [address] 12/21/2023 11:00 AM EDT Cardiac Studies Cardiac Studies, [facility] [address] [facility] [place] [address] Scheduled Procedures Name Priority Associated Diagnoses Date/Ti me COLONOSCOPY FLEXIBLE PROXIMAL DIAGNOSTIC Recall History of colon polyps 09/06/2023 2:30 PM EDT Health Maintenance Due Date Last Done Comments Zoster Vaccines (1 of 2) 05/28/1999 DISCUSS TOBACCO CESSATION (REFER TO SMARTSET #3291) 01/22/2022 01/22/2021, 06/26/2020 COVID-19 Vaccine (2022- season) 2022 01/08/2021, 06/04/2020, 05/08/2020 Influenza Vaccine (FLU shot) (#1) 2022 01/03/2022, 11/28/2020, 11/10/2019, Additional history exists COLONOSCOPY-EVERY 5 YRS AGES 18-100 02/15/2023 02/15/2018, 02/15/2018 DTaP,Tdap,and Td Vaccines (2 - Td or Tdap) 10/21/2023 10/20/2013 Depression Screening 03/22/2024 03/22/2023, 11/13/19 15 GFR 05/03/2024 05/03/2023, 03/13, 11/02/2022, Additional history exists O2 ASSESSMENT COMPLETED IN PAST YEAR FOR COPD 05/03/2024 05/03/2023 DXA Scan 07/11/2024 07/11/2022, 05/0 03/2022, 07/07/2020 Albumin/Creatinine Ratio 04/14/2025 04/14/2022, 1206/2017 Alpha-1 Antitrypsin Completed 04/23/2019 Pneumococcal Vaccine: 65+ Years Completed 12/11/2019, 12/03/2015, 05/12/2014 AAA Screening Completed 08/29/2022, 09/11, 09/25/2020, Additional history exists VITAMIN D LEVEL ONCE IN A LIFETIME-USE SMARTSET# [id number] Completed 04/07/2023, 10/18/2021, 03/25/2021, Additional history exists [...] this encounter Medical Devices Implanted Type Area Director [place] Device Identifier Shelf Expiration Date Model / Serial / Lot Cement Hv-R C01a - [id number] Implanted:Qty: 1 on 06/02/2020 by Randal Wharton MD at [place] [facility] [place] N/A: Spine Thoracic [employer] : NEURO CARE 11/10/2022 C01A / / [id number] Pack Cement & Mixer C01b - [id number] Implanted:Qty: 1 on 06/02/2020 by Randal Wharton MD at OR [facility] [place] N/A: Spine Thoracic [employer] : NEURO CARE 11/10/2022 C01B / / [id number] documented as of this encounter Advance Directives Latest Code Status on File Code Status Date Activated Date Inactivated Comments Full Code 06/02/2020 8:23 AM 06/02/2020 4:48 PM This order reflects the patients wishes and were consensually agreed upon. Question Answer Comments Discussion of Advance Directives occurred with: Not Discussed Care Teams Etl Consultant Relationship Specialty Start Date End Date Conner Pedersen MD [address] [place], [place] [address] PCP - General Internal Medicine 11/07/20 documented as of this encounter
--- OUTSIDE RECORDS SUMMARY | 2023-06-16 23:14 | External Medical Summary | Summary of Care ---
Author Name Unknown Organization [facility] Address [address] [place] [address] Phone [phone] Care Team Providers Care Technology Assistant Name Role Phone Conner Pedersen MD Primary Care Provider + Reason for Visit * Reason Onset Date Comments Test Results 05/08/2023 Encounter Details Date Type Department Care Team (Late st Contact Info) Description 05/08/2023 Telephone Allergy/Immunology [facility] [address] [place] [address] Jaya Davis MD [address] [facility] [address] Test Results Allergies Active Allergy Reactions Criticality [...] MCG/ACT Inhalation Aerosol Powder Breath Activated (umeclidinium [place])Indications:C OPD, group A, by GOLD 2017 classification ([facility]) INHALE 1 PUFF BY MOUTH [...] inj 60 mgIndications:Senile osteoporosis 60 mg SC [id number] 04/11/2023 04/05/2024 Active documented as of this [...] rinse after steroid. Test performed by Reilly POSTMASTER CPFT Alcohol abuse 01/29/2018 Lung nodule 10/26/2017 [...] mRNA, LNP-s, No Pre serve, 2-Dose Series (CANDDi) 01/08/2021,06/04/2020,05/08/2020 Pneumococcal Conjugate Vacc, 13 Valent (Prevnar) [...] AM EDT Office Visit General Internal Medicine [facility] [address] [place] [address] Conner Pedersen MD [address] [place] [address] 07/03/2023 9:30 AM EDT Office Visit Allergy/Immunology [facility] [address] [place] [address] Adriana Robb PA-C [address] [place] [address] 09/04/2023 10:30 AM EDT Imaging Radiology [facility] [address] [facility] [place] [address] 09/06/2023 2:30 PM EDT Hospital Encounter [facility], Endoscopy Room [facility] [address] [place] [address] Justin Ernst MD [address] [place] [address] 09/06/2023 2:30 PM EDT - 09/06/2023 3:00 PM EDT Surgery [facility], Endoscopy Room [facility] [address] [place] [phone] Justin Ernst MD [address] [place] [address] COLONOSCOPY FLEXIBLE PROXIMAL DIAGNOSTIC 09/19/2023 11:45 AM EDT Office Visit Urology, [facility] 132 [facility] [place] [address] Sivakumar Huston MD [address] [place] [address] [place] [address] 10/11/2023 2:30 PM EDT Nurse Only Rheumatology [place] [address] [address] [place] [address] Pf, Nurse Rheum [facility] [place] [address] 12/21/2023 11:00 AM EDT Cardiac Studies Cardiac Studies, [facility] 132 [facility] [place] [address] Scheduled Procedures Name Priority Associated Diagnoses Date/Ti me COLONOSCOPY FLEXIBLE PROXIMAL DIAGNOSTIC Recall History of colon polyps 09/06/2023 2:30 PM EDT Health Maintenance Due Date Last Done Comments Zoster Vaccines (1 of 2) 05/28/1999 DISCUSS TOBACCO CESSATION (REFER TO SMARTSET #2481) 01/22/2022 01/22/2021, 06/26/2020 COVID-19 Vaccine ( season) [...] D LEVEL ONCE IN A LIFETIME-USE SMARTSET# [id number] Completed 04/07/2023, 10/18/2021, 03/25/2021, Additional history exists [...] this encounter Medical Devices Implanted Type Area Doll Dresser Device Identifier Shelf Expiration Date Model / Serial / Lot Cement Hv-R C01a - [id number] Implanted:Qty: 1 on 06/02/2020 by Randal Wharton MD [place] [facility] [place]/A: Spine Thoracic [employer] : NEURO CARE 11/10/2022 C01A / / [id number] Pack Cement & Mixer C01b - [id number] Implanted:Qty: 1 on 06/02/2020 by Randal Wharton MD at [place] [facility] [place] N/A: Spine Thoracic [employer] : NEURO CARE 11/10/2022 C01B / / [id number] documented as of this encounter Advance Directives Latest Code Status on File Code Status Date Activated Date Inactivated Comments Full Code 06/02/2020 8:23 AM 06/02/2020 4:48 PM This order reflects the patients wishes and were consensually agreed upon. Question Answer Comments Discussion of Advance Directives occurred with: Not Discussed Care Teams Technology Assistant Relationship Specialty Start Date End Date Conner Pedersen MD 200 [facility] [place] [address] PCP - General Internal Medicine 11/07/20 documented as of this encounter
--- OUTSIDE RECORDS SUMMARY | 2023-06-16 23:14 | External Medical Summary ---
Author Name Unknown Address Unknown Organization K09:[facility] [place] [address] Laboratory Report Ordering Provider Test Date Status AMANDA MCKINNEY 05/03/2023 11:49:39 Final Observation Date Value Abnormality Reference (Units ) Status SYNC LEUKOCYTES IN BLOOD BY AUTOMATED COUNT 05/03/2023 11:49:39 6.20 4.00-10.80 (K/uL) Final Segs 05/03/2023 11:49:39 58.5 40.0-75.0 (%) Final Lymphs % 05/03/2023 11:49:39 21.8 18.0-42.0 (%) Final Monos 05/03/2023 11:49:39 15.2 Above high normal 1.0-11.0 (%) Final Eosinophils 05/03/2023 11:49:39 4.0 0.0-6.0 (%) Final Basos 05/03/2023 11:49:39 0.5 0.0-2.0 (%) Final Absolute Segs 05/03/2023 11:49:39 3.63 1.80-7.70 (K/uL) Final Lymphs, absolute 05/03/2023 11:49:39 1.35 1.00-4.80 (K/ul) Final Monos, Abs 05/03/2023 11:49:39 0.94 0.00-1.10 (K/uL) Final Eos, Abs 05/03/2023 11:49:39 0.25 0.00-0.70 (K/uL) Final Basos, Abs 05/03/2023 11:49:39 0.03 0.00-0.20 (K/uL) Final Performing Location [facility] [place] [address]
--- OUTSIDE RECORDS SUMMARY | 2023-06-16 23:14 | External Medical Summary ---
Author Name Unknown Address Unknown Organization K01:[facility] [place] [address] [facility] [address] Laboratory Report Ordering Provider Test Date Status ROSE MCKINNEYCHIKA 05/03/2023 11:49:39 Final Observation Date Value Abnormality Reference (Units ) Status TSH 05/03/2023 11:49:39 2.61 0.27-4.20 (uIU/mL) Final Performing Location [facility] - [address] [facility] [address]
--- OUTSIDE RECORDS SUMMARY | 2023-06-16 23:14 | External Medical Summary ---
Author Name Unknown Address Unknown Organization K09:[facility] [place] [address] Laboratory Report Ordering Provider Test Date Status AMANDA MCKINNEY 05/03/2023 11:49:39 Final Observation Date Value Abnormality Reference (Units ) Status BUN 05/03/2023 11:49:39 8 6-20 (mg/dL) Final Creatinine 05/03/2023 11:49:39 0.9 0.6-1.2 (mg/dL) Final Glomerular filtration rate/1.73 sq M.predicted [Volume Rate/Area] in Serum, Plasma or Blood by Creatinine-based formula (CKD-EPI) 05/03/2023 11:49:39 >90 >=60 (mL/min) Final eGFR is calculated based on the CKD-EPI 2020 equation SODIUM 05/03/2023 11:49:39 132 Below low normal 135 -146 (mmol/L) Final Potassium 05/03/2023 11:49:39 4.4 3.5-5.1 (m mol/L) Final Cl 05/03/2023 11:49:39 95 Below low normal 98- 107 (mmol/L) Final CO2 05/03/2023 11:49:39 26 22-32 (mmo l/L) Final Anion gap 05/03/2023 11:49:39 11 7-15 (mmol /L) Final Glucose 05/03/2023 11:49:39 94 70-120 (mg /dL) Final Albumin 05/03/2023 11:49:39 4.4 3.8-5.0 (g /dL) Final AST (Aspartate aminotransferase) 05/03/2023 11:49:39 22 10-50 (U/L) Fin al Alk Phos 05/03/2023 11:49:39 44 35-130 (U/ L) Final Bilirubin, Total 05/03/2023 11:49:39 0.7 <=1 .2 (mg/dL) Final Calcium 05/03/2023 11:49:39 9.9 8.4-10.2 ( mg/dL) Final Protein 05/03/2023 11:49:39 7.2 6.0-8.3 (g /dL) Final ALT (Alanine aminotransferase) 05/03/2023 11:49:39 12 10-50 (U/L) Xander yee Performing Location [facility] [place] [address]
--- OUTSIDE RECORDS SUMMARY | 2023-06-16 23:14 | External Medical Summary | Summary of Care ---
Author Name Unknown Organization [facility] Address [address] [place] [address] Phone [phone] Care Team Providers Care Field Application Engineer Name Role Phone Conner Pedersen MD Primary Care Provider + Reason for Referral * Ancillary Services (Within 30 days (routine)) - Authorized Specialty Diagnoses / Procedures Referred By Conttom t Referred To Contact Gastroenterology Diagnoses Screening for malignant neoplasm of colon Conner Pedersen MD [address] [facility] [place] [address] Referral ID Status Reason Start Date Expiration Date Visits Requested Visits Authorized [id number] Authorized Ancillary Services Required 04/18/2023 1 1 Question Answer Referral Priority Within 30 days (routine) Where should this appointment be scheduled? Fan Comments ALERT: Do not order for pediatric patients (18 years or younger). Cancel off screen and order PEDS GASTROENTEROLOGY CONSULT (Type: 1 visit only-Evaluate and Treat) The following Pt. Instructions are available: - Gastro Colonoscopy Prep Instructions [[id number]] - Gastro Colonoscopy Prep Instructions (Malay Version) [[id number]] Go to the Pt. Instructions section within the Visit Navigator to access. Colonoscopy ASGE Guidelines: Average risk screening (begin at age 50, 10 year intervals) ADDITIONAL INFORMATION 1. Is the patient on Coumadin? No 2. Is the patient on Pradaxa? No Reason for Visit * Reason Onset Date Comments Health Maintenance 04/17/2023 Encounter Details Date Type Department Care Team ([facility] Contact Info) Description 04/17/2023 Telephone General Internal Medicine Tamie [address] [place] [address] [place] [id number] Conner Pedersen MD 200 [facility] [place] [address] Health Maintenance Allergies Active Allergy Reactions Criticality Noted Date Comments Fexofenadine-Pseudoephed Er Other (Please comment) 03/22/2023 Jittery Losartan Rash 11/02/2022 documented as of this encounter (statuses as of 04/18/2023) Medications Medication Sig Dispensed Refills Start Date [...] MCG/ACT Inhalation Aerosol Powder Breath Activated (umeclidinium [place])Indications:C OPD, group A, by GOLD 2017 classification ([facility]) INHALE 1 PUFF BY MOUTH EVERY [...] Oral Capsule Take by mouth. 0 Active Hospital, Clinic, or Other Facility Administered Medication Ordered Dose Route Frequency Start Date End Date Status Denosumab (Prolia) subcut inj 60 mgIndications:Senile osteoporosis 60 mg SC [id number] 04/11/2023 04/05/2024 Active documented as of this encounter (statuses as of 04/18/2023) Active Problems Problem Noted Date Diagnosed Date [...] rinse after steroid. Test performed by Reilly CHOKE REAMER CPFT Alcohol abuse 01/29/2018 Lung nodule 10/26/2017 Aortic root enlargement 07/25/2017 Moderate aortic regurgitation 07/17/2017 Tobacco abuse documented as of this encounter (statuses as of 04/18/2023) Resolved Problems Problem Noted Date Diagnosed Date Resolved Date Compression fracture of T12 vertebra with routine healing 05/14/2020 04/26/2022 COPD, mild 01/29/2018 08/22/2018 Overview: Per COPD GOLD Classification HTN, goal below 140/90 10/26/201704/08 Emphysema lung 10/26/2017 01/29/2018 Colonic polyp 05/12/2014 04/26/2022 Tendonitis 05/12/2014 06/15/2017 Overview: Shoulder pain - Dr. Chacon documented as of this encounter (statuses as of 04/18/2023) Immunizations Name Administration Dates Next Due COVID-19 mRNA, LNP-s, No Pre serve, 2-Dose Series (autoGraph) 01/08/2021,06/04/2020,05/08/2020 Pneumococcal Conjugate Vacc, 13 Valent (Prevnar) [...] Date Smoking Tobacco: Every Day Cigarettes 1.5 49 Started: 1975 Smokeless Tobacco: Never Alcohol Use [...] as of this encounter Miscellaneous Notes * Addendum Note - Shaji Christie LPN - 04/18/2023 3:51 PM ESTAddended by: SHAJI CHRISTIE on: 04/18/2023 03:51 PM Modules accepted: Orders * Telephone Encounter - Shaji Christie LPN - 04/18/2023 3:50 PM EST Spoke to patient. Colonoscopy scheduled September 05. Please reach out with prep instructions * Telephone Encounter - Shaji Christie LPN - 04/17/2023 3:43 PM EST Care Gaps Comprehensive Care Outreach Last Office/Telemedicine Visit: 11/02/2022 (in office), Visit date not found (telemedicine) Next Office Visit: 05/22/2023 Hemoglobin AIC Results: Lab Results Component Value Date/Time HEMOGLOBIN A1C - MCKENZIEER 5.2 09/27/2022 10:58 AM BP Readings from Last 1 Encounters: 03/22/23 124/66 Reviewed Health Maintenance below: Health Maintenance Topic Date Due Zoster Vaccines (1 of 2) Never done DISCUSS TOBACCO CESSATION (REFER TO SMARTSET #3291) 01/22/2022 Influenza Vaccine (FLU shot) (1) 11/11/2022 COVID-19 Vaccine ( season) 2022 COLONOSCOPY-EVERY 5 YRS AGES 18-100 02/15/2023 Awv already done colon Care Gap Outreach Action Taken: Left message documented in this encounter Plan of Treatment Upcoming Encounters Date Type Department Care Team (Late st Contact Info) Description 05/22/2023 10:00 AM EDT Office Visit General Internal Medicine [facility] [address] [facility] [place] [address] Conner Pedersen MD [address] [facility] [place] [address] 09/04/2023 10:30 AM EDT Imaging Radiology [facility] [address] [place] [address] 09/06/2023 2:30 PM EDT Hospital Encounter ENDO [facility], Endoscopy Room [facility] [address] [place] [place] [phone] Justin Ernst MD [address] [place] [address] 09/06/2023 2:30 PM EDT - 09/06/2023 3:00 PM EDT Surgery ENDO [facility], Endoscopy Room [facility] 132 [facility] [place] [phone] Justin Ernst MD 132 [facility] [place] [address] COLONOSCOPY FLEXIBLE PROXIMAL DIAGNOSTIC 09/19/2023 11:45 AM EDT Office Visit Urology, [facility] 132 [facility] [place] [address] Sivakumar Huston MD [address] [place] [address] [facility] [place] [id number] 10/11/2023 2:30 PM EDT Nurse Only Rheumatology [facility] [address] [facility] [place] [address] Pf, Nurse Rheum [address] [facility] [place] [address] 12/21/2023 11:00 AM EDT Cardiac Studies Cardiac Studies, [facility] 132 [facility] [place] [address] Scheduled Procedures Name Priority Associated Diagnoses Date/Ti me COLONOSCOPY FLEXIBLE PROXIMAL DIAGNOSTIC Recall History of colon polyps 09/06/2023 2:30 PM EDT Scheduled Referrals Name Type Priority Associated Diagnoses Orde r Schedule COLONOSCOPY, GI REFERRAL OP Referral Within 30 days (routine) Screening for malignant neoplasm of colon Ordered: 04/18/2023 Health Maintenance Due Date Last Done Comments [...] Depression Screening 03/22/2024 03/22/2023, 11/13/19 15 GFR 03/22/2024 03/22/2023, 10/12, 09/27/2022, Additional history exists O2 ASSESSMENT COMPLETED IN PAST YEAR FOR COPD 03/22/2024 03/22/2023 DXA Scan 07/11/2024 07/11/2022, 03/2022, 07/07/2020 Albumin/Creatinine Ratio 04/14/2025 04/14/2022, 06/2017 Alpha-1 Antitrypsin Completed 04/23/2019 Pneumococcal Vaccine: 65+ Years Completed 12/11/2019, 12/03/2015, 05/12/2014 AAA Screening Completed 08/29/2022, 09/11, 09/25/2020, Additional history exists VITAMIN D LEVEL ONCE IN A LIFETIME-USE SMARTSET# 93082 Completed 04/07/2023, 10/18/2021, 03/25/2021, Additional history exists [...] this encounter Medical Devices Implanted Type Area Plumber Helper Device Identifier Shelf Expiration Date Model / Serial / Lot Pack Cement & Mixer C01b - [id number] Implanted:Qty: 1 on 06/02/2020 by Randal Wharton MD [place] [facility] [place] Spine Thoracic [employer] : NEURO CARE 11/10/2022 C01B / / [id number] documented as of this encounter Visit Diagnoses Diagnosis Screening for malignant neoplasm of colon- Primary History of colon polyps Personal history of colonic polyps documented in this encounter Advance Directives Latest Code Status on File Code Status Date Activated Date Inactivated Comments Full Code 06/02/2020 8:23 AM 06/02/2020 4:48 PM This order reflects the patients wishes and were consensually agreed upon. Question Answer Comments Discussion of Advance Directives occurred with: Not Discussed Care Teams Field Application Engineer Relationship Specialty Start Date End Date Conner Pedersen MD 200 [place] [address] PCP - General Internal Medicine 11/07/20 documented as of this encounter
--- OUTSIDE RECORDS SUMMARY | 2023-06-16 23:14 | External Medical Summary | Summary of Care ---
Author Name Unknown Organization [facility] Address [address] [place] [address] Phone [phone] Care Team Providers Care Lab Support Tech Name Role Phone Conner Pedersen MD Primary Care Provider + Reason for Visit * Reason Onset Date Comments Test Results 05/08/2023 Encounter Details Date Type Department Care Team (Late st Contact Info) Description 05/08/2023 Telephone Allergy/Immunology [facility] [address] [place] [address] Jaya Davis MD [address] [facility] [address] Test Results Allergies Active Allergy Reactions Criticality Noted Date Comments Fexofenadine-Pseudoephed Er Other (Please comment) 03/22/2023 Jittery Losartan Rash 11/02/2022 documented as of this encounter (statuses as of 05/08/2023) Medications Medication Sig Dispensed Refills Start Date [...] MCG/ACT Inhalation Aerosol Powder Breath Activated (umeclidinium [place])Indications:C OPD, group A, by GOLD 2017 classification ([facility]) INHALE 1 PUFF BY [...] inj 60 mgIndications:Senile osteoporosis 60 mg SC [id number] 04/11/2023 04/05/2024 Active documented as of this encounter (statuses as of 05/08/2023) Active Problems Problem Noted Date Diagnosed Date [...] rinse after steroid. Test performed by Reilly FINISH ROLLS OPERATOR CPFT Alcohol abuse 01/29/2018 Lung nodule 10/26/2017 Aortic root enlargement 07/25/2017 Moderate aortic regurgitation 07/17/2017 Tobacco abuse documented as of this encounter (statuses as of 05/08/2023) Resolved Problems Problem Noted Date Diagnosed Date Resolved Date Compression fracture of T12 vertebra with routine healing 05/14/2020 04/26/2022 COPD, mild 01/29/2018 08/22/2018 Overview: Per COPD GOLD Classification HTN, goal below 140/90 10/26/201704/08 Emphysema lung 10/26/2017 01/29/2018 Colonic polyp 05/12/2014 04/26/2022 Tendonitis 05/12/2014 06/15/2017 Overview: Shoulder pain - Dr. Chacon documented as of this encounter (statuses as of 05/08/2023) Immunizations Name Administration Dates Next Due COVID-19 mRNA, LNP-s, No Pre serve, 2-Dose Series (Genophen) 01/08/2021,06/04/2020,05/08/2020 Pneumococcal Conjugate Vacc, 13 Valent (Prevnar) [...] AM EDT Office Visit General Internal [place] [address] Conner Pedersen MD [address] [place] [address] 07/03/2023 9:30 AM EDT Office Visit Allergy/Immunology [facility] [address] [place] [address] Adriana Robb PA-C [address] [place] [address] 09/04/2023 10:30 AM EDT Imaging Radiology [facility] [address] [place] [address] 09/06/2023 2:30 PM EDT Hospital Encounter ENDO [facility], Endoscopy Room [facility] [address] [place] [phone] Justin Ernst MD [address] [place] [address] 09/06/2023 2:30 PM EDT - 09/06/2023 3:00 PM EDT Surgery ENDO [facility], Endoscopy Room [facility] [address] [place] [phone] Justin Ernst MD [address] [place] [address] COLONOSCOPY FLEXIBLE PROXIMAL DIAGNOSTIC 09/19/2023 11:45 AM EDT Office Visit Urology, [facility] [address] [place] [address] Sivakumar Huston MD [address] [place] [address] [place] [address] 10/11/2023 2:30 PM EDT Nurse Only Rheumatology [place] [address] [facility] [place] [address] Pf, Nurse Rheum [address] [place] [address] [place] [address] 12/21/2023 11:00 AM EDT Cardiac Studies Cardiac Studies, [facility] 132 [facility] [place] [address] Scheduled Procedures Name Priority Associated Diagnoses Date/Ti [...] COPD 05/03/2024 05/03/2023 DXA Scan 07/11/2024 07/11/2022, 050 03/2022, 07/07/2020 Albumin/Creatinine Ratio 04/14/2025 04/14/2022, 06/2017 Alpha-1 Antitrypsin Completed 04/23/2019 Pneumococcal Vaccine: 65+ Years Completed 12/11/2019, 12/03/2015, 05/12/2014 AAA Screening Completed 08/29/2022, 09/11, 09/25/2020, Additional history exists VITAMIN D LEVEL ONCE IN A LIFETIME-USE SMARTSET# [id number] Completed 04/07/2023, 10/18/2021, 03/25/2021, Additional history exists [...] this encounter Medical Devices Implanted Type Area Central Station Operator Device Identifier Shelf Expiration Date Model / Serial / Lot Cement Hv-R C01a - [id number] Implanted:Qty: 1 on 06/02/2020 [place] Wh[place] [facility] [place] Spine Thoracic [employer] : NEURO CARE 11/10/2022 C01A / / [id number] Pack Cement & Mixer C01b - [id number] Implanted:Qty: 1 on 06/02/2020 by Randal Wharton [place] [facility] [place] Spine Thoracic [employer] : NEURO CARE 11/10/2022 C01B / / [id number] documented as of this encounter Advance Directives Latest Code Status on File Code Status Date Activated Date Inactivated Comments Full Code 06/02/2020 8:23 AM 06/02/2020 4:48 PM This order reflects the patients wishes and were consensually agreed upon. Question Answer Comments Discussion of Advance Directives occurred with: Not Discussed Care Teams Lab Support Tech Relationship Specialty Start Date End Date Conner Pedersen MD 200 [facility] [place] [address] PCP - General Internal Medicine 11/07/20 documented as of this encounter
--- OUTSIDE RECORDS SUMMARY | 2023-06-16 23:14 | External Medical Summary | Summary of Care ---
Author Name Unknown Organization [facility] Address [address] [place] [address] Phone [phone] Care Team Providers Care Forestry Engineer Name Role Phone Conner Pedersen MD Primary Care Provider + Reason for Referral * Evaluate & Treat - Unlimited Visits (Within 30 days (routine)) - Authorized Specialty Diagnoses / Procedures Referred By Naseem carlton Referred To Contact Allergy & Immunology Diagnoses Dermatitis Mia Zhang PA-C [address] [facility] [place] [address] Referral ID Status Reason Start Date Expiration Date Visits Requested Visits Authorized [id number] Authorized Specialty Services Required 04/13/2023 999 999 Question Answer Referral Priority Within 30 days (routine) Where should this appointment be scheduled? [facility] For what condition is the patient being referred? Eczema/Dermatitis/Contact allergies Does the patient have a non-specific rash? Yes Comments High IgE and rash Encounter Details Date Type Department Care Team (Late st Contact Info) Description 04/13/2023 Orders Only Dermatology [place] [facility] [place] [address] [place] [address] Mia Zhang PA-C 200 [facility] [place] [address] Dermatitis* Allergies Active Allergy Reactions Criticality Noted Date Comments Fexofenadine-Pseudoephed Er Other (Please comment) 03/22/2023 Jittery Losartan Rash 11/02/2022 documented as of this encounter (statuses as of 04/13/2023) Medications Medication Sig Dispensed Refills Start Date [...] MCG/ACT Inhalation Aerosol Powder Breath Activated (umeclidinium [place])Indications:C OPD, group A, by GOLD 2017 classification [...] inj 60 mgIndications:Senile osteoporosis 60 mg SC [id number] 04/11/2023 04/05/2024 Active documented as of this encounter (statuses as of 04/13/2023) Active Problems Problem Noted Date Diagnosed Date [...] rinse after steroid. Test performed by Reilly MASTIC WORKER CPFT Alcohol abuse 01/29/2018 Lung nodule 10/26/2017 Aortic root enlargement 07/25/2017 Moderate aortic regurgitation 07/17/2017 Tobacco abuse documented as of this encounter (statuses as of 04/13/2023) Resolved Problems Problem Noted Date Diagnosed Date Resolved Date Compression fracture of T12 vertebra with routine healing 05/14/2020 04/26/2022 COPD, mild 01/29/2018 08/22/2018 Overview: Per COPD GOLD Classification HTN, goal below 140/90 10/26/201704/08 Emphysema lung 10/26/2017 01/29/2018 Colonic polyp 05/12/2014 04/26/2022 Tendonitis 05/12/2014 06/15/2017 Overview: Shoulder pain - Dr. Chacon documented as of this encounter (statuses as of 04/13/2023) Immunizations Name Administration Dates Next Due COVID-19 mRNA, LNP-s, No Pre serve, 2-Dose Series ([employer]) 01/08/2021,06/04/2020,05/08/2020 Pneumococcal Conjugate Vacc, 13 Valent (Prevnar) [...] AM EDT Office Visit General Internal Medicine [facility] [address] [place] [address] Conner Pedersen MD 200 [facility] [place] [address] 09/04/2023 10:30 AM EDT Imaging Radiology [facility] 132 [facility] [place] [address] 09/19/2023 11:45 AM EDT Office Visit Urology, [facility] 132 [facility] [place] [address] Sivakumar Huston MD 27 [facility] [address] [place] [address] 10/11/2023 2:30 PM EDT Nurse Only Rheumatology [place] [id number] [facility] [place] [address] Pf, Nurse Rheum [facility]0 [facility] [place] [address] 12/21/2023 11:00 AM EDT Cardiac Studies Cardiac Studies, [facility] 132 [facility] [place] [id number] Scheduled Procedures Name Priority Associated Diagnoses Date/Ti me COLONOSCOPY FLEXIBLE PROXIMAL DIAGNOSTIC Recall History of colon polyps Scheduled Referrals Name Type Priority Associated Diagnoses Orde r Schedule ALLERGY REFERRAL OP Referral Within 30 da ys (routine) Dermatitis Ordered: 04/13/2023 Health Maintenance Due Date Last Done Comments Zoster Vaccines (1 of 2) 05/28/1999 DISCUSS TOBACCO CESSATION (REFER TO SMARTSET #3709) 01/22/2022 01/22/2021, 06/26/2020 COVID-19 Vaccine ( season) [...] D LEVEL ONCE IN A LIFETIME-USE SMARTSET# 50089 Completed 04/07/2023, 10/18/2021, 03/25/2021, Additional history exists [...] this encounter Medical Devices Implanted Type Area Steel Fabricating Supervisor Device Identifier Shelf Expiration Date Model / Serial / Lot Pack Cement & Mixer C01b - [id number] Implanted:Qty: 1 on 06/02/2020 by Randal Wharton [place] [facility] [place] Spine Thoracic [employer] : NEURO CARE 11/10/2022 C01B / / [id number] documented as of this encounter Visit Diagnoses Diagnosis Dermatitis- Primary Contact dermatitis and other eczema, due to unspecified cause documented in this encounter Advance Directives Latest Code Status on File Code Status Date Activated Date Inactivated Comments Full Code 06/02/2020 8:23 AM 06/02/2020 4:48 PM This order reflects the patients wishes and were consensually agreed upon. Question Answer Comments Discussion of Advance Directives occurred with: Not Discussed Care Teams Forestry Engineer Relationship Specialty Start Date End Date Conner Pedersen MD 200 [place] [address] PCP - General Internal Medicine 11/07/20 documented as of this encounter
--- OUTSIDE RECORDS SUMMARY | 2023-06-16 23:14 | External Medical Summary | Summary of Care ---
Author Name Unknown Organization [facility] Address [address] [place] [address] Phone [phone] Care Team Providers Care Front Elevator Operator Name Role Phone Conner Pedersen MD Primary Care Provider + Reason for Visit * Reason Comments Allergy New Pt * Evaluate & Treat - Unlimited Visits (Within 30 days (routine)) - Authorized Specialty Diagnoses / Procedures Referred By Conttom t Referred To Contact Allergy & Immunology / Allergy and Immunology Diagnoses Dermatitis Mia Zhang PA-C [address] [facility] [place] [address] Referral ID Status Reason Start Date Expiration Date Visits Requested Visits Authorized [id number] Authorized Specialty Services Required 04/13/[phone] Encounter Details Date Type Department Care Team (Late st Contact Info) Description 05/03/2023 11:00 AM EST Office Visit Allergy/Immunology Tamie Hernandez [place] [address] [facility] [place] [address] Jaya Davis MD [address] [facility] [place] [address] Pruritus*; COPD, mild (HCC) Allergies Active Allergy Reactions Criticality Noted Date Comments Fexofenadine-Pseudoephed Er Other (Please comment) 03/22/2023 Jittery Losartan Rash 11/02/2022 documented as of this encounter (statuses as of 05/03/2023) Medications Medication Sig Dispensed Refills Start Date [...] MCG/ACT Inhalation Aerosol Powder Breath Activated (umeclidinium Munith)Indications:C OPD, group A, by GOLD 2017 classification [...] inj 60 mgIndications:Senile osteoporosis 60 mg SC [id number] 04/11/2023 04/05/2024 Active documented as of this encounter (statuses as of 05/03/2023) Active Problems Problem Noted Date Diagnosed Date [...] rinse after steroid. Test performed by Reilly [employer] SALES ASSIST[employer]FT Alcohol abuse 01/29/2018 Lung nodule 10/26/2017 Aortic root enlargement 07/25/2017 Moderate aortic regurgitation 07/17/2017 Tobacco abuse documented as of this encounter (statuses as of 05/03/2023) Resolved Problems Problem Noted Date Diagnosed Date Resolved Date Compression fracture of T12 vertebra with routine healing 05/14/2020 04/26/2022 COPD, mild 01/29/2018 08/22/2018 Overview: Per COPD GOLD Classification HTN, goal below 140/90 10/26/201704/08 Emphysema lung 10/26/2017 01/29/2018 Colonic polyp 05/12/2014 04/26/2022 Tendonitis 05/12/2014 06/15/2017 Overview: Shoulder pain - Dr. Chacon documented as of this encounter (statuses as of 05/03/2023) Immunizations Name Administration Dates Next Due COVID-19 mRNA, LNP-s, No Pre serve, 2-Dose Series (Biogazelle) 01/08/2021,06/04/2020,05/08/2020 Pneumococcal Conjugate Vacc, 13 Valent (Prevnar) [...] Date Smoking Tobacco: Every Day Cigarettes 1.5 49.1 Started: 1975 Smokeless Tobacco: Never Tobacco Cessation:Ready to Q uit: Not Asked; Counseling Given: Not Answered Alcohol Use Standard Drinks/Week Comments Yes 21 [...] Sign Reading Time Taken Comments Blood Pressure 138/70 05/03/2023 10:52 AM EST Pulse 80 05/03/2023 10:52 AM EST Temperature 35.4 C (95.8 F) 05/03/2023 1 0:52 AM EST Respiratory Rate 16 05/03/2023 10:5 2 AM EST Oxygen Saturation 100% 05/03/2023 10: 52 AM EST Inhaled Oxygen Concentration - - Weight 68.9 kg (151 lb 14.4 oz) 024 10:52 AM EST Height 175.3 cm (5' 9") 05/03/2023 10:5 2 AM EST Body Mass Index 22.43 05/03/2023 10:52 AM EST documented in this encounter Progress Notes * Jaya Davis MD - 05/03/2023 11:01 AM EST REASON FOR VISIT: Chief Complaint Patient presents with Allergy New Pt HPI: Handy is a pleasant 72-year-old male who presents to our office as a new patient after beingreferred by Mia Zhang PA-C and Conner Pedersen MD for initial consultation of generalized pruritus. The patient reports that at least for 2-3 years, the patient has been experiencing generalized itch which is primarily localized to his torso and upper extremities. He reports no rash with this itch. He states that he has no itch whatsoever below his waistline and also no itch from his neckup. He states that the itch occurs on a daily basis throughout the day and night. He states that the itch is particularly worse at nighttime but she was unsure if it is worse due to the inactivity atnighttime and he was more aware of it. He does report that he has dry skin and uses gold nuno moisturizing cream on a daily basis. He has been seen by Dermatology and other topical emollients has been tried in addition to topical corticosteroids. He has not had any relief whatsoever. He reports no seasonal variation. He notes no alleviating or aggravating factors in general. Upon further questioning, he reports no nasal congestion, rhinorrhea, nasal itching, excessive sneezing, nor postnasal drip. He reports no ocular symptoms such as itchy eyes, redness of the eyes, swelling of the eyes nor teary eyes. He reports no relation to anything in his environment. He previously did have 1 dog within his home with a dog 1 year ago. There have been no change in his symptoms for better or worse. He reports no correlation with any foods nor medications. He has discontinued each of his medications intermittently and there has been no change in his generalized itch. There is no relation to insect stings. There was no relation to any illnesses. He does have a history of a lung nodule for which this is being followed and is stable. His next CT is scheduled for September. He also does have a history of COPD and continues to smoke 1.5 packs per day. He does take Incruse on a daily basis. He also drinks 3-4 beers each evening. The patient was primarily referred here from Dermatology due to an elevated IgE level. REVIEW OF SYSTEMS Skin: itching, dryness Eyes: negative Ears/Nose/Throat: negative Respiratory: COPD Cardiovascular: CAD, HTN Gastrointestinal: No history of heartburn, dyspepsia, or acid reflux disease. Genitourinary: negative Musculoskeletal: osteoporosis, osteoarthritis Neurologic: negative Psychiatric: negative Hematologic/Lymphatic/Immunologic: negative Endocrine: negative Constitutional: none Past Medical History: Diagnosis Date Chronic right [...] performed by Bowen Montejo MD at ENDOSCOPY [facility] EGD, FLEXIBLE, DIAGNOSTIC 04/15/2015 Schatzki ring, repeat 2 mo/ESOPHAGOGASTRODUODENOSCOPY (EGD), FLEXIBLE, TRANSORAL, DIAGNOSTIC performed by Justin Ernst MD at ENDOSCOPY [facility] EGD, FLEXIBLE, DIAGNOSTIC 04/22/2015 Schatzki ring, repeat 1 mo EGD, FLEXIBLE, DIAGNOSTIC 2015 Schatzki ring/ESOPHAGOGASTRODUODENOSCOPY (EGD), FLEXIBLE, TRANSORAL, DIAGNOSTIC performed by Justin Ernst MD at ENDOSCOPY [facility] EGD, FLEXIBLE, DIAGNOSTIC 04/22/2015 ESOPHAGOGASTRODUODENOSCOPY (EGD), FLEXIBLE, TRANSORAL, DIAGNOSTIC performed by Justin Ernst MD at ENDOSCOPY [facility] IR VERTEBRAL AUGMENTATION THORACIC N/A 06/02/2020 PERCUTANEOUS VERTEBRAL AUGMENTATION THORACIC KYPHOPLASTY performed by Randal Wharton MD at [place] [facility] PROCEDURE - GENERAL Left 01/24/2022 Left inguinal hernia reapir by Dr Johnnie Cook TOOTH ROOT REMOVAL 2015 Current Outpatient Medications Medication Sig Dispense Refill THIAMINE (VITAMIN B-1) 100 MG Tablet Take 1 Tablet by mouth in the morning. Vitamin D3 25 MCG (1000 UT) Oral Tablet (Vitamin D3) Take 1 Tablet by mouth in the morning. Takes once daily 5 times per week . Incruse Ellipta 62.5 MCG/ACT Inhalation Aerosol Powder Breath Activated (umeclidinium Munith) INHALE 1 PUFF BY MOUTH EVERY DAY 90 Each 3 Aspirin 81 MG Oral Tablet Chewable Take 1 Tablet by mouth in the morning. 90 Tablet 3 Magnesium 400 MG Oral Capsule Take by mouth. amLODIPine Besylate 2.5 MG Oral Tablet (Norvasc) Take 1 Tablet by mouth in the morning. (Patient not taking: Reported on 04/11/2023) 90 Tablet 3 Atorvastatin Calcium 20 MG Oral Tablet (Lipitor) TAKE 1 TABLET BY MOUTH EVERY DAY 90 Tablet 2 Current Facility-Administered Medications Medication Dose Route Frequency Provider Last Rate Last Admin Denosumab (Prolia) subcut inj 60 mg 60 mg Subcutaneous Q6 Months David Pugh CRNP 60 mg at 04/11/23 1518 Allergies as of 05/03/2023 - Reviewed 05/03/2023 Allergen Reaction Noted Antihistamine & nasal deconges [fexofenadine-pseudoephed er] Other (Please comment) 03/22/2023 Losartan Rash 11/02/2022 Family History Problem Relation Age of Onset Cancer Mother bone Other (CVA) Father Breast Cancer Sister Social History Socioeconomic History Marital status: Spouse name: Not on file Number of children: 2 Years of education: Not on file Highest education level: Not on file Occupational History 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 The home has a unfinished basement. The home has no issues with cockroaches. Does use scented products in the home. He has no pets within the home currently. He previously had a dog 1 year ago. He currently is retired. BP 138/70 | Pulse 80 | Temp 35.4 C (95.8 F) (Tympanic) | Resp 16 | Ht 1.753 m (5' 9") | Wt 68.9kg (151 lb 14.4 oz) | SpO2 100% | BMI 22.43 kg/m | BSA 1.83 m PHYSICAL EXAM: GENERAL: No acute distress. HEAD AND FACE: No sinus tenderness noted EYES: EOMI, PERRLA; Conjunctiva- normal; Eyelids - normal EARS: TM's - clear NOSE:Pale mucosa; mild turbinate edema; no nasal polyps or mucopus; Septum - normal OROPHARYNX: Teeth and gums - normal; Mild erythema, no cobblestoning; No lesions, exudates NECK: Supple; No thyroid enlargment or cervical adenopathy RESPIRATORY: Clear to A and P; No wheezes; Good air movement bilaterally; No intercostal retractions or accessory muscle use CARDIOVASCULAR: RRR; No gallops, rubs, clicks, or murmurs. GASTROINTESTINAL: Abdomen is soft and non-tender; BS - normal; No palpable masses or organomegaly LYMPHATIC: No significant adenopathy noted MUSCULOSKELETAL: No significant joint swelling, tenderness EXTREMITIES: No cyanosis, clubbing or peripheral edema SKIN: No evidence atopic dermatitis; no urticaria or angioedema; Normal skin quality NEUROLOGIC/PSYCHIATRIC: Mental status - Oriented x's 3; Mood and affect - normal OBJECTIVE DATA: Component Latest Ref Rng 03/22/2023 IgE <=214.0 kU/L 1,175.0 (H) ASSESSMENT AND PLAN: ICD-10-CM 1. Pruritus L29.9 2. COPD, mild ([facility]) J44.9 In summary, Handy carries a diagnosis of generalized pruritus without evidence of a rash. We did review that generalized pruritus could be related to atopic disorders but there could be other causes for his generalized pruritus which does include xerosis. The patient does have an elevated IgE level which is associated with atopic disorders but cigarette smokers often have increased IgE levels compared with nonsmokers especially in males. In addition alcohol consumption increase his serum IgE levels and the patient does drink 3-4 beers each evening. Generalized pruritus can also be associated with certain malignancies and the patient does have a lung nodule but the lung nodule stable and he currently is being monitor for this with his next CT of the chest being performed in September of 2023. For further evaluation and management, we will be rechecking a total IgE level in addition to serumIgE levels to common environmental aeroallergens. In addition we will recheck a CBC with differential, a CMP, a TSH, free T4, and a tryptase level to rule out any underlying disorders that may be contributing to his generalized pruritus. Often times, we will check a chest x-ray to rule out any adenopathy but with his recent CTs of the chest, this is not necessary at the present moment. The patient has not tried any oral antihistamines so we do recommend that he start with fexofenadine 180 mg daily to see if this controls his generalized pruritus overall while we perform our workup. Thank you very much for allowing myself to participate in the care of your patient. Please do not hesitate to contact our office should you have any questions or concerns. Jaya Davis MD Allergy/Immunology I spent a total of Greater than 55 mins (exact time 62 mins) on the date of service in preparation,delivery, and documentation of the care provided to Handy Colindres excluding any time spent in the performance of separately billed services. (This note was completed using the dictation program Fluency Direct. As such, there may be misspellings, word substitutions, or other variations that should not change the essence of the clinical content of this encounter note.If there is need for further clarification, please direct questions to the provider listed above.) PCP: CONNER [place] [address] documented in this encounter Nursing Notes * Melida Michael LPN - 05/03/2023 10:48 AM EST The pt has been properly identified by confirmation of name and date of . Patient present for a allergy new patient appointment. Patient states Derm referred him due to itching. documented in this encounter Plan of Treatment Upcoming Encounters Date Type Department Care Team (Late st Contact Info) Description 05/22/2023 10:00 AM EDT Office Visit General Internal Medicine [facility] [address] [facility] [place] [address] Conner Pedersen MD [address] [facility] [place] [address] 07/03/2023 9:30 AM EDT Office Visit Allergy/Immunology [facility] [place] [address] [place] [address] Adriana Robb PA-C [address] [facility] [place] [address] 09/04/2023 10:30 AM EDT Imaging Radiology [facility] [address] [place] [address] 09/06/2023 2:30 PM EDT Hospital Encounter ENDO [facility], Endoscopy Room [facility] [address] [place] [phone] Justin Ernst MD [address] [place] [address] 09/06/2023 2:30 PM EDT - 09/06/2023 3:00 PM EDT Surgery ENDO [facility], Endoscopy Room [facility] [address] [place] [phone] Justin Ernst MD [address] [place] [address] COLONOSCOPY FLEXIBLE PROXIMAL DIAGNOSTIC 09/19/2023 11:45 AM EDT Office Visit Urology, [facility] [address] [place] [address] Sivakumar Huston MD [address] [place] [address] [place] [address] 10/11/2023 2:30 PM EDT Nurse Only Rheumatology [facility] [address] [facility] [place] [address] Pf, Nurse Rheum [address] [facility] [place] [address] 12/21/2023 11:00 AM EDT Cardiac Studies Cardiac Studies, [facility] [address] [facility] [place] [id number] Pending Results Name Type Priority Associated Diagnoses Date /Time TSH Lab Routine Pruritus 05/03/2023 11:49 AM EST T4, FREE Lab Routine Pruritus 05/03/2023 11:49 AM EST COMPREHENSIVE METABOLIC PANEL Lab Routine Pruritus 05/03/2023 11:49 AM EST IGE Lab Routine Pruritus 05/03/2023 11:49 AM EST [facility] IGE PROFILE Lab Routine Pruritus 05/03/2023 11:49 AM EST TRYPTASE Lab Routine Pruritus 05/03/2023 11:49 AM EST Scheduled Orders Name Type Priority Associated Diagnoses Orde r Schedule TSH Lab Routine Pruritus Expected: 05/03/2023, Expires: 05/03/2024 T4, FREE Lab Routine Pruritus Expected: 05/03/2023, Expires: 05/03/2024 COMPREHENSIVE METABOLIC PANEL Lab Routine Pruritus Expected: 05/03/2023, Expires: 05/03/2024 IGE Lab Routine Pruritus Expected: 05/03/2023, Expires: 05/03/2024 [facility] IGE PROFILE Lab Routine Pruritus Expected: 05/03/2023, Expires: 05/03/2024 TRYPTASE Lab Routine Pruritus Expected: 05/03/2023, Expires: 05/03/2024 Scheduled Procedures Name Priority Associated Diagnoses Date/Ti me COLONOSCOPY FLEXIBLE PROXIMAL DIAGNOSTIC Recall History of colon polyps 09/06/2023 2:30 PM EDT Health Maintenance Due Date Last Done Comments Zoster Vaccines (1 of 2) 05/28/1999 DISCUSS TOBACCO CESSATION (REFER TO SMARTSET #3291) 01/22/2022 01/22/2021, 06/26/2020 COVID-19 Vaccine (4 - season) 2022 01/08/2021, 06/04/2020, 05/08/2020 Influenza [...] D LEVEL ONCE IN A LIFETIME-USE SMARTSET# 89035 Completed 04/07/2023, 10/18/2021, 03/25/2021, Additional history exists [...] this encounter Medical Devices Implanted Type Area Bow Maker Custom Device Identifier Shelf Expiration Date Model / Serial / Lot Cement Hv-R C01a - [id number] Implanted:Qty: 1 on 06/02/2020 by Randal Wharton MD at [facility] N/A: Spine Thoracic [employer] : NEURO CARE 11/10/2022 C01A / / [id number] Pack Cement & Mixer C01b - [id number] Implanted:Qty: 1 on 06/02/2020 by Randal Wharton MD at OR [facility] N/A: Spine Thoracic [employer] : NEURO CARE 11/10/2022 C01B / / [id number] documented as of this encounter Visit Diagnoses Diagnosis Pruritus- Primary Unspecified pruritic disorder COPD, mild (HCC) Chronic airway obstruction, not elsewhere classified History of colon polyps Personal history of colonic polyps documented in this encounter Advance Directives Latest Code Status on File Code Status Date Activated Date Inactivated Comments Full Code 06/02/2020 8:23 AM 06/02/2020 4:48 PM This order reflects the patients wishes and were consensually agreed upon. Question Answer Comments Discussion of Advance Directives occurred with: Not Discussed Care Teams Front Elevator Operator Relationship Specialty Start Date End Date Conner Pedersen MD [address] [facility] [place] [address] PCP - General Internal Medicine 11/07/20 documented as of this encounter
--- OUTSIDE RECORDS SUMMARY | 2023-06-16 23:14 | External Medical Summary | Summary of Care ---
Author Name Unknown Organization [facility] Address [address] [place] [address] Phone [phone] Care Team Providers Care Report Specialist Name Role Phone Conner Pedersen MD Primary Care Provider + Reason for Visit * Reason Comments Outpatient Testing Encounter Details Date Type Department Care Team (Late st Contact Info) Description 05/03/2023 12:00 PM EST Laboratory Laboratory [facility] [place] [address] [place] [phone] [facility] [address] [place] [address] Pruritus Allergies Active Allergy Reactions Criticality Noted Date [...] MCG/ACT Inhalation Aerosol Powder Breath Activated (umeclidinium [place])Indications:C OPD, group A, by GOLD 2017 classification ([facility]) INHALE 1 PUFF BY MOUTH EVERY DAY [...] inj 60 mgIndications:Senile osteoporosis 60 mg SC [id number] 04/11/2023 04/05/2024 Active documented as of this [...] rinse after steroid. Test performed by Reilly PERSONAL COUNSELOR CPFT Alcohol abuse 01/29/2018 Lung nodule 10/26/2017 [...] mRNA, LNP-s, No Pre serve, 2-Dose Series (Sharely.Us) 01/08/2021,06/04/2020,05/08/2020 Pneumococcal Conjugate Vacc, 13 Valent (Prevnar) [...] 1.5 49.1 Started: 1975 Smokeless Tobacco: Never Alcohol Use [...] AM EDT Office Visit General Internal Medicine [facility] [address] [place] [address] Conner Pedersen MD 200 [facility] [place] [address] 07/03/2023 9:30 AM EDT Office Visit Allergy/Immunology [facility] [place] [address] [place] [address] Adriana Robb PA-C 200 [facility] [place] [address] 09/04/2023 10:30 AM EDT Imaging Radiology [facility] [address] [place] [address] 09/06/2023 2:30 PM EDT Hospital Encounter ENDO OSSC, Endoscopy Room [facility] [address] [place] [phone] Justin Ernst MD [address] [place] [address] 09/06/2023 2:30 PM EDT - 09/06/2023 3:00 PM EDT Surgery ENDO OSSC, Endoscopy Room [facility] [address] [place] [phone] Justin Ernst MD [address] [place] [address] COLONOSCOPY FLEXIBLE PROXIMAL DIAGNOSTIC 09/19/2023 11:45 AM EDT Office Visit Urology, [facility] 132 [facility] [place] [address] Sivakumar Huston MD [address] [facility] [place] [address] [place] [address] 10/11/2023 2:30 PM EDT Nurse Only Rheumatology [address] [place] [address] Pf, Nurse Rheum [address] [place] [address] [place] [address] 12/21/2023 11:00 AM EDT Cardiac Studies Cardiac Studies, [facility] 132 [facility] [place] [address] Pending Results Name Type Priority Associated Diagnoses [...] Routine Pruritus 05/03/2023 11:49 AM EST Scheduled Procedures Name Priority Associated Diagnoses Date/Ti me COLONOSCOPY FLEXIBLE PROXIMAL DIAGNOSTIC Recall History of colon polyps 09/06/2023 2:30 PM EDT Health Maintenance Due Date Last Done Comments Zoster Vaccines (1 of 2) 05/28/1999 DISCUSS TOBACCO CESSATION (REFER TO SMARTSET #1041) 01/22/2022 01/22/2021, 06/26/2020 COVID-19 Vaccine ( season) [...] D LEVEL ONCE IN A LIFETIME-USE SMARTSET# 86804 Completed 04/07/2023, 10/18/2021, 03/25/2021, Additional history exists [...] this encounter Medical Devices Implanted Type Area Service And Repair Supervisor Device Identifier Shelf Expiration Date Model / Serial / Lot Cement Hv-R C01a - [id number] Implanted:Qty: 1 on 06/02/2020 by Randal Wharton MD [place] [facility] [place]A: Spine Thoracic [employer] : NEURO CARE 11/10/2022 C01A / / [id number] Pack Cement & Mixer C01b - [id number] Implanted:Qty: 1 on 06/02/2020 by Randal Wharton MD at [place] [facility] [place]/A: Spine Thoracic [employer] : NEURO CARE 11/10/2022 C01B / / [id number] documented as of this encounter Procedures Procedure Name Priority Date/Time Associated Diagnosis Comments DIFFERENTIAL, AUTOMATED Routine 05/03/2023 11:49 AM EST Pruritus CBC Routine 05/03/2023 11:49 AM EST Pruritus CBC Routine 05/03/2023 11:49 AM EST Pruritus documented in this encounter Results * (ABNORMAL) DIFFERENTIAL, AUTOMATED (05/03/2023 11:49 AM EST) WBC 6.20 4.00 - 10.80 K/uL 05/03/2023 11:55 AM EST [facility] Neutrophils % 58.5 40.0 - 75.0 % 05/03/2023 11:55 AM EST [facility] 56-02 Lymphocytes % 21.8 18.0 - 42.0 % 05/03/2023 11:55 AM EST [facility] 56-02 Monocytes % 15.2(H) 1.0 - 11.0 % 05/03/2023 11:55 AM EST [facility] 56-02 Eosinophils % 4.0 0.0 - 6.0 % 05/03/2023 11:55 AM EST [facility] 56[facility]02 Basophils % 0.5 0.0 - 2.0 % 05/03/2023 11:55 AM EST [facility] 56-02 Absolute Neutrophils 3.63 1.80 - 7.70 K/uL 05/03/2023 11:55 AM EST [facility] 56-02 Absolute Lymphocytes 1.35 1.00 - 4.80 K/ul 05/03/2023 11:55 AM EST [facility] 56-02 Absolute Monocytes 0.94 0.00 - 1.10 K/uL 05/03/2023 11:55 AM EST [facility] 56-02 Absolute Eosinophils 0.25 0.00 - 0.70 K/uL 05/03/2023 11:55 AM EST [facility] 56-02 Absolute Basophils 0.03 0.00 - 0.20 K/uL 05/03/2023 11:55 AM EST [facility] 56-02 Blood Venous blood specimen / Unknown Venipuncture / Unknown 05/03/2023 11:49 AM EST 05/03/2023 11:49 AM EST Jaya Davis MD LAB BLOOD ORDERAB LES [facility] 56 [address] [place] [address] * CBC (05/03/2023 11:49 AM EST) WBC 6.20 4.00 - 10.80 K/uL 05/03/2023 11:55 AM EST [facility] 56- RBC 4.55 4.50 - 5.25 M/uL 05/03/2023 11:55 AM [facility] 56- HGB 15.0 14.0 - 16.8 g/dL 05/03/2023 11:55 AM [facility] 56- HCT 43.1 40.0 - 48.4 % 05/03/2023 11:55 AM [facility] 56- MCV 94.7 82.0 - 99.5 fL 05/03/2023 11:55 AM [facility] [place] 56- MCH 33.0 27.0 - 34.0 pg 05/03/2023 11:55 AM [facility] 56-02 MCHC 34.8 32.0 - 36.0 g/dL 05/03/2023 11:55 AM [facility] [place] 56- RDW 12.9 11.5 - 15.5 % 05/03/2023 11:55 AM [facility] 56- PLT 253 140 - 400 K/uL 05/03/2023 11:55 AM [facility] 56- MPV 8.3 6.6 - 11.1 fL 05/03/2023 11:55 AM [facility] [place] 56-02 Blood Venous blood specimen / Unknown Venipuncture / Unknown 05/03/2023 11:49 AM EST 05/03/2023 11:49 AM EST Jaya Davis MD LAB BLOOD ORDERAB LES [facility] [address] [facility] [address] documented in this encounter Visit Diagnoses Diagnosis Pruritus Unspecified pruritic disorder History of colon polyps Personal history of colonic polyps documented in this encounter Advance Directives Latest Code Status on File Code Status Date Activated Date Inactivated Comments Full Code 06/02/2020 8:23 AM 06/02/2020 4:48 PM This order reflects the patients wishes and were consensually agreed upon. Question Answer Comments Discussion of Advance Directives occurred with: Not Discussed Care Teams Report Specialist Relationship Specialty Start Date End Date Conner Pedersen MD 200 [facility] [place] [address] PCP - General Internal Medicine 11/07/20 documented as of this encounter
--- OUTSIDE RECORDS SUMMARY | 2023-06-16 23:14 | External Medical Summary ---
Author Name Unknown Address Unknown Organization K01:[facility] - [address] [place] [address] Laboratory Report Ordering Provider Test Date Status AMANDA MCKINNEY 05/03/2023 11:49:39 Final Observation Date Value Abnormality Reference (Units ) Status T4, Free 05/03/2023 11:49:39 1.3 0.9-1.7 (n g/dL) Final Performing Location [facility] - [address] [place] [address]
--- OUTSIDE RECORDS SUMMARY | 2023-06-16 23:14 | External Medical Summary | Summary of Care ---
Author Name Unknown Organization [facility] Address [address] [place] [address] Phone [phone] Care Team Providers Care Occupational Therapy Asst Name Role Phone Conner Pedersen MD Primary Care Provider + Reason for Visit * Reason Comments Outpatient Testing Encounter Details Date Type Department Care Team (Late st Contact Info) Description 04/07/2023 10:20 AM EST Laboratory Laboratory [facility] [place] [address] [place] [phone] [facility] [address] [place] [address] Senile osteoporosis Allergies Active Allergy Reactions Criticality Noted Date Comments Fexofenadine-Pseudoephed Er Other (Please comment) 03/22/2023 Jittery Losartan Rash 11/02/2022 documented as of this encounter (statuses as of 04/07/2023) Medications Medication Sig Dispensed Refills Start Date [...] MCG/ACT Inhalation Aerosol Powder Breath Activated (umeclidinium [place])Indications:RESEARCH LEADER D, group A, by GOLD 2017 classification ([facility]) INHALE 1 PUFF BY MOUTH EVERY DAY 90 Each 3 08/10/2022 Active amLODIPine Besylate 2.5 MG Oral Tablet (Norvasc) Take 1 Tablet by mouth in the morning. 90 Tablet 3 08/19/2022 Active Aspirin 81 MG Oral Tablet ChewableIndications:Chr onic right arterial ischemic stroke, MCA (middle cerebral artery),Ataxia Take 1 Tablet by mouth in the morning. 90 Tablet 3 09/27/2022 Active Atorvastatin Calcium 20 MG Oral Tablet (Lipitor)Indications:Mi xed hyperlipidemia TAKE 1 TABLET BY MOUTH EVERY DAY 90 Tablet 2 10/17/2022 Active Hospital, Clinic, or Other Facility Administered Medication Ordered Dose Route Frequency Start Date End Date Status Denosumab (Prolia) subcut inj 60 mgIndications:Senile osteoporosis 60 mg SC [id number] 04/11/2023 04/05/2024 Active documented as of this encounter (statuses as of 04/07/2023) Active Problems Problem Noted Date Diagnosed Date Chronic right arterial ische obudlia stroke, MCA (middle cerebral artery) 11/02/2022 MGUS [...] rinse after steroid. Test performed by Reilly DAY CARE ASSISTANT CPFT Alcohol abuse 01/29/2018 Lung nodule 10/26/2017 Aortic root enlargement 07/25/2017 Moderate aortic regurgitation 07/17/2017 Tobacco abuse documented as of this encounter (statuses as of 04/07/2023) Resolved Problems Problem Noted Date Diagnosed Date Resolved Date Compression fracture of T12 vertebra with routine healing 05/14/2020 04/26/2022 COPD, mild 01/29/2018 08/22/2018 Overview: Per COPD GOLD Classification HTN, goal below 140/90 10/26/201704/08 Emphysema lung 10/26/2017 01/29/2018 Colonic polyp 05/12/2014 04/26/2022 Tendonitis 05/12/2014 06/15/2017 Overview: Shoulder pain - Dr. Chacon documented as of this encounter (statuses as of 04/07/2023) Immunizations Name Administration Dates Next Due COVID-19 mRNA, LNP-s, No Pre serve, 2-Dose Series (Total Eclipse) 01/08/2021,06/04/2020,05/08/2020 Pneumococcal Conjugate Vacc, 13 Valent (Prevnar) [...] Care Team (Late st Contact Info) Description 04/11/2023 3:00 PM EST Office Visit Rheumatology [facility] [address] [place] [address] David Pugh CRNP [address] [place] [address] 05/22/2023 10:00 AM EDT Office Visit General Internal Medicine [facility] 200 [facility] [place] [address] Conner Pedersen MD 200 [facility] [place] [address] 09/04/2023 10:30 AM EDT Imaging Radiology [facility] 132 [facility] [place] [address] 09/19/2023 11:45 AM EDT Office Visit Urology, [facility] 132 [facility] [place] [address] Sivakumar Huston MD [address] [address] [place] [address] 12/21/2023 11:00 AM EDT Cardiac Studies Cardiac Studies, [facility] 132 [facility] [place] [address] Pending Results Name Type Priority Associated Diagnoses Date /Time 25-HYDROXY VITAMIN D Lab Routine Senile osteoporosis 04/07/2023 10:05 AM EST Scheduled Procedures Name Priority Associated Diagnoses Date/Ti me COLONOSCOPY FLEXIBLE PROXIMAL DIAGNOSTIC Recall History of colon polyps Health Maintenance Due Date Last Done Comments [...] COPD 03/22/2024 03/22/2023 DXA Scan 07/11/2024 07/11/2022, 07/07/2020 Albumin/Creatinine Ratio 04/14/2025 04/14/2022, 12/06/2017 Alpha-1 Antitrypsin Completed 04/23/2019 Pneumococcal Vaccine: 65+ Years Completed 12/11/2019, 12/03/2015, 05/12/2014 VITAMIN D LEVEL ONCE IN A LIFETIME-USE SMARTSET# [id number] Completed 10/18/2021, 03/25/2021, 08/11/2020, Additional history exists AAA Screening Completed 08/29/2022, 09/11, 09/25/2020, Additional history exists GARDASIL-HPV IMMUNIZATION SERIES Aged Out No longer eligible based on patient's age to complete this topic Hepatitis B Aged Out No longer eligi ble based on patient's age to complete this topic MENINGOCOCCAL (MENACTRA/MENVEO) Aged Out No longer eligible based on patient's age to complete this topic documented as of this encounter Medical Devices Implanted Type Area Wire Steward Device Identifier Shelf Expiration Date Model / Serial / Lot Pack Cement & Mixer C01b - [id number] Implanted:Qty: 1 on 06/02/2020 by Randal Wharton MD at OR [facility] [place] N/A: Spine Thoracic [employer] : NEURO CARE 11/10/2022 C01B / / [id number] documented as of this encounter Visit Diagnoses Diagnosis Senile osteoporosis documented in this encounter Advance Directives Latest Code Status on File Code Status Date Activated Date Inactivated Comments Full Code 06/02/2020 8:23 AM 06/02/2020 4:48 PM This order reflects the patients wishes and were consensually agreed upon. Question Answer Comments Discussion of Advance Directives occurred with: Not Discussed Care Teams Occupational Therapy Asst Relationship Specialty Start Date End Date Conner Pedersen MD 200 [facility] [place] [address] PCP - General Internal Medicine 11/07/20 documented as of this encounter
--- OUTSIDE RECORDS SUMMARY | 2023-06-16 23:14 | External Medical Summary ---
Author Name Unknown Address Unknown Organization K01:[facility] - [address] [place] [address] Laboratory Report Ordering Provider Test Date Status YAQUELIN CHINO 04/07/2023 10:05:46 Final Deficient: <20 ng/mL
Ins ufficient: 20-29 ng/mL
Recommended/Optimum:30-50 ng/mL

Vitamin D intoxication is rare. If suspicious of Vitamin D toxicity, evaluation of serum Calcium and PTH is recommended. Observation Date Value Abnormality Reference (Units ) Status 25-OH Vitamin D total 04/07/2023 10:05:46 46 >19 (ng/mL) Final Performing Location [facility] - [address] [place] [address]
--- OUTSIDE RECORDS SUMMARY | 2023-06-16 23:14 | External Medical Summary | Summary of Care ---
Author Name Unknown Organization [facility] Address [address] [place] [address] Phone [phone] Care Team Providers Care Category Director Name Role Phone Conner Pedersen MD Primary Care Provider + Reason for Visit * Reason Onset Date Comments Rheum Follow Up Follow up - AMANDA Baumann Medication Administration prolia Medication Administration 04/11/2023 Prolia Encounter Details Date Type Department Care Team (Late st Contact Info) Description 04/11/2023 3:00 PM EST Office Visit Rheumatology [facility] [address] [place] [address] David Pugh CRNP [address] [place] [address] Senile osteoporosis* Allergies Active Allergy Reactions Criticality Noted Date Comments Fexofenadine-Pseudoephed Er Other (Please comment) 03/22/2023 Jittery Losartan Rash 11/02/2022 documented as of this encounter (statuses as of 04/11/2023) Medications Medication Sig Dispensed Refills Start Date [...] MCG/ACT Inhalation Aerosol Powder Breath Activated (umeclidinium Kevin)Indications:C OPD, group A, by GOLD 2017 classification ([facility]) INHALE 1 PUFF BY MOUTH EVERY [...] inj 60 mgIndications:Senile osteoporosis 60 mg SC [id number] 04/11/2023 04/05/2024 Active documented as of this encounter (statuses as of 04/11/2023) Active Problems Problem Noted Date Diagnosed Date [...] rinse after steroid. Test performed by Re[facility] [employer] Alcohol abuse 01/29/2018 Lung nodule 10/26/2017 Aortic root enlargement 07/25/2017 Moderate aortic regurgitation 07/17/2017 Tobacco abuse documented as of this encounter (statuses as of 04/11/2023) Resolved Problems Problem Noted Date Diagnosed Date Resolved Date Compression fracture of T12 vertebra with routine healing 05/14/2020 04/26/2022 COPD, mild 01/29/2018 08/22/2018 Overview: Per COPD GOLD Classification HTN, goal below 140/90 10/26/201704/08 Emphysema lung 10/26/2017 01/29/2018 Colonic polyp 05/12/2014 04/26/2022 Tendonitis 05/12/2014 06/15/2017 Overview: Shoulder pain - Dr. Chacon documented as of this encounter (statuses as of 04/11/2023) Immunizations Name Administration Dates Next Due COVID-19 mRNA, LNP-s, No Pre serve, 2-Dose Series (Zuki) 01/08/2021,06/04/2020,05/08/2020 Pneumococcal Conjugate Vacc, 13 Valent (Prevnar) [...] 1.5 49 Started: 1975 Smokeless Tobacco: Never Tobacco Cessation:Ready [...] Sign Reading Time Taken Comments Blood Pressure - - Pulse - - Temperature 36 C (96.8 F) 04/11/2023 2:58 PM EST Respiratory Rate - - Oxygen Saturation - - Inhaled Oxygen Concentration - - Weight 71.7 kg (158 lb) 04/11/2023 2:58 PM EST Height - - Body Mass Index 23.33 03/22/2023 10:39 AM EST documented in this encounter Patient Instructions * Patient Instructions* David Pugh CRNP - 04/11/2023 3:27 PM EST Return in at least 6 months plus one day on Nurse Schedule for Prolila Update labs every 6 months (September before nurse visit) Continue taking current dose of Vit D 1,000 IU daily and recommended taking Calcium 600 mg- 1,000 mg daily Follow up with provider yearly documented in this encounter Progress Notes * David Pugh CRNP - 04/11/2023 12:58 PM EST [facility] follow up Supervised by: Dr. Francis Gramajo Previous Visit Plan from 03/31/2022 reviewed Current medication therapy: prolia x 6 this visit Prior medication therapy: none Date of last labs reviewed from 04/07/2023 [id number], creatinine 0.8, calcium-9.8 Reason for visit: Patient seen today for further follow-up/evaluation of osteoporosis. He is accompanied by his today. He has tolerated the previous treatment with Prolia. No adverse effects of this medication. History of spinal compression fracture with kyphoplasty May,. Reports he hasto get the remaing bottom teeth removed and has a consultation on 04/29 and was going to have the surgery on 05/29 but would rather get his Prolia today and push his dental work to late May. No interval falls or fractures. Continues taking Vit D 1,000 IU daily and get adequate calcium in his diet, is not currently taking a Calcium supplement. Bone Health Summary: Risks: Falls since last [facility] visit: no Personal History of Fx since last [facility] Visit: no Prevention: Exercise : 3 or more times weekly: No Nutrition: eats calcium rich foods, Yes Gait: unsteady with walking, No, use of cane/walker, No Calcium and Vitamin D supplements in adequate doses: Yes Current Smoker: Yes Chronic Glucocorticoid use: No; prednisone tapers about every 6 months Rheumatoid Arthritis: No Alcohol 3 or more per day: Yes ROS: . Constitutional: trouble sleeping . Head normal . Eyes: normal . Ears, nose, throat, mouth: normal . Cardiovascular: right foot edema . Respiratory: cough . Gastrointestinal: heartburn . Musculoskeletal: back pain . Neurologic: normal . Skin: intermittent rash . Psychiatric: normal . Endocrine: normal . Hematologic/lymphatic: normal . Allergic/immunologic: normal . Genitourinary: normal Medications: Current Outpatient Medications Medication Sig Dispense Refill THIAMINE (VITAMIN B-1) 100 MG Tablet Take 1 Tablet by mouth in the morning. Vitamin D3 25 MCG (1000 UT) Oral Tablet (Vitamin D3) Take 1 Tablet by mouth in the morning. Takes once daily 5 times per week . Incruse Ellipta 62.5 MCG/ACT Inhalation Aerosol Powder Breath Activated (umeclidinium Kevin) INHALE 1 PUFF BY MOUTH EVERY DAY 90 Each 3 amLODIPine Besylate 2.5 MG Oral Tablet (Norvasc) Take 1 Tablet by mouth in the morning. 90 Tablet 3 Aspirin 81 MG Oral Tablet Chewable Take 1 Tablet by mouth in the morning. 90 Tablet 3 Atorvastatin Calcium 20 MG Oral Tablet (Lipitor) TAKE 1 TABLET BY MOUTH EVERY DAY 90 Tablet 2 Current Facility-Administered Medications Medication Dose Route Frequency Provider Last Rate Last Admin Denosumab (Prolia) subcut inj 60 mg 60 mg Subcutaneous Q6 Months David Pugh CRNP Social History: Social History Tobacco Use Smoking status: Every Day Packs/day: 1.50 Years: 49.00 Additional pack years: 0.00 Total pack years: 73.50 Types: Cigarettes Start date: 1974 Smokeless tobacco: Never Vaping Use Vaping Use: Never used Substance Use Topics Alcohol use: Yes Alcohol/week: 21.0 standard drinks of alcohol Types: 21 12 oz of beer per week Comment: 3-4 beers daily Drug use: No PHYSICAL EXAM: General appearance: NAD Eyes: Normal Heme/Lymph: goiter: No Musculoskeletal: Kyphosis No Heart: normal Lungs: normal Neuro: no focal findings Diagnostic Testing: Results of labs and DXA were reviewed and discussed with the patient. Labs: Satisfactory: 25-OH Vitamin D calcium creatinine DXA Result: 07/12/2023 Assessment: 72 year old male with osteoporosis who has no signs or symptoms. She received her 3rd prolia injection today and tolerated well. No signs or symptoms and muscle strength 07/15. Labs are up to date. Will continue to monitor DXA every 2 year. Next DEXA due in Mar 2023. I recommend continuation of a healthy diet with calcium rich foods as well as calcium and vitamin D supplement. Patient encouraged toparticipate in weight-bearing exercise (i.e., walking). Discussed fall avoidance measures and recommend fall prevention. Although falls are never planned, I discussed with the patient the goal of therapy to slow down / stop the process of osteoporosis from progressing. Patient voiced understanding of the discussion. Discussed the above in detail with the patient. All questions were answered. Plan: The following items are ordered or are in progress: 1. Education: Osteoporosis education was provided by the [facility] team (topics included disease process, DXA, calcium/vitamin D, osteoporosis medications - including administration instructions and risks/benefits, weight bearing exercise, fall prevention/safety). Reviewed benefits and side effects of Prolia at this time. 2. Prevention: . Eye Examination recommended annually, as good vision may help to prevent falls . Exercise recommended: standing, walking, light lifting . Fall Prevention/Safety Education recommended and discussed . Continue calcium rich foods (goal of 3 servings daily) 3. Osteoporosis Medications : Add Calcium 600 mg twice daily Continue Prolia 60mg subcutaneous injection every 6 months 4. Bone Density Testing: due 2 year(s) from previous 5. Laboratory: None needed 6. Followup: Return in at least 6 months plus one day on Nurse Schedule for Prolila 7. Prolia 60 mg subcutaneously was administered today. The patient tolerated the injection well 8. Discussed the above in detail with the patient. All questions answered. JEAN CARLOS Schwartz [facility] Team The patient was discussed with me. I agree with the findings and plan as documented by David EVANGELISTA in this note. Francis Gramajo MD Rheumatology Department documented in this encounter Nursing Notes * Marissa Deleon LPN - 04/11/2023 2:56 PM EST Chief Complaint Patient presents with Rheum Follow Up Follow up - [facility] Medication Administration prolia documented in this encounter Plan of Treatment Upcoming Encounters Date Type Department Care Team (Late st Contact Info) Description 05/22/2023 10:00 AM EDT Office Visit General Internal Medicine [facility] [address] [place] [address] Conner Pedersen MD [address] [place] [address] 09/04/2023 10:30 AM EDT Imaging Radiology [facility] [address] [place] [address] 09/19/2023 11:45 AM EDT Office Visit Urology, [facility] [address] [place] [address] Sivakumar Huston MD [address] [facility] [address] [place] [address] 10/11/2023 2:30 PM EDT Nurse Only Rheumatology [address] [place] [address] Pf, Nurse Rheum [address] [place] [address] [place] [address] 12/21/2023 11:00 AM EDT Cardiac Studies Cardiac Studies, [facility] [address] [place] [address] Scheduled Orders Name Type Priority Associated Diagnoses Orde r Schedule 25-HYDROXY VITAMIN D Lab Routine Senile osteoporosis Every 6 Months for 999 Occurrences starting 04/11/2023 until 04/11/2024 CALCIUM Lab Routine Senile osteoporosis Every 6 Months for 999 Occurrences starting 04/11/2023 until 04/11/2024 CREATININE Lab Routine Senile osteoporosis Every 6 Months for 999 Occurrences starting 04/11/2023 until 04/11/2024 Scheduled Procedures Name Priority Associated Diagnoses Date/Ti [...] 07/11/2024 07/11/2022, 07/07/2020 Albumin/Creatinine Ratio 04/14/2025 04/14/2022, 06/2017 Alpha-1 Antitrypsin Completed 04/23/2019 Pneumococcal Vaccine: 65+ Years Completed 12/11/2019, 12/03/2015, 05/12/2014 AAA Screening Completed 08/29/2022, 09/11, 09/25/2020, Additional history exists VITAMIN D LEVEL ONCE IN A LIFETIME-USE SMARTSET# [id number] Completed 04/07/2023, 10/18/2021, 03/25/2021, Additional history exists [...] this encounter Medical Devices Implanted Type Area Spike Machine Operator Device Identifier Shelf Expiration Date Model / Serial / Lot Pack Cement & Mixer C01b - [id number] Implanted:Qty: 1 on 06/02/2020 [place] [facility] [place] Spine Thoracic [employer] : NEURO CARE 11/10/2022 C01B / / [id number] documented as of this encounter Visit Diagnoses Diagnosis Senile osteoporosis- Primary documented in this encounter Administered Medications Active Administered Medications - up to 3 most recent administrations Medication Order MAR Action Action Date Dose Rate Site Denosumab (Prolia) subcut inj 60 mg 60 mg, Subcutaneous, [id number], First dose on Mon04/11/23 at 1500, Last dose on Mon10/08/23 at 1500, For 2 doses Given 04/11/2023 3:18 PM EST 60 mg Arm Left Upper documented in this encounter Advance Directives Latest Code Status on File Code Status Date Activated Date Inactivated Comments Full Code 06/02/2020 8:23 AM 06/02/2020 4:48 PM This order reflects the patients wishes and were consensually agreed upon. Question Answer Comments Discussion of Advance Directives occurred with: Not Discussed Care Teams Category Director Relationship Specialty Start Date End Date Conner Pedersen MD [address] [place] [address] PCP - General Internal Medicine 11/07/20 documented as of this encounter
--- OUTSIDE RECORDS SUMMARY | 2023-06-16 23:14 | External Medical Summary ---
Author Name Unknown Address Unknown Organization K01:[facility] [place] - [address] [place] [address] Laboratory Report Ordering Provider Test Date Status AMANDA MCKINNEY 05/03/2023 11:49:39 Final Observation Date Value Abnormality Reference (Units ) Status IgE 05/03/2023 11:49:39 1112.0 Above high normal <= 214.0 (kU/L) Final Performing Location [facility] - [address] [place] [address]
--- OUTSIDE RECORDS SUMMARY | 2023-06-16 23:14 | External Medical Summary | Summary of Care ---
Author Name Unknown Organization [facility] Address [address] [place] [address] Phone [phone] Care Team Providers Care Longwall Headgate Operator Name Role Phone Conner Pedersen MD Primary Care Provider + Reason for Visit * Reason Onset Date Comments Health Maintenance 04/17/2023 Encounter Details Date Type Department Care Team (Late st Contact Info) Description 04/17/2023 Telephone General Internal Medicine [facility] [address] [place] [address] Conner Pedersen MD 200 [facility] [address] Health Maintenance Allergies Active Allergy Reactions Criticality Noted Date Comments Fexofenadine-Pseudoephed Er Other (Please comment) 03/22/2023 Jittery Losartan Rash 11/02/2022 documented as of this encounter (statuses as of 04/17/2023) Medications Medication Sig Dispensed Refills Start Date [...] MCG/ACT Inhalation Aerosol Powder Breath Activated (umeclidinium [place])Indications:C OPD, group A, by GOLD 2017 classification ([facility]) INHALE 1 PUFF BY MOUTH EVERY DAY [...] inj 60 mgIndications:Senile osteoporosis 60 mg SC [id number] 04/11/2023 04/05/2024 Active documented as of this encounter (statuses as of 04/17/2023) Active Problems Problem Noted Date Diagnosed Date [...] rinse after steroid. Test performed by Reilly [facility] CPFT Alcohol abuse 01/29/2018 Lung nodule 10/26/2017 Aortic root enlargement 07/25/2017 Moderate aortic regurgitation 07/17/2017 Tobacco abuse documented as of this encounter (statuses as of 04/17/2023) Resolved Problems Problem Noted Date Diagnosed Date Resolved Date Compression fracture of T12 vertebra with routine healing 05/14/2020 04/26/2022 COPD, mild 01/29/2018 08/22/2018 Overview: Per COPD GOLD Classification HTN, goal below 140/90 10/26/201704/08 Emphysema lung 10/26/2017 01/29/2018 Colonic polyp 05/12/2014 04/26/2022 Tendonitis 05/12/2014 06/15/2017 Overview: Shoulder pain - Dr. Chacon documented as of this encounter (statuses as of 04/17/2023) Immunizations Name Administration Dates Next Due COVID-19 mRNA, LNP-s, No Pre serve, 2-Dose Series ([employer]) 01/08/2021,06/04/2020,05/08/2020 Pneumococcal Conjugate Vacc, 13 Valent (Prevnar) [...] encounter Miscellaneous Notes * Telephone Encounter - Marly Vieira LPN - 04/17/2023 3:43 PM EST Care [...] Office Visit General Internal Medicine [facility] [place] [address] [place] [address] Conner Pedersen MD [address] [facility] [place] [address] 09/04/2023 10:30 AM EDT Imaging Radiology [facility] [address] [facility] [place] [address] 09/19/2023 11:45 AM EDT Office Visit Urology, [facility] [address] [facility] [place] [address] Sivakumar Huston MD 27 [facility] [address] [place] [address] 10/11/2023 2:30 PM EDT Nurse Only Rheumatology [address] [place] [address] Pf, Nurse Rheum [address] [place] [address] [place] [address] 12/21/2023 11:00 AM EDT Cardiac Studies Cardiac Studies, [facility] [address] [facility] [place] [address] Scheduled Procedures Name Priority Associated Diagnoses Date/Ti [...] COPD 03/22/2024 03/22/2023 DXA Scan 07/11/2024 07/11/2022, 05/0 03/2022, 07/07/2020 Albumin/Creatinine Ratio 04/14/2025 04/14/2022, 12/0 06/2017 Alpha-1 Antitrypsin Completed 04/23/2019 Pneumococcal Vaccine: 65+ Years Completed 12/11/2019, 12/03/2015, 05/12/2014 AAA Screening Completed 08/29/2022, 09/11, 09/25/2020, Additional history exists VITAMIN D LEVEL ONCE IN A LIFETIME-USE SMARTSET# [id number] Completed 04/07/2023, 10/18/2021, 03/25/2021, Additional history exists [...] this encounter Medical Devices Implanted Type Area Pt Skilled Device Identifier Shelf Expiration Date Model / Serial / Lot Pack Cement & Mixer C01b - [id number] Implanted:Qty: 1 on 06/02/2020 by Randal Wharton MD at [place] [facility] [place]: Spine Thoracic [employer] : NEURO CARE 11/10/2022 C01B / / [id number] documented as of this encounter Advance Directives Latest Code Status on File Code Status Date Activated Date Inactivated Comments Full Code 06/02/2020 8:23 AM 06/02/2020 4:48 PM This order reflects the patients wishes and were consensually agreed upon. Question Answer Comments Discussion of Advance Directives occurred with: Not Discussed Care Teams Longwall Headgate Operator Relationship Specialty Start Date End Date Conner Pedersen MD [address] [place] [address] PCP - General Internal Medicine 11/07/20 documented as of this encounter
--- OUTSIDE RECORDS SUMMARY | 2023-06-16 23:14 | External Medical Summary ---
Author Name Unknown Address Unknown Organization : Laboratory Report Ordering Provider Test Date Status AMANDA MCKINNEY 05/03/2023 11:49:39 Final Observation Date Value Abnormality Reference (Units ) Status Tryptase 05/03/2023 11:49:39 9.4 <11.0 (mcg /L) Final The Tryptase test, fluoresce nt enzyme immunoassay
(FEIA), measures both the Alpha and Beta forms of
Tryptase. Measuring both forms of Tryptase increases
sensitivity for the diagnosis of mastocytosis, and
mast cell degranulation as a cause of anaphylaxis.

Test Performed at:
[facility]
[address] [facility]
[place] [address]
Keny Rosas M.D., Ph.D.,Director of Laboratories Performing Location
--- OUTSIDE RECORDS SUMMARY | 2023-06-16 23:14 | External Medical Summary | Summary of Care ---
Author Name Unknown Organization [facility] Address [address] [place] [address] Phone [phone] Care Team Providers Care Director Of Culture Name Role Phone Conenr Pedersen MD Primary Care Provider + Reason for Visit * Reason Comments Adult Annual Wellness Visit, Subsequent Visit Encounter Details Date Type Department Care Team (Late st Contact Info) Description 03/22/2023 10:00 AM EST Nurse Only Ancillary [facility] [address] [place] [id number] Im, Nurse Annual Wellness [facility] [address] [place] [id number] Adult Annual Wellness Visit, Subsequent Visit Allergies Active Allergy Reactions Criticality Noted Date [...] MCG/ACT Inhalation Aerosol Powder Breath Activated (umeclidinium [place])Indications:C OPD, group A, by GOLD 2017 classification ([facility]) INHALE 1 PUFF BY MOUTH EVERY [...] rinse after steroid. Test performed by [facility] [employer] [facility] Alcohol abuse 01/29/2018 Lung nodule 10/26/2017 [...] Sign Reading Time Taken Comments Blood Pressure 124/66 03/22/2023 10:39 AM EST Pulse 80 03/22/2023 10:39 AM EST Temperature 35.8 C (96.5 F) 03/22/2023 10:[address] Respiratory Rate - - Oxygen Saturation 100% 03/22/2023 10:39 AM EST Inhaled Oxygen Concentration - - Weight 70.4 kg (155 lb 3.2 oz) 03/22/2023 10:39 AM EST Height 175.3 cm (5' 9") 03/22/2023 10:39 AM EST Body Mass Index 22.92 03/22/2023 10:39 AM EST documented in this encounter Patient Instructions * Patient Instructions* Jeanette Francis RN - 03/22/2023 10:02 AM EST Patient Instructions - Fall Prevention (This education is for all patients over 65 regardless of symptoms) Remember to take your current medications as prescribed. In order to prevent falls, you are encouraged to: Exercise Utilize assistive/adaptive devices Avoid multifocal lenses when walking Avoid hazards in home Maintain a regular toileting schedule Any questions please contact our office. Preventing Falls in the Home (This education is for all patients over 65 regardless of symptoms) As you get older, falls are more likely. Thats because your reaction time slows. Your muscles and joints may also get stiffer, making them less flexible. Illness, medications, and vision changes can also affect your balance. A fall could leave you unable to live on your own. To make your home safer, follow these tips: Floors Put nonskid pads under area rugs Remove throw rugs Replace worn floor coverings Tack carpets firmly to each step on carpeted stairs. Put nonskid strips on the edges of uncarpeted stairs Keep floors and stairs free of clutter and cords Arrange furniture so there are clear pathways Clean up any spills right away Bathrooms Install grab bars in the tub or shower Apply nonskid strips or put a nonskid rubber mat in the tub or shower Sit on a bath chair to bathe Use bathmats with nonskid backing Lighting Keep a flashlight in each room Put a nightlight along the pathway between the bedroom and the bathroom Lisa Patient Education Copyright 2008 - 2010 Lisa except where otherwise noted Preventing Falls: Exercises to Improve Balance, Flexibility, Strength, and Staying Power (This education is for all patients over 65 regardless of symptoms) Certain types of exercises may help make you less likely to fall. Try the ones below. Or do other exercises that your healthcare provider suggests. Depending on your health, you may need to start slowly. Dont let that stop you. Even small amounts of exercise can help you. Be sure to talk to yourhealthcare provider before starting any exercise program. Improve Balance Many types of exercise can help improve balance. Juan Luis chi and yoga are good examples. Heres another one to try. You can do it anytime and almost anywhere. Stand next to a counter or solid support. Push yourself up onto your tiptoes. Hold for 5 seconds. If you start to lose your balance, hold on to the counter. Rest and repeat 5 times. Work up to holding for 20 to 30 seconds, if you can. Increase Flexibility Being more flexible makes it easier for you to move around safely. Try exercises like the seated hamstring stretch. Sit in a chair and put one foot on a stool. Straighten your leg and reach with both hands down either side of your leg. Reach as far down your leg as you can. Hold for about 20 seconds. Go back to the starting position. Then repeat 5 times. Switch legs. Build Strength Resistance exercises help build strength. You can do them without equipment. Or you can use weights, elastic bands, or special machines. One such exercise is called the biceps curl. You can hold a 1 pound weight or even a can of soup. Do this exercise at least 3 times a week. Strive for everyday. Sit up straight in a chair. Keep your elbow close to your body and your wrist straight. Bend your arm, moving your hand up to your shoulder. Then slowly lower your arm. Repeat 5 times. Switch to the other arm. Build Your Staying Power Aerobic exercises make your heart and lungs stronger so you can keep moving longer. Walking and swimming are two of the best types of exercises you can do. Using a stationary bike is great, too. Find an aerobic exercise that you enjoy. Start slowly and build up. Even 5 minutes is helpful. Aimfor a goal of 30 minutes, at least 3 times a week. You dont have to do 30 minutes in one session. Break it up and walk a little throughout the day. More Helpful Tips Start easy. Slowly work up to doing more. Talk with your healthcare provider about the best exercises for you. Call senior centers or health clubs about exercise programs. If needed, have a family member watch you walk every so often to check your stability. Exercise with a friend. Choose an activity you both enjoy. Try exercises that you can do anytime, anywhere. Here are two examples. Have someone with you when you first try these: Practice walking by placing one foot right in front of the other. Stand up and sit down 10 times. Repeat this throughout the day. CornelioOmicia Patient Education Copyright 2008 - 2010 CornelioOmicia except where otherwise noted. Preventing Falls: Moving Safely Using a Cane or Walker (This education is for all patients over 65 regardless of symptoms) Keep the cane away from your feet so you dont trip. A walking aid, such as a cane or walker, can help you stay more independent and avoid falls. Remember to keep your walking aid within easy reach when youre in a chair or in bed. And learn how to use it safely so you dont injure yourself. Using a Cane If you have a stronger side, hold the cane on that side. Get your balance. Move the cane and your weaker leg forward. Support your weight on both the cane and your weaker side. Step with your stronger leg. Start again from step 1. If youre using a folding walker, be sure you know how to lock it open. Check that its locked open before each use. Using a Walker Roll the walker (or lift it, if youre using one without wheels) forward about 12 inches. Step forward with your weaker leg first. Use the walker to help keep your balance. Bring your other foot forward to the center of the walker. Start again from step 1. Helpful Tips Check with your healthcare provider about the right walking aid to use. Ask about a walker with a seat attached. Check the tips of your cane or walker to make sure they have nonskid covers. Move slowly from room to room. Dont mak. Sit down to get dressed. Use a mike pack or backpack to keep your hands free. Get help for jobs that mean climbing, even on a stepstool. Lisa Patient Education Copyright 2008 - 2010 Lisa except where otherwise noted. Treating Urinary Incontinence in Men (This education is for all patients over 65 regardless of symptoms) You can't always control the release of urine. You may leak urine. Or you may not be able to hold your urine until you can get to a bathroom. This is called urinary incontinence. The problem can be managed. Talk to your doctor about your treatment options. Taking Medications Prescription medications may help you. They may: Help the sphincter to work better. (This is the muscle that closes to keep urine from leaking out of the bladder.) Help stop the bladder from eric too often to push urine out. Help the bladder muscles contract with more force. Help relax the sphincter muscle and allow urine to flow more freely. Making Changes to Your Routine Certain changes in your daily routine may help. These include: Avoiding caffeine and alcohol. Using timed voiding. This is following a schedule for drinking fluids and urinating. Doing Kegel exercises daily. These exercises involve tightening the muscles in your sphincter and around your bladder to help strengthen them. Your doctor can explain how to do them. Using a Catheter A catheter is a narrow tube that is inserted through the urethra into the bladder. It drains urine.A condom catheter covers the penis. It channels urine into a collection bag. It is worn most of thetime. Intermittent catheterization means inserting a catheter to drain the bladder, then removing it. This is done on a regular schedule. Having Surgery If other options don't work, surgery may be recommended. If surgery is an option, your healthcare provider can discuss it with you and explain its risks and benefits. Healing After Prostate Surgery Surgery on the prostate gland can cause incontinence. Most often, the incontinence is only for a short time. It clears up when healing is complete. Very rarely, prostate surgery can result in permanent incontinence. Hi Mr. Bermudezhoangitalia, As your primary care physician, I know that regular visits with my patients who have several chronic conditions can go a long way in helping you stay healthy. Many times, the clinic team and I are in touch with you and/or other care team members between office visits to adjust medications, discuss any changes in your health, and review our care plan to make sure it is still meeting your needs. I am dedicated to helping you take a more active role in your overall care. It is important that there are resources available to you, so I created a personalized plan of care with a Health Calendar for you, which is included on the next page of this letter. Below is a list that summarizes your electronic health record: Health Maintenance Due: Health Maintenance Due Topic Date Due Zoster Vaccines (1 of 2) Never done DISCUSS TOBACCO CESSATION (REFER TO SMARTSET #[id number]) 01/22/2022 Influenza Vaccine (FLU shot) (1) 11/11/2022 COVID-19 Vaccine ( season) 2022 COLONOSCOPY-EVERY 5 YRS AGES 18-100 02/15/2023 Depression Screening 03/21/2023 Current Medication List: (as of Visit date not found (in office), Visit date not found (telemedicine) ) Current Outpatient Medications Medication Sig Dispense Refill THIAMINE (VITAMIN B-1) 100 MG Tablet Take 1 Tablet by mouth in the morning. Vitamin D3 25 MCG (1000 UT) Oral Tablet (Vitamin D3) Take 1 Tablet by mouth in the morning. Takes once daily 5 times per week . Incruse Ellipta 62.5 MCG/ACT Inhalation Aerosol Powder Breath Activated (umeclidinium [place]) INHALE 1 PUFF BY MOUTH EVERY DAY 90 Each 3 amLODIPine Besylate 2.5 MG Oral Tablet (Norvasc) Take 1 Tablet by mouth in the morning. 90 Tablet 3 Aspirin 81 MG Oral Tablet Chewable Take 1 Tablet by mouth in the morning. 90 Tablet 3 Atorvastatin Calcium 20 MG Oral Tablet (Lipitor) TAKE 1 TABLET BY MOUTH EVERY DAY 90 Tablet 2 No current facility-administered medications for this visit. Current List of Allergies: (as of Visit date not found (in office), Visit date not found (telemedicine) ) Review of patient's allergies indicates: Allergen Reactions Antihistamine & Nasal Deconges [Fexofenadine-Pseudoephed Er] Other (Please comment) Jittery Losartan Rash Most Recent Lab Results: Results for orders placed or performed in visit on 03/02/23 SURGICAL PATHOLOGY Result Value Ref Range Final Diagnosis A. 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 Skin, Back (perilesional), biopsy, immunofluorescence: IgA: Negative. C3: Negative. IgG: Negative. Fibrinogen: Negative. +/- Controls: Appropriate. Comment: The histologic findings support the clinical impression a reaction to ingested or inhaled substance (such as medication). The presence of conspicuous eosinophils makes this connective tissuedisease less likely. The histologic findings in the current specimen are not suggestive of mycosis fungoides. Clinical History See Order Comments Order Comments A. Erythematous maculopapular rash widespread (sparing face and hands). Drug vs dermatitis vs drug induced lupus vs other CTD vs urticarial BP vs MF. B. Erythematous maculopapular rash widespread (sparing face and hands). Drug vs deramtitis vs drug induced lupus vs other CTD vs urticarial BP vs MF. (Perilesional in DIF) Gross Description A. Skin. Received in formalin with a container labeled with "Minor Smutko", "[id number]", "1950" and " back". Received is a 1.1 x 0.8 cm skin shave. The skin surface is cody-white slightly raised firm and shiny. The underlying tissue is inked. The specimen is trisected and submitted in cassette A1. Gross By: MR Soria Skin. Received in Haroldo's solution with a container labeled with "Handy Colindres", "[id number]", "1950" and " back perilesional". Received is a 0.8 x 0.6 cm skin shave. The skin surface is cody-white shiny scaly and somewhat hemorrhagic. The specimen is washed, snap frozen, and slides are cut for immunofluorescence. Gross By: MR Sign Out Location Pathologist sign out performed at [facility] ([facility] [place], [place]), [address] [place] [address]. Photographic images and diagrams represent cortez findings in this case; they are not intended to replace a complete review of the final diagnostic report. The following statement applies to Flow Cytometry, Histology, In situ Hybridization Assays and Molecular Genetics. This test was developed and performed at [facility] and its performance characteristics determined by [facility]. It has not been cleared or approved by the U.S. Food and Drug Administration. The FDA has determined that such clearance or approval is not necessary. This test is used for clinical purposes. It should not be regarded as investigationalor for research. Special stains, including histochemical stains, and studies using immunologic and ANTONIETTA methodology (where applicable) are performed with appropriate positive and negative control reactions. Sincerely, Conner Pedersen MD 03/22/2023 [facility] Calendar (as of Visit date not found (in office), Visit date not found (telemedicine) ) Care needs Care needs Last completed Due next Zoster (Shingles) Vaccine (1 of 2) --- Never done Discuss quitting tobacco use 01/22/2021 01/22/2022 Flu vaccine (recommended) (1) 01/03/2022 11/11/2022 COVID-19 Vaccine (4 - season) 2021 11/11/2022 Colonoscopy - every 5 years 02/15/2018 02/15/2023 Diphtheria, tetanus & pertussis vaccines (2 - Td or Tdap) 10/20/2013 10/21/2023 Kidney Function Test 11/02/2022 11/03/2023 Yearly COPD oxygen test 11/02/2022 11/03/2023 Bone Density 07/11/2022 07/11/2024 Urine albumin/creatinine test 04/14/2022 04/14/2025 As you look over the recommended services, be sure to check with your insurance company to determine what's covered. [employer] is a great tool that helps you review your medical record online, including test results, doctor notes and your health summary. You can also schedule appointments with me and other members of your care team, request prescription refills and ask for advice related to your medical conditions at [email or web address]. documented in this encounter Progress Notes * Jeanette Francis, REMEDIOS - 03/22/2023 10:03 AM EST AD8 Dementia Screening Interview Person answering questions: patient Remember, "Yes, a change" indicates that there has been a change in the last several years caused by cognitive (thinking and memory) problems 1. Problems with judgement (eg: problems making decisions, bad financial decisions, problems with thinking). No (0) 2. Less interest in hobbies/activities. No (0) 3. Repeats the same things over and over (questions, stories, or statements). No (0) 4. Trouble learning how to use a tool, appliance, or gadget (eg: VCR, computer, microwave, remote control). No (0) 5. Forgets correct month or year. No (0) 6. Trouble handling complicated financial affairs (eg: balancing checkbook, income taxes, paying bills). No (0) 7. Trouble remembering appointments. No (0) 8. Daily problems with thinking and/or memory. No (0) TOTAL AD8: 0 - AD8 Dementia Screening Score The final score is a sum of the number items marked "Yes, A Change". 0 - 1: Normal cognition; 2 or greater: Cognitive impairments is likely to be present - further testing required Adult Annual Wellness Visit: Handy Colindres is a 72 year old male who presents for an Adult Annual Wellness Visit. Depression Screening: Did the patient complete the screening questionnaire for Depression? Yes, score of 0 Is the patient's total score for Depression 15 or greater? No, no further intervention needed, unless requested by patient. Did the patient answer positively to the suicide question? No, no further intervention needed, unless requested by patient. In general, compared to other people your age, what would you say that your health is? Good Ht Readings from Last 1 Encounters: 11/02/22 1.74 m (5' 8.5") Wt Readings from Last 1 Encounters: 12/22/22 66.4 kg (146 lb 4.8 oz) Body Mass Index: BMI Less than 30 There is no height or weight on file to calculate BMI. BP Readings from Last 1 Encounters: 12/22/22 138/66 Medical/Surgical/Family History Reviewed: Yes Past Medical History: Diagnosis Date Chronic right [...] performed by Bowen Montejo MD at END[facility]COPY [facility] EGD, FLEXIBLE, DIAGNOSTIC 04/15/2015 Schatzki ring, repeat 2 mo/ESOPHAGOGASTRODUODENOSCOPY (EGD), FLEXIBLE, TRANSORAL, DIAGNOSTIC performed by Justin Ernst MD at [facility]COPY [facility] EGD, FLEXIBLE, DIAGNOSTIC 04/22/2015 Schatzki ring, repeat 1 mo EGD, FLEXIBLE, DIAGNOSTIC 2015 Schatzki ring/ESOPHAGOGASTRODUODENOSCOPY (EGD), FLEXIBLE, TRANSORAL, DIAGNOSTIC performed by Justin Ernst MD at [facility]COPY [facility] EGD, FLEXIBLE, DIAGNOSTIC 04/22/2015 ESOPHAGOGASTRODUODENOSCOPY (EGD), FLEXIBLE, TRANSORAL, DIAGNOSTIC performed by Justin Ernst MD at [facility] IR VERTEBRAL AUGMENTATION THORACIC N/A 06/02/2020 PERCUTANEOUS VERTEBRAL AUGMENTATION THORACIC KYPHOPLASTY performed by Randal Wharton MD at OR [facility] [place] [place] PROCEDURE - GENERAL Left 01/24/2022 Left inguinal hernia reapir by Dr Johnnie Cook TOOTH ROOT REMOVAL 2015 Family History Problem Relation Age of Onset Cancer Mother bone Other (CVA) Father Breast Cancer Sister Has patient ever had cancer? No Social History Tobacco Use Smoking status: Every Day Packs/day: 1.50 Years: 49.00 Additional pack years: 0.00 Total pack years: 73.50 Types: Cigarettes Start date: 1974 Smokeless tobacco: Never Substance Use Topics Alcohol use: Yes Alcohol/week: 21.0 standard drinks of alcohol Types: 21 12 oz of beer per week Comment: 3-4 beers daily Vaping/E-Cigarette Use Vaping/E-Cigarette Use Never User Vaping/E-Cigarette Substances Vaping/E-Cigarette Devices Tobacco/Alcohol screening completed today? Yes Hospital Care: Admissions (within the last year): Not Applicable ER within 30 days: No Does the patient have an Advance Directives/Living Will? Yes Last Physical Exam: Last physical exam: Does patient see primary provider regularly? Yes Does patient see other providers? Yes, Specialist Patient Care Team updated? Yes Review of patient's allergies indicates: Allergen Reactions Antihistamine & Nasal Deconges [Fexofenadine-Pseudoephed Er] Other (Please comment) Jittery Losartan Rash Immunization History Administered Date(s) Administered COVID-19 mRNA, LNP-s, No Preserve, 2-Dose Series ([place]) 05/08/2020, 06/04/2020, 01/08/2021 Pneumococcal Conjugate Vacc, 13 Valent (Prevnar) 12/03/2015 Pneumococcal Polysaccharide PPV23 (Pneumovax) 05/12/2014, 12/11/2019 Seasonal Influenza, PF, 6 M & above, IM , (FluLaval or Fluzone) 12/20/2017 Seasonal Influenza, Quadrivalent Hd (Fluzone Hd) 11/28/2020 Seasonal Influenza, Quadrivalent Hd, 65+ Yrs 11/05/2019, 01/03/2022 Seasonal Influenza, Trivalent, Adjuvanted, 65+ yrs 12/04/2018, 11/10/2019 TDAP (age 10 and older)(Boostrix) 10/20/2013 Current Outpatient Medications Medication Sig Dispense Refill THIAMINE (VITAMIN B-1) 100 MG Tablet Take 1 Tablet by mouth in the morning. Vitamin D3 25 MCG (1000 UT) Oral Tablet (Vitamin D3) Take 1 Tablet by mouth in the morning. Takes once daily 5 times per week . Incruse Ellipta 62.5 MCG/ACT Inhalation Aerosol Powder Breath Activated (umeclidinium [place]) INHALE 1 PUFF BY MOUTH EVERY DAY 90 Each 3 amLODIPine Besylate 2.5 MG Oral Tablet (Norvasc) Take 1 Tablet by mouth in the morning. 90 Tablet 3 Aspirin 81 MG Oral Tablet Chewable Take 1 Tablet by mouth in the morning. 90 Tablet 3 Atorvastatin Calcium 20 MG Oral Tablet (Lipitor) TAKE 1 TABLET BY MOUTH EVERY DAY 90 Tablet 2 No current facility-administered medications for this visit. 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 Yes Patient takes medications as prescribed? Yes Patient manages own medications: Yes Patient uses a pill box? Yes, refill(s) completed by self Dental Exam: Yes: Every 6 Months Eye Screening: as needed Are you having trouble with hearing? No Do you use an assistive device to help your hearing? No Exercise Screening: does not exercise regularly Nutrition Assessment: Eats a balanced diet and usually eats 2 meals daily. Drinks approximately 48 oz of fluid daily Pain Screening: Are you having any pain? No. Generalized back pain. Sleep Screening Tool 'STOP': Do you snore? No Do you feel fatigued during the day? No Do you wake up feeling like you haven't slept? No Have you been told you stop breathing at night? No Do you gasp for air or choke while sleeping? No Have you been told you have Sleep Apnea? No Do you have high blood pressure or are on medication(s) to control high blood pressure? Yes SCORE: If you check YES to two or more questions, make a referral for Obstructive Sleep Apnea Patient and Caregiver Support System: Patient lives with a spouse Means of Transportation: Drives. Not a concern. Patient lives in [place] Community Resources: Not Applicable Functional Status and ADL Skills: Has patient ever had an amputation? No Functional Assessment: 90- Able to carry on normal activity, minor symptoms of disease Ambulation: Patient ambulates without assistive device. Independent Dressing: Gets clothes and dresses without any assistance: Independent Able to move freely in chair or bed including turning over: Independent Repositioning (bed or chair): Not applicable Transfers: Independent Toileting: Goes to bathroom, uses toilet, arranges clothes and returns without any assistance: Independent Toileting: continent of bladder and continent of bowel Feeding: Self Bathing: Self; walk in shower, with grab bars, floor of shower has texture and has bath mat to stepout onto Requires none assistance with ADLs. Instrumental ADL's: Shopping: Independent Housekeeping: Independent Handling Finances: Independent DME Vendor Name: Not Applicable Fall Risk Assessment: Can the patient demonstrate that he can stand from a sitting position? Yes Has the patient had a fall within the last 6 months? No Does the patient have a problem with his gait or balance? No Does the patient take 4 or more prescription medicines? No Does the patient use sedatives or narcotics? No Fall Risk Factors Present: Older than age 70 Fln-Fm-etn-Go Test: Time began at 1000. Patient stood from sitting position and walked approximately 10 feet, returned and sat down. Total time for tmr-tp-nbk-go test was 8 seconds. Sfg-Fe-xqk-Go Test completed? Yes Gender Specific Preventative Plan: Health Maintenance Topic Date Due Zoster Vaccines (1 of 2) Never done DISCUSS TOBACCO CESSATION (REFER TO SMARTSET #4736) 01/22/2022 Influenza Vaccine (FLU shot) (1) 11/11/2022 COVID-19 Vaccine (4 - season) 2022 COLONOSCOPY-EVERY 5 YRS AGES 18-100 02/15/2023 Depression Screening 03/21/2023 DTaP,Tdap,and Td Vaccines (2 - Td or Tdap) 10/21/2023 GFR 11/03/2023 O2 ASSESSMENT COMPLETED IN PAST YEAR FOR COPD 11/03/2023 DXA Scan 07/11/2024 Albumin/Creatinine Ratio 04/14/2025 VITAMIN D LEVEL ONCE IN A LIFETIME-USE SMARTSET# 27773 Completed Alpha-1 Antitrypsin Completed AAA Screening Completed Pneumococcal Vaccine: 65+ Years Completed Hepatitis B Aged Out MENINGOCOCCAL (MENACTRA/MENVEO) Aged Out GARDASIL-HPV IMMUNIZATION SERIES Aged Out Follow Up/ Referrals/Handouts: Smoker - Provided Quit Line. Depression screening - Completed. Score of 0. No concerns Functional assessment - Completed. Falls Risk screening - Completed. No history of recent falls. Risk factors include greater than aged 70. Provided handout, "Preventing Falls at Home." Exercise screening - Completed. Does not currently have an exercise routine. Plans on beginning to walk with his who is having some medical issues. They have a treadmill at home and I suggested that they use the mall in bad weather. Provided handout, "Exercises to Prevent Falls." Pain screening - Completed. C/O generalized back pain Incontinence screening - Completed. No concerns. Risk and functional assessment (Primary) Routine general medical examination at a health care facility Alcohol abuse -Drinks approximately 3 beers daily -not interested in quitting Chronic hyponatremia -Continues to follow with PCP COPD, group A, by GOLD 2017 classification ([facility]) - Med reconciliation completed and compliance discussed. - pt to continue present medications. -Continues to follow with PCP and pulmonary Essential hypertension with goal blood pressure less than 130/80 -Continues to follow with PCP BP Readings from Last 4 Encounters: 03/22/23 124/66 12/22/22 138/66 11/02/22 126/64 09/27/22 124/58 High risk for fracture due to osteoporosis by DEXA scan - Med reconciliation completed and compliance discussed. - pt to continue present medications. -Continues to follow with PCP and rheumatology Mixed hyperlipidemia - Med reconciliation completed and compliance discussed. - pt to continue present medications. -Continues to follow with PCP Lab Results Component Value Date/Time LDL (CALCULATED)-OUTSIDE LAB 106 09/02/2013 12:00 AM LDL CHOLESTEROL (CALCULATED) - [facility] 95 04/14/2022 09:26 AM LDL CHOLESTEROL (CALCULATED) - [facility] 75 12/31/2019 09:19 AM LDL CHOLESTEROL (DIRECT MEASURE) - [facility] NOT APPLICABLE 12/31/2019 09:19 AM Tobacco abuse -provided quit line number -patient is not interested in quitting at this time Patient has been verbally educated on the need or importance of Cholesterol, Colon Cancer Screening, Hemoglobin A1c, and Immunizations: Covid, Shingles, Tetanus, Flu, RSV Pt has completed the covid vaccines: Yes, patient has had vaccine and 2 boosters and is planning onreceiving additional booster. Confirmed in immunization record. Patient is not interested in receiving his Shingles Vaccine. Will be due for Tetanus vaccine in 10/2023 He is over due for colonoscopy, but is not interested in procedure at this time. Would patient like to schedule next AWV visit? No Jeanette Puga RN documented in this encounter Miscellaneous Notes * Result Encounter Note - Stefania Ramos LPN - 04/13/2023 10:20 AM EST I spoke to Handy and relayed the message below. He confirmed understanding and will wait for our allergy department to reach out to him to schedule a consult. * Result Encounter Note - Mia Zhang PA-C - 04/13/2023 10:13 AM EST ... * Result Encounter Note - Mia Zhang PA-C - 04/13/2023 10:12 AM EST Can you please call and let him know I received his blood pressure readings, thank you for keeping track of them. His bloodwork showed a very high IgE which is usually a sign of an allergy. I am placing a referralto our cricket coach Dr. Davis. I want to get allergy on board with his case as well. * Pt Handout (on AVS) - Jeanette Francis RN - 03/22/2023 10:18 AM EST Images from the original note were not included. [id number] Preventing Falls at Home A person can fall for many reasons. Older adults may fall because reaction time slows as we age. Your muscles and joints may get stiff, weak, or less flexible because of illness, medicines, or a physical condition. Other health problems that make falls more likely include: Arthritis Dizziness or lightheadedness when you stand up (orthostatic hypotension) History of a stroke Dizziness Anemia Certain medicines taken for mental illness or to control blood pressure. Problems with balance or gait Bladder or urinary problems History of falling Changes in vision (vision impairment) Changes in thinking skills and memory (cognitive impairment) Muscle weakness Excessive alcohol use Falls can cause serious injuries, such as head trauma, broken bones, dislocated joints, internal bleeding, and cuts. Injuries like these can limit your independence. Prevention tips To help prevent falls and fall-related injuries, follow the tips below. Floors To make floors safer: Put nonskid pads under area rugs. Remove small rugs. Replace worn floor coverings. Tack carpets firmly to each step on carpeted stairs. Put nonskid strips on the edges of uncarpeted stairs. Keep floors and stairs free of clutter and cords. Keep floors and stairs clear of animal and children's toys Arrange furniture so there are clear pathways. Clean up any spills right away. Don't walk on wet floors. Bathrooms To make bathrooms safer: Install grab bars in the tub or shower. Install a raised (elevated) toilet or toilet seat. Apply nonskid strips or put a nonskid rubber mat in the tub or shower. Sit on a bath chair to bathe. Use bathmats with nonskid backing. Lighting To improve visibility in your home: Keep a flashlight in each room. Or put a lamp next to the bed within easy reach. Put nightlights in the bedrooms, hallways, kitchen, and bathrooms. Make sure all stairways have good lighting. There should be a light switch at the bottom and thetop of each stairway. Other changes to make Look around to find any safety hazards. Look closely at doorways, walkways, and the driveway. Remove or repair any safety problems that you find. Wear shoes that fit well. Never go barefoot or wear socks or slippers with smooth soles. See your eye care provider once a year if you wear glasses. This is to be sure the prescription is still right for you. Take your time when going up and down stairs; always use handrails. Never carry items in both hands. Wear an alert necklace or bracelet if you are already prone to falling. Put handrails on both sides of stairs and in walkways for more support. To prevent injury to your wrist or arm, don?t use handrails to pull yourself up. Use a "reach stick" to grab pvhq-nu-[id number] items. Install grab bars wherever needed to pull yourself up. Arrange items that you use often. This will make them easier to find or reach. Keep track of where your pets are so you don't trip over them when you are walking. Last Reviewed Date: 01/11/202219998110-7892 [employer]. All rights reserved. This information is not intended as a substitute for professional medical care. Always follow your healthcare professional's instructions. * Pt Handout (on AVS) - Jeanette Francis RN - 03/22/2023 10:18 AM EST Images from the original note were not included. [id number] Exercises to Prevent Falls Certain types of exercises may help make you less likely to fall. Try the ones below or do other exercises that your healthcare provider suggests. Depending on your health, you may need to start slowly. Don't let that stop you. Even small amountsof exercise can help you. Talk with your healthcare provider before starting any exercise program. Improve balance Many types of exercise can help improve balance. Juan Luis chi and yoga are good examples. Here's anotherone to try. You can do it anytime and almost anywhere. Stand next to a counter or solid support. Push yourself up onto your tiptoes. Hold for 5 seconds. If you start to lose your balance, hold on to the counter. Rest and repeat 5 times. Work up to holding for 20 to 30 seconds, if you can. Increase flexibility Being more flexible makes it easier for you to move around safely. Try exercises like the seatedhamstring stretch. o Sit in a chair and put one foot on a stool. o Straighten your leg and reach with both hands down either side of your leg. Reach as far down your leg as you can. o Hold for about 20 seconds. o Go back to the starting position. Then repeat 5 times. Switch legs. o o Build strength o Resistance exercises help build strength. You can do them without equipment. Or you can use weights, elastic bands, or special machines. One such exercise is called the biceps curl. You can hold a 1-pound weight or even a can of soup. Do this exercise at least 3 times a week. Strive for every day. Sit up straight in a chair. Keep your elbow close to your body and your wrist straight. Bend your arm, moving your hand up to your shoulder. Then slowly lower your arm. Repeat 5 times. Switch to the other arm. Build your staying power Aerobic exercises make your heart and lungs stronger so you can keep moving longer. Walking and swimming are 2 of the best types of exercises you can do. Using a stationary bike is great, too. Find an aerobic exercise that you enjoy. Start slowly and build up. Even 5 minutes is helpful. Aim for a goal of 30 minutes, at least 3 times a week. You don't have to do 30 minutes in 1 session. Break it up and walk a little throughout the day. Starting out safely and slowly Start easy. Slowly work up to doing more. Talk with your healthcare provider about the best exercises for you. Call senior centers or health clubs about exercise programs. If needed, have a family member watch you walk every so often to check your stability. Exercise with a friend. Choose an activity you both enjoy. Be sure to gently warm up and cool down. Drink fluids, such as water, to stay hydrated. If your provider recommended that you limit fluids, ask them how much is OK to drink while exercising. Consider juan luis chi or yoga to strengthen your balance. Try exercises that you can do anytime, anywhere. Here are 2 examples. Have someone with you whenyou first try these: o Practice walking by placing one foot right in front of the other. o Stand up and sit down 10 times. Repeat this throughout the day. Last Reviewed Date: 01/11/202219990524-8383 [employer]. All rights reserved. This information is not intended as a substitute for professional medical care. Always follow your healthcare professional's instructions. documented in this encounter Plan of Treatment Upcoming Encounters Date Type Department Care Team (Late st Contact Info) Description 05/22/2023 10:00 AM EDT Office Visit General Internal Medicine Tamie Hernandez [place] [address] [place] [id number] Conner Pedersen MD [address] [place] [id number] 09/04/2023 10:30 AM EDT Imaging Radiology [facility] [address] [facility] [place] [address] 09/19/2023 11:45 AM EDT Office Visit Urology, [facility] [address] [address] Sivakumar Huston MD [address] [place] [address] [place] [address] 10/11/2023 2:30 PM EDT Nurse Only Rheumatology [place] [id number] [facility] [place] [address] Pf, Nurse Rheum [address] [facility] [place] [address] 12/21/2023 11:00 AM EDT Cardiac Studies Cardiac Studies, [facility] [address] [facility] [place] [address] Scheduled Procedures Name Priority Associated Diagnoses Date/Ti me COLONOSCOPY FLEXIBLE PROXIMAL DIAGNOSTIC Recall History of colon polyps Health Maintenance Due Date Last Done Comments Zoster Vaccines (1 of 2) 05/28/1999 DISCUSS TOBACCO CESSATION (REFER TO SMARTSET #6169) 01/22/2022 01/22/2021, 06/26/2020 COVID-19 Vaccine ( - 2022- season) 2022 01/08/2021, 06/04/2020, 05/08/2020 Influenza Vaccine (FLU shot) (#1) 2022 01/03/2022, 11/28/2020, 11/10/2019, Additional history exists COLONOSCOPY-EVERY 5 YRS AGES 18-100 02/15/2023 02/15/2018, 02/15/2018 DTaP,Tdap,and Td Vaccines (2 - Td or Tdap) 10/21/2023 10/20/2013 Depression Screening 03/22/2024 03/22/2023, 11/13/19 15 GFR 03/22/2024 03/22/2023, 0805/2022, 09/27/2022, Additional history exists O2 ASSESSMENT COMPLETED IN PAST YEAR FOR COPD 03/22/2024 03/22/2023 DXA Scan 07/11/2024 07/11/2022, 0503/2022, 07/07/2020 Albumin/Creatinine Ratio 04/14/2025 04/14/2022, 1206/2017 Alpha-1 Antitrypsin Completed 04/23/2019 Pneumococcal Vaccine: 65+ Years Completed 12/11/2019, 12/03/2015, 05/12/2014 AAA Screening Completed 08/29/2022, 09/11, 09/25/2020, Additional history exists VITAMIN D LEVEL ONCE IN A LIFETIME-USE SMARTSET# 66481 Completed 04/07/2023, 10/18/2021, 03/25/2021, Additional history exists [...] this encounter Medical Devices Implanted Type Area Data Conversion Developer Device Identifier Shelf Expiration Date Model / Serial / Lot Pack [employer]ement [employer] Mixer C01b - [id number] Implanted:Qty: 1 on 06/02/2020 by Randal Wharton MD at OR [facility] [place] [place] N/A: Spine Thoracic [employer] : NEURO CARE 11/10/2022 C01B / / [id number] documented as of this encounter Procedures Procedure Name Priority Date/Time Associated Diagnosis Comments ANTINUCLEAR ANTIBODY (TAYLOR) SCREEN, SKY Routine 03/22/2023 10:51 AM EST Pruritus ANTINUCLEAR ANTIBODY (TAYLOR) EIA SCREEN WITH REFLEX AB QUANT Routine 03/22/2023 10:51 AM EST Pruritus HEPATIC FUNCTION PANEL Routine 03/22/2023 10:51 AM EST Pruritus BASIC METABOLIC PANEL Routine 03/22/2023 10:51 AM EST Chronic hyponatremia IGE Routine 03/22/2023 10:51 AM EST Pruritus documented in this encounter Results * ANTINUCLEAR ANTIBODY (TAYLOR) SCREEN, SKY (03/22/2023 10:51 AM EST) TAYLOR Screen Negative Negative 03/23/2023 1:54 PM EST [facility] [place] [place] dsDNA Antibody Interpretation Negative Negative 03/23/2023 1:54 PM EST [facility] [place] [place] dsDNA Antibody Value <0.6 <20 IU/mL 03/23/2023 1:54 PM EST [facility] [place] [place] LUCI Antibodies Screen Interpretation Negative Negative 03/23/2023 1:54 PM EST [facility] [place] [place] LUCI Antibodies Screen Value 0.2 <0.7 Ratio 03/23/2023 1:54 PM EST [facility] [place] [place] Comment: Screening is based on detection of the following antibodies: dsDNA, U1-SHIP RIGGER APPRENTICE (RNP70, A, C), SS-A/Ro, SS-B / La, Nataliia-1, Scl-70, Centromere B proteins and Sm proteins. In conjunction with clinical findings, this can aid in the diagnosis of systemic lupus erythematosous (SLE), mixed connective tissue disease (MCTD), Sjogren's syndrome, scleroderma and polymyositis/dermatomyositis. However, a negative result does not rule out systemic rheumatic or other autoimmune disease. If clinically suspected, further evaluation and testing may be necessary. Please consult with Rheumatology Department. Methodology: Fluorescent Enzyme Immunoassay. Blood Venous blood specimen / Unknown Venipuncture / Unknown 03/22/2023 10:51 AM EST 03/22/2023 10:52 AM EST Iliana Ojeda MD LAB BLOOD ORDERA BLES Performing Organization Address City/State/[facility] Co de Phone Number LAB[facility]ORY [facility] [place] [place] [address] [place] [address] * (ABNORMAL) IGE (03/22/2023 10:51 AM EST) Pathologist [facility] IgE 1,175.0(H) <=214.0 kU/L 03/23/2023 10:27 AM EST [facility] [place] [place] Blood Venous blood specimen / Unknown Venipuncture / Unknown 03/22/2023 10:51 AM EST 03/22/2023 10:52 AM EST Iliana Ojeda MD LAB BLOOD ORDERA BLES LAB[facility] [place] [place] [address] [place] [address] * HEPATIC FUNCTION PANEL (03/22/2023 10:51 AM EST) Albumin 4.3 3.8 - 5.0 g/dL 03/22/2023 12:19 PM EST LABORATORY [place] 56-02 AST 26 10 - 50 U/L 03/22/2023 12:19 PM EST [facility] [place] 56- Alkaline Phosphatase 41 35 - 130 U/L 03/22/2023 12:19 PM EST [facility] [place] 56- ALT 16 10 - 50 U/L 03/22/2023 12:19 PM EST [facility] 56- Bilirubin, Total 0.7 <=1.2 mg/dL 03/22/2023 12:19 PM EST [facility] 56- Bilirubin, Direct <0.2 0.0 - 0.3 mg/dL 03/22/2023 12:19 PM EST [facility] 56- Protein 7.0 6.0 - 8.3 g/dL 03/22/2023 12:19 PM EST [facility] 56- Blood Venous blood specimen / Unknown Venipuncture / Unknown 03/22/2023 10:51 AM EST 03/22/2023 10:52 AM EST Iliana Ojeda MD LAB BLOOD ORDERA BLES [facility] 56- [address] [place] [address] * (ABNORMAL) BASIC METABOLIC PANEL (03/22/2023 10:51 AM EST) BUN 9 6 - 20 mg/dL 03/22/2023 12:19 PM EST [facility] 56- Creatinine 0.8 0.6 - 1.2 mg/dL 03/22/2023 12:19 PM EST [facility] 56- Estimated Glomerular Filtration Rate >90 >=60 mL/min 03/22/2023 12:19 PM EST [facility] 56- Comment:eGFR is calculated b ased on the CKD-EPI 2020 equation Sodium 132(L) 135 - 146 mmol/L 03/22/2023 12:19 PM EST [facility] 56- Potassium 4.6 3.5 - 5.1 mmol/L 03/22/2023 12:19 PM EST [facility] 56- Chloride 95(L) 98 - 107 mmol/L 03/22/2023 12:19 PM EST [address] CO2 25 22 - 32 mmol/L 03/22/2023 12:19 PM EST [address] Anion Gap 12 7 - 15 mmol/L 03/22/2023 12:19 PM EST [address] Glucose 98 70 - 120 mg/dL 03/22/2023 12:[address] Calcium 9.8 8.4 - 10.2 mg/dL 03/22/2023 12:19 PM EST [address] Blood Venous blood specimen / Unknown Venipuncture / Unknown 03/22/2023 10:51 AM EST 03/22/2023 10:52 AM EST Conner Pedersen MD LAB BLOOD [address]A [address] [address] [address] [place] [address] documented in this encounter Visit Diagnoses Diagnosis Risk and functional assessment- Primary Screening for unspecified condition Routine general medical examination at a health care facility Alcohol abuse Alcohol abuse, unspecified Chronic hyponatremia Hyposmolality and/or hyponatremia COPD, group A, by GOLD 2017 classification (HCC) Essential hypertension with goal blood pressure less than 130/80 High risk for fracture due to osteoporosis by DEXA scan Osteoporosis, unspecified Mixed hyperlipidemia Tobacco abuse Tobacco use disorder Pruritus Unspecified pruritic disorder documented in this encounter Advance Directives Latest Code Status on File Code Status Date Activated Date Inactivated Comments Full Code 06/02/2020 8:23 AM 06/02/2020 4:48 PM This order reflects the patients wishes and were consensually agreed upon. Question Answer Comments Discussion of Advance Directives occurred with: Not Discussed Care Teams Director Of Culture Relationship Specialty Start Date End Date Conner Pedersen MD [address] [place] [address] PCP - General Internal Medicine 11/07/20 documented as of this encounter
--- OUTSIDE RECORDS SUMMARY | 2023-06-16 23:15 | External Medical Summary | Summary of Care ---
Author Name Unknown Organization [facility] Address [address] [place] [address] Phone [phone] Care Team Providers Care Lead Technician Name Role Phone Conner Pedersen MD Primary Care Provider + Reason for Referral * Precert (Within 10 days (routine)) - Pending Review Specialty Diagnoses / Procedures Referred By Naseem carlton Referred To Contact Radiology Diagnoses Lung nodule Procedures CT CHEST LUNG CANCER SCREEN 3 OR 6 MONTH FOLLOW UP Zaria Smith CRNP [address] [place] [address] Referral ID Status Reason Start Date Expiration Date V isits Requested Visits Authorized [id number] Pending Review 09/21/[phone] Encounter Details Date Type Department Care Team (Late st Contact Info) Description 03/29/2023 Orders Only STAIR LUNG NODULE [address] [place] [address] Zaria Smith CRNP [address] [place] [address] Lung nodule* Allergies Active Allergy Reactions Criticality Noted Date Comments Fexofenadine-Pseudoephed Er Other (Please comment) 03/22/2023 Jittery Losartan Rash 11/02/2022 documented as of this encounter (statuses as of 03/29/2023) Medications Medication Sig Dispensed Refills Start Date [...] MCG/ACT Inhalation Aerosol Powder Breath Activated (umeclidinium [place])Indications:TELECOMMUNICATIONS SALES REPRESENTATIVE D, group A, by GOLD 2017 classification (HCC) [...] as of this encounter (statuses as of 03/29/2023) Active Problems Problem Noted Date Diagnosed Date [...] and rinse after steroid. Test performed by A.Tianna WINDER CONTORT OPERATOR CPFT Alcohol abuse 01/29/2018 Lung nodule 10/26/2017 Aortic root enlargement 07/25/2017 Moderate aortic regurgitation 07/17/2017 Tobacco abuse documented as of this encounter (statuses as of 03/29/2023) Resolved Problems Problem Noted Date Diagnosed Date Resolved Date Compression fracture of T12 vertebra with routine healing 05/14/2020 04/26/2022 COPD, mild 01/29/2018 08/22/2018 Overview: Per COPD GOLD Classification HTN, goal below 140/90 10/26/201704/08 Emphysema lung 10/26/2017 01/29/2018 Colonic polyp 05/12/2014 04/26/2022 Tendonitis 05/12/2014 06/15/2017 Overview: Shoulder pain - Dr. Chacon documented as of this encounter (statuses as of 03/29/2023) Immunizations Name Administration Dates Next Due COVID-19 [...] 04/11/2023 3:00 PM EST Office Visit Rheumatology [place] [id number] [facility] [place] [address] David Pugh CRNP [facility] [place] [address] 05/22/2023 10:00 AM EDT Office Visit General Internal Medicine [facility] 200 [facility] [place] [address] Conner Pedersen MD [address] [facility] [place] [address] 09/04/2023 10:30 AM EDT Imaging Radiology [facility] 132 [facility] [place] [address] 09/19/2023 11:45 AM EDT Office Visit Urology, [facility] [address] [place] [address] Sivakumar Huston MD [address] [address] [place] [address] 12/21/2023 11:00 AM EDT Cardiac Studies Cardiac Studies, [facility] 132 [facility] [place] [address] Scheduled Orders Name Type Priority Associated Diagnoses Orde r Schedule CT CHEST LUNG CANCER SCREEN 3 OR 6 MONTH FOLLOW UP Medical Imaging Routine Lung nodule Expected: 09/21/2023 (Approximate), Expires: 04/29/2024 Scheduled Procedures Name Priority Associated Diagnoses Date/Ti me COLONOSCOPY FLEXIBLE PROXIMAL DIAGNOSTIC Recall History of colon polyps Health Maintenance Due Date Last Done Comments Zoster Vaccines (1 of 2) 05/28/1999 DISCUSS TOBACCO CESSATION (REFER TO SMARTSET #3801) 01/22/2022 01/22/2021, 06/26/2020 COVID-19 Vaccine ( - [...] 07/11/2024 07/11/2022, 07/07/2020 Albumin/Creatinine Ratio 04/14/2025 04/14/2022, 1206/2017 Alpha-1 Antitrypsin Completed 04/23/2019 Pneumococcal Vaccine: 65+ Years Completed 12/11/2019, 12/03/2015, 05/12/2014 VITAMIN D LEVEL ONCE IN A LIFETIME-USE SMARTSET# 14061 Completed 10/18/2021, 03/25/2021, 08/11/2020, Additional history exists [...] this encounter Medical Devices Implanted Type Area Bump Grader Operator Device Identifier Shelf Expiration Date Model / Serial / Lot Pack Cement & Mixer C01b - [id number] Implanted:Qty: 1 on 06/02/2020 by Randal Wharton MD at [place] [facility] [place]: Spine Thoracic [employer] : NEURO CARE 11/10/2022 C01B / / [id number] documented as of this encounter Visit Diagnoses Diagnosis Lung nodule- Primary Solitary pulmonary nodule documented in this encounter Advance Directives Latest Code Status on File Code Status Date Activated Date Inactivated Comments Full Code 06/02/2020 8:23 AM 06/02/2020 4:48 PM This order reflects the patients wishes and were consensually agreed upon. Question Answer Comments Discussion of Advance Directives occurred with: Not Discussed Care Teams Lead Technician Relationship Specialty Start Date End Date Conner Pedersen MD [address] [place] [address] PCP - General Internal Medicine 11/07/20 documented as of this encounter
--- OUTSIDE RECORDS SUMMARY | 2023-06-16 23:15 | External Medical Summary | Summary of Care ---
Author Name Unknown Organization [facility] Address [address] [place] [facility] [place] [address] Phone [phone] Care Team Providers Care Backfiller Name Role Phone Conner Pedersen MD Primary Care Provider + Reason for Visit * Reason Onset Date Comments Follow Up 03/14/2023 Encounter Details Date Type Department Care Team (Late st Contact Info) Description 03/14/2023 Telephone Dermatology [facility] [address] [place] [address] Mia Zhang PA-C [address] [place] [phone] Follow Up Allergies Active Allergy Reactions Criticality Noted Date Comments Losartan Rash 11/02/2022 documented as of this encounter (statuses as of 03/16/2023) Medications Medication Sig Dispensed Refills Start Date [...] MCG/ACT Inhalation Aerosol Powder Breath Activated (umeclidinium [place])Indications:DENTAL CHAIRSIDE ASSISTANT D, group A, by GOLD 2017 classification ([place] [...] as of this encounter (statuses as of 03/16/2023) Active Problems Problem Noted Date Diagnosed Date [...] rinse after steroid. 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 Chacon documented as of this encounter (statuses as of 03/16/2023) Immunizations Name Administration Dates Next Due COVID-19 [...] Answer Date Recorded PHQ Adult Total Score 2 03/21/2022 Hunger Vital Sign Answer Date Recorded Within [...] encounter Miscellaneous Notes * Telephone Encounter - Conner Pedersen MD [...] 03/22/2023 10:00 AM EST Nurse Only Ancillary [facility] [address] [place] [address] Im, Nurse Annual Wellness [facility] [address] [place] [address] 03/23/2023 11:00 AM EST Imaging [facility] [address] [facility] [place] [address] 04/11/2023 3:00 PM EST Office Visit Rheumatology [facility] [address] [facility] [place] [address] David Pugh CRNP [address] [facility] [place] [address] 05/22/2023 10:00 AM EDT Office Visit General Internal Medicine [facility] 200 [facility] [place] [address] Conner Pedersen MD 200 [facility] [place] [address] 09/04/2023 10:30 AM EDT Imaging Radiology [facility] 132 [facility] [place] [address] 09/19/2023 11:45 AM EDT Office Visit Urology, [facility] 132 [facility] [place] [address] Sivakumar Huston MD [address] [address] [place] [address] 12/21/2023 11:00 AM EDT Cardiac Studies Cardiac Studies, [facility] [address] [facility] [place] [address] Scheduled Procedures Name Priority Associated Diagnoses Date/Ti me COLONOSCOPY FLEXIBLE PROXIMAL DIAGNOSTIC Recall History of colon polyps Health Maintenance Due Date Last Done Comments Zoster Vaccines (1 of 2) 05/28/1999 DISCUSS TOBACCO CESSATION (REFER TO SMARTSET #3291) 01/22/2022 01/22/2021, 06/26/2020 COVID-19 Vaccine (4 - 2022- season) 2022 01/08/2021, 06/04/2020, 05/08/2020 Influenza Vaccine (FLU shot) (#1) 2022 01/03/2022, 11/28/2020, 11/10/2019, Additional history exists COLONOSCOPY-EVERY 5 YRS AGES 18-100 02/15/2023 02/15/2018, 02/15/2018 Depression Screening 03/21/2023 03/21/2022, 11/13/19 15 DTaP,Tdap,and Td Vaccines (2 - Td or Tdap) 10/21/2023 10/20/2013 GFR 11/03/2023 11/02/2022, 09/10, 08/25/2022, Additional history exists O2 ASSESSMENT COMPLETED IN PAST YEAR FOR COPD 11/03/2023 11/02/2022 DXA Scan 07/11/2024 07/11/2022, 07/07/2020 Albumin/Creatinine Ratio 04/14/2025 04/14/2022, 06/2017 Alpha-1 Antitrypsin Completed 04/23/2019 Pneumococcal Vaccine: 65+ Years Completed 12/11/2019, 12/03/2015, 05/12/2014 VITAMIN D LEVEL ONCE IN A LIFETIME-USE SMARTSET# [id number] Completed 10/18/2021, 03/25/2021, 08/11/2020, Additional history exists [...] this encounter Medical Devices Implanted Type Area Chromium Plater Device Identifier Shelf Expiration Date Model / Serial / Lot Pack Cement & Mixer C01b - [id number] Implanted:Qty: 1 on 06/02/2020 by Randal Wharton MD at OR [facility] [place] N/A: Spine Thoracic [employer] : NEURO CARE 11/10/2022 C01B / / [id number] documented as of this encounter Advance Directives Latest Code Status on File Code Status Date Activated Date Inactivated Comments Full Code 06/02/2020 8:23 AM 06/02/2020 4:48 PM This order reflects the patients wishes and were consensually agreed upon. Question Answer Comments Discussion of Advance Directives occurred with: Not Discussed Care Teams Backfiller Relationship Specialty Start Date End Date Conner Pedersen MD 200 [place] [address] PCP - General Internal Medicine 11/07/20 documented as of this encounter
--- OUTSIDE RECORDS SUMMARY | 2023-06-16 23:15 | External Medical Summary ---
Author Name Unknown Address Unknown Organization K09:[facility] [place] [address] Laboratory Report Ordering Provider Test Date Status RICHARD LEONARDSTEFFANY 03/22/2023 10:51:59 Final Observation Date Value Abnormality Reference (Units ) Status Albumin 03/22/2023 10:51:59 4.3 3.8-5.0 (g/dL) Final AST (Aspartate aminotransferase) 03/22/2023 10:51:59 26 10-50 (U/L) Final Alk Phos 03/22/2023 10:51:59 41 35-130 (U/L) Final ALT (Alanine aminotransferase) 03/22/2023 10:51:59 16 10-50 (U/L) Final Bilirubin, Total 03/22/2023 10:51:59 0.7 <=1.2 (mg/dL) Final Bilirubin, Direct 03/22/2023 10:51:59 <0.2 0.0-0.3 (mg/dL) Final Protein 03/22/2023 10:51:59 7.0 6.0-8.3 (g/dL) Final Performing Location [facility] [place] [address]
--- OUTSIDE RECORDS SUMMARY | 2023-06-16 23:15 | External Medical Summary | Summary of Care ---
Author Name Unknown Organization [facility] Address [address] [place] [address] Phone [phone] Care Team Providers Care Neonatal Icu Coordinator Name Role Phone Conner Pedersen MD Primary Care Provider + Reason for Visit * Reason Onset Date Comments Order Request 04/06/2023 Prolia Encounter Details Date Type Department Care Team (Late st Contact Info) Description 04/06/2023 Telephone Rheumatology [facility] [address] [place] [address] David Pugh CRNP [address] [place] [address] Order Request (Prolia/) Allergies Active Allergy Reactions Criticality Noted Date Comments Fexofenadine-Pseudoephed Er Other (Please comment) 03/22/2023 Jittery Losartan Rash 11/02/2022 documented as of this encounter (statuses as of 04/06/2023) Medications Medication Sig Dispensed Refills Start Date [...] MCG/ACT Inhalation Aerosol Powder Breath Activated (umeclidinium [place])Indications:HOSE STRIPPER D, group A, by GOLD 2017 classification (FORMERLY [...] inj 60 mgIndications:Senile osteoporosis 60 mg SC [id number] 04/11/2023 04/05/2024 Active documented as of this encounter (statuses as of 04/06/2023) Active Problems Problem Noted Date Diagnosed Date [...] rinse after steroid. Test performed by Reilly CARDIOVASCULAR TECHNICIAN CPFT Alcohol abuse 01/29/2018 Lung nodule 10/26/2017 Aortic root enlargement 07/25/2017 Moderate aortic regurgitation 07/17/2017 Tobacco abuse documented as of this encounter (statuses as of 04/06/2023) Resolved Problems Problem Noted Date Diagnosed Date Resolved Date Compression fracture of T12 vertebra with routine healing 05/14/2020 04/26/2022 COPD, mild 01/29/2018 08/22/2018 Overview: Per COPD GOLD Classification HTN, goal below 140/90 10/26/201704/08 Emphysema lung 10/26/2017 01/29/2018 Colonic polyp 05/12/2014 04/26/2022 Tendonitis 05/12/2014 06/15/2017 Overview: Shoulder pain - Dr. Chacon documented as of this encounter (statuses as of 04/06/2023) Immunizations Name Administration Dates Next Due COVID-19 mRNA, LNP-s, No Pre serve, 2-Dose Series (Whisper) 01/08/2021,06/04/2020,05/08/2020 Pneumococcal Conjugate Vacc, 13 Valent (Prevnar) [...] encounter Miscellaneous Notes * Telephone Encounter - Marissa Deleon LPN - 04/06/2023 1:17 PM EST Chart reviewed and Vit D needs updated. Pt notified to get lab work done. Patient has been seen within the last 12 months by a Rheumatology provider. Prolia authorization approved and updated in referral. Last injection has been > 6 months and 1 day. CAM orders pended for signature. documented in this encounter Plan of Treatment Upcoming Encounters Date Type Department Care Team (Late st Contact Info) Description 04/11/2023 3:00 PM EST Office Visit Rheumatology [address] [place] [address] David Pugh CRNP [address] [place] [address] [place] [address] 05/22/2023 10:00 AM EDT Office Visit General Internal Medicine [facility] 200 [facility] [place] [address] Conner Pedersen MD 200 [facility] [place] [address] 09/04/2023 10:30 AM EDT Imaging Radiology [facility] [address] [facility] [place] [address] 09/19/2023 11:45 AM EDT Office Visit Urology, [facility] 132 [facility] [place] [address] Sivakumar Huston MD 27 [facility] [address] [place] [address] 12/21/2023 11:00 AM EDT Cardiac Studies Cardiac Studies, [facility] [address] [place] [address] Scheduled Orders Name Type Priority Associated Diagnoses Orde r Schedule 25-HYDROXY VITAMIN D Lab Routine Senile osteoporosis Expected: 04/06/2023, Expires: 04/06/2024 Scheduled Procedures Name Priority Associated Diagnoses Date/Ti [...] D LEVEL ONCE IN A LIFETIME-USE SMARTSET# [id number] Completed 10/18/2021, 03/25/2021, 08/11/2020, Additional history exists [...] this encounter Medical Devices Implanted Type Area Rn Access Device Identifier Shelf Expiration Date Model / Serial / Lot Pack Cement & Mixer C01b - [id number] Implanted:Qty: 1 on 06/02/2020 by Randal Wharton MD at [place] [facility] [place]: Spine Thoracic [employer] : NEURO CARE 11/10/2022 C01B / / [id number] documented as of this encounter Visit Diagnoses Diagnosis Senile osteoporosis- Primary documented in this encounter Advance Directives Latest Code Status on File Code Status Date Activated Date Inactivated Comments Full Code 06/02/2020 8:23 AM 06/02/2020 4:48 PM This order reflects the patients wishes and were consensually agreed upon. Question Answer Comments Discussion of Advance Directives occurred with: Not Discussed Care Teams Neonatal Icu Coordinator Relationship Specialty Start Date End Date Conner Pedersen MD 200 [place] [address] PCP - General Internal Medicine 11/07/20 documented as of this encounter
--- OUTSIDE RECORDS SUMMARY | 2023-06-16 23:15 | External Medical Summary | Summary of Care ---
Author Name Unknown Organization [facility] Address [address] [place] [address] Phone [phone] Care Team Providers Care Chemical Strength Tester Name Role Phone Conner Pedersen MD Primary Care Provider + Reason for Visit * Reason Comments Rash Rash everywhere- red , itchy on going for years. Tried OTC lotions and body wash. Given steriods and hydroxychloro with no relief Encounter Details Date Type Department Care Team (Late st Contact Info) Description 03/02/2023 11:20 AM EST Office Visit Dermatology [facility] [place] [address] [place] [address] Mia Zhang PA-C [address] [place] [phone] Dermatitis* Allergies Active Allergy Reactions Criticality Noted Date Comments Losartan Rash 11/02/2022 documented as of this encounter (statuses as of 03/04/2023) Medications Medication Sig Dispensed Refills Start Date [...] MCG/ACT Inhalation Aerosol Powder Breath Activated (umeclidinium [place])Indications:CO PD, group A, by GOLD 2017 classification ([facility]) INHALE 1 PUFF BY MOUTH EVERY DAY 90 Each 3 08/10/2022 Active amLODIPine Besylate 2.5 MG Oral Tablet (Norvasc) Take 1 Tablet by mouth in the morning. 90 Tablet 3 08/19/2022 Active Aspirin 81 MG Oral Tablet ChewableIndications:Ch ronic right arterial ischemic stroke, MCA (middle cerebral artery),Ataxia Take 1 Tablet by mouth in the morning. 90 Tablet 3 09/27/2022 Active Atorvastatin Calcium 20 MG Oral Tablet (Lipitor)Indications:M ixed hyperlipidemia TAKE 1 TABLET BY MOUTH EVERY DAY 90 Tablet 2 10/17/2022 Active predniSONE 20 MG Oral Tablet (Deltasone) Take 2 Tablets by mouth in the morning for 5 days. 10 Tablet 0 03/02/2023 03/07/2023 Active documented as of this encounter (statuses as of 03/04/2023) Active Problems Problem Noted Date Diagnosed Date [...] rinse after steroid. Test performed by Reilly SIGNALS COLLECTOR/ANALYST CPFT Alcohol abuse 01/29/2018 Lung nodule 10/26/2017 Aortic root enlargement 07/25/2017 Moderate aortic regurgitation 07/17/2017 Tobacco abuse documented as of this encounter (statuses as of 03/04/2023) Resolved Problems Problem Noted Date Diagnosed Date Resolved Date Compression fracture of T12 vertebra with routine healing 05/14/2020 04/26/2022 COPD, mild 01/29/2018 08/22/2018 Overview: Per COPD GOLD Classification HTN, goal below 140/90 10/26/201704/08 Emphysema lung 10/26/2017 01/29/2018 Colonic polyp 05/12/2014 04/26/2022 Tendonitis 05/12/2014 06/15/2017 Overview: Shoulder pain - Dr. Chacon documented as of this encounter (statuses as of 03/04/2023) Immunizations Name Administration Dates Next Due COVID-19 mRNA, LNP-s, No Pre serve, 2-Dose Series ([employer]) 01/08/2021,06/04/2020,05/08/2020 Pneumococcal Conjugate Vacc, 13 Valent [...] on file documented as of this encounter Progress Notes * Iliana Ojeda MD - 03/04/2023 1:26 PM EST I have reviewed the case/photos and discussed the patient's management with the CARLITOS and agree with the note. Please refer to the documented findings and plan of care. This patient's visit today consisted of an evaluation and management plan and procedure. I was available for in person consultation during and after the visit Iliana Ojeda MD 03/04/2023 1:26 PM * Mia Zhang PA-C - 03/02/2023 11:20 AM EST SUBJECTIVE: History of Present Illness: Handy Colindres is a 72 year old male seen today for follow up of rash. Date Last Appointment: 12/07/2022 (in office), 02/03/2023 (telemedicine) See prior notes- presumed drug rash to ARB, stopped last dosage, still itchy at times, using TAC and OTC topicals Past biopsy 1 year ago: Epidermal atrophy, subtle vacuolar interface change, and pigment incontinence (see comment) Previous treatments: triamcinolone, plaquenil Current treatment:ceraphil, gold nuno eczema, cerave itch relief, eucerin body wash, moisturizer Very compliant with OTC topicals as well as working with PCP to do trials off of certain medications in case of drug rash, nothing has helped Doesn't tolerate antihistamines Bx 11/2021 nonspecific, possible drug reaction REVIEW OF SYSTEMS: SKIN: No other new or changing moles. HEME/LYMPH: No new or enlarging lumps or bumps. MEDICATIONS: Current Outpatient Medications Medication Sig Dispense Refill THIAMINE (VITAMIN B-1) 100 MG Tablet Take 1 Tablet by mouth in the morning. Vitamin D3 25 MCG (1000 UT) Oral Tablet (Vitamin D3) Take 1 Tablet by mouth in the morning. Takes once daily 5 times per week . Incruse Ellipta 62.5 MCG/ACT Inhalation Aerosol Powder Breath Activated (umeclidinium [place]) INHALE 1 PUFF BY MOUTH EVERY DAY [...] No current facility-administered medications for this visit. ALLERG IES: Losartan OBJECTIVE: GEN: Healthy, alert, no distress, appears oriented, pleasant, and cooperative. SKIN: Detailed exam of face including lids and lips, chest, abdomen, and back completed and are normal except: 1. Arms, legs- erythematous maculopapular rash ASSESS MENT/PLAN: 1. A. Erythematous maculopapular rash widespread (sparing face and hands). Drug vs dermatitis vs drug induced lupus vs other CTD vs urticarial BP vs MF. B. Erythematous maculopapular rash widespread (sparing face and hands). Drug vs deramtitis vs drug induced lupus vs other CTD vs urticarial BP vs MF. (Perilesional in DIF) - Biopsy (tangential) of the lesions noted above to establish and confirm diagnosis. The procedure, risks, benefits, alternatives and expected outcomes were discussed with the patient and consent was obtained for the procedure and relevant photos. Time out called. Patient identified, procedure verified, site identified and verified. Patient and staff present in agreement. Area prepped with alcohol and anesthetized with lido/epi. Biopsy of lesion performed. 20% AlCl and bandaging applied. Specimen sent to pathology. Patient instructed in routine post-op care. - prednisone 40mg daily x 5 days for interim until path result, pt cannot stand the itching Follow-up: will adjust with lab/path results There were no barriers tolearning and no other pain was related to today's visit. The patient and/or person accompanying patient demonstrates understanding of the visit and treatment. Mia Zhang PA-C 02/28/2023 1:49 PM documented in this encounter Nursing Notes * Dena Blas LPN - 03/02/2023 11:13 AM EST Chief Complaint Patient presents with Rash Rash everywhere- red, itchy on going for years. Tried OTC lotions and body wash. Given steriods andhydroxychloro with no relief documented in this encounter Miscellaneous Notes * Addendum Note - Omar Turner LPN - 03/02/2023 2:27 PM ESTAddended by: OMAR TURNER on: 03/02/2023 02:27 PM Modules accepted: Orders documented in this encounter Plan of Treatment Upcoming Encounters Date Type Department Care Team (Late st Contact Info) Description 03/22/2023 10:00 AM EST Nurse Only Ancillary [facility] [address] [place] [address] Im, Nurse Annual Wellness [facility] [address] [facility] [place] [address] 03/23/2023 11:00 AM EST Imaging Radiology [address] [facility] [place] [address] 04/11/2023 3:00 PM EST Office Visit Rheumatology [place] [phone] [facility] [place] [address] David Pugh CRNP [address] [facility] [place] [address] 05/22/2023 10:00 AM EDT Office Visit General Internal Medicine [facility] [place] [address] [place] [address] Conner Pedersen MD [address] [facility] [place] [address] 09/04/2023 10:30 AM EDT Imaging Radiology [facility] [address] [facility] [place] [address] 09/19/2023 11:45 AM EDT Office Visit Urology, [facility] 132 [facility] [place] [address] Sivakumar Huston MD [address] [place] [address] [place] [address] 12/21/2023 11:00 AM EDT Cardiac Studies Cardiac Studies, [facility] [address] [facility] [place] [address] Pending Results Name Type Priority Associated Diagnoses Date /Time SURGICAL PATHOLOGY Pathology Routine Dermatitis 03/02/2023 12:02 PM EST Scheduled Procedures Name Priority Associated Diagnoses [...] 07/11/2024 07/11/2022, 07/07/2020 Albumin/Creatinine Ratio 04/14/2025 04/14/2022, 12/0 06/2017 Alpha-1 Antitrypsin Completed 04/23/2019 Pneumococcal Vaccine: 65+ Years Completed 12/11/2019, 12/03/2015, 05/12/2014 VITAMIN D LEVEL ONCE IN A LIFETIME-USE SMARTSET# 09676 Completed 10/18/2021, 03/25/2021, 08/11/2020, Additional history exists [...] this encounter Medical Devices Implanted Type Area In Home Sales Consultant Device Identifier Shelf Expiration Date Model / Serial / Lot Pack Cement & Mixer C01b - [id number] Implanted:Qty: 1 on 06/02/2020 by Randal Wharton MD at OR [facility] N/A: Spine Thoracic [employer] : NEURO CARE 11/10/2022 C01B / / [id number] documented as of this encounter Procedures Procedure Name Priority Date/Time Associated Diagnosis Comments DERM IMAGE (SITE) Routine 03/02/2023 Dermatitis documented in this encounter Results * DERM IMAGE (SITE) (03/02/2023) 03/02/2023 Mia Zhang PA-C DIGITAL PHOTOGR APHY documented in this encounter Visit Diagnoses Diagnosis Dermatitis- Primary [...] Directives occurred with: Not Discussed Care Teams Chemical Strength Tester Relationship Specialty Start Date End Date Conner Pedersen MD [address] [place] [address] PCP - General Internal Medicine 11/07/20 documented as of this encounter
--- OUTSIDE RECORDS SUMMARY | 2023-06-16 23:15 | External Medical Summary | Summary of Care ---
Author Name Unknown Organization [facility] Address [address] [facility] [place] [address] Phone [phone] Care Team Providers Care Reticle Printer Name Role Phone Conner Pedersen MD Primary Care Provider + Reason for Visit * Reason Onset Date Comments Follow Up 03/14/2023 Encounter Details Date Type Department Care Team (Late st Contact Info) Description 03/14/2023 Telephone Dermatology [facility] [address] [place] [address] Mia Zhang PA-C [address] [place] [phone] Follow Up Allergies Active Allergy Reactions Criticality Noted Date Comments Fexofenadine-Pseudoephed Er Other (Please comment) 03/22/2023 Jittery Losartan Rash 11/02/2022 documented as of this encounter (statuses as of 03/28/2023) Medications Medication Sig Dispensed Refills Start Date [...] MCG/ACT Inhalation Aerosol Powder Breath Activated (umeclidinium [place])Indications:PERSONAL INJURY ATTORNEY D, group A, by GOLD 2017 classification ([facility]) INHALE 1 PUFF BY MOUTH [...] as of this encounter (statuses as of 03/28/2023) Active Problems Problem Noted Date Diagnosed Date [...] rinse after steroid. Test performed by Reilly CAKE STRIPPER CPFT Alcohol abuse 01/29/2018 Lung nodule 10/26/2017 Aortic root enlargement 07/25/2017 Moderate aortic regurgitation 07/17/2017 Tobacco abuse documented as of this encounter (statuses as of 03/28/2023) Resolved Problems Problem Noted Date Diagnosed Date Resolved Date Compression fracture of T12 vertebra with routine healing 05/14/2020 04/26/2022 COPD, mild 01/29/2018 08/22/2018 Overview: Per COPD GOLD Classification HTN, goal below 140/90 10/26/201704/08 Emphysema lung 10/26/2017 01/29/2018 Colonic polyp 05/12/2014 04/26/2022 Tendonitis 05/12/2014 06/15/2017 Overview: Shoulder pain - Dr. Chacon documented as of this encounter (statuses as of 03/28/2023) Immunizations Name Administration Dates Next Due COVID-19 [...] 04/11/2023 3:00 PM EST Office Visit Rheumatology [facility] [address] [place] [address] David Pugh CRNP [address] [facility] [place] [address] 05/22/2023 10:00 AM EDT Office Visit General Internal Medicine [facility] [address] [facility] [place] [address] Conner Pedersen MD [address] [facility] [place] [address] 09/04/2023 10:30 AM EDT Imaging Radiology [facility] [address] [facility] [place] [address] 09/19/2023 11:45 AM EDT Office Visit Urology, [facility] [address] [facility] [place] [address] Sivakumar Huston MD [address] [facility] [place] [address] [facility] [place] [address] 12/21/2023 11:00 AM EDT Cardiac Studies Cardiac Studies, [facility] [address] [facility] [place] [address] Scheduled Procedures Name Priority Associated Diagnoses Date/Ti [...] D LEVEL ONCE IN A LIFETIME-USE SMARTSET# 22932 Completed 10/18/2021, 03/25/2021, 08/11/2020, Additional history exists [...] this encounter Medical Devices Implanted Type Area Radio Commentator Device Identifier Shelf Expiration Date Model / Serial / Lot Pack Cement & Mixer C01b - [id number] Implanted:Qty: 1 on 06/02/2020 by Randal Wharton MD at OR [facility] N/A: Spine Thoracic [employer] : NEURO CARE 11/10/2022 C01B / / [id number] documented as of this encounter Advance Directives Latest Code Status on File Code Status Date Activated Date Inactivated Comments Full Code 06/02/2020 8:23 AM 06/02/2020 4:48 PM This order reflects the patients wishes and were consensually agreed upon. Question Answer Comments Discussion of Advance Directives occurred with: Not Discussed Care Teams Reticle Printer Relationship Specialty Start Date End Date Conner Pedersen MD [address] [place] [address] PCP - General Internal Medicine 11/07/20 documented as of this encounter
--- OUTSIDE RECORDS SUMMARY | 2023-06-16 23:15 | External Medical Summary | Summary of Care ---
Author Name Unknown Organization [facility] Address [address] [facility] [address] Phone [phone] Care Team Providers Care Blindmaker Name Role Phone Conner Pedersen MD Primary Care Provider + Encounter Details Date Type Department Care Team (Late st Contact Info) Description 03/14/2023 Telephone Dermatology [facility] [place] [address] [place] [address] Mia Zhang PA-C [address] [place] [phone] Allergies Active Allergy Reactions Criticality Noted Date Comments Losartan Rash 11/02/2022 documented as of this encounter (statuses as of 03/14/2023) Medications Medication Sig Dispensed Refills Start Date [...] MCG/ACT Inhalation Aerosol Powder Breath Activated (umeclidinium [place])Indications:ADVERTISING SALES MANAGER D, group A, by GOLD 2017 classification ([facility]) INHALE 1 PUFF BY MOUTH EVERY [...] as of this encounter (statuses as of 03/14/2023) Active Problems Problem Noted Date Diagnosed Date [...] rinse after steroid. 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 Chacon documented as of this encounter (statuses as of 03/14/2023) Immunizations Name Administration Dates Next Due COVID-19 [...] 03/22/2023 10:00 AM EST Nurse Only Ancillary [facility] [address] [facility] [place] [address] Im, Nurse Annual Wellness [facility] [address] [place] [address] 03/23/2023 11:00 AM EST Imaging Radiology [facility]st [facility] [address] [facility] [place] [address] 04/11/2023 3:00 PM EST Office Visit Rheumatology [place] [address] [facility] [place] [address] David Pugh CRNP [address] [facility] [place] [address] 05/22/2023 10:00 AM EDT Office Visit General Internal Medicine [facility] [place] [address] [place] [address] Conner Pedersen MD [address] [facility] [place] [address] 09/04/2023 10:30 AM EDT Imaging Radiology [facility] 132 [facility] [place] [address] 09/19/2023 11:45 AM EDT Office Visit Urology, [facility] [address] [facility] [place] [address] Sivakumar Huston MD [address] [place] [address] [place] [address] 12/21/2023 11:00 AM EDT Cardiac Studies Cardiac Studies, [facility] [address] [facility] [place] [address] Scheduled Procedures Name Priority Associated Diagnoses Date/Ti [...] D LEVEL ONCE IN A LIFETIME-USE SMARTSET# 35317 Completed 10/18/2021, 03/25/2021, 08/11/2020, Additional history exists [...] this encounter Medical Devices Implanted Type Area Security Intelligence Analyst Device Identifier Shelf Expiration Date Model / Serial / Lot Pack Cement & Mixer C01b - [id number] Implanted:Qty: 1 on 06/02/2020 by Randal Wharton MD at OR [facility] [place] N/A: Spine Thoracic [employer] : NEURO CARE 11/10/2022 C01B / / [id number] documented as of this encounter Advance Directives Latest Code Status on File Code Status Date Activated Date Inactivated Comments Full Code 06/02/2020 8:23 AM 06/02/2020 4:48 PM This order reflects the patients wishes and were consensually agreed upon. Question Answer Comments Discussion of Advance Directives occurred with: Not Discussed Care Teams Blindmaker Relationship Specialty Start Date End Date Conner Pedersen MD [address] [place] [address] PCP - General Internal Medicine 11/07/20 documented as of this encounter
--- OUTSIDE RECORDS SUMMARY | 2023-06-16 23:15 | External Medical Summary | Summary of Care ---
Author Name Unknown Organization [facility] Address [address] [facility] [address] Phone [phone] Care Team Providers Care Fish And Wildlife Technician Name Role Phone Conner Pedersen MD Primary Care Provider + Reason for Visit * Reason Onset Date Comments Encounter Created in Error 03/22/2023 Encounter Details Date Type Department Care Team (Late st Contact Info) Description 03/22/2023 Telephone Dermatology [facility] [address] [place] [address] Mia Zhang PA-C [address] [place] [phone] Encounter Created in Error Allergies Active Allergy Reactions Criticality Noted Date Comments Fexofenadine-Pseudoephed Er Other (Please comment) 03/22/2023 Jittery Losartan Rash 11/02/2022 documented as of this encounter (statuses as of 03/22/2023) Medications Medication Sig Dispensed Refills Start Date [...] MCG/ACT Inhalation Aerosol Powder Breath Activated (umeclidinium [place])Indications:SILICA SPRAY MIXER D, group A, by GOLD 2017 classification ([facility]) INHALE 1 PUFF BY MOUTH EVERY [...] as of this encounter (statuses as of 03/22/2023) Active Problems Problem Noted Date Diagnosed Date [...] rinse after steroid. Test performed by Reilly MECHANIC WELDER TRUCK DRIVER CPFT Alcohol abuse 01/29/2018 Lung nodule 10/26/2017 Aortic root enlargement 07/25/2017 Moderate aortic regurgitation 07/17/2017 Tobacco abuse documented as of this encounter (statuses as of 03/22/2023) Resolved Problems Problem Noted Date Diagnosed Date Resolved Date Compression fracture of T12 vertebra with routine healing 05/14/2020 04/26/2022 COPD, mild 01/29/2018 08/22/2018 Overview: Per COPD GOLD Classification HTN, goal below 140/90 10/26/201704/08 Emphysema lung 10/26/2017 01/29/2018 Colonic polyp 05/12/2014 04/26/2022 Tendonitis 05/12/2014 06/15/2017 Overview: Shoulder pain - Dr. Chacon documented as of this encounter (statuses as of 03/22/2023) Immunizations Name Administration Dates Next Due COVID-19 [...] Care Team (Late st Contact Info) Description 03/23/2023 11:00 AM EST Imaging Radiology [facility]st [facility] 132 [facility] [place] [address] 04/11/2023 3:00 PM EST Office Visit Rheumatology [facility] [address] [place] [address] David Pugh CRNP [address] [place] [address] 05/22/2023 10:00 AM EDT Office Visit General Internal Medicine [facility] 200 [facility] [place] [address] Conner Pedersen MD 200 [facility] [place] [address] 09/04/2023 10:30 AM EDT Imaging Radiology [facility] 132 [facility] [place] [address] 09/19/2023 11:45 AM EDT Office Visit Urology, [facility] 132 [facility] [place] [address] Sivakumar Huston MD [address] [place] [address] [place] [address] 12/21/2023 11:00 AM EDT Cardiac Studies Cardiac Studies, [facility] 132 [facility] [place] [address] Scheduled Procedures Name Priority Associated Diagnoses Date/Ti me COLONOSCOPY FLEXIBLE PROXIMAL DIAGNOSTIC Recall History of colon polyps Health Maintenance Due Date Last Done Comments Zoster Vaccines (1 of 2) 05/28/1999 DISCUSS TOBACCO CESSATION (REFER TO SMARTSET #3291) 01/22/2022 01/22/2021, 06/26/2020 COVID-19 Vaccine (4 - 2023-24 season) 2022 01/08/2021, 06/04/2020, 05/08/2020 Influenza Vaccine (FLU shot) (#1) 2022 01/03/2022, 11/28/2020, 11/10/2019, Additional history exists COLONOSCOPY-EVERY 5 YRS AGES 18-100 02/15/2023 02/15/2018, 02/15/2018 Depression Screening 03/21/2023 03/22/2023, 11/13/19 15 DTaP,Tdap,and Td Vaccines (2 - Td or Tdap) 10/21/2023 10/20/2013 GFR 11/03/2023 11/02/2022, 09/10, 08/25/2022, Additional history exists O2 ASSESSMENT COMPLETED IN PAST YEAR FOR COPD 11/03/2023 11/02/2022 DXA Scan 07/11/2024 07/11/2022, 07/07/2020 Albumin/Creatinine Ratio 04/14/2025 04/14/2022, 06/2017 Alpha-1 Antitrypsin Completed 04/23/2019 Pneumococcal Vaccine: 65+ Years Completed 12/11/2019, 12/03/2015, 05/12/2014 VITAMIN D LEVEL ONCE IN A LIFETIME-USE SMARTSET# [id number] Completed 10/18/2021, 03/25/2021, 08/11/2020, Additional history exists [...] encounter Medical Devices Implanted Type Area Director Pharmacovigilance Device Identifier Shelf Expiration Date Model / Serial / Lot Pack Cement & Mixer C01b - [id number] Implanted:Qty: 1 on 06/02/2020 by Randal Wharton MD at OR [facility] [place] N/A: Spine Thoracic [employer] : NEURO CARE 11/10/2022 C01B / / [id number] documented as of this encounter Advance Directives Latest Code Status on File Code Status Date Activated Date Inactivated Comments Full Code 06/02/2020 8:23 AM 06/02/2020 4:48 PM This order reflects the patients wishes and were consensually agreed upon. Question Answer Comments Discussion of Advance Directives occurred with: Not Discussed Care Teams Fish And Wildlife Technician Relationship Specialty Start Date End Date Conner Pedersen MD [address] [facility] [place] [address] PCP - General Internal Medicine 11/07/20 documented as of this encounter
--- OUTSIDE RECORDS SUMMARY | 2023-06-16 23:15 | External Medical Summary | Summary of Care ---
Author Name Unknown Organization [facility] Address [address] [place] [address] Phone [phone] Care Team Providers Care Fountain Attendant Name Role Phone Conner Pedersen MD Primary Care Provider + Reason for Visit * Reason Comments Rash Rash everywhere- red , itchy on going for years. Tried OTC lotions and body wash. Given steriods and hydroxychloro with no relief Encounter Details Date Type Department Care Team (Late st Contact Info) Description 03/02/2023 11:20 AM EST Office Visit Dermatology [facility] [place] [address] [place] [address] Mia Zhang PA-C [address] [place] [...] MCG/ACT Inhalation Aerosol Powder Breath Activated (umeclidinium [place])Indications:CO PD, group A, by GOLD 2017 classification ([facility]) INHALE 1 PUFF BY [...] rinse after steroid. Test performed by Reilly BELT REPAIRER CPFT Alcohol abuse 01/29/2018 Lung nodule 10/26/2017 [...] mRNA, LNP-s, No Pre serve, 2-Dose Series (TapMe) 01/08/2021,06/04/2020,05/08/2020 Pneumococcal Conjugate Vacc, 13 Valent (Prevnar) [...] MCG/ACT Inhalation Aerosol Powder Breath Activated (umeclidinium [place]) INHALE 1 PUFF BY MOUTH EVERY DAY [...] 03/22/2023 10:00 AM EST Nurse Only Ancillary [facility] [address] [place] [address] Im, Nurse Annual Wellness [facility] 200 [facility] [place] [address] 03/23/2023 11:00 AM EST Imaging Radiology [address] 132 [facility] [place] [address] 04/11/2023 3:00 PM EST Office Visit Rheumatology [place] 0[address] [facility] [place] [address] David Pugh CRNP [address] [facility] [place] [address] 05/22/2023 10:00 AM EDT Office Visit General Internal Medicine [facility] [place] 200 [facility] [place] [address] Conner Pedersen MD 200 [facility] [place] [address] 09/04/2023 10:30 AM EDT Imaging Radiology [facility] 132 [facility] [place] [address] 09/19/2023 11:45 AM EDT Office Visit Urology, [facility] 132 [facility] [place] [address] Sivakumar Huston MD [address] [place] [address] [place] [address] 12/21/2023 11:00 AM EDT Cardiac Studies Cardiac Studies, [facility] 132 [facility] [place] [address] Pending Results Name Type Priority Associated Diagnoses [...] D LEVEL ONCE IN A LIFETIME-USE SMARTSET# [id number] Completed 10/18/2021, 03/25/2021, 08/11/2020, Additional history exists [...] this encounter Medical Devices Implanted Type Area Technical Sales Engineer Device Identifier Shelf Expiration Date Model / Serial / Lot Pack Cement & Mixer C01b - [id number] Implanted:Qty: 1 on 06/02/2020 by Randal Wharton MD at OR [facility] N/A: Spine Thoracic [employer] : NEURO CARE 11/10/2022 C01B / / [id number] documented as of this encounter Procedures Procedure [...] Directives occurred with: Not Discussed Care Teams Fountain Attendant Relationship Specialty Start Date End Date Conner Pedersen MD [address] [place] [address] PCP - General Internal Medicine 11/07/20 documented as of this encounter
--- OUTSIDE RECORDS SUMMARY | 2023-06-16 23:15 | External Medical Summary | Summary of Care ---
Author Name Unknown Organization [facility] Address [address] [place] [place] [address] Phone [phone] Care Team Providers Care Core Stacker Name Role Phone Conenr Pedersen MD Primary Care Provider + Reason for Visit * Reason Onset Date Comments Follow Up 03/14/2023 Encounter Details Date Type Department Care Team (Late st Contact Info) Description 03/14/2023 Telephone Dermatology [facility] [address] [place] [address] Mia Zhang PA-C [address] [place] [phone] Follow Up Allergies Active Allergy Reactions Criticality Noted Date Comments Losartan Rash 11/02/2022 documented as of this encounter (statuses as of 03/21/2023) Medications Medication Sig Dispensed Refills Start Date [...] MCG/ACT Inhalation Aerosol Powder Breath Activated (umeclidinium [place])Indications:HVAC INSTRUCTOR D, group A, by GOLD 2017 classification [...] as of this encounter (statuses as of 03/21/2023) Active Problems Problem Noted Date Diagnosed Date [...] rinse after steroid. Test performed by Reilly LEAD BURNER APPRENTICE CPFT Alcohol abuse 01/29/2018 Lung nodule 10/26/2017 Aortic root enlargement 07/25/2017 Moderate aortic regurgitation 07/17/2017 Tobacco abuse documented as of this encounter (statuses as of 03/21/2023) Resolved Problems Problem Noted Date Diagnosed Date Resolved Date Compression fracture of T12 vertebra with routine healing 05/14/2020 04/26/2022 COPD, mild 01/29/2018 08/22/2018 Overview: Per COPD GOLD Classification HTN, goal below 140/90 10/26/201704/08 Emphysema lung 10/26/2017 01/29/2018 Colonic polyp 05/12/2014 04/26/2022 Tendonitis 05/12/2014 06/15/2017 Overview: Shoulder pain - Dr. Chacon documented as of this encounter (statuses as of 03/21/2023) Immunizations Name Administration Dates Next Due COVID-19 [...] encounter Miscellaneous Notes * Telephone Encounter - Dena Blas LPN [...] 03/22/2023 10:00 AM EST Nurse Only Ancillary [facility] [place] 200 [facility] [place] [address] Im, Nurse Annual Wellness [facility] 200 [facility] [place] [address] 03/23/2023 11:00 AM EST Imaging Radiology [facility] 1st [facility] [place] 132 [facility] [place] [address] 04/11/2023 3:00 PM EST Office Visit Rheumatology [place] 476340 [facility] [place] [address] David Pugh CRNP [address] [place] [address] 05/22/2023 10:00 AM EDT Office Visit General Internal Medicine [facility] [address] [place] [address] Conner Pedersen MD [address] [facility] [place] [address] 09/04/2023 10:30 AM EDT Imaging Radiology [facility] 132 [place] [address] 09/19/2023 11:45 AM EDT Office Visit Urology, [facility] 132 [facility] [place] [address] Sivakumar Huston MD [address] [place] [address] [place] [address] 12/21/2023 11:00 AM EDT Cardiac Studies Cardiac Studies, [facility] 132 [facility] [place] [address] Scheduled Procedures Name Priority Associated Diagnoses Date/Ti [...] D LEVEL ONCE IN A LIFETIME-USE SMARTSET# [id number] Completed 10/18/2021, 03/25/2021, 08/11/2020, Additional history exists [...] this encounter Medical Devices Implanted Type Area Cycle Liaison Device Identifier Shelf Expiration Date Model / Serial / Lot Pack Cement & Mixer C01b - [id number] Implanted:Qty: 1 on 06/02/2020 by Randal Wharton MD at OR [facility] N/A: Spine Thoracic [employer] : NEURO CARE 11/10/2022 C01B / / [id number] documented as of this encounter Advance Directives Latest Code Status on File Code Status Date Activated Date Inactivated Comments Full Code 06/02/2020 8:23 AM 06/02/2020 4:48 PM This order reflects the patients wishes and were consensually agreed upon. Question Answer Comments Discussion of Advance Directives occurred with: Not Discussed Care Teams Core Stacker Relationship Specialty Start Date End Date Conner Pedersen MD [address] [place] [address] PCP - General Internal Medicine 11/07/20 documented as of this encounter
--- OUTSIDE RECORDS SUMMARY | 2023-06-16 23:15 | External Medical Summary | Summary of Care ---
Author Name Unknown Organization [facility] Address [address] [place] [place] [address] Phone [phone] Care Team Providers Care Director Digital Strategy Name Role Phone Conner Pedersen MD Primary Care Provider + Reason for Visit * Reason Onset Date Comments Follow Up 03/14/2023 Encounter Details Date Type Department Care Team (Late st Contact Info) Description 03/14/[address] [facility] [address] [place] [address] Mia Zhang PA-C [address] [place] [phone] Follow Up Allergies Active Allergy Reactions Criticality Noted Date Comments Losartan Rash 11/02/2022 documented as of this encounter (statuses as of 03/17/2023) Medications Medication Sig Dispensed Refills Start Date [...] MCG/ACT Inhalation Aerosol Powder Breath Activated (umeclidinium [place])Indications:FRONT OFFICE ATTENDANT D, group A, by GOLD 2017 classification ([facility]) INHALE 1 PUFF BY MOUTH EVERY [...] as of this encounter (statuses as of 03/17/2023) Active Problems Problem Noted Date Diagnosed Date [...] rinse after steroid. Test performed by Reilly DOUBLER HELPER CPFT Alcohol abuse 01/29/2018 Lung nodule 10/26/2017 Aortic root enlargement 07/25/2017 Moderate aortic regurgitation 07/17/2017 Tobacco abuse documented as of this encounter (statuses as of 03/17/2023) Resolved Problems Problem Noted Date Diagnosed Date Resolved Date Compression fracture of T12 vertebra with routine healing 05/14/2020 04/26/2022 COPD, mild 01/29/2018 08/22/2018 Overview: Per COPD GOLD Classification HTN, goal below 140/90 10/26/201704/08 Emphysema lung 10/26/2017 01/29/2018 Colonic polyp 05/12/2014 04/26/2022 Tendonitis 05/12/2014 06/15/2017 Overview: Shoulder pain - Dr. Chacon documented as of this encounter (statuses as of 03/17/2023) Immunizations Name Administration Dates Next Due COVID-19 [...] encounter Miscellaneous Notes * Telephone Encounter - Mia Zhang PA-C [...] 10:00 AM EST Nurse Only Ancillary [facility] 200 [facility] [address] [address] Im, Nurse Annual Wellness [facility] [address] [place] [address] 03/23/2023 11:00 AM EST Imaging Radiology [facility] [address] [place] [address] 04/11/2023 3:00 PM EST Office Visit Rheumatology [address] [place] [address] David Pugh CRNP [address] [place] [address] [place] [address] 05/22/2023 10:00 AM EDT Office Visit General Internal Medicine [facility] [address] [place] [address] Conner Pedersen MD 200 [facility] [place] [address] 09/04/2023 10:30 AM EDT Imaging Radiology [facility] 132 [facility] [place] [address] 09/19/2023 11:45 AM EDT Office Visit Urology, [facility] 132 [facility] [place] [address] Sivakumar Huston MD 27 [facility] 270 [place] [address] 12/21/2023 11:00 AM EDT Cardiac Studies Cardiac Studies, [facility] 132 [facility] [place] [address] Scheduled Procedures Name Priority Associated Diagnoses Date/Ti [...] D LEVEL ONCE IN A LIFETIME-USE SMARTSET# [id number] Completed 10/18/2021, 03/25/2021, 08/11/2020, Additional history exists [...] this encounter Medical Devices Implanted Type Area Record Press Supervisor Device Identifier Shelf Expiration Date Model / Serial / Lot Pack Cement & Mixer C01b - [id number] Implanted:Qty: 1 on 06/02/2020 by Randal Wharton MD at OR [facility] N/A: Spine Thoracic [employer] : NEURO CARE 11/10/2022 C01B / / [id number] documented as of this encounter Advance Directives Latest Code Status on File Code Status Date Activated Date Inactivated Comments Full Code 06/02/2020 8:23 AM 06/02/2020 4:48 PM This order reflects the patients wishes and were consensually agreed upon. Question Answer Comments Discussion of Advance Directives occurred with: Not Discussed Care Teams Director Digital Strategy Relationship Specialty Start Date End Date Conner Pedersen MD 200 [facility] [place] [address] PCP - General Internal Medicine 11/07/20 documented as of this encounter
--- OUTSIDE RECORDS SUMMARY | 2023-06-16 23:15 | External Medical Summary | Summary of Care ---
Author Name Unknown Organization [facility] Address [address] [place] [facility] [facility] [place] [address] Phone [phone] Care Team Providers Care Orthopedics Teacher Name Role Phone Conner Pedersen MD Primary Care Provider + Reason for Visit * Reason Onset Date Comments Follow Up 03/14/2023 Encounter Details Date Type Department Care Team (Late st Contact Info) Description 03/14/[address] [facility] [address] [place] [address] Mia Zhang PA-C [address] [place] [phone] Follow Up Allergies Active Allergy Reactions Criticality [...] MCG/ACT Inhalation Aerosol Powder Breath Activated (umeclidinium [place])Indications:INVESTMENT BANKING ASSOCIATE D, group A, by GOLD 2017 classification ([facility]) INHALE 1 PUFF BY MOUTH EVERY DAY [...] rinse after steroid. Test performed by Reilly PAWN SHOP KEEPER CPFT Alcohol abuse 01/29/2018 Lung nodule 10/26/2017 [...] 03/22/2023 10:00 AM EST Nurse Only Ancillary [facility] [place] [address] [place] [address] Im, Nurse Annual Wellness [facility] [address] [place] [address] 03/23/2023 11:00 AM EST Imaging [facility]iology [facility] 132 [facility] [place] [address] 04/11/2023 3:00 PM EST Office Visit Rheumatology [facility] 2520 [facility] [place] [address] David Pugh CRNP [address] [facility] [place] [address] 05/22/2023 10:00 AM EDT Office Visit General Internal Medicine [facility] [address] [facility] [place] [address] Conner Pedersen MD [address] [facility] [place] [address] 09/04/2023 10:30 AM EDT Imaging Radiology [facility] 132 [facility] [place] [address] 09/19/2023 11:45 AM EDT Office Visit Urology, [facility] 132 [facility] [place] [address] Sivakumar Huston MD [address] [place] [address] [place] [address] 12/21/2023 11:00 AM EDT Cardiac Studies Cardiac Studies, [facility] 132 [facility] [place] [address] Scheduled Procedures Name Priority Associated Diagnoses Date/Ti [...] D LEVEL ONCE IN A LIFETIME-USE SMARTSET# 33706 Completed 10/18/2021, 03/25/2021, 08/11/2020, Additional history exists [...] this encounter Medical Devices Implanted Type Area Communication Studies Professor Device Identifier Shelf Expiration Date Model / Serial / Lot Pack Cement & Mixer C01b - [id number] Implanted:Qty: 1 on 06/02/2020 by Randal Wharton MD at OR [facility] N/A: Spine Thoracic [employer] : NEURO CARE 11/10/2022 C01B / / [id number] documented as of this encounter Advance Directives Latest Code Status on File Code Status Date Activated Date Inactivated Comments Full Code 06/02/2020 8:23 AM 06/02/2020 4:48 PM This order reflects the patients wishes and were consensually agreed upon. Question Answer Comments Discussion of Advance Directives occurred with: Not Discussed Care Teams Orthopedics Teacher Relationship Specialty Start Date End Date Conner Pedersen MD [address] [facility] [place] [address] PCP - General Internal Medicine 11/07/20 documented as of this encounter
--- OUTSIDE RECORDS SUMMARY | 2023-06-16 23:15 | External Medical Summary | Summary of Care ---
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 Test performed by Reilly MANAGER ACTION CPFT Alcohol abuse 01/29/2018 Lung nodule 10/26/2017 [...] 03/22/2023 10:00 AM EST Nurse Only Ancillary [facility] 200 [facility] [place] [address] Im, Nurse Annual Wellness [facility] [address] [place] [address] 03/23/2023 11:00 AM EST Imaging Radiology [facility] 1st [facility] 132 [facility] [place] [address] 04/11/2023 3:00 PM EST Office Visit Rheumatology [place] [address] [facility] [place] [address] David Pugh CRNP 2520 [facility] [place] [address] 05/22/2023 10:00 AM EDT Office Visit General Internal Medicine [facility] [place] [address] [place] [address] Conner Pedersen MD 200 [facility] [place] [address] 09/04/2023 10:30 AM EDT Imaging Radiology [facility] 132 [facility] [place] [address] 09/19/2023 11:45 AM EDT Office Visit Urology, [facility] 132 [facility] [place] [address] Sivakumar Huston MD [address] [place] [address] [place] [address] 12/21/2023 11:00 AM EDT Cardiac Studies Cardiac Studies, [facility] 132 [facility] [place] [address] Scheduled Procedures Name Priority Associated Diagnoses Date/Ti [...] D LEVEL ONCE IN A LIFETIME-USE SMARTSET# [id number] Completed 10/18/2021, 03/25/2021, 08/11/2020, Additional history exists [...] this encounter Medical Devices Implanted Type Area Shear Tender Device Identifier Shelf Expiration Date Model / Serial / Lot Pack Cement & Mixer C01b - [id number] Implanted:Qty: 1 on 06/02/2020 by Randal Wharton MD at OR [facility] N/A: Spine Thoracic [employer] : NEURO CARE 11/10/2022 C01B / / [id number] documented as of this encounter Advance Directives Latest Code Status on File Code Status Date Activated Date Inactivated Comments Full Code 06/02/2020 8:23 AM 06/02/2020 4:48 PM This order reflects the patients wishes and were consensually agreed upon. Question Answer Comments Discussion of Advance Directives occurred with: Not Discussed Care Teams Turning Machine Operator Relationship Specialty Start Date End Date Conner Pedersen MD 200 [facility] [place] [address] PCP - General Internal Medicine 11/07/20 documented as of this encounter
--- OUTSIDE RECORDS SUMMARY | 2023-06-16 23:15 | External Medical Summary ---
Author Name Unknown Address Unknown Organization K09:[facility] [place] [address] Laboratory Report Ordering Provider Test Date Status ROXANN MOSELEY 03/22/2023 10:51:59 Final Observation Date Value Abnormality Reference (Units ) Status BUN 03/22/2023 10:51:59 9 6-20 (mg/dL) Final Creatinine 03/22/2023 10:51:59 0.8 0.6-1.2 (mg/dL) Final Glomerular filtration rate/1.73 sq M.predicted [Volume Rate/Area] in Serum, Plasma or Blood by Creatinine-based formula (CKD-EPI) 03/22/2023 10:51:59 >90 >=60 (mL/min) Final eGFR is calculated based on the CKD-EPI 2020 equation SODIUM 03/22/2023 10:51:59 132 Below low normal 135 -146 (mmol/L) Final Potassium 03/22/2023 10:51:59 4.6 3.5-5.1 (m mol/L) Final Cl 03/22/2023 10:51:59 95 Below low normal 98- 107 (mmol/L) Final CO2 03/22/2023 10:51:59 25 22-32 (mmo l/L) Final Anion gap 03/22/2023 10:51:59 12 7-15 (mmol /L) Final Glucose 03/22/2023 10:51:59 98 70-120 (mg /dL) Final Calcium 03/22/2023 10:51:59 9.8 8.4-10.2 ( mg/dL) Final Performing Location [facility] Tam[place] [address]
--- OUTSIDE RECORDS SUMMARY | 2023-06-16 23:15 | External Medical Summary | Summary of Care ---
Author Name Unknown Organization [facility] Address [address] [facility] [place] [address] Phone [phone] Care Team Providers Care Nuclear Licensing Engineer Name Role Phone Conner Pedersen MD Primary Care Provider + Reason for Visit * Reason Onset Date Comments Follow Up 03/14/2023 Encounter Details Date Type Department Care Team (Late st Contact Info) Description 03/14/2023 Telephone Dermatology [facility] [address] [place] [address] Mia Zhang PA-C [address] [place] [phone] Follow Up Allergies Active Allergy Reactions Criticality Noted Date Comments Fexofenadine-Pseudoephed Er Other (Please comment) 03/22/2023 Jittery Losartan Rash 11/02/2022 documented as of this encounter (statuses as of 03/23/2023) Medications Medication Sig Dispensed Refills Start Date [...] MCG/ACT Inhalation Aerosol Powder Breath Activated (umeclidinium [place])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 Chacon documented as of this encounter (statuses as of 03/23/2023) Immunizations Name Administration Dates Next Due COVID-19 [...] encounter Miscellaneous Notes * Telephone Encounter - Salena Dickson MED [...] Description 03/23/2023 11:00 AM EST Imaging Radiology [address] 132 [facility] [place] [address] 04/11/2023 3:00 PM EST Office Visit Rheumatology [address] [place] [address] David Pugh CRNP [facility]0 [place] [address] 05/22/2023 10:00 AM EDT Office Visit General Internal Medicine [facility] 200 [facility] [place] [address] Conner Pedersen MD 200 [facility] [place] [address] 09/04/2023 10:30 AM EDT Imaging Radiology [facility] 132 [place] [address] 09/19/2023 11:45 AM EDT Office Visit Urology, [facility] 132 [place] [address] Sivakumar Huston MD 27 [facility] [address] [place] [address] 12/21/2023 11:00 AM EDT Cardiac Studies Cardiac Studies, [facility] 132 [place] [address] Scheduled Procedures Name Priority Associated Diagnoses Date/Ti [...] D LEVEL ONCE IN A LIFETIME-USE SMARTSET# [id number] Completed 10/18/2021, 03/25/2021, 08/11/2020, Additional history exists [...] this encounter Medical Devices Implanted Type Area Tone Cabinet Assembler Device Identifier Shelf Expiration Date Model / Serial / Lot Pack Cement & Mixer C01b - [id number] Implanted:Qty: 1 on 06/02/2020 by Randal Wharton MD at [place] [facility] N/A: Spine Thoracic [employer] : NEURO CARE 11/10/2022 C01B / / [id number] documented as of this encounter Advance Directives Latest Code Status on File Code Status Date Activated Date Inactivated Comments Full Code 06/02/2020 8:23 AM 06/02/2020 4:48 PM This order reflects the patients wishes and were consensually agreed upon. Question Answer Comments Discussion of Advance Directives occurred with: Not Discussed Care Teams Nuclear Licensing Engineer Relationship Specialty Start Date End Date Conner Pedersen MD [address] [place] [address] PCP - General Internal Medicine 11/07/20 documented as of this encounter
--- OUTSIDE RECORDS SUMMARY | 2023-06-16 23:15 | External Medical Summary | Summary of Care ---
Author Name Unknown Organization [facility] Address [address] [place] [address] Phone [phone] Care Team Providers Care Piano Builder Name Role Phone Conner Pedersen MD Primary Care Provider + Encounter Details Date Type Department Care Team (Late st Contact Info) Description 03/24/2023 Orders Only Dermatology [facility] [place] [address] [facility] [place] [address] Conner Apodaca MD [address] 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 Test performed by Reilly INDUSTRIAL TRAINER CPFT Alcohol abuse 01/29/2018 Lung nodule 10/26/2017 Aortic root enlargement 07/25/2017 Moderate aortic regurgitation 07/17/2017 Tobacco abuse documented as of this encounter (statuses as of 03/24/2023) Resolved Problems Problem Noted Date Diagnosed Date Resolved Date Compression fracture of T12 vertebra with routine healing 05/14/2020 04/26/2022 COPD, mild 01/29/2018 08/22/2018 Overview: Per COPD GOLD Classification HTN, goal below 140/90 10/26/201704/08 Emphysema lung 10/26/2017 01/29/2018 Colonic polyp 05/12/2014 04/26/2022 Tendonitis 05/12/2014 06/15/2017 Overview: Shoulder pain - Dr. Chacon documented as of this encounter (statuses as of 03/24/2023) Immunizations Name Administration Dates Next Due COVID-19 [...] 04/11/2023 3:00 PM EST Office Visit Rheumatology [facility] [address] [facility] [place], [place] [address] David Pugh CRNP [address] [facility] [place] [address] 05/22/2023 10:00 AM EDT Office Visit General Internal Medicine [facility] 200 [facility] [place] [address] Conner Pedersen MD 200 [facility] [place] [address] 09/04/2023 10:30 AM EDT Imaging Radiology Health system [address] [place] [address] 09/19/2023 11:45 AM EDT Office Visit Urology, Health system [address] [place] [address] Sivakumar Huston MD 27 [facility] [address] [place] [address] 12/21/2023 11:00 AM EDT Cardiac Studies Cardiac Studies, Health system [address] [place] [address] Scheduled Procedures Name Priority Associated Diagnoses Date/Ti [...] D LEVEL ONCE IN A LIFETIME-USE SMARTSET# 99637 Completed 10/18/2021, 03/25/2021, 08/11/2020, Additional history exists [...] this encounter Medical Devices Implanted Type Area Tire Mold Engraver Device Identifier Shelf Expiration Date Model / Serial / Lot Pack Cement & Mixer C01b - [id number] Implanted:Qty: 1 on 06/02/2020 by Randal Wharton MD at OR [facility] N/A: Spine Thoracic [employer] : NEURO CARE 11/10/2022 C01B / / [id number] documented as of this encounter Advance Directives Latest Code Status on File Code Status Date Activated Date Inactivated Comments Full Code 06/02/2020 8:23 AM 06/02/2020 4:48 PM This order reflects the patients wishes and were consensually agreed upon. Question Answer Comments Discussion of Advance Directives occurred with: Not Discussed Care Teams Piano Builder Relationship Specialty Start Date End Date Conner Pedersen MD 200 [place] [address] PCP - General Internal Medicine 11/07/20 documented as of this encounter
--- OUTSIDE RECORDS SUMMARY | 2023-06-16 23:15 | External Medical Summary | Summary of Care ---
Author Name Unknown Organization [facility] Address [address] [place] [address] Phone [phone] Care Team Providers Care Crystal Evaluator Name Role Phone Conner Pedersen MD Primary Care Provider + Reason for Visit * Reason Comments Adult Annual Wellness Visit, Subsequent Visit Encounter Details Date Type Department Care Team (Late st Contact Info) Description 03/22/2023 10:00 AM EST Nurse Only Ancillary [facility] [address] [place] [address] Im, Nurse Annual Wellness [facility] [address] [place] [address] Adult Annual Wellness Visit, Subsequent Visit Allergies [...] MCG/ACT Inhalation Aerosol Powder Breath Activated (umeclidinium [place])Indications:HEAD OF DESIGN D, group A, by GOLD 2017 classification [...] rinse after steroid. Test performed by Reilly AIRCRAFT REFUELER CPFT Alcohol abuse 01/29/2018 Lung nodule 10/26/2017 [...] 8:57 AM EDT Sexual Orientation Straight 07/31/2018 8 :57 AM EDT Job Start Date Occupation Industry [...] 10 times. Repeat this throughout the day. Lisa Patient Education Copyright 2009 - 2010 Lisa except where otherwise noted. Preventing Falls: Moving [...] can result in permanent incontinence. Hi Mr. Colindres, As your primary care physician, I know [...] (FLU shot) (1) 11/11/2022 COVID-19 Vaccine ( - season) 2022 COLONOSCOPY-EVERY 5 YRS AGES [...] MCG/ACT Inhalation Aerosol Powder Breath Activated (umeclidinium [place]) INHALE 1 PUFF BY MOUTH EVERY DAY [...] in formalin with a container labeled with "Handy Bermudezhoangitalia", "[id number]", "1950" and " back". Received is a 1.1 x 0.8 cm skin shave. The skin surface is cody-white slightly raised firm and shiny. The underlying tissue is inked. The specimen is trisected and submitted in cassette A1. Gross By: MR Gunn. Skin. Received in Haroldo's solution with a container labeled with "Handy Bermudezhoangitalia", "[id number]", "1950" and " back perilesional". Received is a 0.8 x 0.6 cm skin shave. The skin surface is ocdy-white shiny scaly and somewhat hemorrhagic. The specimen is washed, snap frozen, and slides are cut for immunofluorescence. Gross By: MR Sign Out Location Pathologist sign out performed at [facility] ([facility] [address] [place] [address]. Photographic images and diagrams represent cortez findings in this case; they are not intended to replace a complete review of the final diagnostic report. The following statement applies to Flow Cytometry, Histology, In situ Hybridization Assays and Molecular Genetics. This test was developed and performed at [facility] and its performance characteristics determined by [employer]. It has not been cleared or approved [...] control reactions. Sincerely, Conner Pedersen MD 03/22/2023 [facility] Calendar (as of Visit date not found (in office), Visit date not found (telemedicine) ) Care needs Care needs Last completed Due next Zoster (Shingles) Vaccine (1 of 2) --- Never done Discuss quitting tobacco use 01/22/2021 01/22/2022 Flu vaccine (recommended) (1) 01/03/2022 11/11/2022 COVID-19 Vaccine (4 - 2022- season) 2021 11/11/2022 Colonoscopy - every 5 years 02/15/2018 02/15/2023 Diphtheria, tetanus & pertussis vaccines (2 - Td or Tdap) 10/20/2013 10/21/2023 Kidney Function Test 11/02/2022 11/03/2023 Yearly COPD oxygen test 11/02/2022 11/03/2023 Bone Density 07/11/2022 07/11/2024 Urine albumin/creatinine test 04/14/2022 04/14/2025 As you look over the recommended services, be sure to check with your insurance company to determine what's covered. [employer] is a great tool that helps you review your medical record online, including test results, doctor notes and your health summary. You can also schedule appointments with me and other members of your care team, request prescription refills and ask for advice related to your medical conditions at [email or web address]. documented in this encounter Progress Notes * [...] performed by Bowen Montejo MD at ENDOSCOPY [facility] EGD, FLEXIBLE, DIAGNOSTIC 04/15/2015 Schatzki ring, repeat 2 mo/ESOPHAGOGASTRODUODENOSCOPY (EGD), FLEXIBLE, TRANSORAL, DIAGNOSTIC performed by Justin Ernst MD at ENDOSCOPY [facility] EGD, FLEXIBLE, DIAGNOSTIC 04/22/2015 Schatzki ring, repeat 1 mo EGD, FLEXIBLE, DIAGNOSTIC 2015 Schatzki ring/ESOPHAGOGASTRODUODENOSCOPY (EGD), FLEXIBLE, TRANSORAL, DIAGNOSTIC performed by Justin Ernst MD at ENDOSCOPY [facility] EGD, FLEXIBLE, DIAGNOSTIC 04/22/2015 ESOPHAGOGASTRODUODENOSCOPY (EGD), FLEXIBLE, TRANSORAL, DIAGNOSTIC performed by Justin Ernst MD at ENDOSCOPY [facility] IR VERTEBRAL AUGMENTATION THORACIC N/A 06/02/2020 PERCUTANEOUS VERTEBRAL AUGMENTATION THORACIC KYPHOPLASTY performed by Randal Wharton MD at OR [facility] PROCEDURE - GENERAL Left 01/24/2022 Left inguinal [...] COVID-19 mRNA, LNP-s, No Preserve, 2-Dose Series (Pfizer) 05/08/2020, 06/04/2020, 01/08/2021 Pneumococcal Conjugate Vacc, 13 [...] MCG/ACT Inhalation Aerosol Powder Breath Activated (umeclidinium [place]) INHALE 1 PUFF BY MOUTH EVERY DAY [...] Moderate aortic regurgitation I35.1 Aortic root enlargement ([facility]) I77.89 Lung nodule R91.1 Alcohol abuse F10.10 COPD, group A, by GOLD 2017 classification ([facility]) J44.9 Mixed hyperlipidemia E78.2 Renal cyst N28.1 High risk for fracture due to osteoporosis by DEXA scan M81.0 Chronic hyponatremia E87.1 SIADH (syndrome of inappropriate ADH production) ([facility]) E22.2 Vasospasm ([facility]) I73.9 Essential hypertension with goal blood pressure less than 130/80 I10 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 Patient stood from sitting position and walked approximately 10 feet, returned and sat down. Total time for ole-sf-vhc-go test was 8 seconds. Kai-Gn-rsw-Go Test completed? Yes Gender Specific Preventative Plan: Health Maintenance Topic Date Due Zoster Vaccines (1 of 2) Never done DISCUSS TOBACCO CESSATION (REFER TO SMARTSET #5776) 01/22/2022 Influenza Vaccine (FLU shot) (1) 11/11/2022 COVID-19 Vaccine (4 - 2022-24 season) 2022 COLONOSCOPY-EVERY 5 YRS AGES 18-100 02/15/2023 Depression Screening 03/21/2023 DTaP,Tdap,and Td Vaccines (2 - Td or Tdap) 10/21/2023 GFR 11/03/2023 O2 ASSESSMENT COMPLETED IN PAST YEAR FOR COPD 11/03/2023 DXA Scan 07/11/2024 Albumin/Creatinine Ratio 04/14/2025 VITAMIN D LEVEL ONCE IN A LIFETIME-USE SMARTSET# 76419 Completed Alpha-1 Antitrypsin Completed AAA Screening Completed [...] COPD, group A, by GOLD 2017 classification ([facility]) - Med reconciliation completed and compliance discussed. [...] 09/02/2013 12:00 AM LDL CHOLESTEROL (CALCULATED) - [facility] 95 04/14/2022 09:26 AM LDL CHOLESTEROL (CALCULATED) - [facility] 75 12/31/2019 09:19 AM LDL CHOLESTEROL (DIRECT MEASURE) - [facility] NOT APPLICABLE 12/31/2019 09:19 AM Tobacco abuse [...] documented in this encounter Miscellaneous Notes * Pt Handout (on AVS) - Jeanette Francis, REMEDIOS - 03/22/2023 10:18 AM EST Images from the original note were not included. [address] Preventing Falls at Home A person can [...] up. Use a "reach stick" to grab lixu-aw-iybhn items. Install grab bars wherever needed to pull yourself up. Arrange items that you use often. This will make them easier to find or reach. Keep track of where your pets are so you don't trip over them when you are walking. Last Reviewed Date: 01/11/202219994946-7208 [employer]. All rights reserved. This information is not intended as a substitute for professional medical care. Always follow your healthcare professional's instructions. * Pt Handout (on AVS) - Jeanette Francis RN - 03/22/2023 10:18 AM EST Images from the original note were not included. [address] Exercises to Prevent Falls Certain types of [...] this throughout the day. Last Reviewed Date: 01/11/202219994189-0303 [employer]. All rights reserved. This information is not intended as a substitute for professional medical care. Always follow your healthcare professional's instructions. documented in this encounter Plan of Treatment Upcoming Encounters Date Type Department Care Team (Late st Contact Info) Description 03/23/2023 11:00 AM EST Imaging Radiology [facility] 1st Floor, [place] [address] [facility] [place] [address] 04/11/2023 3:00 PM EST Office Visit Rheumatology [address] [place] [address] David Pugh CRNP [address] [place] [address] [place] [address] 05/22/2023 10:00 AM EDT Office Visit General Internal Medicine [facility] 200 [facility] [place] [address] Conner Pedersen MD 200 [facility] [place] [address] 09/04/2023 10:30 AM EDT Imaging Radiology [address] [place] [address] 09/19/2023 11:45 AM EDT Office Visit Urology, [facility] 132 [facility] [place] [address] Sivakumar Huston MD 27 [facility] [address] [place] [address] 12/21/2023 11:00 AM EDT Cardiac Studies Cardiac Studies, [facility] [place] [facility] [place] [address] Pending Results Name Type Priority Associated Diagnoses Date /Time BASIC METABOLIC PANEL Lab Routine Chronic hyponatremia 03/22/2023 10:51 AM EST ANTINUCLEAR ANTIBODY (TAYLOR) EIA SCREEN WITH REFLEX AB QUANT Lab Routine Pruritus 03/22/2023 10:51 AM EST HEPATIC FUNCTION PANEL Lab Routine Pruritus 03/22/2023 10:51 AM EST IGE Lab Routine Pruritus 03/22/2023 10:51 AM EST ANTINUCLEAR ANTIBODY (TAYLOR) SCREEN, SKY Lab Routine Pruritus 03/22/2023 10:51 AM EST Scheduled Procedures Name Priority Associated [...] D LEVEL ONCE IN A LIFETIME-USE SMARTSET# [id number] Completed 10/18/2021, 03/25/2021, 08/11/2020, Additional history exists [...] this encounter Medical Devices Implanted Type Area Car Shunter Device Identifier Shelf Expiration Date Model / Serial / Lot Pack Cement & Mixer C01b - [id number] Implanted:Qty: 1 on 06/02/2020 by Randal Wharton MD at OR [facility] N/A: Spine Thoracic [employer] : NEURO CARE 11/10/2022 C01B / / [id number] documented as of this encounter Visit Diagnoses Diagnosis Risk and [...] Directives occurred with: Not Discussed Care Teams Crystal Evaluator Relationship Specialty Start Date End Date Conner Pedersen MD [address] [place] [address] PCP - General Internal Medicine 11/07/20 documented as of this encounter
--- OUTSIDE RECORDS SUMMARY | 2023-06-16 23:15 | External Medical Summary ---
Author Name Unknown Address Unknown Organization K01:LABORATORY [facility] - [address] [place] [address] Laboratory Report Ordering Provider Test Date Status HAO LEONARD 03/22/2023 10:51:59 Final Observation Date Value Abnormality Reference (Units ) Status IgE 03/22/2023 10:51:59 1175.0 Above high normal <= 214.0 (kU/L) Final Performing Location LABORATORY [facility] - [address] [place] [address]
--- OUTSIDE RECORDS SUMMARY | 2023-06-16 23:16 | External Medical Summary | Summary of Care ---
Author Name Unknown Organization [facility] Address [address] [place] [place] [address] Phone [phone] Care Team Providers Care Colorectal Surgeon Name Role Phone Conner Pedersen MD Primary Care Provider + Reason for Referral * Precert (Within 10 days (routine)) - Authorized Specialty Diagnoses / Procedures Referred By Contac t Referred To Contact Cardiac Studies Diagnoses Bicuspid aortic valve Moderate aortic regurgitation Aneurysm of ascending aorta without rupture (HCC) Procedures ECHO, COMPLETE (2D), TRANS-THORACIC Biju Vasquez DO [address] [place] [address] Referral ID Status Reason Start Date Expiration Date V isits Requested Visits Authorized [id number] Authorized Precert 12/21/2023 999 999 Reason for Visit * Reason Comments Follow Up Encounter Details Date Type Department Care Team Description 12/22/2022 Office Visit Cardiology, [facility] [address] [place] [address] Biju Vasquez DO [address] [place] [address] Bicuspid aortic valve*; Moderate aortic regurgitation; Aneurysm of ascending aorta without rupture (HCC); Tobacco abuse Allergies Active Allergy Reactions Severity Noted Date Comments Losartan Rash 11/02/2022 documented as of this encounter (statuses as of 12/22/2022) Medications Medication Sig Dispensed Refills Start Date [...] MCG/ACT Inhalation Aerosol Powder Breath Activated (umeclidinium [place])Indications:[employer] D, group A, by GOLD 2017 classification [...] as of this encounter (statuses as of 12/22/2022) Active Problems Problem Noted Date Chronic right arterial ischemic stroke, MCA (middle cerebral artery) 11/02/2022 MGUS (monoclonal gammopathy of unknown s ignificance) 11/02/2022 Mild carotid artery disease 10/20/2021 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) 04/08/2021 Vasospasm 04/08/2021 Essential hypertension with goal blood p ressure less than 130/80 04/08/2021 Monoclonal paraproteinemia 04/08/2021 Bicuspid aortic valve 04/08/2021 Overview: Partial fusion Chronic hyponatremia 10/02/2020 High risk for fracture due to osteoporos is by DEXA scan 07/08/2020 Renal cyst 05/12/2020 Mixed hyperlipidemia 01/31/2019 COPD, group A, by GOLD 2017 classificati on 08/20/2018 Overview: Per COPD GOLD Classification In Check dial performed to assess inhaler technique: 04/10/19 Name of inhalers Albuterol Pass: Yes at 55L/min and Incruse Ellipta Pass: Yes at 45 L/min. Encouraged to take deep breaths, use aero chamber, and rinse after steroid. Test performed by [employer] Alcohol abuse 01/29/2018 Lung nodule 10/26/2017 Aortic root enlargement 07/25/2017 Moderate aortic regurgitation 07/17/2017 Tobacco abuse documented as of this encounter (statuses as of 12/22/2022) Resolved Problems Problem Noted Date Resolved Date Compression fracture of T12 vertebra with routin e healing 05/14/2020 04/26/2022 COPD, mild 01/29/2018 08/22/2018 Overview: Per COPD GOLD Classification HTN, goal below 140/90 10/26/2017 2 Emphysema lung 10/26/2017 01/29/2018 Colonic polyp 05/12/2014 04/26/2022 Tendonitis 05/12/2014 06/15/2017 Overview: Shoulder pain - Dr. Chacon documented as of this encounter (statuses as of 12/22/2022) Immunizations Name Administration Dates Next Due COVID-19 mRNA, LNP-s, No Pre serve, 2-Dose Series (Pfizer) 01/08/2021,06/04/2020,05/08/2020 Pneumococcal Conjugate Vacc, 13 Valent (Prevnar) 12/03/2015 Pneumococcal Polysaccharide PPV23 (Pneumovax) 12/11/2019,05/12/2014 SEASONAL INFLUENZA, PF, 6 M & Above, IM , (FLULAVAL or FLUZONE) 12/20/2017 Seasonal Influenza, Quadriva lent Hd (Fluzone [...] drink = 0.6 oz pu re alcohol) Food Insecurity Answer Date Recorded Within the past 12 months, y ou worried that your food would run out before you got money to buy more. Never true 03/21/2022 Within the past 12 months, t he food you bought just didn't last and you didn't have money to get more. Never true 03/21/2022 Sex Assigned at Date Recorded Male 07/31/2018 8:57 AM E DT Job Start Date Occupation Industry Not on file Not on file Not on file documented as of this encounter Last Filed Vital Signs Vital Sign Reading Time Taken Comments Blood Pressure 138/66 12/22/2022 10:19 AM EDT Pulse 84 12/22/2022 10:19 AM EDT Temperature - - Respiratory Rate 16 12/22/2022 10:19 AM EDT Oxygen Saturation - - Inhaled Oxygen Concentration - - Weight 66.4 kg (146 lb 4.8 oz) 12/22/2022 10:19 AM EDT Height - - Body Mass Index 21.92 11/02/2022 9:54 AM EDT documented in this encounter Progress Notes * Biju Vasquez, - 12/22/2022 10:23 AM EDT SUBJECTIVE: Patient returns today for follow up of bicuspid aortic valve with mild aortic stenosis,moderate aortic insufficiency, mild aortic root and ascending aortic enlargement, and hypertension. Feeling well from a cardiovascular perspective. Denies chest pain or unusual shortness of breath. Active around his home and performing daily chores without restriction. No palpitations, lightheadedness, dizziness, syncope, near syncope. Denies orthopnea, PND, or claudication. Intermittent trace bilateral pedal edema unchanged. Losartan and metoprolol discontinued by primary care. No interim hospitalizations. Admits to 2 ETOH drinks per day and smoking 1.5 packs of cigarettes per day. ECG: Normal sinus rhythm, can not exclude age indeterminate septal infarct. 2D echocardiogram report December 21, 2022: The LV wall thickness is mildly increased (concentric). The qualitative LV ejection fraction is 50-54% (normal). There is a functionally bicuspid aortic valve with partial fusion of the right and left coronary cusps. The aortic valve is mildly calcified. Aortic stenosis is absent. Moderate aortic valve regurgitation is present. Mild mitral stenosis is present. Mild tricuspid regurgitation is present. There is no evidence of pulmonary hypertension. The aortic root is normal sized. The proximal ascending thoracic aorta is moderately enlarged, 4.5 cm. 2D echocardiogram report December 13, 2021: Calculated LV ejection Fraction = 58% (three dimensional volumes). The aortic valve is mildly calcified. There is aortic valve sclerosis without stenosis. Partial fusion of the right and left aortic valve cusps. Moderate aortic valve regurgitation is present. The aortic valve jet is eccentric, coursing across the anterior mitral valve leaflet. The ascending aorta is moderately enlarged, 4.5 cm. Compared to last available study changes are noted as follows: Ascending aortic diameter has mildlyincreased to 4.5 cm, previously reported as 4.4 cm. 2D echocardiogram report summary November 13, 2020: The qualitative LV ejection fraction is 55-59% (normal). The left ventricular cavity size is normal. The LV wall thickness is normal. The right ventricular systolic function is normal as assessed by tricuspid annular plane systolic excursion (TAPSE) (normal >1.7cm). The left atrium is normal sized (< 35 ml/m^2). The left ventricular diastolic function is mildly abnormal (grade I). The proximal ascending thoracic aorta is mildly enlarged at 4.4 cm. The aortic root is normal sized. The aortic valve is mildly calcified with partial fusion of the right and left valve cusps There is aortic valve sclerosis without stenosis. Moderate aortic valve regurgitation is present as an eccentric jet along the anterior leaflet of the mitral valve. There is mild mitral annular calcification. Mild secondary mitral regurgitation is present. Mild tricuspid regurgitation is present. 2D echocardiogram report summary October 03, 2019: The qualitative LV ejection fraction is 55-59% (normal). The aortic valve is mildly calcified with partial fusion of the right and left valve cusps. There is aortic valve sclerosis without stenosis. Moderate aortic valve regurgitation is present. The aortic valve jet is eccentric, coursing across the anterior mitral valve leaflet. Mild tricuspid regurgitation is present. There is no evidence of pulmonary hypertension. The ascending aorta is mildly enlarged, 4.4 cm. Compared to prior study of 08/07/2018, there is no significant change. 2D echocardiogram report 07/2018: The qualitative LV ejection fraction is 55-59% (normal). The left ventricular diastolic function is mildly abnormal (grade I). The aortic valve is congenitally bicuspid. The aortic valve is mildly calcified. Aortic stenosis is absent. Moderate aortic valve regurgitation is present. Mild mitral regurgitation is present. Mild to moderate tricuspid regurgitation. The ascending aorta is mildly enlarged, 4.4cm, Compared to prior study of 07/12/2017, there is no significant change. 2D echocardiogram report July 12, 2017: The LV wall thickness is borderline increased (concentric). The left ventricular wall motion is normal. The qualitative LV ejection fraction is 55-59%(normal). There is functional fusion of the left and right coronary cusps and therefore a congenitally bicuspid aortic valve cannot be excluded. The aortic valve is mildly calcified. Mild aortic valve stenosis is present. Mild to moderate aortic valve regurgitation is present. Mild tricuspid regurgitation is present. The aortic root is mildly enlarged with diameter of 3.8 cm. The proximal ascending thoracic aorta is moderately enlarged with diameter of 4.4cm. Consider further assessment with a CT of the chest for characterization of the entire thoracic aorta as additional aneyrysmal dilatation is out of the field of view of this study. There is no prior study available for comparison. CT chest report January 11, 2018: Atherosclerotic changes in the aorta and coronary arteries. Ectasia of the ascending thoracic aortameasuring 4.4 cm in AP dimension. Pulmonary nodules as described above. Lung RADS 2. Recommend continued annual low-dose CT screening. CTA chest report 07/2017: 1. Ectasia of the ascending thoracic aorta measuring 44 mm in maximum diameter. No findings of aortic dissection, pseudoaneurysm or flow-limiting stenosis. 2. Minimal ectasia of the infrarenal abdominal aorta measuring 27 mm in maximum diameter. 3. Pulmonary nodule within the lingula measuring 4 x 6 mm, unchanged from prior examination earlierthis month. As previously recommended, low-dose CT scan of the chest should be obtained in 6 monthsfor follow-up. AAA screen result 08/2017: There is no evidence of an abdominal aortic aneurysm. ROS: All others negative other than those noted in the HPI. Patient Active Problem List Diagnosis Code Tobacco abuse Z72.0 Moderate aortic regurgitation I35.1 Aortic root enlargement (HCC) I77.89 Lung nodule R91.1 Alcohol abuse F10.10 COPD, group A, by GOLD 2017 classification (HCC) J44.9 Mixed hyperlipidemia E78.2 Renal cyst N28.1 High risk for fracture due to osteoporosis by DEXA scan M81.0 Chronic hyponatremia E87.1 SIADH (syndrome of inappropriate ADH production) ([facility]) E22.2 Vasospasm ([facility]) I73.9 Essential hypertension with goal blood pressure less than 130/80 I10 Monoclonal paraproteinemia D47.2 Bicuspid aortic valve Q23.1 Mild carotid artery disease ([facility]) I77.9 Chronic right arterial ischemic stroke, MCA (middle cerebral artery) Z86.73 MGUS (monoclonal gammopathy of unknown significance) D47.2 Social History Tobacco Use Smoking status: Current Every Day Smoker Packs/day: 1.00 Years: 40.00 Pack years: 40.00 Smokeless tobacco: Never Used Substance Use Topics Alcohol use: Yes Alcohol/week: 33.6 oz Types: 56 12 oz of beer per week Comment: 4-5 beers/day Drug use: No Family History Problem Relation Age of Onset Cancer Mother bone Other (CVA) Father Breast Cancer Sister Review of patient's allergies indicates: Allergen Reactions Losartan Rash Current Outpatient Medications Medication Sig Dispense Refill THIAMINE (VITAMIN B-1) 100 MG Tablet Take 1 Tablet by mouth in the morning. Vitamin D3 25 MCG (1000 UT) Oral Tablet (Vitamin D3) Take 1 Tablet by mouth in the morning. Takes once daily 5 times per week . Incruse Ellipta 62.5 MCG/ACT Inhalation Aerosol Powder Breath Activated (umeclidinium [place]) INHALE 1 PUFF BY MOUTH EVERY DAY [...] No current facility-administered medications for this visit. Lipid Panel Results: TSH(uIU/mL) Richie Dt/Tm Resulted Value Status 12/20/17 1:33P 12/20/17 2.06 FINAL CBC Results: OBJECTIVE/PHYSICAL EXAMINATION: BP 138/66 (BP Site: Left Arm, BP Position: Sitting, BP Cuff Size: Regular) | Pulse 84 | Resp 16 | Wt 66.4 kg (146 lb 4.8 oz) | BMI 21.92 kg/m | BSA 1.79 m General: NAD, AAO x3, well nourished. Chronically ill. HEENT: Normocephalic. Atraumatic. Conjunctiva pink, no scleral icterus. No carotid bruits, the carotid upstrokes are brisk. No JVD. No HJR Heart: Regular normal S-1 and S-2 no S-3 or S-4 gallop. 2/6 low-pitched early peaking systolic ejection murmur heard best at the right 2nd intercostal space. There is a 1/6 diastolic murmur heard best at the right 2nd intercostal space with the patient leaning forward at an exhalation. No rubs appreciated. PMI is not displaced. No RV heave. Lungs: Clear bilateral without rales , rhonchi, or wheeze. Abdomen: Normal bowel sounds. Soft. Nontender. No masses or organomegaly. No abdominal bruits. Extremities: No clubbing, cyanosis, or edema. Pulses: radial=2/4, Dorsalis pedis =2/4, posterior tibial=2/4.Neuro: No focal deficits. ASSESSMENT: 1. Bicuspid aortic valve with partial fusion of the left and right coronary cusps - sclerosis without stenosis - stable, moderate aortic regurgitation 2. Moderate ascending aortic enlargement, 4.5 cm -stable per echocardiogram December 21, 2022 3. HTN - controlled 4. Dyslipidemia - LDL controlled; tolerating atorvastatin 5. Tobacco and ETOH abuse PLAN: Echo, complete (2d), trans-thoracic Ekg Natural history and pathophysiology of bicuspid aortic valve with moderate aortic regurgitation discussed. Repeat resting 2D transthoracic echocardiogram December 2023. Continue amlodipine, atorvastatin, and low-dose aspirin. Smoking cessation advised. Follow Up: Return in about 1 year (around 12/23/2023). Biju Vasquez DO, [facility] Associate Cardiology - Narcisa York documented in this encounter Nursing Notes * Adrienne Damico CMA - 12/22/2022 10:18 AM EDT Examination Room: 11 Name: Handy Colindres Date of : (1950). Reason for Visit: 1 yr f/u, echo 12/21/22 Interim Hospitalization(s): none Problems/Concerns: denies Chest Pain/SOB: denies [facility] Discussed: No [facility] is a way you can talk to your provider online through e-mail. Would you like to sign up? I can activate it for you? ALREADY ACTIVE Patient was instructed to not get up on the exam table until directed and assisted by their provider; patient is to remain seated in the chair/ wheelchair/ exam table for fall prevention and safety reasons. Patient is aware to have assistance to step down off exam table with personnel. Patient voiced full comprehension of instructions. documented in this encounter Plan of Treatment Upcoming Encounters Date Type Specialty Care Team Description 12/28/2022 Telemedicine Dermatology Iliana Ojeda MD [address] [place] [address] 03/22/2023 Nurse Only Ancillary Im, Nurse Annual Wellness [facility] [address] [place] [address] 04/11/2023 Office Visit Rheumatology David Pugh CRNP [facility] [facility] [place] [address] 05/22/2023 Office Visit Internal Medicine Con[facility]ers[facility] [address] [facility] [address] 09/04/2023 Imaging Radiology 09/19/2023 Office Visit Urology Sivakumar Huston MD [address] [facility] [address] [place] [id number] 12/21/2023 Cardiac Studies Cardiac Studies Scheduled Orders Name Type Priority Associated Diagnoses Orde r Schedule EKG EKG Routine Bicuspid aortic valve Moderate aortic regurgitation Aneurysm of ascending aorta without rupture (HCC) Tobacco abuse Ordered: 12/22/2022 ECHO, COMPLETE (2D), TRANS-THORACIC Echocardiology Routine Bicuspid aortic valve Moderate aortic regurgitation Aneurysm of ascending aorta without rupture (HCC) Expected: 12/21/2023 (Approximate), Expires: 01/22/2025 Scheduled Procedures Name Priority Associated Diagnoses Date/Ti me COLONOSCOPY FLEXIBLE PROXIMAL DIAGNOSTIC Recall History of colon polyps Health Maintenance Due Date Last Done Comments Zoster Vaccines (1 of 2) 05/28/1999 DISCUSS TOBACCO CESSATION (REFER TO SMARTSET #2559) 01/22/2022 01/22/2021, 06/26/2020 COVID-19 Vaccine ( - [...] D LEVEL ONCE IN A LIFETIME-USE SMARTSET# [id number] Completed 10/18/2021, 03/25/2021, 08/11/2020, Additional history exists [...] this encounter Medical Devices Implanted Type Area Community Health Director Device Identifier Shelf Expiration Date Model / Serial / Lot Pack [employer]ement [employer] C01b - [id number] Implanted:Qty: 1 on 06/02/2020 by Randal Wharton MD at [facility] N/A: Spine Thoracic [employer] : NEURO CARE 11/10/2022 [id number] / / [id number] documented as of this encounter Visit Diagnoses Diagnosis Bicuspid aortic valve- Primary Congenital insufficiency of aortic valve Moderate aortic regurgitation Aortic valve disorders Aneurysm of ascending aorta without rupture (HCC) Tobacco abuse Tobacco use disorder documented in this encounter Advance Directives Latest Code Status on File Code Status Date Activated Date Inactivated Comments Full Code 06/02/2020 8:23 AM 06/02/2020 4:48 PM This order reflects the patients wishes and were consensually agreed upon. Question Answer Comments Discussion of Advance Directives occurred with: Not Discussed Care Teams Colorectal Surgeon Relationship Specialty Start Date End Date Conner Pedersen MD [address] [place] [address] PCP - General Internal Medicine 11/07/20 documented as of this encounter"
--- OUTSIDE RECORDS SUMMARY | 2023-06-16 23:16 | External Medical Summary | Summary of Care ---
Author Name Unknown Organization [facility] Address [address] [place] [address] Phone [phone] Care Team Providers Care Nut Sheller Name Role Phone Conner Hackett MD Primary Care Provider + Reason for Visit * Reason Comments Follow Up Encounter Details Date Type Department Care Team Description 12/28/2022 Telemedicine Dermatology [facility] [place] [address] [facility] [place] [address] Iliana Ojeda MD 200 [facility] [place] [address] Rash and nonspecific skin eruption* Allergies Active Allergy Reactions Severity Noted Date Comments Losartan Rash 11/02/2022 documented as of this encounter (statuses as of 12/28/2022) Medications Medication Sig Dispensed Refills Start Date [...] MCG/ACT Inhalation Aerosol Powder Breath Activated (umeclidinium [place])Indications:POSTING SPECIALIST D, group A, by GOLD 2017 classification ([facility]) INHALE 1 PUFF BY MOUTH EVERY DAY [...] as of this encounter (statuses as of 12/28/2022) Active Problems Problem Noted Date Chronic right [...] rinse after steroid. 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 Chacon documented as of this encounter (statuses as of 12/28/2022) Immunizations Name Administration Dates Next Due COVID-19 [...] Progress Notes * Iliana Ojeda MD - 12/28/2022 12:48 PM EDT After connecting to the patient via phone, the patient verified their identity with their date of and verbally consented to evaluation and management of their condition through telemedicine. This visit was performed through Telemedicine during the COVID-19 Health Crisis during a state of National Emergency. The patient is aware that we will bill their insurance for this visit following Medicare guidelines, but they may be responsible for some or all of the visit charges if their insurancedeems this "non-covered". If pt was a minor, N/A was present. Patient location: HOME. I was in a hospital or clinic location. After connecting through televideo,patient was verified with two unique identifiers. Patient (or authorized legal outside sales account representative) was then informed that this was a Telemedicine visit and being conducted confidentially over secure lines. Methods to assure confidentiality were taken. Patient acknowledged consent and understanding of pr ivacy and security of the Telemedicine visit. The patient agreed to participate. This is an established patient evaluated in my specialty within the past three years yes Visit Disposition: Routine follow-up Total call duration was 12 minutes. SUBJECTIVE: History of Present Illness: Handy Colindres is a 72 year old male seen today for follow up of rashes. Date Last Appointment: 12/07/2022 (in office), Visit date not found (telemedicine). See prior notes - presumed drug rash to ARB, stopped last dosage about 10 wks ago, no rash but pt still itchy at times, not waking him up at night, using TAC and OTC topicals that help, stopped plaquenil after last visit. Doesn't tolerate antihistamineshans 11/2021 interface, nonspecific, possible drug reaction REVIEW OF SYSTEMS: SKIN: No other new or changing moles. HEME/LYMPH: No new or enlarging lumps or bumps. No systemic symptoms, no new meds MEDICA TIONS: Current Outpatient Medications Medication Sig Dispense Refill THIAMINE (VITAMIN B-1) 100 MG Tablet Take 1 Tablet by mouth in the morning. Vitamin D3 25 MCG (1000 UT) Oral Tablet (Vitamin D3) Take 1 Tablet by mouth in the morning. Takes once daily 5 times per week . Incruse Ellipta 62.5 MCG/ACT Inhalation Aerosol Powder Breath Activated (umeclidinium [place]) INHALE 1 PUFF BY MOUTH EVERY DAY [...] distress, appears oriented, pleasant, and cooperative. SKIN: no rash per pt ASSESS MENT/PLAN: 1. Pruritus, no rash today, hx possible drug reaction to ARB, slow improvement/not worsening after D/C plaquenil Defers restart light or antihistamines, symptoms aren't interfering with sleep or daily activities,con't mild cleansers, emollients, has many OTC anti-itch topicals at home as needed, avoid irritants. Has TAC cream at home for more severe or scaly flares. *consider re-bx and DIF if rash visible and recalcitrant Follow-up: 1 month There were no barriers tolearning and no other pain was related to today's visit. The patient and/or person accompanying patient demonstrates understanding of the visit and treatment. Iliana Ojeda MD 12/28/2022 12:48 PM Ref: SELF[[id number]] NO STRE[address] ADDRESS AVAILABLE None (office) None (fax) PCP: CONNER HACKETT [address] [facility] [place] [address] [phone] documented in this encounter Plan of Treatment Upcoming Encounters Date Type Specialty Care Team Description 03/22/2023 Nurse Only Ancillary Im, Nurse Annual Wellness [facility] [address] [place] [address] 03/23/2023 Imaging Radiology 04/11/2023 Office Visit Rheumatology David Pugh CRNP [address] [facility] [place] [address] 05/22/2023 Office Visit Internal Medicine Conner Hackett MD [address] [facility] [place] [address] 09/04/2023 Imaging Radiology 09/19/2023 Office Visit Urology Sivakumar Huston MD 27 [facility] [place] [address] [place] [address] 12/21/2023 Cardiac Studies Cardiac Studies Scheduled Procedures Name Priority Associated Diagnoses Date/Ti [...] D LEVEL ONCE IN A LIFETIME-USE SMARTSET# 25483 Completed 10/18/2021, 03/25/2021, 08/11/2020, Additional history exists [...] this encounter Medical Devices Implanted Type Area Workplace Rehabilitation Officer Device Identifier Shelf Expiration Date Model / Serial / Lot Pack Cement & Mixer C01b - [id number] Implanted:Qty: 1 on 06/02/2020 by Randal Wharton MD at [place] [facility] [place]/A: Spine Thoracic [employer] : NEURO CARE 11/10/2022 C01B / / [id number] documented as of this encounter Visit Diagnoses Diagnosis Rash and nonspecific skin eruption- Primary Rash and other nonspecific skin eruption documented in this encounter Advance Directives Latest Code Status on File Code Status Date Activated Date Inactivated Comments Full Code 06/02/2020 8:23 AM 06/02/2020 4:48 PM This order reflects the patients wishes and were consensually agreed upon. Question Answer Comments Discussion of Advance Directives occurred with: Not Discussed Care Teams Nut Sheller Relationship Specialty Start Date End Date Conner Hackett MD 200 [facility] [place] [address] PCP - General Internal Medicine 11/07/20 documented as of this encounter
--- OUTSIDE RECORDS SUMMARY | 2023-06-16 23:16 | External Medical Summary | Summary of Care ---
Author Name Unknown Organization [facility] Address [address] [place] [address] Phone [phone] Care Team Providers Care Secretary Board Of Commissioners Name Role Phone Conner Hackett MD Primary Care Provider + Reason for Visit * Reason Comments Follow Up Encounter Details Date Type Department Care Team Description 12/28/2022 Telemedicine Dermatology [facility] [place] [address] [facility] [place] [address] Iliana Ojead MD 200 [place] [address] Rash and nonspecific skin eruption* Allergies Active [...] MCG/ACT Inhalation Aerosol Powder Breath Activated (umeclidinium [place])Indications:NATIONAL VAN TRUCK DRIVER D, group A, by GOLD 2017 classification ([facility]) INHALE 1 PUFF BY MOUTH EVERY DAY [...] rinse after steroid. Test performed by Reilly ENGINEER EXHAUSTER CPFT Alcohol abuse 01/29/2018 Lung nodule 10/26/2017 [...] two unique identifiers. Patient (or authorized legal sales and service representative) was then informed that this was [...] MCG/ACT Inhalation Aerosol Powder Breath Activated (umeclidinium [place]) INHALE 1 PUFF BY MOUTH EVERY DAY [...] Iliana Ojeda MD 12/28/2022 12:48 PM Ref: SELF[[id number]] NO STRE[address] ADDRESS AVAILABLE None (office) None (fax) PCP: CONNER HACKETT 200 [facility] [place] [address] [phone] documented in this encounter Plan of Treatment Upcoming Encounters Date Type Specialty Care Team Description 03/22/2023 Nurse Only Ancillary Im, Nurse Annual Wellness [facility] [address] [place] [address] 03/23/2023 Imaging Radiology 04/11/2023 Office Visit Rheumatology David Pugh CRNP [address] [facility] [place] [address] 05/22/2023 Office Visit Internal Medicine Conner Hackett MD 200 [facility] [place] [address] 09/04/2023 Imaging Radiology 09/19/2023 Office Visit Urology Sivakumar Huston MD [address] [facility] [place] [address] [place] [address] 12/21/2023 Cardiac [...] D LEVEL ONCE IN A LIFETIME-USE SMARTSET# [id number] Completed 10/18/2021, 03/25/2021, 08/11/2020, Additional history exists [...] this encounter Medical Devices Implanted Type Area Promotions Representative Device Identifier Shelf Expiration Date Model / Serial / Lot Pack Cement & Mixer C01b - [id number] Implanted:Qty: 1 on 06/02/2020 by Randal Wharton MD at OR [facility] [place] N/A: Spine Thoracic [employer] : NEURO CARE 11/10/2022 C01B / / [id number] documented as of this encounter Visit Diagnoses [...] Directives occurred with: Not Discussed Care Teams Secretary Board Of Commissioners Relationship Specialty Start Date End Date Conner Hackett MD 200 [facility] [place] [address] PCP - General Internal Medicine 11/07/20 documented as of this encounter
--- OUTSIDE RECORDS SUMMARY | 2023-06-16 23:16 | External Medical Summary | Summary of Care ---
Author Name Unknown Organization [facility] Address [address] [place] [address] Phone [phone] Care Team Providers Care Career Transition Specialist Name Role Phone Conner Pedersen MD Primary Care Provider + Encounter Details Date Type Department Care Team (Late st Contact Info) Description 02/01/2023 Population Health External Data Unspecified Department Allergies Active Allergy Reactions Criticality Noted Date Comments Losartan Rash 11/02/2022 documented as of this encounter (statuses as of 02/01/2023) Medications Medication Sig Dispensed Refills Start Date [...] MCG/ACT Inhalation Aerosol Powder Breath Activated (umeclidinium [place])Indications:FERMENTER D, group A, by GOLD 2017 classification ([facility]) INHALE 1 PUFF BY MOUTH [...] as of this encounter (statuses as of 02/01/2023) Active Problems Problem Noted Date Diagnosed Date [...] rinse after steroid. Test performed by Reilly BLOWER AND COMPRESSOR ASSEMBLER CPFT Alcohol abuse 01/29/2018 Lung nodule 10/26/2017 Aortic root enlargement 07/25/2017 Moderate aortic regurgitation 07/17/2017 Tobacco abuse documented as of this encounter (statuses as of 02/01/2023) Resolved Problems Problem Noted Date Diagnosed Date Resolved Date Compression fracture of T12 vertebra with routine healing 05/14/2020 04/26/2022 COPD, mild 01/29/2018 08/22/2018 Overview: Per COPD GOLD Classification HTN, goal below 140/90 10/26/201704/08 Emphysema lung 10/26/2017 01/29/2018 Colonic polyp 05/12/2014 04/26/2022 Tendonitis 05/12/2014 06/15/2017 Overview: Shoulder pain - Dr. Chacon documented as of this encounter (statuses as of 02/01/2023) Immunizations Name Administration Dates Next Due COVID-19 [...] Care Team (Late st Contact Info) Description 02/03/2023 12:30 PM EST Telemedicine Dermatology Tamie Hernandez [place] [address] [place] [address] Iliana Ojeda MD [address] [place] [address] 03/22/2023 10:00 AM EST Nurse Only Ancillary [facility] [address] [place] [address] Im, Nurse Annual Wellness [facility] [address] [place] [address] 03/23/2023 11:00 AM EST Imaging Radiology [facility] [address]st Floor[address] [place] [address] 04/11/2023 3:00 PM EST Office Visit Rheumatology [place] [address] [facility] [place] [address] David Pugh CRNP [facility] [place] [address] 05/22/2023 10:00 AM EDT Office Visit General Internal Medicine [facility] [place] [place] [address] Conner Pedersen MD 200 [facility] [place] [address] 09/04/2023 10:30 AM EDT Imaging Radiology [address] [place] [address] 09/19/2023 11:45 AM EDT Office Visit Urology, [address] [place] [address] Sivakumar Huston MD 27 [facility] [address] [place] [address] 12/21/2023 11:00 AM EDT Cardiac Studies Cardiac Studies, [address] [place] [address] Scheduled Procedures Name Priority Associated Diagnoses Date/Ti me COLONOSCOPY FLEXIBLE PROXIMAL DIAGNOSTIC Recall History of colon polyps Health Maintenance Due Date Last Done Comments Zoster Vaccines (1 of 2) 05/28/1999 DISCUSS TOBACCO CESSATION (REFER TO SMARTSET #7717) 01/22/2022 01/22/2021, 06/26/2020 COVID-19 Vaccine ( season) [...] D LEVEL ONCE IN A LIFETIME-USE SMARTSET# 80067 Completed 10/18/2021, 03/25/2021, 08/11/2020, Additional history exists [...] this encounter Medical Devices Implanted Type Area Fur Designer Device Identifier Shelf Expiration Date Model / Serial / Lot Pack Cement & Mixer C01b - [id number] Implanted:Qty: 1 on 06/02/2020 [place]andal Wharton [place] [facility] [place]: Spine Thoracic [employer] : NEURO CARE 11/10/2022 C01B / / [id number] documented as of this encounter Advance Directives Latest Code Status on File Code Status Date Activated Date Inactivated Comments Full Code 06/02/2020 8:23 AM 06/02/2020 4:48 PM This order reflects the patients wishes and were consensually agreed upon. Question Answer Comments Discussion of Advance Directives occurred with: Not Discussed Care Teams Career Transition Specialist Relationship Specialty Start Date End Date Conner Pedersen MD 200 [place] [address] PCP - General Internal Medicine 11/07/20 documented as of this encounter
--- OUTSIDE RECORDS SUMMARY | 2023-06-16 23:16 | External Medical Summary | Summary of Care ---
Author Name Unknown Organization [facility] Address [address] [place] [address] Phone [phone] Care Team Providers Care Payroll And Benefits Coordinator Name Role Phone Conner Pedersen MD Primary Care Provider + Reason for Visit * Reason Comments Rash Rash everywhere- red , itchy on going for years. Tried OTC lotions and body wash. Given steriods and hydroxychloro with no relief Encounter Details Date Type Department Care Team (Late st Contact Info) Description 03/02/2023 11:20 AM EST Office Visit Dermatology Tamie Hernandez [place] [address] [place] [address] Mia Zhang PA-C [address] [place] [address] Dermatitis* Allergies Active Allergy Reactions Criticality Noted Date Comments Losartan Rash 11/02/2022 documented as of this encounter (statuses as of 03/02/2023) Medications Medication Sig Dispensed Refills Start Date [...] MCG/ACT Inhalation Aerosol Powder Breath Activated (umeclidinium [place])Indications:CO PD, group A, by GOLD 2017 classification [...] as of this encounter (statuses as of 03/02/2023) Active Problems Problem Noted Date Diagnosed Date [...] rinse after steroid. Test performed by Reilly QUALITY CONTROL HEAD CPFT Alcohol abuse 01/29/2018 Lung nodule 10/26/2017 Aortic root enlargement 07/25/2017 Moderate aortic regurgitation 07/17/2017 Tobacco abuse documented as of this encounter (statuses as of 03/02/2023) Resolved Problems Problem Noted Date Diagnosed Date Resolved Date Compression fracture of T12 vertebra with routine healing 05/14/2020 04/26/2022 COPD, mild 01/29/2018 08/22/2018 Overview: Per COPD GOLD Classification HTN, goal below 140/90 10/26/201704/08 Emphysema lung 10/26/2017 01/29/2018 Colonic polyp 05/12/2014 04/26/2022 Tendonitis 05/12/2014 06/15/2017 Overview: Shoulder pain - Dr. Chacon documented as of this encounter (statuses as of 03/02/2023) Immunizations Name Administration Dates Next Due COVID-19 mRNA, LNP-s, No Pre serve, 2-Dose Series ([employer]) 01/08/2021,06/04/2020,05/08/2020 Pneumococcal Conjugate Vacc, 13 Valent (Prevnar) [...] as of this encounter Progress Notes * Mia Zhang PA-C - 03/02/2023 11:20 [...] MCG/ACT Inhalation Aerosol Powder Breath Activated (umeclidinium [place]) INHALE 1 PUFF BY MOUTH EVERY DAY [...] BP vs MF. (Perilesional in DIF) - prednisone 40mg daily x 5 days [...] with no relief documented in this encounter Plan of Treatment Upcoming Encounters Date Type Department Care Team (Late st Contact Info) Description 03/22/2023 10:00 AM EST Nurse Only Ancillary [facility] 200 [facility] [place] [address] Im, Nurse Annual Wellness [facility] [address] [place] [address] 03/23/2023 11:00 AM EST Imaging Radiology [address], [place] [address] [facility] [place] [address] 04/11/2023 3:00 PM EST Office Visit Rheumatology [facility] [address] [facility] [place] [address] David Pugh CRNP [address] [facility] [place] [address] 05/22/2023 10:00 AM EDT Office Visit General Internal Medicine [facility] 200 [facility] [place] [address] Conner Pedersen MD 200 [facility] [place] [address] 09/04/2023 10:30 AM EDT Imaging Radiology [facility] 132 [facility] [place] [address] 09/19/2023 11:45 AM EDT Office Visit Urology, [facility] 132 [facility] [place] [address] Sivakumar Huston MD 27 [facility] [address] [place] [address] 12/21/2023 11:00 AM EDT Cardiac Studies Cardiac Studies, [facility] 132 [facility] [place] [address] Pending Results Name Type Priority Associated Diagnoses [...] D LEVEL ONCE IN A LIFETIME-USE SMARTSET# [id number] Completed 10/18/2021, 03/25/2021, 08/11/2020, Additional history exists [...] this encounter Medical Devices Implanted Type Area Tool Maintenance Worker Device Identifier Shelf Expiration Date Model / Serial / Lot Pack Cement & Mixer C01b - [id number] Implanted:Qty: 1 on 06/02/2020 by Randal Wharton MD at [place] [facility] [place] N/A: Spine Thoracic [employer] : NEURO CARE 11/10/2022 C01B / / [id number] documented as of this encounter Visit Diagnoses [...] Directives occurred with: Not Discussed Care Teams Payroll And Benefits Coordinator Relationship Specialty Start Date End Date Conner Pedersen MD 200 [place] [address] PCP - General Internal Medicine 11/07/20 documented as of this encounter
--- OUTSIDE RECORDS SUMMARY | 2023-06-16 23:16 | External Medical Summary | Summary of Care ---
Author Name Unknown Organization [facility] Address [address] [place] [address] Phone [phone] Care Team Providers Care Soap Drier Tender Name Role Phone Conner Pedersen MD Primary Care Provider + Reason for Visit * Reason Onset Date Comments Test Results 11/04/2022 Encounter Details Date Type Department Care Team Description 11/04/2022 Telephone General Internal Medicine [facility] [place] [address] [facility] [place] [address] Con[facility]ers[facility] MD [facility] [address] Test Results Allergies Active Allergy Reactions Severity Noted Date Comments Losartan Rash 11/02/2022 documented as of this encounter (statuses as of 12/31/2022) Medications Medication Sig Dispensed Refills Start Date [...] MCG/ACT Inhalation Aerosol Powder Breath Activated (umeclidinium [place])Indications: COPD, group A, by GOLD 2017 classification ([facility]) INHALE 1 PUFF BY MOUTH EVERY DAY 90 Each 3 08/10/2022 Active amLODIPine Besylate 2.5 MG Oral Tablet (Norvasc) Take 1 Tablet by mouth in the morning. 90 Tablet 3 08/19/2022 Active Aspirin 81 MG Oral Tablet ChewableIndications: Chronic right arterial ischemic stroke, MCA (middle cerebral artery),Ataxia Take 1 Tablet by mouth in the morning. 90 Tablet 3 09/27/2022 Active Atorvastatin Calcium 20 MG Oral Tablet (Lipitor)Indications :Mixed hyperlipidemia TAKE 1 TABLET BY MOUTH EVERY DAY 90 Tablet 2 10/17/2022 Active Hydroxychloroquine Sulfate 200 MG Oral Tablet (Plaquenil) TAKE 1 TABLET BY MOUTH IN THE MORNING AND BEFORE BEDTIME 60 Tablet 2 09/26/2022 3 Discontinued documented as of this encounter (statuses as of 12/31/2022) Active Problems Problem Noted Date Chronic right [...] rinse after steroid. 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 Chacon documented as of this encounter (statuses as of 12/31/2022) Immunizations Name Administration Dates Next Due COVID-19 [...] Smoking Tobacco: Every Day Cigarettes 1.5 49 Smokeless Tobacco: Never Alcohol Use Standard Drinks/Week [...] encounter Miscellaneous Notes * Telephone Encounter - Gretchen Moreno CMA - 12/31/2022 4:56 PM EDT Patient aware and verbalized understanding * Telephone Encounter - Steffen George LPN - 11/04/2022 2:14 PM EDT Left message for patient to return call. * Telephone Encounter - Steffen George LPN - 11/04/2022 2:14 PM EDT ----- Message from Conner Pedersen MD sent at 11/04/2022 10:39 AM EDT ----- Spep shows mgus stable Sodium is still low. If he does not cut back his fluids and cut back alcohol as discuss this will never get better and he could . Please cut back fluids, alcohol as previously directed multiple times. Recheck bmp 1 month. Any seizure or confusion to er. Rest of labs fine documented in this encounter Plan of Treatment Upcoming Encounters Date Type Specialty Care Team Description 02/03/2023 Telemedicine Dermatology Iliana Ojeda MD [address] [place] [address] 03/22/2023 Nurse Only Ancillary Im, Nurse Annual Wellness [facility] [address] [place] [address] 03/23/2023 Imaging Radiology 04/11/2023 Office Visit Rheumatology David Pugh CRNP [facility] [place] [address] 05/22/2023 Office Visit Internal Medicine Conner Pedersen MD 200 [place] [address] 09/04/2023 Imaging Radiology 09/19/2023 Office Visit Urology Sivakumar Huston MD 27 [facility] [place] [address] [place] [address] 12/21/2023 Cardiac Studies Cardiac Studies Scheduled Procedures Name Priority Associated Diagnoses Date/Ti me COLONOSCOPY FLEXIBLE PROXIMAL DIAGNOSTIC Recall History of colon polyps Health Maintenance Due Date Last Done Comments Zoster Vaccines (1 of 2) 05/28/1999 DISCUSS TOBACCO CESSATION (REFER TO SMARTSET #8581) 01/22/2022 01/22/2021, 06/26/2020 COVID-19 Vaccine ( season) [...] D LEVEL ONCE IN A LIFETIME-USE SMARTSET# [id number] Completed 10/18/2021, 03/25/2021, 08/11/2020, Additional history exists [...] this encounter Medical Devices Implanted Type Area Fraud Investigator Device Identifier Shelf Expiration Date Model / Serial / Lot Pack Cement & Mixer C01b - [id number] Implanted:Qty: 1 on 06/02/2020 by Randal Wharton MD at [facility] N/A: Spine Thoracic [employer] : NEURO CARE 11/10/2022 C01B / / [id number] documented as of this encounter Advance Directives Latest Code Status on File Code Status Date Activated Date Inactivated Comments Full Code 06/02/2020 8:23 AM 06/02/2020 4:48 PM This order reflects the patients wishes and were consensually agreed upon. Question Answer Comments Discussion of Advance Directives occurred with: Not Discussed Care Teams Soap Drier Tender Relationship Specialty Start Date End Date Conner Pedersen MD [address] [place] [address], [place] [address] PCP - General Internal Medicine 11/07/20 documented as of this encounter
--- OUTSIDE RECORDS SUMMARY | 2023-06-16 23:16 | External Medical Summary | Summary of Care ---
Author Name Unknown Organization [facility] Address [address] [place] [address] Phone [phone] Care Team Providers Care Elevator Repairer Helper Name Role Phone Conner Pedersen MD Primary Care Provider + Reason for Referral * Evaluate & Treat - Unlimited Visits (Within 3 days (urgent)) - Authorized Specialty Diagnoses / Procedures Referred By Conttom t Referred To Contact Pulmonary Diseases / Pulmonary Diagnoses Solitary pulmonary nodule Eh Lainez MD [address] [place] [address] Referral ID Status Reason Start Date Expiration Date Visits Requested Visits Authorized [id number] Authorized Specialty Services Required 3 [phone] Question Answer Referral Priority Within 3 Days (Urgent) Primary Reason for Referral? Lung Nodule/Mass Reason for Visit * Reason Onset Date Comments STAIR Lung Nodule 12/21/2022 Encounter Details Date Type Department Care Team Description 12/21/2022 Telephone STAIR LUNG NODULE [address] [place] [address] Program, Stair [address] [place] [address] STAIR Lung Nodule Allergies Active Allergy Reactions Severity Noted Date Comments Losartan Rash 11/02/2022 documented as of this encounter (statuses as of 12/21/2022) Medications Medication Sig Dispensed Refills Start Date [...] MCG/ACT Inhalation Aerosol Powder Breath Activated (umeclidinium [place])Indications:BLADDER BLOWER D, group A, by GOLD 2017 classification [...] as of this encounter (statuses as of 12/21/2022) Active Problems Problem Noted Date Chronic right [...] rinse after steroid. Test performed by Reilly DIE MAKER BENCH STAMPING CPFT Alcohol abuse 01/29/2018 Lung nodule 10/26/2017 Aortic root enlargement 07/25/2017 Moderate aortic regurgitation 07/17/2017 Tobacco abuse documented as of this encounter (statuses as of 12/21/2022) Resolved Problems Problem Noted Date Resolved Date Compression fracture of T12 vertebra with routin e healing 05/14/2020 04/26/2022 COPD, mild 01/29/2018 08/22/2018 Overview: Per COPD GOLD Classification HTN, goal below 140/90 10/26/2017 2 Emphysema lung 10/26/2017 01/29/2018 Colonic polyp 05/12/2014 04/26/2022 Tendonitis 05/12/2014 06/15/2017 Overview: Shoulder pain - Dr. Chacon documented as of this encounter (statuses as of 12/21/2022) Immunizations Name Administration Dates Next Due COVID-19 [...] encounter Miscellaneous Notes * Telephone Encounter - Caroline Nixon RN - 12/21/2022 11:43 AM EDT Lung Cancer Screening Program ([facility]) Results Call Summary 12/21/2022 LDCT results reviewed with patient No outside imaging Smoking reviewed (1-1.5ppd) Referral placed to STAIR Low Dose CT Lung-RADS Scoring: Lung-RADS Score 4A (suspicious) - care transferred to STAIR program for clinical review, setting care plan, and tracking. (STAIR Team: Patient Identified by Lung Cancer Screening Program. If CT Scan needed, order CT Chest Lung Cancer Screen 3 or 6 Month Follow Up). I have contacted the patient to review the low dose CT results, discuss next steps per Lung Cancer Screening Program Protocol, and address any questions. Caroline Nixon RN Lung Cancer Screening Informatics Nurse Specialist [phone] ([phone]) documented in this encounter Plan of Treatment Upcoming Encounters Date Type Specialty Care Team Description 12/22/2022 Office Visit Cardiology Biju Vasquez, DO [address] [place] [address] 12/28/2022 Telemedicine Dermatology Iliana Ojeda MD 200 [place] [address] 03/22/2023 Nurse Only Ancillary Im, Nurse Annual Wellness [facility] 200 [place] [address] 04/11/2023 Office Visit Rheumatology David Pugh CRNP [address] [place] [address] [place] [address] 05/22/2023 Office Visit Internal Medicine Conner Pedersen MD 200 [place] [address] 09/04/2023 Imaging Radiology 09/19/2023 Office Visit Urology Sivakumar Huston MD [address] [facility] [place] [id number] Scheduled Procedures Name Priority Associated Diagnoses Date/Ti me COLONOSCOPY FLEXIBLE PROXIMAL DIAGNOSTIC Recall History of colon polyps Scheduled Referrals Name Type Priority Associated Diagnoses Order Schedule STAIR LUNG NODULE REFERRAL OP (SYSTEM FOR TRACKING ABNORMALITIES OF IMPORTANCE RELIABLY) Referral Within 3 days (urgent) Solitary pulmonary nodule Ordered: 12/21/2022 Health Maintenance Due Date Last Done Comments [...] D LEVEL ONCE IN A LIFETIME-USE SMARTSET# [id number] Completed 10/18/2021, 03/25/2021, 08/11/2020, Additional history exists [...] this encounter Medical Devices Implanted Type Area Evening Or Night Nurse Supervisor Device Identifier Shelf Expiration Date Model / Serial / Lot Pack Cement & Mixer C01b - [id number] Implanted:Qty: 1 on 06/02/2020 by Randal Wharton MD at OR [facility] N/A: Spine Thoracic [employer] : NEURO CARE 11/10/2022 C01B / / [id number] documented as of this encounter Visit Diagnoses Diagnosis Solitary pulmonary nodule- Primary documented in this encounter Advance Directives Latest Code Status on File Code Status Date Activated Date Inactivated Comments Full Code 06/02/2020 8:23 AM 06/02/2020 4:48 PM This order reflects the patients wishes and were consensually agreed upon. Question Answer Comments Discussion of Advance Directives occurred with: Not Discussed Care Teams Elevator Repairer Helper Relationship Specialty Start Date End Date Conner Pedersen MD [address] [place] [address], [place] [address] PCP - General Internal Medicine 11/07/20 documented as of this encounter
--- OUTSIDE RECORDS SUMMARY | 2023-06-16 23:16 | External Medical Summary | Summary of Care ---
Author Name Unknown Organization [facility] Address [address] [place] [address] Phone [phone] Care Team Providers Care Die Repair Machinist Name Role Phone Conner Hackett MD Primary Care Provider + Reason for Visit * Reason Comments Follow Up Encounter Details Date Type Department Care Team (Late st Contact Info) Description 02/03/2023 12:30 PM EST Telemedicine Dermatology [address] [place] [address] Il[facility]jeda MD [facility] [address] Pruritus*; Rash and nonspecific skin eruption Allergies Active Allergy Reactions Criticality Noted Date Comments Losartan Rash 11/02/2022 documented as of this encounter (statuses as of 02/03/2023) Medications Medication Sig Dispensed Refills Start Date [...] MCG/ACT Inhalation Aerosol Powder Breath Activated (umeclidinium [place])Indications:METALLURGICAL LAB TECHNICIAN D, group A, by GOLD 2017 [...] as of this encounter (statuses as of 02/03/2023) Active Problems Problem Noted Date Diagnosed Date [...] rinse after steroid. Test performed by Reilly MEDICAL GENETICS DIRECTOR CPFT Alcohol abuse 01/29/2018 Lung nodule 10/26/2017 Aortic root enlargement 07/25/2017 Moderate aortic regurgitation 07/17/2017 Tobacco abuse documented as of this encounter (statuses as of 02/03/2023) Resolved Problems Problem Noted Date Diagnosed Date Resolved Date Compression fracture of T12 vertebra with routine healing 05/14/2020 04/26/2022 COPD, mild 01/29/2018 08/22/2018 Overview: Per COPD GOLD Classification HTN, goal below 140/90 10/26/201704/08 Emphysema lung 10/26/2017 01/29/2018 Colonic polyp 05/12/2014 04/26/2022 Tendonitis 05/12/2014 06/15/2017 Overview: Shoulder pain - Dr. Chacon documented as of this encounter (statuses as of 02/03/2023) Immunizations Name Administration Dates Next Due COVID-19 [...] Progress Notes * Iliana Ojeda MD - 02/03/2023 12:28 PM EST After connecting to the patient via phone, [...] two unique identifiers. Patient (or authorized legal front desk representative) was then informed that this was [...] Disposition: Routine follow-up Total call duration was 11 minutes. SUBJECTIVE: History of Present Illness: Handy Colindres is a 72 year old male seen today for follow up of rashes. Date Last Appointment: 12/07/2022 (in office), 12/28/2022 (telemedicine). See prior notes - presumed drug rash to ARB, stopped last dosage a few months ago, no rash but pt still itchy at times, not waking him up at night, using TAC and OTC topicals that help, stopped plaquenil in Nov (Rx by prior provider). Doesn't tolerate antihistamineshans 11/2021 interface, nonspecific, possible drug reaction REVIEW OF SYSTEMS: SKIN: No other new or changing moles. HEME/LYMPH: No new or enlarging lumps or bumps. MEDICA TIONS: Current Outpatient Medications Medication Sig Dispense Refill THIAMINE (VITAMIN B-1) 100 MG Tablet Take 1 Tablet by mouth in the morning. Vitamin D3 25 MCG (1000 UT) Oral Tablet (Vitamin D3) Take 1 Tablet by mouth in the morning. Takes once daily 5 times per week . Incruse Ellipta 62.5 MCG/ACT Inhalation Aerosol Powder Breath Activated (umeclidinium [place]) INHALE 1 PUFF BY MOUTH EVERY DAY [...] distress, appears oriented, pleasant, and cooperative. SKIN: pt reports no rashes ASSESS MENT/PLAN: 1. Pruritus, no rash today, [...] and DIF if rash visible and recalcitrant CMP, UA/micro, TAYLOR, IgE labs (discussed with his prior derm provider in past, and pt also due for labs with PCP in Mar). Pt has has normal TSH in the past year, ROS negative for any other studies. Follow-up: per labs, otherwise topicals as above as needed, pt will call if flaring There were no barriers tolearning and no other pain was related to today's visit. The patient and/or person accompanying patient demonstrates understanding of the visit and treatment. Iliana Ojeda MD 02/03/2023 12:29 PM Ref: SELF[[id number]] NO STREET ADDRESS AVAILABLE None (office) None (fax) PCP: CONNER HACKETT [address] [place] [address] documented in this encounter Plan of Treatment Upcoming Encounters Date Type Department Care Team (Late st Contact Info) Description 03/22/2023 10:00 AM EST Nurse Only Ancillary State Casey Harris [address] [place] [address] Im, Nurse Annual Wellness [facility] [address] [place] [address] 03/23/2023 11:00 AM EST Imaging Radiology [facility] [address] [facility] [place] [address] 04/11/2023 3:00 PM EST Office Visit Rheumatology [facility] [address] [facility] [place] [address] David Pugh CRNP [address] [facility] [place] [address] 05/22/2023 10:00 AM EDT Office Visit General Internal Medicine [facility] [address] [place] [address] Conner Hackett MD 200 [facility] [place] [address] 09/04/2023 10:30 AM EDT Imaging Radiology [facility] [address] [facility] [place] [address] 09/19/2023 11:45 AM EDT Office Visit Urology, [facility] [address] [facility] [place] [address] Sivakumar Huston MD [address] [place] [address] [place] [address] 12/21/2023 11:00 AM EDT Cardiac Studies Cardiac Studies, [facility] [address] [facility] [place] [address] Scheduled Orders Name Type Priority Associated Diagnoses Orde r Schedule ANTINUCLEAR ANTIBODY (TAYLOR) EIA SCREEN WITH REFLEX AB QUANT Lab Routine Pruritus Expected: 02/03/2023, Expires: 02/04/2024 URINALYSIS WITH MICROSCOPIC EXAM Lab Routine Pruritus Expected: 02/03/2023, Expires: 02/04/2024 HEPATIC FUNCTION PANEL Lab Routine Pruritus Expected: 02/03/2023, Expires: 02/04/2024 IGE Lab Routine Pruritus Expected: 02/03/2023, Expires: 02/04/2024 Scheduled Procedures Name Priority Associated Diagnoses Date/Ti me COLONOSCOPY FLEXIBLE PROXIMAL DIAGNOSTIC Recall History of colon polyps Health Maintenance Due Date Last Done Comments Zoster Vaccines (1 of 2) 05/28/1999 DISCUSS TOBACCO CESSATION (REFER TO SMARTSET #4401) 01/22/2022 01/22/2021, 06/26/2020 COVID-19 Vaccine ( - [...] D LEVEL ONCE IN A LIFETIME-USE SMARTSET# [id number] Completed 10/18/2021, 03/25/2021, 08/11/2020, Additional history exists [...] this encounter Medical Devices Implanted Type Area Bread Dough Mixer Device Identifier Shelf Expiration Date Model / Serial / Lot Pack Cement & Mixer C01b - [id number] Implanted:Qty: 1 on 06/02/2020 by Randal Wharton MD at OR [facility] N/A: Spine Thoracic [employer] : NEURO CARE 11/10/2022 C01B / / [id number] documented as of this encounter Visit Diagnoses Diagnosis Pruritus- Primary Unspecified pruritic disorder Rash and nonspecific skin eruption Rash and other nonspecific skin eruption documented in this encounter Advance Directives Latest Code Status on File Code Status Date Activated Date Inactivated Comments Full Code 06/02/2020 8:23 AM 06/02/2020 4:48 PM This order reflects the patients wishes and were consensually agreed upon. Question Answer Comments Discussion of Advance Directives occurred with: Not Discussed Care Teams Die Repair Machinist Relationship Specialty Start Date End Date Conner Hackett MD [address] [place] [address] PCP - General Internal Medicine 11/07/20 documented as of this encounter
--- OUTSIDE RECORDS SUMMARY | 2023-06-16 23:16 | External Medical Summary | Summary of Care ---
Author Name Unknown Organization [facility] Address [address] [place] [address] Phone [phone] Care Team Providers Care Boarding Room Fixer Name Role Phone Conner Pedersen MD Primary Care Provider + Reason for Visit * Reason Onset Date Comments STAIR Lung Nodule 12/21/2022 Encounter Details Date Type Department Care Team Description 12/21/2022 Telephone STAIR LUNG NODULE [address] [place] [address] Program, Stair [address] [place] [address] STAIR Lung Nodule Allergies Active Allergy Reactions [...] MCG/ACT Inhalation Aerosol Powder Breath Activated (umeclidinium [place])Indications:MEDICAL STAFF SERVICES MANAGER D, group A, by GOLD 2017 [...] rinse after steroid. Test performed by Reilly CELL GENETICIST CPFT Alcohol abuse 01/29/2018 Lung nodule 10/26/2017 [...] encounter Miscellaneous Notes * Telephone Encounter - Salma Cline LPN - 12/21/2022 12:20 PM EDT Patient managed in STAIR Program for Pulmonary Nodule - banner added documented in this encounter Plan of Treatment Upcoming Encounters Date Type Specialty Care Team Description 12/22/2022 Office Visit Cardiology Biju Vasquez, DO [address] [place] [address] 12/28/2022 Telemedicine Dermatology Iliana Ojeda MD [address] [place] [address] 03/22/2023 Nurse Only Ancillary Im, Nurse Annual Wellness [place] [address] [place] [address] 04/11/2023 Office Visit Rheumatology David Pugh CRNP [address] [place] [address] [place] [address] 05/22/2023 Office Visit Internal Medicine Conner Pedersen MD [address] [place] [address] 09/04/2023 Imaging Radiology 09/19/2023 Office Visit Urology Sivakumar Huston MD [address] [address] [place] [address] Scheduled Procedures Name Priority Associated Diagnoses Date/Ti [...] D LEVEL ONCE IN A LIFETIME-USE SMARTSET# [id number] Completed 10/18/2021, 03/25/2021, 08/11/2020, Additional history exists [...] this encounter Medical Devices Implanted Type Area Welder Shielded Metal Arc Device Identifier Shelf Expiration Date Model / Serial / Lot Pack Cement & Mixer C01b - [id number] Implanted:Qty: 1 on 06/02/2020 by Randal Wharton [place] [facility] [place]A: Spine Thoracic [employer] : NEURO CARE 11/10/2022 C01B / / [id number] documented as of this encounter Advance Directives Latest Code Status on File Code Status Date Activated Date Inactivated Comments Full Code 06/02/2020 8:23 AM 06/02/2020 4:48 PM This order reflects the patients wishes and were consensually agreed upon. Question Answer Comments Discussion of Advance Directives occurred with: Not Discussed Care Teams Boarding Room Fixer Relationship Specialty Start Date End Date Conner Pedersen MD [address] [place] [address], [place] [address] PCP - General Internal Medicine 11/07/20 documented as of this encounter
--- OUTSIDE RECORDS SUMMARY | 2023-06-16 23:16 | External Medical Summary | Summary of Care ---
Author Name Unknown Organization [facility] Address [address] [place] [address] Phone [phone] Care Team Providers Care Dumpcart Driver Name Role Phone Conner Pedersen MD Primary Care Provider + Reason for Visit * Reason Comments Rash Rash everywhere- red , itchy on going for years. Tried OTC lotions and body wash. Given steriods and hydroxychloro with no relief Encounter Details Date Type Department Care Team (Late st Contact Info) Description 03/02/2023 11:20 AM EST Office Visit Dermatology Tamie Hernandez [place] [address] [place] [address] Mia Zhang PA-C [address] [place] [...] MCG/ACT Inhalation Aerosol Powder Breath Activated (umeclidinium Rowlett)Indications:[place] PD, group A, by GOLD 2017 classification [...] rinse after steroid. Test performed by Reilly SPEECH AND HEARING DIRECTOR CPFT Alcohol abuse 01/29/2018 Lung nodule [...] mRNA, LNP-s, No Pre serve, 2-Dose Series (Flashstock) 01/08/2021,06/04/2020,05/08/2020 Pneumococcal Conjugate Vacc, 13 Valent (Prevnar) [...] MCG/ACT Inhalation Aerosol Powder Breath Activated (umeclidinium Rowlett) INHALE 1 PUFF BY MOUTH EVERY DAY [...] Miscellaneous Notes * Addendum Note - Omar Carey LPN - 03/02/2023 2:27 PM ESTAddended by: OMAR CAREY on: 03/02/2023 02:27 PM Modules accepted: Orders documented in this encounter Plan of Treatment Upcoming Encounters Date Type Department Care Team (Late st Contact Info) Description 03/22/2023 10:00 AM EST Nurse Only Ancillary Tamie Hernandez [place] [address] [place] [address] Im, Nurse Annual Wellness [facility] [address] [place] [address] 03/23/2023 11:00 AM EST Imaging Radiology [facility] [facility] [address] [facility] [place] [address] 04/11/2023 3:00 PM EST Office Visit Rheumatology [place] [id number] [facility] [place] [address] David Pugh CRNP [address] [facility] [place] [address] 05/22/2023 10:00 AM EDT Office Visit General Internal Medicine [facility] [address] [facility] [place] [address] Conner Pedersen MD [address] [facility] [place] [address] 09/04/2023 10:30 AM EDT Imaging Radiology [facility] [address] [facility] [place] [address] 09/19/2023 11:45 AM EDT Office Visit Urology, [facility] [address] [facility] [place] [address] Sivakumar Huston MD [address] [place] [address] [place] [address] 12/21/2023 11:00 AM EDT Cardiac Studies Cardiac Studies, [facility] [address] [facility] [place] [address] Pending Results Name Type Priority Associated Diagnoses Date /Time SURGICAL PATHOLOGY Pathology Routine Dermatitis 03/02/2023 12:02 PM EST Scheduled Procedures Name Priority Associated Diagnoses Date/Ti me COLONOSCOPY FLEXIBLE PROXIMAL DIAGNOSTIC Recall History of colon polyps Health Maintenance Due Date Last Done Comments Zoster Vaccines (1 of 2) 05/28/1999 DISCUSS TOBACCO CESSATION (REFER TO SMARTSET #0061) 01/22/2022 01/22/2021, 06/26/2020 COVID-19 Vaccine ( season) [...] D LEVEL ONCE IN A LIFETIME-USE SMARTSET# 83043 Completed 10/18/2021, 03/25/2021, 08/11/2020, Additional history exists [...] this encounter Medical Devices Implanted Type Area Hand Blocker Device Identifier Shelf Expiration Date Model / Serial / Lot Pack Cement [employer] Mixer C01b - [id number] Implanted:Qty: 1 on 06/02/2020 by Randal Wharton MD at OR [facility] N/A: Spine Thoracic [employer] : NEURO CARE 11/10/2022 C01B / / [id number] documented as of this encounter Visit Diagnoses [...] Directives occurred with: Not Discussed Care Teams Dumpcart Driver Relationship Specialty Start Date End Date Conner Pedersen MD [address] [place] [address] PCP - General Internal Medicine 11/07/20 documented as of this encounter
[2023-06-17 06:08] LABS: Hemoglobin 12.5 g/dl (14.0-18.0); Mean Corpuscular Hemoglobin 33.1 pg (25.0-34.0); Mean Corpuscular Hgb Conc 36.8 g/dL (32.0-36.0); Mean Corpuscular Volume 89.9 fL (80.0-100.0); Mean Platelet Volume 8.9 fL (9.4-12.4); Platelet Count 211 K/uL (130-400); RDW Coefficient of Variation 12.4 % (11.5-14.5); RDW Standard Deviation 40.7 fL (36.4-46.3); Red Blood Count 3.78 M/uL (4.70-6.10); White Blood Count 6.14 K/ul (4.8-10.8)
[2023-06-17 06:28] LABS: Albumin Globulin Ratio 1.2 (0.9-2); Albumin Level 3.4 gm/dl (3.4-5.0); BUN Creatinine Ratio 14.3 (10-20); Bilirubin,Total 0.9 mg/dl (0.2-1.0); Calcium 8.1 mg/dl (8.6-10.3); Creatinine Clr Calc Pharmacy 71.2 ml/min; Est GFR (African American) 95.9 ml/min; Est GFR (Non-African American) 82.7 ml/min; Globulin 2.8 gm/dl (2.5-4.0); Magnesium 2.2 mg/dl (1.7-2.4); Phosphorus 3.3 mg/dl (2.5-4.9); Total Protein 6.2 gm/dl (6.0-8.3)
--- NOTE | 2023-06-17 07:32 | Electrocardiogram Report ---
Test Reason : Blood Pressure : / mmHG Vent. Rate : 081 BPM Atrial Rate : 081 BPM P-R Int : 148 ms QRS Dur : 078 ms QT Int : 412 ms P-R-T Axes : 046 -35 047 degrees QTc Int : 478 ms Normal sinus rhythm Left axis deviation Septal infarct (cited on or before 30-APR-2020) Abnormal ECG When compared with ECG of 19-AUG-2021 11:30, No significant change was found Confirmed by Antonio Alanis ([id number]) on 06/17/2023 7:32:01 AM Referred By: REFERRED SELF Confirmed By:Antonio Alanis
[2023-06-17] MEDS: ATORVASTATIN 20 MG TAB PO SCH (07:45)
[2023-06-17] MEDS: CHOLECALCIFEROL 25 MCG (1000 UNITS) TAB PO SCH (07:45)
[2023-06-17] MEDS: UMECLIDINIUM BROMIDE 62.5MCG/BLISTER 7 PUFFS/INHALER INH SCH (07:47)
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
[2023-06-17] MEDS: GABAPENTIN 600 MG TAB PO SCH (13:36)
--- NOTE | 2023-06-17 15:28 | Hospitalist Progress Note ---
Date of Service June 17, 2023 Assessment & Plan (1) Hyponatremia: (2) SIADH (syndrome of inappropriate ADH production): (3) AMS (altered mental status): (4) Ambulatory dysfunction: (5) Fall: (6) Carotid artery disease: (7) Chronic obstructive pulmonary disease: (8) HTN (hypertension): (9) Tobacco use disorder: (10) Alcohol use disorder: (11) HLD (hyperlipidemia): Plan per admitting service notes with addendum: Mr. Colindres is a 72 y/o male who presents to the ED after experiencing a fall this morning. He was in bed and became incontinent of urine and fell out of his bed on the floor after he stood up and was brought to the ED. Denies LOC. Found to be hyponatremic serum sodium 128. On 06/12 as an outpatient he was 133. He was seen by Nephrology here in 2021 for chronic hyponatremia. This is an unchanged diagnosis for him with underlying SIADH and daily alcohol use. Past medical history includes COPD, CAD, carotid stenosis, monoclonal paraproteinemi a, hyperlipidemia, HTN, chronic alcohol use, tobacco abuse, chronic hyponatremia, SIADH. Elbow and shoulder x-rays negative for fracture, CS CT negative outside of osteopenia and sclerotic changes, head CT negative for ICH, SDH. Serum alcohol negative. He is a chronic 1.5 ppd smoker and daily alcohol drinker. No leukocytosis, LFTs negative. Serum alcohol negative. Pt denies VAZQUEZ, dizziness, SOB, chest pain, palpitations, N/V/D, bowel changes and other trauma. Will admit patient for suspected chronic SIADH and ambulatory dysfunction secondary to chronic daily alcohol consumption. Will initiate fluid restriction, check UA to rule out infection with incontinence, serial BMP every 4 x 2, check orthostatic BP, check B12 level, administer folic acid and thiamine along with initiating awss scale for alcohol withdrawal, encourage smoking cessation. Status post fall In the setting of ataxia, Alcoholism Possible syncope, seizure episode History of CVA, basal ganglia Imaging studies do not indicate signs of fracture Obtain brain MRI to rule out CVA Obtain EEG to rule out underlying seizure Neurology consult Continue usual aspirin 81 mg p.o. daily PT and OT evaluation Hyponatremia: SIADH: Acute on chronic Baseline sodium around 133 128 on admission Nephrology service consulted Alcohol use disorder: Chronic Last drink 06/15/23 @ 2200; 3 beers AWSS scale ordered with one-time as needed Ativan IV Gabapentin loading and taper dose ordered Folic acid and thiamine IV ordered in ED CAD: HTN: Chronic Recently Amlodipine and losartan has been discontinued COPD: Chronic Takes Ellipta; continue Tobacco use disorder: Chronic Smokes 1.5 PPD cigarettes Smoking cessation recommended Nicotine patch ordered HLD: Chronic Takes atorvastatin; continue Disposition: PCP: Dr. Pedersen Pending PT and OT evaluation Admission and Anticipated Discharge Date Admission Date: June 16, 2023 Subjective Follow-up for fall, etc. Seen resting in bed, sitting up, not in distress, awake and alert, oriented x 3 Patient is at the bedside visiting, providing further information Patient woke up yesterday morning, found that he had urinated in bed, got up tried to walk around his bed, but was having difficulty with balance, patient subsequently fell He does not remember if he hit his head on the floor or not Patient's heard a loud noise and check to see the patient He was already on the floor, with bleeding elbow Patient's says the patient was very confused, somewhat agitated No signs of jerking movements Patient's confusion persisted, and resolved after about 10 minutes at the time when EMS arrived Last drink was the night before the incident Patient drinks about 4-5 beers per day, no changes with amount He has been at his baseline for the past few days prior to the incident On exam, patient states he feels okay overall States he still feels somewhat wobbly with ambulation No headache, chest pain, shortness of breath, palpitations No other new symptoms Review of Systems Review of Systems: all noted and negative except for above Physical Exam Physical Exam: all noted and negative except for above Results & Data Results & Data Vital Signs (Past 12 Hours) Vital Signs Temp Pulse Pulse Resp BP Pulse Ox O2 Del Method 06/17/23 15:19 70 06/17/23 11:04 36.3 C L 81 17 132/78 97 Room Air 06/17/23 08:26 36.5 C 72 16 121/74 93 Room Air 06/17/23 07:08 68 all noted and reviewed including below
[2023-06-17] MEDS ORDERED: ASPIRIN 81 MG ECTAB PO SCH (15:30)
[2023-06-17 17:37] LABS: Appearance Urine Clear (Clear); Bacteria Urine Automated Negative (Negative); Bilirubin Urine Negative (Negative); Blood Urine Negative (Negative); Cast Urine Automated 0 /lpf (0-5); Color Urine Yellow; Epithelial Cell Urine Auto 0-5 /lpf (0-5); Glucose Urine UA Negative (Negative); Ketones Urine Negative (Negative); Leukocyte Esterase Urine Trace (Negative); Nitrite Urine Negative (Negative); Protein Urine Negative (Negative); RBC Urine Automated 0-4 /hpf (0-4); Specific Gravity Urine 1.011 (1.000-1.030); Urobilinogen Urine Negative (Negative); WBC Urine Automated 0 /hpf (0-5)
--- NOTE | 2023-06-17 19:05 | Magnetic Resonance Report ---
MR brain wo con CLINICAL HISTORY: fall, possible syncope, loss of balance, r/o CVA TECHNIQUE: Multiplanar and multisequence MR images of the brain were obtained without intravenous con trast. Comparison: Comparison is made to MRI brain 04/30/[address] head 06/16/2023 FINDINGS: No abnormal restricted diffusion is identified. Foci of T2 and FLAIR hyperintensity are noted in the paraventricular areas consistent with chronic small vessel ischemic disease. Ex vacuo ventriculomegal y and sulcal enlargement is noted compatible with diffuse volume loss. No mass is seen. There is no m ass effect or midline shift. There is no evidence of acute intraparenchymal hemorrhage. No extra axia l fluid collections are seen. The corpus callosum, pituitary gland, and cerebellar tonsils appear martina ssly unremarkable. Flow voids of the major intracranial arterial vessels are identified. Sinus mucosal thickening is see n most prominent in the bilateral maxillary sinuses. IMPRESSION: No acute abnormality and in particular no evidence of acute infarct. Age-related changes as above. ACT 112: Negative or not required by law. Electronically signed by: Omi Cruz M.D. 06/17/2023 7:04 PM
[2023-06-18 08:46] LABS: Basophils # (auto) 0.04 K/uL (0.00-0.20); Basophils % (auto) 0.7 %; Eosinophils # (auto) 0.43 K/uL (0.00-0.50); Eosinophils % (auto) 7.4 %; Hematocrit (blood only) 34.8 % (42.0-52.0); Hemoglobin 12.7 g/dl (14.0-18.0); Immature Granulocytes # (auto) 0.02 K/uL (0.01-0.20); Immature Granulocytes % (auto) 0.3 %; Lymphocytes # (auto) 1.22 K/uL (1.20-3.40); Mean Corpuscular Hemoglobin 33.2 pg (25.0-34.0); Mean Corpuscular Hgb Conc 36.5 g/dL (32.0-36.0); Mean Corpuscular Volume 90.9 fL (80.0-100.0); Mean Platelet Volume 8.9 fL (9.4-12.4); Monocytes # (auto) 0.99 K/uL (0.11-0.59); Neutrophils # (auto) 3.11 K/uL (1.40-6.50); Neutrophils % (auto) 53.6 %; Platelet Count 216 K/uL (130-400); RDW Coefficient of Variation 12.4 % (11.5-14.5); RDW Standard Deviation 41.1 fL (36.4-46.3); Red Blood Count 3.83 M/uL (4.70-6.10); White Blood Count 5.81 K/ul (4.8-10.8)
[2023-06-18 09:00] LABS: BUN Creatinine Ratio 23.3 (10-20); Creatinine Clr Calc Pharmacy 84.8 ml/min; Est GFR (African American) 105.9 ml/min; Est GFR (Non-African American) 91.4 ml/min; Potassium 3.8 mmol/L (3.5-5.1)
--- NOTE | 2023-06-18 09:34 | Hospitalist Progress Note ---
Date of Service June 18, 2023 Assessment & Plan (1) Hyponatremia: (2) SIADH (syndrome of inappropriate ADH production): (3) AMS (altered mental status): (4) Ambulatory dysfunction: (5) Fall: (6) Carotid artery disease: (7) Chronic obstructive pulmonary disease: (8) HTN (hypertension): (9) Tobacco use disorder: (10) Alcohol use disorder: (11) HLD (hyperlipidemia): Plan per admitting service notes with addendum: Mr. Colinrdes is a 72 y/o male who presents to the ED after experiencing a fall this morning. He was in bed and became incontinent of urine and fell out of his bed on the floor after he stood up and was brought to the ED. Denies LOC. Found to be hyponatremic serum sodium 128. On 06/12 as an outpatient he was 133. He was seen by Nephrology here in 2021 for chronic hyponatremia. This is an unchanged diagnosis for him with underlying SIADH and daily alcohol use. Past medical history includes COPD, CAD, carotid stenosis, monoclonal paraproteinemi a, hyperlipidemia, HTN, chronic alcohol use, tobacco abuse, chronic hyponatremia, SIADH. Elbow and shoulder x-rays negative for fracture, CS CT negative outside of osteopenia and sclerotic changes, head CT negative for ICH, SDH. Serum alcohol negative. He is a chronic 1.5 ppd smoker and daily alcohol drinker. No leukocytosis, LFTs negative. Serum alcohol negative. Pt denies VAZQUEZ, dizziness, SOB, chest pain, palpitations, N/V/D, bowel changes and other trauma. Will admit patient for suspected chronic SIADH and ambulatory dysfunction secondary to chronic daily alcohol consumption. Will initiate fluid restriction, check UA to rule out infection with incontinence, serial BMP every 4 x 2, check orthostatic BP, check B12 level, administer folic acid and thiamine along with initiating awss scale for alcohol withdrawal, encourage smoking cessation. Status post fall In the setting of ataxia, Alcoholism Possible syncope, seizure episode History of CVA, basal ganglia Imaging studies do not indicate signs of fracture Obtain brain MRI to rule out CVA Obtain EEG to rule out underlying seizure Neurology consult Continue usual aspirin 81 mg p.o. daily PT and OT evaluation 06/17 Clinically improving Imbalance, unsteadiness with ambulation improved Brain MRI: No acute process EEG pending Neurologist consulted, possible syncope versus seizure, discussed with patient and family, they would like to defer any antiseizure medication at this point No erythematous per telemetry monitoring so far Echocardiogram: EF 60 to 65%, grade 1 diastolic dysfunction, nondilated cardiac chambers, trace aortic regurgitation, mild tricuspid regurgitation Continue usual aspirin 81 mg p.o. daily Continue to monitor PT OT evaluation Hyponatremia: SIADH: Acute on chronic Baseline sodium around 133 128 on admission Nephrology service consulted 06/17 Sodium level 131 Fluid restriction 1500 cc/day Alcohol cessation Alcohol use disorder: Chronic Last drink 06/15/23 @ 2200; 3 beers AWSS scale ordered with one-time as needed Ativan IV Gabapentin loading and taper dose ordered Folic acid and thiamine IV ordered in ED 06/17 No signs of overt alcohol withdrawal Monitor closely Continue gabapentin taper CAD: HTN: Chronic Recently Amlodipine and losartan has been discontinued COPD: Chronic Takes Ellipta; continue Tobacco use disorder: Chronic Smokes 1.5 PPD cigarettes Smoking cessation recommended Nicotine patch ordered HLD: Chronic Takes atorvastatin; continue Disposition: PCP: Dr. Pedersen Lives with at home PT and OT evaluation DVT prophylaxis SCDs for now Admission and Anticipated Discharge Date Admission Date: June 16, 2023 Subjective Follow-up for fall, possible syncope, etc. Seen seated in bed, comfortable, not in distress Awake alert x 3, answering all questions appropriately Patient's at the bedside visiting States he feels improved overall Unsteadiness with ambulation seems to be resolved as per patient Denies headache, dizziness, focal neurologic symptoms No chest pain, shortness of breath, palpitations No other new symptoms Patient's at the bedside states patient looks better today as well Gait seems to be back to baseline Review of Systems Review of Systems: all noted and negative except for above Physical Exam Physical Exam: General- oriented x 3, not in distress, speaks in sentences with no effort or accessory muscle use Eyes- anicteric Neck- no JVD Lungs- clear breath sounds bilaterally, no rales/wheezes Heart- normal rate, regular rhythm; no murmurs Abdomen- normal bowel sounds, nondistended, soft, nontender Extremities- no pretibial edema, no calf tenderness Neuro- alert, oriented x 3; no gross focal neurologic deficits Skin- warm & dry Results & Data Results & Data Vital Signs (Past 12 Hours) Vital Signs Temp Pulse Pulse Resp BP Pulse Ox O2 Del Method 06/18/23 08:33 36.4 C L 69 18 127/70 94 Room Air 06/18/23 07:03 73 06/18/23 03:55 36.4 C L 88 18 122/66 95 Room Air 06/18/23 00:08 71 06/17/23 23:29 36.5 C 76 18 131/74 97 Room Air all noted and reviewed including below
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
[2023-06-18] MEDS: ASPIRIN 81 MG ECTAB PO SCH (10:06)
[2023-06-18] MEDS: GABAPENTIN 600 MG TAB PO SCH (15:10)
[2023-06-19 06:23] LABS: BUN Creatinine Ratio 19.5 (10-20); Calcium 8.2 mg/dl (8.6-10.3); Creatinine Clr Calc Pharmacy 78.8 ml/min; Est GFR (Non-African American) 87.1 ml/min; Potassium 3.8 mmol/L (3.5-5.1)
--- NOTE | 2023-06-19 09:24 | Hospitalist Progress Note ---
Date of Service June 19, 2023 Assessment & Plan (1) Hyponatremia: (2) SIADH (syndrome of inappropriate ADH production): (3) AMS (altered mental status): (4) Ambulatory dysfunction: (5) Fall: (6) Carotid artery disease: (7) Chronic obstructive pulmonary disease: (8) HTN (hypertension): (9) Tobacco use disorder: (10) Alcohol use disorder: (11) HLD (hyperlipidemia): Plan per admitting service notes with addendum: Mr. Colindres is a 72 y/o male who presents to the ED after experiencing a fall this morning. He was in bed and became incontinent of urine and fell out of his bed on the floor after he stood up and was brought to the ED. Denies LOC. Found to be hyponatremic serum sodium 128. On 06/12 as an outpatient he was 133. He was seen by Nephrology here in 2021 for chronic hyponatremia. This is an unchanged diagnosis for him with underlying SIADH and daily alcohol use. Past medical history includes COPD, CAD, carotid stenosis, monoclonal paraproteinemi a, hyperlipidemia, HTN, chronic alcohol use, tobacco abuse, chronic hyponatremia, SIADH. Elbow and shoulder x-rays negative for fracture, CS CT negative outside of osteopenia and sclerotic changes, head CT negative for ICH, SDH. Serum alcohol negative. He is a chronic 1.5 ppd smoker and daily alcohol drinker. No leukocytosis, LFTs negative. Serum alcohol negative. Pt denies VAZQUEZ, dizziness, SOB, chest pain, palpitations, N/V/D, bowel changes and other trauma. Will admit patient for suspected chronic SIADH and ambulatory dysfunction secondary to chronic daily alcohol consumption. Will initiate fluid restriction, check UA to rule out infection with incontinence, serial BMP every 4 x 2, check orthostatic BP, check B12 level, administer folic acid and thiamine along with initiating awss scale for alcohol withdrawal, encourage smoking cessation. Status post fall In the setting of ataxia, Alcoholism Possible syncope, seizure episode History of CVA, basal ganglia Imaging studies do not indicate signs of fracture Obtain brain MRI to rule out CVA Obtain EEG to rule out underlying seizure Neurology consult Continue usual aspirin 81 mg p.o. daily PT and OT evaluation 06/17 Clinically improved Imbalance, unsteadiness with ambulation resolved Brain MRI: No acute process EEG: pending Neurologist consulted, possible syncope versus seizure, discussed with patient and family, they would like to defer any antiseizure medication at this point No arrhythmia per telemetry monitoring so far Echocardiogram: EF 60 to 65%, grade 1 diastolic dysfunction, nondilated cardiac chambers, trace aortic regurgitation, mild tricuspid regurgitation Continue usual aspirin 81 mg p.o. daily when EEG result is available, anticipate return home Zio patch as outpatient Hyponatremia: SIADH: Acute on chronic Baseline sodium around 133 128 on admission Nephrology service consulted 06/18 Sodium level 138 Fluid restriction 1500 cc/day Alcohol cessation Alcohol use disorder: Chronic Last drink 06/15/23 @ 2200; 3 beers AWSS scale ordered with one-time as needed Ativan IV Gabapentin loading and taper dose ordered Folic acid and thiamine IV ordered in ED 06/18 No signs of overt alcohol withdrawal Continue gabapentin taper, last day tomorrow CAD: HTN: Chronic Recently Amlodipine and losartan has been discontinued no chest pain, palpitations BP stable overall, outpatient monitoring COPD: Chronic Takes Ellipta Tobacco use disorder: Chronic Smokes 1.5 PPD cigarettes Smoking cessation recommended Nicotine patch ordered HLD: Chronic Takes atorvastatin; continue Disposition: PCP: Dr. Pedersen Lives with at home PT and OT evaluation anticipate d/c home today DVT prophylaxis SCDs for now Admission and Anticipated Discharge Date Admission Date: June 16, 2023 Subjective ff up for fall, etc seen resting in bed, comfortable walking in the room when I entered the room states he feel much better overall denies dizziness, weakness gait is steady again no chest pain, dyspnea, palpitations, dizziness no tremors no other symptoms Review of Systems Review of Systems: all noted and negative except for above Physical Exam Physical Exam: General- oriented x 3, not in distress, speaks in sentences with no effort or accessory muscle use Eyes- anicteric Neck- no JVD Lungs- clear breath sounds bilaterally no crackles, no wheezing Heart- normal rate, regular rhythm; no murmurs Abdomen- normal bowel sounds, nondistended, soft, nontender Extremities- no pretibial edema, no calf tenderness Neuro- alert, oriented x 3; no gross focal neurologic deficits Skin- warm & dry Results & Data Results & Data Vital Signs (Past 12 Hours) Vital Signs Temp Pulse Pulse Resp BP BP Pulse Ox 06/19/23 07:38 36.8 C 75 18 140/65 94 06/19/23 07:10 71 06/19/23 03:04 36.5 C 72 18 146/65 H 93 06/18/23 23:29 71 06/18/23 22:50 36.4 C L 72 18 136/70 95 O2 Del Method 06/19/23 07:38 Room Air 06/19/23 07:10 06/19/23 03:04 Room Air 06/18/23 23:29 06/18/23 22:50 Room Air all noted and reviewed including below
--- NOTE | 2023-06-19 17:15 | Nephrology Progress Note ---
Date of Service June 19, 2023 Assessment & Plan (1) Hyponatremia: Plan: very longstanding Hyponatremia: has na ranging from 125 to 134 for the last few years. na is slightly low at 128 but has been in this range for years so I dont think this is the primary cause but obviously does not help. he needs to stop alcohol totally. still drinking 3 beers per day that he says. Limit fluid to 1500 ml per day. Sig increase in protein intake. Was lost to follow up after 2021---But unless he does above things na will not improve. (2) Fall: Plan: Reviewed. Has had progressive worsening issues with balance tremors and ataxia for months now. Defer to primary service Admission and Anticipated Discharge Date Admission Date: June 16, 2023 Results & Data Vital Signs (Past 12 Hours) Vital Signs Temp Pulse Pulse Resp BP Pulse Ox O2 Del Method 06/19/23 15:46 36.8 C 74 18 149/76 H 98 Room Air 06/19/23 15:31 81 06/19/23 11:37 36.6 C 67 18 139/69 97 Room Air 06/19/23 07:38 36.8 C 75 18 140/65 94 Room Air 06/19/23 07:10 71 Laboratory Results 06/18/23 08:08 06/19/23 05:36
--- NOTE | 2023-06-19 18:12 | Discharge Summary ---
Discharge Summary Date of Service June 19, 2023 Notes For Next Care Provider Please evaluate if patient can resume driving. Full details per assessment family. Medication Changes From Visit None Admission HPI Per Admitting Provider Mr. Colindres is a 72 year old male who presents to the ED after experiencing a fall this morning. He was in bed and became incontinent and fell out of his bed on the floor after he stood up and was brought to the ED. Found to be hyponatremic serum sodium 128. On 06/12 as an outpatient he was 133. He was seen by Nephrology here in 2021 for chronic hyponatremia. This is an unchanged diagnosis for him with underlying SIADH and daily alcohol use. Past medical history includes COPD, CAD, carotid stenosis, monoclonal paraproteinemia, hyperlipidemia, HTN, chronic alcohol use, tobacco abuse, chronic hyponatremia, SIADH. Elbow and shoulder x-rays negative for fracture, CS CT negative outside of osteopenia and sclerotic changes, head CT negative for ICH, SDH. Serum alcohol negative. He is a chronic 1.5 ppd smoker and daily alcohol drinker. No leukocytosis, LFTs negative. Serum alcohol negative. Pt denies VAZQUEZ, dizziness, SOB, chest pain, palpitations, N/V/D, bowel changes and other trauma. Will admit patient for suspected chronic SIADH and ambulatory dysfunction secondary to chronic daily alcohol consumption. Will initiate fluid restriction, check UA to rule out infection with incontinence, serial BMP every 4 x 2, check orthostatic BP, check B12 level, administer folic acid and thiamine along with initiating awss scale for alcohol withdrawal, encourage smoking cessation. Admission Exam Per Admitting Provider Neuro: AAOx4, PERRLA, no aphagia, memory changes, CNII-XII grossly intact HEENT: head normocephalic, moist mucus membranes CV: S1/S2, (-) M/G/R, (-) edema, cap refill < 3 seconds Resp: Lungs CTA in all sargent. On RA GI: Abdomen S/NT/ND, Ax4 bowel sounds, (-) CVA tenderness Musculoskeletal: 5/5 B/L UE strength, 5/5 B/L LE strength. No gait disturbance Skin: (-) rashes , (-) erythema. (+) red rhinophyma Psych: euthymic mood Principal Dx & Hospital Course #1 = Principal Diagnosis (1) Hyponatremia: (2) SIADH (syndrome of inappropriate ADH production): (3) AMS (altered mental status): (4) Ambulatory dysfunction: (5) Fall: (6) Carotid artery disease: (7) Chronic obstructive pulmonary disease: (8) HTN (hypertension): (9) Tobacco use disorder: (10) Alcohol use disorder: (11) HLD (hyperlipidemia): Plan per admitting service notes with addendum: Mr. Colindres is a 72 y/o male who presents to the ED after experiencing a fall this morning. He was in bed and became incontinent of urine and fell out of his bed on the floor after he stood up and was brought to the ED. Denies LOC. Found to be hyponatremic serum sodium 128. On 06/12 as an outpatient he was 133. He was seen by Nephrology here in 2021 for chronic hyponatremia. This is an unchanged diagnosis for him with underlying SIADH and daily alcohol use. Past medical history includes COPD, CAD, carotid stenosis, monoclonal paraproteinemia, hyperlipidemia, HTN, chronic alcohol use, tobacco abuse, chronic hyponatremia, SIADH. Elbow and shoulder x-rays negative for fracture, CS CT negative outside of osteopenia and sclerotic changes, head CT negative for ICH, SDH. Serum alcohol negative. He is a chronic 1.5 ppd smoker and daily alcohol drinker. No leukocytosis, LFTs negative. Serum alcohol negative. Pt denies VAZQUEZ, dizziness, SOB, chest pain, palpitations, N/V/D, bowel changes and other trauma. Will admit patient for suspected chronic SIADH and ambulatory dysfunction secondary to chronic daily alcohol consumption. Will initiate fluid restriction, check UA to rule out infection with incontinence, serial BMP every 4 x 2, check orthostatic BP, check B12 level, administer folic acid and thiamine along with initiating awss scale for alcohol withdrawal, encourage smoking cessation. Status post fall In the setting of ataxia, Alcohol use Possible syncope, seizure episode? History of CVA, basal ganglia 06/18 Clinically improved Imbalance, unsteadiness with ambulation resolved Brain MRI: No acute process Neurologist Dr. Adeline William consulted Recommendation: "73 y/o male that presented following a possible episode of loss of consciousness. Given history, unable to rule out seizure. Pt with history of SIADH, sodium 128 at admission. has reported episodes of staring/disorientation and it is not clear if these events represent seizure, or if they have occurred in the setting of more significant hyponatremia. MRI brain was completed without contrast, although did not reveal any acute intracranial findings. Ideally, with concern for seizure, would obtain contrasted MRI. Pt with prior history of TBI. Discussed risks vs benefits of ASMs and whether they would want to consider a trial of medication and they have indicated, they would prefer to defer for now and further consider in outpatient setting. EEG pending. He appears to have had a cognitive decline over the last year, and he would likely benefit from neuropsychology testing as an outpatient and neurology outpatient follow-up, as well as obtaining TSH, b12, thiamine, folate, B6, vitamin d, lyme, and FTA. In addition to above, recommend syncope work-up per primary and no driving." EEG: Normal as per neurologist TSH, folate, B12, vitamin D, Lyme screen: Negative Thiamine, B6, treponemal antibody: Pending, please follow-up No arrhythmia per telemetry Echocardiogram: EF 60 to 65%, grade 1 diastolic dysfunction, nondilated cardiac chambers, trace aortic regurgitation, mild tricuspid regurgitation Continue usual aspirin 81 mg p.o. daily Refer to neurology service for further evaluation Advised not to drive until complete evaluation has been performed, [employer] report submitted-discussed with patient's at length Zio patch as outpatient Hyponatremia: SIADH: Acute on chronic Baseline sodium around 133 128 on admission Nephrology service consulted 06/18 Sodium level 138 Fluid restriction 1500 cc/day Alcohol cessation Alcohol use disorder: Chronic 06/18 No signs of overt alcohol withdrawal Completed gabapentin taper Alcohol cessation strongly encouraged CAD: HTN: Chronic Recently Amlodipine and losartan has been discontinued no chest pain, palpitations BP stable overall, outpatient monitoring COPD: Chronic Takes Ellipta Tobacco use disorder: Chronic Smokes 1.5 PPD cigarettes Smoking cessation recommended Nicotine patch ordered HLD: Chronic Takes atorvastatin; continue Disposition: Discharge to home PCP follow-up in 1 week Discharge Exam General- oriented x 3, not in distress, speaks in sentences with no effort or accessory muscle use Eyes- anicteric Neck- no JVD Lungs- clear breath sounds bilaterally no crackles, no wheezing Heart- normal rate, regular rhythm; no murmurs Abdomen- normal bowel sounds, nondistended, soft, nontender Extremities- no pretibial edema, no calf tenderness Neuro- alert, oriented x 3; no gross focal neurologic deficits Skin- warm & dry Updated Medication List Medication Instructions Recorded Confirmed Type atorvastatin 20 mg tablet (Lipitor) 20 mg PO QAM 04/30/20 06/16/23 History thiamine HCl (vitamin B1) 100 mg 100 mg PO QAM 04/30/20 06/16/23 History tablet (Vitamin B-1) umeclidinium 62.5 mcg/actuation 1 inh inhalation QAM 04/30/20 06/16/23 History blister powder for inhalation (Incruse Ellipta) cholecalciferol (vitamin D3) 25 0 mcg PO QAM 08/19/21 06/16/23 History mcg (1,000 unit) capsule (Vitamin D3) albuterol sulfate 90 mcg/actuation 2 puff inhalation Q6H PRN Wheezing 06/16/23 06/16/23 History aerosol inhaler or Shortness of Breath aspirin 81 mg tablet,delayed 81 mg PO QAM #30 tabs 06/19/23 Rx release Hospital Stay Data Consultations 06/16/23 14:12 ED Decision to Admit Stat 06/17/23 07:51 Consult Nephrology Routine 06/17/23 10:36 Consult Neurology Routine Diagnostic Imagining Performed Laboratory Results WBC 5.81 K/ul (4.8-10.8) 06/18/23 08:08 RBC 3.83 M/uL (4.70-6.10) L 06/18/23 08:08 Hgb 12.7 g/dl (14.0-18.0) L 06/18/23 08:08 Hct 34.8 % (42.0-52.0) L 06/18/23 08:08 MCV 90.9 fL (80.0-100.0) 06/18/23 08:08 MCH 33.2 pg (25.0-34.0) 06/18/23 08:08 MCHC 36.5 g/dL (32.0-36.0) H 06/18/23 08:08 RDW Std Deviation 41.1 fL (36.4-46.3) 06/18/23 08:08 RDW Coeff of Daquan 12.4 % (11.5-14.5) 06/18/23 08:08 Plt Count 216 K/uL (130-400) 06/18/23 08:08 MPV 8.9 fL (9.4-12.4) L 06/18/23 08:08 Immature Gran % (Auto) 0.3 % 06/18/23 08:08 Neut % (Auto) 53.6 % 06/18/23 08:08 Lymph % (Auto) 21.0 % 06/18/23 08:08 [place] % (Auto) 17.0 % 06/18/23 08:08 Eos % (Auto) 7.4 % 06/18/23 08:08 Baso % (Auto) 0.7 % 06/18/23 08:08 Neut # (Auto) 3.11 K/uL (1.40-6.50) 06/18/23 08:08 Lymph # (Auto) 1.22 K/uL (1.20-3.40) 06/18/23 08:08 [place] # (Auto) 0.99 K/uL (0.11-0.59) H 06/18/23 08:08 Eos # (Auto) 0.43 K/uL (0.00-0.50) 06/18/23 08:08 Baso # (Auto) 0.04 K/uL (0.00-0.20) 06/18/23 08:08 Immature Gran # (Auto) 0.02 K/uL (0.01-0.20) 06/18/23 08:08 Sodium 134 mmol/L (136-145) L 06/19/23 05:36 Potassium 3.8 mmol/L (3.5-5.1) 06/19/23 05:36 Chloride 105 mmol/L (98-107) 06/19/23 05:36 Carbon Dioxide 23 mmol/L (21-32) 06/19/23 05:36 Anion Gap 6 (3-11) 06/19/23 05:36 BUN 16 mg/dl (6-23) 06/19/23 05:36 Creatinine 0.82 mg/dl (0.6-1.4) 06/19/23 05:36 Est Cr Clr Drug Dosing 78.8 ml/min 06/19/23 05:36 Est GFR ( Amer) 101.0 ml/min 06/19/23 05:36 Est GFR (Non-Af Amer) 87.1 ml/min 06/19/23 05:36 BUN/Creatinine Ratio 19.5 (10-20) 06/19/23 05:36 Glucose 86 mg/dl (70-99(Fasting)) 06/19/23 05:36 POC Glucose 91 mg/dl (70-99) 06/17/23 12:16 Osmolality 264 mOsm/kg (280-300) L 06/16/23 15:50 Calcium 8.2 mg/dl (8.6-10.3) L 06/19/23 05:36 Phosphorus 3.3 mg/dl (2.5-4.9) 06/17/23 05:36 Magnesium 2.2 mg/dl (1.7-2.4) 06/17/23 05:36 Total Bilirubin 0.9 mg/dl (0.2-1.0) 06/17/23 05:36 AST 27 U/L (13-39) 06/17/23 05:36 ALT 9 U/L (7-52) 06/17/23 05:36 Alkaline Phosphatase 26 U/L (34-104) L 06/17/23 05:36 Troponin I High Sens 10.4 pg/ml (0-20) 06/16/23 11:57 Total Protein 6.2 gm/dl (6.0-8.3) 06/17/23 05:36 Albumin 3.4 gm/dl (3.4-5.0) 06/17/23 05:36 Globulin 2.8 gm/dl (2.5-4.0) 06/17/23 05:36 Albumin/Globulin Ratio 1.2 (0.9-2) 06/17/23 05:36 Vitamin B12 222 pg/ml (180-914) 06/16/23 11:57 25-OH Vitamin D Total 38.6 ng/ml (30-100) 06/18/23 12:20 Folate > 22.30 ng/ml (>5.38) 06/18/23 12:20 TSH 3.277 uIu/ml (0.300-4.500) 06/18/23 12:20 Urine Color Yellow 06/17/23 17:27 Urine Appearance Clear (Clear) 06/17/23 17:27 Urine pH 7.0 (4.5-7.5) 06/17/23 17:27 Ur Specific [place] 1.011 (1.000-1.030) 06/17/23 17:27 Urine Protein Negative (Negative) 06/17/23 17:27 Urine Glucose (UA) Negative (Negative) 06/17/23 17:27 Urine Ketones Negative (Negative) 06/17/23 17:27 Urine Blood Negative (Negative) 06/17/23 17:27 Urine Nitrite Negative (Negative) 06/17/23 17:27 Urine Bilirubin Negative (Negative) 06/17/23 17:27 Urine Urobilinogen Negative (Negative) 06/17/23 17:27 Ur Leukocyte Esterase Trace (Negative) H 06/17/23 17:27 Urine WBC (Auto) 0 /hpf (0-5) 06/17/23 17:27 Urine RBC (Auto) 0-4 /hpf (0-4) 06/17/23 17: U Hyaline Cast (Auto) 0 /lpf (0-5) 06/17/23 17:27 U Epithel Cells (Auto) 0-5 /lpf (0-5) 06/17/23 17:27 Urine Bacteria (Auto) Negative (Negative) 06/17/23 17:27 Ur Random Sodium 29 mmol/L 06/17/23 17:27 Ethyl Alcohol mg/dL < 10.0 mg/dl (<10.0) 06/16/23 11:57 Lyme Disease Screen Negative (Negative) 06/18/23 12:20 Impressions Elbow X-Ray 06/16/23 11:24 XR elbow LT min 3V routine HISTORY: 73 years-old Male fall, skin tear acute left elbow pain status post fall COMPARISON: None TECHNIQUE: 3 views of the left elbow FINDINGS: Mild osteoarthritis. Moderate dorsal soft tissue swelling. No acute fracture, dislocation or large joint effusion. No opaque foreign bodies. IMPRESSION: No acute fracture or dislocation. ACT 112: Negative or not required by law. The above report was generated using voice recognition software. It may contain grammatical, syntax or spelling errors. Electronically signed by: Mt Uriostegui M.D. 06/16/2023 12:11 PM Shoulder X-Ray 06/16/23 11:24 XR shoulder RT min 2V routine CLINICAL HISTORY: fall, pain COMPARISON: Right shoulder radiographs May 21, 2020. FINDINGS: Alignment of the right shoulder is anatomic. There is no acute fracture. There are no osseous lesions. There is mild osteoarthritis of the right acromioclavicular and glenohumeral joints. IMPRESSION: No fracture or dislocation within the right shoulder. ACT 112: Negative or not required by law. Electronically signed by: Danny Hurtado M.D. 06/16/2023 11:[address] 06/16/23 11:35 CT SCAN OF THE CERVICAL SPINE CLINICAL HISTORY: Fall. COMPARISON STUDY: CT of the cervical spine dated 05/21/2020. TECHNIQUE: CT scan of the cervical spine is performed from the skull base to the upper thoracic spine. Images are reviewed in the axial, sagittal, and coronal planes. IV contrast was not administered for this examination. A dose lowering technique was utilized adhering to the principles of ALARA. FINDINGS: Skeletal structures: The skeletal structures are osteopenic. There is no evidence of fracture or subluxation involving the cervical spine. Vertebral body height is maintained. There is minimal anterolisthesis at C7-T1. Alignment is otherwise preserved. There is straightening of the cervical lordosis. Anterior osteophytes are seen throughout. The odontoid process and lateral masses are intact. The atlantoaxial articulation is preserved noting advanced productive degenerative change. The spinous processes appear intact. There is moderate multilevel cervical spondylosis. Uncovertebral and facet arthropathy contribute to neural foraminal narrowing at several levels. Intervertebral discs: There is severe disc space narrowing at C4-C5, C5-C6, and C6-C7 with multilevel endplate sclerosis. Moderate disc space narrowing is seen at C7-T1. Central canal: Posterior disc osteophyte complexes are seen at all cervical levels between C4-C5 and C7-T1. This likely contributes to multilevel acquired compromise of the central canal. Soft tissues: The prevertebral and paraspinous soft tissues are within normal limits. There is atherosclerotic calcification of the carotid bulbs. Calvarium: The visualized calvarium at the skull base appears intact. Brain parenchyma: Partially visualized brain parenchyma at the skull base is within normal limits. Sinuses and mastoids: There is mild mucosal thickening in the right maxillary antrum. Trace mucosal thickening is noted in the sphenoid sinuses. The mastoid air cells are well pneumatized. Lung apices: Clear as visualized. IMPRESSION: 1. There is no evidence of fracture or subluxation involving the cervical spine. 2. Osteopenia and spondylotic change as above. ACT 112: Negative or not required by law. Electronically signed by: Alvarado Gray M.D. 06/16/2023 1:[address] 06/16/23 11:35 CT OF THE HEAD WITHOUT CONTRAST CLINICAL HISTORY: fall COMPARISON STUDY: MRI of the brain April 30, 2020. Head CT August 19, 2021. TECHNIQUE: Helical axial images of the head were obtained without IV contrast. Automated exposure control was utilized for the study. A dose lowering technique was utilized adhering to the principles of ALARA. FINDINGS: No acute intracranial hemorrhage, midline shift or mass effect is present. The ventricular system is unremarkable. The basal cisterns are patent. No extra-axial collections are present. There are no findings to suggest acute dural sinus thrombosis or acute territorial infarct. White matter hypodensities favor small vessel disease. There are no calvarial fractures. IMPRESSION: 1. No acute intracranial findings. 2. No calvarial fractures. ACT 112: Negative or not required by law. Electronically signed by: Danny Hurtado M.D. 06/16/2023 12:[address] 06/16/23 11:35 CT SCAN OF THE LUMBAR SPINE WITHOUT IV CONTRAST CLINICAL HISTORY: Fall. COMPARISON STUDY: MRI of the lumbar spine dated 05/21/2020. Abdominal CT dated 03/17/2020. TECHNIQUE: CT scan of the lumbar spine is performed from the lower thoracic spine to the sacrum. Images are reviewed in the axial, sagittal, and coronal planes. IV contrast was not administered for this examination. A dose lowering technique was utilized adhering to the principles of ALARA. CT DOSE: 2422.13 mGy.cm FINDINGS: The skeletal structures are osteopenic. There is a chronic compression deformity of T12 with evidence of previous vertebroplasty. There is a mild chronic superior endplate compression deformity of L1. Loss of height has modestly progressed from 05/21/2020. There is an age-indeterminate but chronic- appearing superior endplate compression deformity of L2, which is new from the 2020 examinations. Fragments are retropulsed at this level by up to 4.5 mm. This does not contribute to significant central canal stenosis. There is a minimal ch ronic superior endplate compression deformity of L3. Vertebral body height at L4 and L5 is preserved. Alignment is maintained. Anterior and lateral marginal osteophytes are seen throughout. The transverse and spinous processes appear intact. There is no spondylolysis. No lytic or blastic lesion is seen. There is [id number] multilevel degenerative disc space narrowing, greatest at L3-L4 where there is associated endplate sclerosis. Posterior disc bulges are seen at several levels. There is no CT evidence of high-grade central canal stenosis. Facet arthropathy is noted in the lower lumbar region. A right lateral disc bulge at L5-S1 contributes to subarticular stenosis and may abut the exiting right L5 nerve root. The visualized sacrum and bony pelvis appear intact. There is no significant paravertebral edema. Fatty atrophy is noted in the paraspinous musculature. There is [id number] atherosclerotic calcification and ectasia of the abdominal aorta. No retroperitoneal lymphadenopathy is seen. IMPRESSION: 1. No acute fracture or malalignment is clearly identified involving the lumbar spine. 2. A compression deformity of L2 is chronic-appearing but new from 2020. 3. Additional chronic compression deformities detailed above were seen on prior examinations. ACT 112: Negative or not required by law. Dictated: 06/16/2023 1:17 PM Transcribed: 06/16/2023 1:30 PM Jose Antonio [id number] [email or web address] Electronically signed by: Alvarado Gray M.D. 06/16/2023 1:32 PM Brain MRI 06/17/23 10:36 MR brain wo con CLINICAL HISTORY: fall, possible syncope, loss of balance, r/o CVA TECHNIQUE: Multiplanar and multisequence MR images of the brain were obtained without intravenous contrast. Comparison: Comparison is made to MRI brain 04/30/[address] head 06/16/2023 FINDINGS: No abnormal restricted diffusion is identified. Foci of T2 and FLAIR hyperintensity are noted in the paraventricular areas consistent with chronic small vessel ischemic disease. Ex vacuo ventriculomegaly and sulcal enlargement is noted compatible with diffuse volume loss. No mass is seen. There is no mass effect or midline shift. There is no evidence of acute intraparenchymal hemorrhage. No extra axial fluid collections are seen. The corpus callosum, pituitary gland, and cerebellar tonsils appear grossly unremarkable. Flow voids of the major intracranial arterial vessels are identified. Sinus mucosal thickening is seen most prominent in the bilateral maxillary sinuses. IMPRESSION: No acute abnormality and in particular no evidence of acute infarct. Age-related changes as above. ACT 112: Negative or not required by law. Electronically signed by: Omi Cruz M.D. 06/17/2023 7:04 PM Pending Results Patient Have Any Pending Studies at Discharge: No Discharge Instructions Given to Patient (Per Discharging Provider) PLEASE REFER TO YOUR NEW MEDICATION LIST AND FOLLOW INSTRUCTIONS CAREFULLY. YOUR NEW MEDICATIONS INCLUDE: Fluid restriction 1,500 ml/day to prevent low sodium level. No alcohol/smoking. No driving until re-evaluated and allowed by Primary Care Physician and Neurologist. PLEASE CALL YOUR PRIMARY CARE PHYSICIAN OR RETURN TO THE ER IF WITH WORSENING OF SYMPTOMS, INCLUDING dizziness, syncope, palpitations, chest pain, shortness of breath, etc FOLLOW UP WITH PRIMARY CARE PHYSICIAN IN 1 WEEK. FOLLOW UP WITH NEUROLOGIST IN 2 WEEKS. YOUR PRIMARY CARE PHYSICIAN CAN MAKE THE ARRANGEMENTS FOR THE REFERRAL. Total Time Total Time Spent Total Time Spent (In Minutes): >30 minutes
[2023-06-20] MEDS ORDERED: GABAPENTIN 600 MG TAB PO SCH (03:00)
--- NOTE | 2023-06-20 06:29 | Electroencephalogram ---
EEG Procedure Note Date of Service June Start / End Times Start Time: 09:36 End Time: 09:[address] Brodie Potter History A 73 year old male wiht syncope. EEG performed for evaluation of epileptiform activity. Home Medication List Medication Instructions Recorded Confirmed Type atorvastatin 20 mg tablet (Lipitor) 20 mg PO QAM 04/30/20 06/16/23 History thiamine HCl (vitamin B1) 100 mg 100 mg PO QAM 04/30/20 06/16/23 History tablet (Vitamin B-1) umeclidinium 62.5 mcg/actuation 1 inh inhalation QAM 04/30/20 06/16/23 History blister powder for inhalation (Incruse Ellipta) cholecalciferol (vitamin D3) 25 0 mcg PO QAM 08/19/21 06/16/23 History mcg (1,000 unit) capsule (Vitamin D3) albuterol sulfate 90 mcg/actuation 2 puff inhalation Q6H PRN Wheezing 06/16/23 06/16/23 History aerosol inhaler or Shortness of Breath aspirin 81 mg tablet,delayed 81 mg PO QAM #30 tabs 06/19/23 Rx release Inpatient Medication List Discontinued Medications Acetaminophen (Acetaminophen 500 Mg Tab) 1,000 mg PO NOW STA Stop: 06/16/23 11:25 Last Admin: 06/16/23 12:06 Dose: 1,000 mg Documented By: DELMA Acetaminophen (Acetaminophen 325 Mg Tab) 650 mg PO Q4H PRN PRN Reason: Pain or Fever Stop: 07/16/23 14:12 Last Admin: 06/16/23 16:21 Dose: 650 mg Documented By: JER Acetaminophen (Acetaminophen 325 Mg Tab) 650 mg PO TID [facility] Stop: 07/16/23 20:59 Last Admin: 06/19/23 12:51 Dose: Not Given Documented By: Admin: 06/19/23 08:26 Dose: 650 mg Documented By: Admin: 06/18/23 20:59 Dose: 650 mg Documented By: Admin: 06/18/23 13:39 Dose: 650 mg Documented By: Admin: 06/18/23 08:17 Dose: 650 mg Documented By: Admin: 06/17/23 20:29 Dose: 650 mg Documented By: Admin: 06/17/23 13:37 Dose: 650 mg Documented By: Admin: 06/17/23 07:44 Dose: 650 mg Documented By: Admin: 06/16/23 22:16 Dose: 650 mg Documented By: [facility] [place]irin (Aspirin 81 Mg Ectab) 81 mg PO [facility] Stop: 07/18/23 08:59 Last Admin: 06/19/23 08:23 Dose: 81 mg Documented By: Admin: 06/18/23 10:06 Dose: 81 mg Documented By: JAVAN Atorvastatin Calcium (Atorvastatin 20 Mg Tab) 20 mg PO [facility] Stop: 07/17/23 08:59 Last Admin: 06/19/23 08:22 Dose: 20 mg Documented By: Admin: 06/18/23 08:14 Dose: 20 mg Documented By: Admin: 06/17/23 07:45 Dose: 20 mg Documented By: JAVAN Cyanocobalamin (Cyanocobalamin 1000 Mcg/Ml Vial) 1,000 mcg IM [facility] Stop: 07/16/23 15:29 Last Admin: 06/19/23 08:23 Dose: 1,000 mcg Documented By: Admin: 06/18/23 08:14 Dose: 1,000 mcg Documented By: Admin: 06/17/23 07:44 Dose: 1,000 mcg Documented By: Admin: 06/16/23 16:18 Dose: 1,000 mcg Documented By: [facility] [place] Diclofenac Sodium (Diclofenac Sod 1% Gel 100 Gm Tube) 2 gm EXT QID [facility]; Protocol Stop: 07/16/23 16:59 Last Admin: 06/19/23 16:43 Dose: Not Given Documented By: Admin: 06/19/23 12:51 Dose: Not Given Documented By: Admin: 06/19/23 08:24 Dose: 2 gm Documented By: Admin: 06/18/23 20:59 Dose: Not Given Documented By: Admin: 06/18/23 15:09 Dose: 2 gm Documented By: Admin: 06/18/23 13:39 Dose: 2 gm Documented By: Admin: 06/18/23 08:15 Dose: 2 gm Documented By: Admin: 06/17/23 20:30 Dose: 2 gm Documented By: Admin: 06/17/23 15:37 Dose: 2 gm Documented By: Admin: 06/17/23 13:37 Dose: 2 gm Documented By: Admin: 06/17/23 07:46 Dose: 2 gm Documented By: Admin: 06/16/23 22:18 Dose: 2 gm Documented By: Admin: 06/16/23 19:58 Dose: 2 gm Documented By: JER Enoxaparin Sodium (Enoxaparin Inj 40 Mg/0.4 Ml Syr) 40 mg SQ Q24H SINDY Stop: 07/16/23 15:59 Last Admin: 06/19/23 16:43 Dose: Not Given Documented By: Admin: 06/18/23 15:09 Dose: 40 mg Documented By: Admin: 06/17/23 15:36 Dose: 40 mg Documented By: Admin: 06/16/23 16:18 Dose: 40 mg Documented By: JER Gabapentin (Gabapentin 1200mg Alcohol Withdrawal Load) 1 each PO ONCE ONE; Prot ocol Stop: 06/16/23 15:01 Last Admin: 06/16/23 16:26 Dose: Not Given Documented By: JER Gabapentin (Gabapentin 600 Mg Tab) 600 mg PO Q12H SINDY Stop: 06/19/23 03:01 Last Admin: 06/19/23 02:04 Dose: Not Given Documented By: Admin: 06/18/23 15:10 Dose: 600 mg Documented By: JAVAN Gabapentin (Gabapentin 600 Mg Tab) 600 mg PO Q8H SINDY Stop: 06/18/23 03:01 Last Admin: 06/18/23 03:13 Dose: 600 mg Documented By: Admin: 06/17/23 20:30 Dose: 600 mg Documented By: Admin: 06/17/23 13:36 Dose: 600 mg Documented By: JAVAN Gabapentin (Gabapentin 600 Mg Tab) 600 mg PO Q6H SINDY Stop: 06/17/23 03:01 Last Admin: 06/17/23 03:00 Dose: 600 mg Documented By: Admin: 06/16/23 22:16 Dose: 600 mg Documented By: JER Gabapentin (Gabapentin 600 Mg Tab) 1,200 mg PO NOW ONE Stop: 06/16/23 14:59 Last Admin: 06/16/23 16:17 Dose: 1,200 mg Documented By: JER Sodium Chloride (Nss) 1,000 mls @ 125 mls/hr IV .Q8H SINDY Stop: 07/16/23 13:59 Last Infusion: 06/16/23 16:28 Dose: Infused Documented By: Infusion: 06/16/23 16:27 Dose: 0 mls/hr Documented By: Admin: 06/16/23 14:28 Dose: 125 mls/hr Documented By: DELMA Thiamine HCl 100 mg/ Syringe 10 mls @ 2 mls/min IV QAM SINDY Stop: 07/16/23 14:29 Last Admin: 06/19/23 08:22 Dose: 2 mls/min Documented By: Admin: 06/18/23 08:15 Dose: 2 mls/min Documented By: Admin: 06/17/23 07:46 Dose: 2 mls/min Documented By: Admin: 06/16/23 16:15 Dose: 2 mls/min Documented By: JER Folic Acid 1 mg/ Syringe 10 mls @ 5 mls/min IV QAM SINDY Stop: 07/16/23 14:29 Last Admin: 06/19/23 08:22 Dose: 5 mls/min Documented By: Admin: 06/18/23 08:15 Dose: 5 mls/min Documented By: Admin: 06/17/23 07:46 Dose: 5 mls/min Documented By: Admin: 06/16/23 16:14 Dose: 5 mls/min Documented By: JER Lidocaine (Lidocaine 5% 1 Patch) 1 patch TD NOW STA Stop: 06/16/23 15:30 Last Admin: 06/16/23 16:22 Dose: 1 patch Documented By: JER Moore (Remove Nicoderm Patch) 1 each N/A DAILY@0859 [facility] Stop: 07/17/23 08:58 Last Admin: 06/19/23 08:20 Dose: 1 each Documented By: Admin: 06/18/23 10:06 Dose: 1 each Documented By: Admin: 06/17/23 07:43 Dose: 1 each Documented By: JAVAN Moore (Remove Lidoderm Patch) 1 each N/A DAILY@2100 [facility] Stop: 07/16/23 20:59 Last Admin: 06/18/23 20:59 Dose: Not Given Documented By: Admin: 06/17/23 20:30 Dose: Not Given Documented By: Admin: 06/16/23 22:19 Dose: 1 each Documented By: JER Nicotine (Nicotine 21 Mg/24 Hr Tdsy) 21 mg TD QAM [facility] Stop: 07/16/23 14:14 Last Admin: 06/19/23 08:21 Dose: 21 mg Documented By: Admin: 06/18/23 08:14 Dose: 21 mg Documented By: Admin: 06/17/23 09:37 Dose: 21 mg Documented By: Admin: 06/16/23 14:28 Dose: 21 mg Documented By: DELMA Umeclidinium [place] (Umeclidinium [place] 62.5mcg/Blister 7 Puffs/Inhaler) 1 puffs INH QAM [facility] Stop: 07/17/23 08:59 Last Admin: 06/19/23 08:21 Dose: 1 puffs Documented By: Admin: 06/18/23 08:15 Dose: 1 puffs Documented By: Admin: 06/17/23 07:47 Dose: 1 puffs Documented By: JAVAN Vitamin D (Cholecalciferol 25 Mcg (1000 Units) Tab) 25 mcg PO QAM [facility] Stop: 07/17/23 08:59 Last Admin: 06/19/23 08:22 Dose: 25 mcg Documented By: Admin: 06/18/23 08:14 Dose: 25 mcg Documented By: Admin: 06/17/23 07:45 Dose: 25 mcg Documented By: JAVAN Description This is a 21 electrode EEG with a single channel dedicated to limited EKG. The electrodes were placed in accordance with the International 10-20 system. REPORT: At the onset of the EEG, the patient is drowsy. The background activity consist of 9 Hz, persistent, posteriorly dominant, moderate amplitude, symmetric and rhythmic activity that is reactive to eye opening. Anteriorly, it consist of a mixture of low voltage indeterminate activity and 15-25 Hz, persistent, low amplitude, symmetric and rhythmic activity. Stepwise intermittent photic stimulation (1-21 Hz) does not induce any abnormalities. Drowsiness is characterized by low amplitude mixed frequency activity, roving eye movements, and decreased eye blinking and muscle artifact. Interpretation IMPRESSION: This is a normal awake and drowsy routine EEG. There is no evidence of focal slowing or epileptiform activity.
== END 2023-06-19 18:01 | disposition home or self-care (01) | DRG 645 ==
LOC: ED 11:15 → EDINP 14:13 → SUATTDRO 14:13 → 2N 15:22

== ENCOUNTER 2024-02-21 15:49 | Inpatient (IN) ==
--- NOTE | 2024-02-21 17:00 | XRay Report ---
EXAM: Radiograph of the Chest 1 View INDICATION: Chest pain and shortness of breath. TECHNIQUE: Frontal view of the chest. COMPARISON: 08/19/2021 FINDINGS: Lungs and pleural spaces: Small pleural effusions and pulmonary vascular congestion present. There is consolidation in the right base and mild atelectasis in the left base. No pneumothorax. Heart: Stable prominent cardiac shadow. Mediastinum: Normal contour. Bones/joints: Degenerative changes in the spine with stable distal thoracic kyphoplasty. Soft tissues: No abnormality noted. No radiopaque foreign body noted. Upper abdomen: No abnormality noted. IMPRESSION: CHF. Component of right basilar pneumonia and/or mucous plugging not excluded. ACT 112: Negative or not required by law. Electronically signed by Flavia Mayorga 02-21-2024 5:00 PM
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
[2024-02-21 18:12] LABS: iSTAT Creatinine 0.9 mg/dl (0.6-1.3); iSTAT Hemoglobin 14.6 g/dl (14.0-18.0); iSTAT Ionized Calcium 1.02 mmol/l (1.12-1.32); iSTAT Potassium 4.1 mmol/L (3.3-5.0)
[2024-02-21] MEDS: OPTIRAY 320 125ml IV ONE (18:13)
[2024-02-21 18:19] LABS: Basophils # (auto) 0.03 K/uL (0.00-0.20); Basophils % (auto) 0.5 %; Eosinophils # (auto) 0.15 K/uL (0.00-0.50); Eosinophils % (auto) 2.3 %; Hematocrit (blood only) 40.8 % (42.0-52.0); Hemoglobin 14.5 g/dl (14.0-18.0); Immature Granulocytes # (auto) 0.02 K/uL (0.01-0.20); Immature Granulocytes % (auto) 0.3 %; Lymphocytes # (auto) 1.23 K/uL (1.20-3.40); Lymphocytes % (auto) 18.6 %; Mean Corpuscular Hemoglobin 32.4 pg (25.0-34.0); Mean Corpuscular Hgb Conc 35.5 g/dL (32.0-36.0); Mean Corpuscular Volume 91.3 fL (80.0-100.0); Monocytes # (auto) 0.83 K/uL (0.11-0.59); Monocytes % (auto) 12.5 %; Neutrophils # (auto) 4.37 K/uL (1.40-6.50); Neutrophils % (auto) 65.8 %; Platelet Count 217 K/uL (130-400); RDW Coefficient of Variation 12.9 % (11.5-14.5); RDW Standard Deviation 43.2 fL (36.4-46.3); Red Blood Count 4.47 M/uL (4.70-6.10); White Blood Count 6.63 K/ul (4.8-10.8)
[2024-02-21 18:35] LABS: Albumin Globulin Ratio 1.2 (0.9-2); Albumin Level 3.7 gm/dl (3.4-5.0); BUN Creatinine Ratio 10.3 (10-20); Bilirubin,Total 0.8 mg/dl (0.2-1.0); Calcium 8.8 mg/dl (8.6-10.3); Creatinine Clr Calc Pharmacy 71.2 ml/min; Globulin 3.2 gm/dl (2.5-4.0); Potassium 4.1 mmol/L (3.5-5.1); Total Protein 6.9 gm/dl (6.0-8.3)
[2024-02-21 18:42] LABS: Troponin I High Sensitivity 14.6 pg/ml (0-20)
[2024-02-21 18:51] LABS: Partial Thromboplastin Time 28 Seconds (21-31); Prothrombin Time 11.1 Seconds (9.0-12.0)
--- NOTE | 2024-02-21 19:18 | CT Scan Report ---
EXAM: CT head/brain wo con CLINICAL HISTORY: fall, sob TECHNIQUE: Axial non-contrast CT scan of the brain was performed from the skull base to the high parietal region. One of the following dose reduction techniques were utilized for this exam: Automated exposure control, adjustment of the mA and/or kV according to patient size, use of iterative reconstruction. COMPARISON: 06/17/2023 MRI , 06/16/2023 CT. FINDINGS: Brain Parenchyma: Mild high-volume brain changes in the form of mildly dilated ventricles with mildly deep cortical sulci. Deep white matter ischemia and therefore more of hypodensities of the bilateral centrum semiovale and the posterior watershed areas. Normal attenuation of the cerebral hemispheres, cerebellum, and brainstem. No evidence of acute infarct, hemorrhage, or mass effect. No abnormal areas of hypo- or hyperattenuation. Ventricular System: Ventricles are mildly dilated , age-related. No evidence of hydrocephalus or ventricular enlargement. Subarachnoid Spaces: mildly Deepened sulci and cisterns. No evidence of subarachnoid hemorrhage or extra-axial fluid collections. Cerebellum and Brainstem: Normal size and signal. No masses, lesions, or areas of abnormal signal. Orbits: Normal appearance of the globes, optic nerves, and extraocular muscles. No evidence of orbital masses or abnormal signals. Sinuses: Left maxillary sinus anterior wall inclusion cyst Clear paranasal sinuses. No evidence of sinusitis or mucosal thickening. Mastoid Air Cells: Clear mastoid air cells. No evidence of mastoiditis. Skull and Meninges: Normal skull morphology. IMPRESSION: 1. Mild age-related involutional brain changes. 2. Deep white matter microangiopathy.Normal CT of the head without contrast. 3. No time interval changes as compared with the previous. Electronically signed by Ashanti Farnsworth 02-21-2024 7:18 PM
--- NOTE | 2024-02-21 19:36 | CT Scan Report ---
EXAM: CT angio chest PE protocol CLINICAL HISTORY: PE, SOB, cough, 118 cc opti 320 TECHNIQUE: CT angiography of the chest was performed with and without intravenous contrast with the following protocol: axial images with, reconstructed coronal and sagittal images. Non-contrast images were initially acquired, followed by contrast-enhanced images in arterial and venous phases. Intravenous contrast was administered using automated injection techniques. Bolus tracking was employed to optimize arterial phase imaging. One of these 3D techniques was utilized: Maximum Intensity Pixel (MIP), 3D Reconstructed Images, Volume Rendered Images, Surface Shaded Rendering. One of the following dose reduction techniques was utilized for this exam: Automated exposure control, adjustment of the mA and/or kV according to patient size, and use of iterative reconstruction. COMPARISON: 02/21/2024 chest x-ray was reviewed. FINDINGS: Aorta and Great Vessels: Ascending Aorta: Normal in caliber, no aneurysm, dissection, or significant atherosclerosis. Aortic Arch: Normal in caliber, no aneurysm, dissection, or significant atherosclerosis. Descending Aorta: Normal in caliber, no aneurysm, dissection, or significant atherosclerosis. Pulmonary Arteries: The main pulmonary artery and its branches are patent. The right main pulmonary artery shows flow-related hypodensity, no gross filling defect was noted. The right distal descending interlobar artery shows mural thickening. Heart: Cardiac Chambers: Normal in size. Evidence of left heart strain, and dilated ascending aorta with diffused atherosclerotic changes. Pericardium: No pericardial effusion or thickening. Lungs and Pleura: Left oblique fissural thickening with atelectatic band related. Moderate bilateral pleural effusion noted. Bilateral basal consolidation /atelectasis. No evidence of consolidation, collapse, or focal lesions. No pleural effusion or pleural thickening. Mediastinum: No mediastinal mass or abnormal lymphadenopathy. Normal appearance of the trachea and central bronchi. Hilar Structures: Hilar structures are normal without enlargement. Chest Wall: No mass lesions or abnormalities in the chest wall. Vascular Structures: Superior Vena Cava: Patent without evidence of stenosis or thrombus. Inferior Vena Cava: Patent without evidence of stenosis or thrombus. Bones and Soft Tissues: Moderate spondylosis of the thoracic spine was noted. No fractures, lytic, or blastic lesions of the visualized bony structures. Soft tissues are unremarkable. IMPRESSION: 1. No gross signs of pulmonary embolism were noted. 2. The right main pulmonary artery shows flow-related hypodensity, no gross filling defect was noted. 3. The right distal descending interlobar artery shows mural thickening and compression within the basal consolidation. 4. Moderate bilateral pleural effusion with subsequent basal consolidation /collapse (compatible with chest x-ray) 5. Dilated ascending aorta with diffuse aortic atherosclerotic changes. Electronically signed by Ashanti Farnsworth 02-21-2024 7:36 PM
[2024-02-21 20:53] LABS: Magnesium 1.9 mg/dl (1.7-2.4)
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
[2024-02-21] MEDS: FUROSEMIDE 40 MG/4 ML VIAL IV ONE (20:59)
[2024-02-21 21:09] LABS: Thyroid Stimulating Hormone 4.242 uIu/ml (0.300-4.500)
[2024-02-21] MEDS ORDERED: LORazepam 2 MG/1 ML VIAL IV PRN (21:48)
[2024-02-21] MEDS ORDERED: PROMETHAZINE 6.25 MG/50.25 ML BAG IV PRN (21:48)
[2024-02-21] MEDS ORDERED: ALBUT/IPRATROP 3MG/0.5MG NEB 3 ML VIAL NEB PRN (21:49)
[2024-02-21 22:10] LABS: Adenovirus PCR Not Detected (NotDetected); Bordetella parapertussis PCR Not Detected (NotDetected); Bordetella pertussis PCR Not Detected (NotDetected); Chlamydia pneumoniae PCR Not Detected (NotDetected); Coronavirus 229E PCR Not Detected (NotDetected); Coronavirus CoV-2 (COVID19)PCR Not Detected (NotDetected); Coronavirus HKU1 PCR Not Detected (NotDetected); Coronavirus NL63 PCR Not Detected (NotDetected); Coronavirus OC43PCR Not Detected (NotDetected); Human Metapneumovirus PCR Not Detected (NotDetected); Influenza A PCR Not Detected (NotDetected); Influenza B PCR Not Detected (NotDetected); Mycoplasma pneumoniae PCR Not Detected (NotDetected); Parainfluenza Virus 1 PCR Not Detected (NotDetected); Parainfluenza Virus 2 PCR Not Detected (NotDetected); Parainfluenza Virus 3 PCR Not Detected (NotDetected); Parainfluenza Virus 4 PCR Not Detected (NotDetected); Respiratory Syncytial VirusPCR Not Detected (NotDetected); Rhinovirus/Enterovirus PCR Not Detected (NotDetected)
[2024-02-21] MEDS: NICOTINE 21 MG/24 HR TDSY TD STA (22:39)
[2024-02-21] MEDS: THIAMINE HCL 100 MG in SYRINGE 9 ML IV STA (22:40)
--- NOTE | 2024-02-21 23:33 | Ultrasound Report ---
Exam(s): US VENOUS RIGHT LOWER EXTREMITY EXAM: US Duplex Right Lower Extremity Veins CLINICAL HISTORY: Reason for exam: swelling. TECHNIQUE: Real-time duplex ultrasound scan of the right lower extremity veins integrating B-mode two-dimensional vascular structure, Doppler spectral analysis, color flow Doppler imaging and compression. COMPARISON: No relevant prior studies available. FINDINGS: Deep veins: Unremarkable. No DVT in the visualized common femoral, femoral, proximal deep femoral or popliteal veins. The veins demonstrate normal color flow, are normally compressible, with normal phasic flow and/or augmentation response. Superficial veins: Unremarkable. No thrombus in the visualized great saphenous vein. Soft tissues: No acute findings. No popliteal cyst. IMPRESSION: No evidence of deep venous thrombosis in the right lower extremity. Electronically signed by: Willy Cardoza MD 02/21/24 23:32 PM
[2024-02-21] MEDS: ALBUT/IPRATROP 3MG/0.5MG NEB 3 ML VIAL NEB STA (23:42)
[2024-02-22 06:35] LABS: Basophils # (auto) 0.06 K/uL (0.00-0.20); Eosinophils # (auto) 0.28 K/uL (0.00-0.50); Eosinophils % (auto) 4.7 %; Hematocrit (blood only) 38.1 % (42.0-52.0); Hemoglobin 13.6 g/dl (14.0-18.0); Immature Granulocytes # (auto) 0.01 K/uL (0.01-0.20); Immature Granulocytes % (auto) 0.2 %; Lymphocytes # (auto) 1.43 K/uL (1.20-3.40); Lymphocytes % (auto) 23.8 %; Mean Corpuscular Hemoglobin 32.5 pg (25.0-34.0); Mean Corpuscular Hgb Conc 35.7 g/dL (32.0-36.0); Mean Corpuscular Volume 90.9 fL (80.0-100.0); Mean Platelet Volume 9.2 fL (9.4-12.4); Monocytes # (auto) 0.98 K/uL (0.11-0.59); Monocytes % (auto) 16.3 %; Neutrophils # (auto) 3.24 K/uL (1.40-6.50); Platelet Count 234 K/uL (130-400); RDW Coefficient of Variation 12.8 % (11.5-14.5); RDW Standard Deviation 41.8 fL (36.4-46.3); Red Blood Count 4.19 M/uL (4.70-6.10)
[2024-02-22 07:00] LABS: Calcium 8.4 mg/dl (8.6-10.3); Creatinine Clr Calc Pharmacy 75.7 ml/min; Potassium 3.7 mmol/L (3.5-5.1)
[2024-02-22] MEDS: ASPIRIN 81 MG ECTAB PO SCH (08:09)
[2024-02-22] MEDS: MULTIVITAMIN TAB PO SCH (08:09)
[2024-02-22] MEDS: ATORVASTATIN 20 MG TAB PO SCH (08:09)
[2024-02-22] MEDS: CHOLECALCIFEROL 25 MCG (1000 UNITS) TAB PO SCH (08:09)
[2024-02-22] MEDS: FOLIC ACID 1 MG TAB PO SCH (08:09)
[2024-02-22] MEDS: FINASTERIDE 5 MG TAB PO SCH (08:10)
[2024-02-22] MEDS: THIAMINE HCL 100 MG TAB PO SCH (08:10)
[2024-02-22] MEDS: NICOTINE 21 MG/24 HR TDSY TD SCH (08:10)
[2024-02-22] MEDS: ENOXAPARIN INJ 30 MG/0.3 ML SYR SQ SCH (08:11)
[2024-02-22] MEDS: UMECLIDINIUM BROMIDE 62.5MCG/BLISTER 7 PUFFS/INHALER INH SCH (08:12)
[2024-02-22] MEDS: FUROSEMIDE 40 MG/4 ML VIAL IV ONE (08:21)
--- NOTE | 2024-02-22 08:54 | Electrocardiogram Report ---
Test Reason : Blood Pressure : */* mmHG Vent. 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
[2024-02-22] MEDS ORDERED: THIAMINE HCL 100 MG TAB PO SCH (09:00)
[2024-02-22] MEDS: ACETAMINOPHEN 325 MG TAB PO PRN (12:10)
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
--- NOTE | 2024-02-22 14:38 | Hospitalist Progress Note ---
Date of Service February 22, 2024 Assessment & Plan (1) CHF (congestive heart failure): Plan: 73-year-old male with PMH of CVA, PVD, HTN, COPD, pulmonary nodule, chronic hyponatremia, SIADH, epilepsy, compression fracture status post surgery, MGUS, LUTS, ongoing tobacco/alcohol abuse presented with worsening shortness of breath with lower extremity swelling and cough symptoms for 1 to 2 days ago [facility]. He is being managed for the following: Acute CHF: Patient presented with shortness of breath, associated cough and lower extremity swelling. Admitting chest imaging with bilateral pleural effusion with basilar consolidation/collapse. BNP elevated at 1044 Echo with EF of 40 to 45%, left ventricular systolic function is mildly reduced, mild global hypokinesis of the left ventricle noted, mild concentric LVH noted. Status post IV diuresis with improvement in his BLE swelling and shortness of breath. Cardiology on board, await further recommendation. Continue telemetry monitoring, monitor I's and O's, monitor and replete e lectrolytes. ongoing tobacco/alcohol abuse: CELINA S at risk protocol, DT precautions. Nicotine patch. Other chronic medical conditions: Continue with/resume home meds as when able. 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 epilepsy as per records, patient refuses to take Keppra Rx from neurologist DVT prophylaxis. Lovenox subcu DNR /POA, Ms. Lyndsay Colindres [id number]. Text document was generated using iNEWi[employer] voice recognition software. It may contain grammatical or spelling errors. Kindly contact undersigned for clarification of any documentation item in question. Admission and Anticipated Discharge Date Admission Date: February 21, 2024 Subjective Patient was seen and examined at bedside. Patient reports improvement in the swelling of his legs, patient reports improvement in breathing and cough. Patient denies chest pain, febrile illness, sore throat. Patient reports eating okay and moving bowels okay. Physical Exam Physical Exam: GENERAL: Comfortable, pleasant, NAD, no respiratory distress SKIN: Pallor, warm HEENT: Pale palpebral conjunctivae, no ptosis, moist buccal mucosa NECK : Supple, no tenderness CHEST : Decreased breath sounds bibasal, no tenderness HEART : RRR, systolic murmur ABDOMEN: No distention, nontender EXTREMITIES : Bilateral LE swelling - trace, without tenderness, no other conspicuous deformities noted NEUROLOGIC : Coherent, no facial asymmetry, no other gross focality Results & Data Results & Data Vital Signs (Past 12 Hours) Vital Signs Temp Pulse Pulse Resp BP Pulse Ox Pulse Ox 02/22/24 14:02 70 02/22/24 11:15 36.6 C 75 16 138/82 99 02/22/24 08:00 96 02/22/24 07:56 02/22/24 06:56 36.7 C 76 18 145/61 H 95 02/22/24 06:47 64 02/22/24 03:09 36.9 C 72 17 122/77 92 O2 Del Method O2 Del Method 02/22/24 14:02 02/22/24 11:15 Room Air 02/22/24 08:00 Room Air 02/22/24 07:56 Room Air 02/22/24 06:56 Room Air 02/22/24 06:47 02/22/24 03:09 Room Air
[2024-02-22] MEDS: hydrOXYzine HCl 10 MG TAB PO PRN (16:01)
[2024-02-22] MEDS: POTASSIUM CHLORIDE CRTAB 20 MEQ TABCR PO ONE (16:06)
[2024-02-22] MEDS: FUROSEMIDE INJ 20 MG/2 ML VIAL IV ONE (16:06)
[2024-02-22] MEDS: POTASSIUM CHLORIDE CRTAB 20 MEQ TABCR PO STA (19:03)
[2024-02-22] MEDS: MAGNESIUM SULFATE / D5W 1 GM/100 ML BAG IV SCH (19:10)
[2024-02-22] MEDS: LORazepam 0.5 MG TAB PO STA (20:13)
[2024-02-23 07:05] LABS: Hematocrit (blood only) 38.4 % (42.0-52.0); Hemoglobin 13.9 g/dl (14.0-18.0); Mean Corpuscular Hemoglobin 32.6 pg (25.0-34.0); Mean Corpuscular Hgb Conc 36.2 g/dL (32.0-36.0); Mean Corpuscular Volume 90.1 fL (80.0-100.0); Mean Platelet Volume 9.5 fL (9.4-12.4); Platelet Count 233 K/uL (130-400); RDW Coefficient of Variation 12.7 % (11.5-14.5); RDW Standard Deviation 41.9 fL (36.4-46.3); Red Blood Count 4.26 M/uL (4.70-6.10)
[2024-02-23 07:22] LABS: BUN Creatinine Ratio 15.5 (10-20); Calcium 8.2 mg/dl (8.6-10.3); Chol HDL Ratio 2.4 (0-5); Creatinine Clr Calc Pharmacy 73.3 ml/min; Magnesium 2.2 mg/dl (1.7-2.4); Potassium 4.1 mmol/L (3.5-5.1)
[2024-02-23 07:36] LABS: Estimated Average Glucose 105 mg/dl; Hemoglobin A1C 5.3 % (4.5-5.6)
[2024-02-23] MEDS: ENOXAPARIN INJ 40 MG/0.4 ML SYR SQ SCH (08:42)
--- NOTE | 2024-02-23 10:30 | XRay Report ---
XR chest 1V portable CLINICAL HISTORY: re-evaluate fluid/consolidation TECHNIQUE: Single frontal radiograph of the chest was obtained. Comparison: Comparison is made to chest radiograph 02/21/2024 FINDINGS: No lines and tubes are seen. Cardiomegaly is noted. The aortic arch is calcified. The lungs are clear . Small right and likely small left pleural effusions are seen. IMPRESSION: Small bilateral pleural effusions. Allowing for differences in technique these are grossly similar fr om prior exam. ACT 112: Negative or not required by law. Electronically signed by: Omi Cruz M.D. 02/23/2024 10:28 AM
[2024-02-23] MEDS: lisinopril 2.5 MG TAB PO SCH (10:38)
--- NOTE | 2024-02-23 10:56 | Cardiology Progress Note ---
Date of Service February 23, 2024 Assessment & Plan (1) Acute heart failure with mildly reduced ejection fraction (HFmrEF, 41-49%): (2) Pleural effusion: (3) Aortic regurgitation: (4) Hyponatremia: Plan 02/22/24: Patient admitted with multifactorial volume overload, starting several days ago. Progressive edema and dyspnea reported by . He has historically not taken diuretics due to chronic hyponatremia and chronic alcohol abuse. B/L pleural effusions. Since admission, patient has received 2 doses of IV lasix 40 mg with good urine outputs. Interval improvement in LE edema and SOB reported by patient. Recommend one repeat dose of IV Lasix 20 mg this afternoon. Hold additional IV lasix in AM until labs are reviewed. Monitor sodium/potassium/kidney function. Echo demonstrated mild global hypokinesis with EF 45%, likely in setting of volume overload. HS troponin negative. No symptoms suggest angina. Stable moderate AI and moderate MR. May ultimately require low dose diuretic based on symptom improvement. Patient previously on lisinopril for many years but stopped due to hypotension. Recently BP has been elevated per . Given mildly reduced EF, recommend resuming losartan 25 mg daily. Consider transition to Entresto as outpatient depending on cost. Will avoid BB for now given his underlying pulm disease/COPD and active tobacco abuse. Will avoid spironolactone given hyponatremia. Continue ASA and statin. Needs outpatient f/u with pulm medicine for ongoing evaluation of enlarging LLL nodule. 02/23/24: Aggressive diuresis over the last 24-48 hours. -3.2 L since admission. Improved respiratory status/volume status with several doses of IV lasix. Sodium now 129. Hold additional diuretics. Monitor. Fluid restriction of about 50 ounces advised. Monitor I+Os. In regards to reduced LVEF at 40-45%, global hypokinesis, ongoing med management recommended. Patient not ideal candidate cath /ischemic work up given his potential need for additional testing/biopsy on abnormal lung nodule and + PET scan. He has no anginal symptoms. Med management Losartan was to be added, but allergy (unspecified) noted. reported he was previously on lisinopril. Will resume low dose. Consider adding BB but given COPD/pulm disease, will avoid for now. HRs controlled. Will not add spironolactone given hyponatremia. Continue ASA PT/OT recommended. Case discussed with Dr. [place] I spent a total of 30 minutes on the date of service in preparation, delivery, and documentation of the care provided to this patient, excluding any time spent in the performance of separately billed services. Emily Hogan PA-C Department of Cardiology, [facility] This chart was completed in part utilizing Speech Voice Recognition Software. Grammatical errors, random word insertions, pronoun errors, and incomplete sentences are an occasional consequence of this system due to software limitations, ambient noise, and hardware issues. Any formal questions or concerns about the content, text, or information contained within the body of this dictation should be directly addressed to the provider for clarification. Admission and Anticipated Discharge Date Admission Date: February 21, 2024 Supervising Physician Co-Signing Physician Notes Attending attestation: Case reviewed with the advanced practitioner. I have personally performed a history and physical examination on the patient. I have reviewed the advanced practitioner's documentation on the date of service referenced in note, and I agree with, and take responsibility for the plan of care. -Depending upon sodium results, consider additional dose of IV diuretic on 02/24/2024 and perhaps sending him home on furosemide 20 mg 2 days/week at time of discharge Cardiology to sign off. Call with questions or concerns Owen George, DO Subjective Patient resting in bed. Feeling well. Edema greatly improved. SOB improved. No chest pain. Nurse reports unsteadiness when getting out of bed. Review of Systems Review of Systems: All systems reviewed & are unremarkable except as noted in HPI & below Physical Exam Constitutional: WD/WN, vitals as above + thin; no acute distress Neck: normal visual inspection Respiratory: no respiratory distress and no labored breathing Auscultation: + diminished lung sounds; no crackles and no rales Cardiovascular: Rate/Rhythm: regular rate and regular rhythm Heart Sounds: + murmur (II/ systolic murmur) Gastrointestinal (Abdomen): normal bowel sounds, soft, nontender, no hepatosplenomegaly Musculoskeletal: no cyanosis or clubbing, extremities motor strength 5/5 Neurologic: PERRL, EOMI, accommodation nl, no face palsy, no dysarthria Results & Data Vital Signs (Past 12 Hours) Vital Signs Temp Pulse Pulse Resp BP BP Pulse Ox 02/23/24 07:07 36.7 C 68 18 132/79 97 02/23/24 07:00 02/23/24 02:42 36.7 C 84 16 140/77 94 02/23/24 00:00 84 02/22/24 23:07 36.6 C 84 18 122/79 94 O2 Del Method 02/23/24 07:07 Room Air 02/23/24 07:00 Room Air 02/23/24 02:42 Room Air 02/23/24 00:00 02/22/24 23:07 Room Air Laboratory Results Lipids 02/23/24 Range/Units 06:28 Triglycerides 76 (0-150) mg/dl Cholesterol 149 (0-200) mg/dl HDL Cholesterol 62 mg/dl Cholesterol/HDL Ratio 2.4 (0-5) CBC 02/23/24 Range/Units 06:28 WBC 6.30 (4.8-10.8) K/ul RBC 4.26 L (4.70-6.10) M/uL Hgb 13.9 L (14.0-18.0) g/dl Hct 38.4 L (42.0-52.0) % Plt Count 233 (130-400) K/uL Comprehensive Metabolic Panel 02/23/24 Range/Units 06:28 Sodium 129 L (136-145) mmol/L Potassium 4.1 (3.5-5.1) mmol/L Chloride 99 (98-107) mmol/L Carbon Dioxide 22 (21-32) mmol/L BUN 13 (6-23) mg/dl Creatinine 0.84 (0.6-1.4) mg/dl Glucose 88 (70-99(Fasting)) mg/dl Calcium 8.2 L (8.6-10.3) mg/dl Intake and Output 02/22/24 02/23/24 02/23/24 22:59 06:59 14:59 Intake Total 340 / 680 100 / 680 Output Total 600 / 1949 250 / 1950 150 / 150 Balance -260 / -1270 -150 / -1270 -150 / -150 Intake: IV 100 / 200 100 / 200 Magnesium Sulfate / D5w 1 gm In 100 / 200 100 / 200 100 ml @ 50 mls/hr IV Q2H [facility] Rx#:[id number] Oral 240 / 480 Output: Urine 600 / 1949 250 / 1950 150 / 150 Other: Weight 67.132 kg Diagnostic Findings Telemetry reviewed: NSR in the 60-80's. Occ PVC Chest xray: Small b/l pleural effusions. stable Medications Administered Current Inpatient Medications Acetaminophen (Acetaminophen 325 Mg Tab) 650 mg PO QID PRN PRN Reason: pain/fever Stop: 03/22/24 21:47 Last Admin: 02/23/24 07:16 Dose: 650 mg Albuterol (Albut/Ipratrop 3mg/0.5mg Neb 3 Ml Vial) 3 ml NEB Q2R PRN; Protocol PRN Reason: sob wheeze Stop: 03/22/24 21:48 Aspirin (Aspirin 81 Mg Ectab) 81 mg PO [facility] Stop: 03/23/24 08:59 Last Admin: 02/23/24 08:41 Dose: 81 mg Atorvastatin Calcium (Atorvastatin 20 Mg Tab) 20 mg PO [facility] Stop: 03/23/24 08:59 Last Admin: 02/23/24 08:42 Dose: 20 mg Enoxaparin Sodium (Enoxaparin Inj 40 Mg/0.4 Ml Syr) 40 mg SQ [facility] Stop: 03/24/24 08:59 Last Admin: 02/23/24 08:42 Dose: 40 mg Finasteride (Finasteride 5 Mg Tab) 5 mg PO [facility] Stop: 03/23/24 08:59 Last Admin: 02/23/24 08:42 Dose: 5 mg Folic Acid (Folic Acid 1 Mg Tab) 1 mg PO [facility] Stop: 03/23/24 08:59 Last Admin: 02/23/24 08:42 Dose: 1 mg Hydroxyzine HCl (Hydroxyzine Hcl 10 Mg Tab) 10 mg PO TID PRN PRN Reason: Anxiety Stop: 03/23/24 14:50 Last Admin: 02/23/24 10:21 Dose: 10 mg Promethazine HCl (Phenergan) 6.25 mg in 50.25 mls @ 201 mls/hr IV Q6H PRN PRN Reason: Nausea And Vomiting Stop: 03/22/24 21:47 Lisinopril (Lisinopril 2.5 Mg Tab) 2.5 mg PO [facility] Stop: 03/24/24 09:59 Last Admin: 02/23/24 10:38 Dose: 2.5 mg Lorazepam (Lorazepam 2 Mg/1 Ml Vial) 1 mg IV ONE PRN; Protocol PRN Reason: EtoH Withdrawal AWSS 6-10 Miscellaneous (Remove Nicoderm Patch) 1 each N/A DAILY@0859 [facility] Stop: 03/23/24 08:58 Last Admin: 02/23/24 08:47 Dose: 1 each Multivitamins (Multivitamin Tab) 1 tab PO [facility] Stop: 03/23/24 08:59 Last Admin: 02/23/24 08:43 Dose: 1 tab Nicotine (Nicotine 21 Mg/24 Hr Tdsy) 1 patch TD [facility] Stop: 03/23/24 08:59 Last Admin: 02/23/24 08:43 Dose: 1 patch Thiamine HCl (Thiamine Hcl 100 Mg Tab) 100 mg PO [facility] Stop: 03/23/24 08:59 Last Admin: 02/23/24 08:43 Dose: 100 mg Umeclidinium [place] (Umeclidinium [place] 62.5mcg/Blister 7 Puffs/Inhaler) 1 puffs INH [facility] Stop: 03/23/24 08:59 Last Admin: 02/23/24 08:43 Dose: 1 puffs Vitamin D (Cholecalciferol 25 Mcg (1000 Units) Tab) 25 mcg PO [facility] Stop: 03/23/24 08:59 Last Admin: 02/23/24 09:41 Dose: 25 mcg
[2024-02-23] MEDS ORDERED: Ativan PO Alcohol Withdrawal--Active Protocol PO PRN (15:29)
[2024-02-23] MEDS ORDERED: LORazepam 1 MG TAB PO PRN ×2 (15:29)
--- NOTE | 2024-02-23 15:30 | Hospitalist Progress Note ---
Date of Service February 23, 2024 Assessment & Plan (1) CHF (congestive heart failure): Plan: 73-year-old male with PMH of CVA, PVD, HTN, COPD, pulmonary nodule, chronic hyponatremia, SIADH, epilepsy, compression fracture status post surgery, MGUS, LUTS, ongoing tobacco/alcohol abuse presented with worsening shortness of breath with lower extremity swelling and cough symptoms for 1 to 2 days ago [employer]. He is being managed for the following: Acute CHF: Patient presented with shortness of breath, associated cough and lower extremity swelling. Admitting chest imaging with bilateral pleural effusion with basilar consolidation/collapse. BNP elevated at 1044 Echo with EF of 40 to 45%, left ventricular systolic function is mildly reduced, mild global hypokinesis of the left ventricle noted, mild concentric LVH noted. Status post IV diuresis with improvement in his BLE swelling and shortness of breath. Cardiology on board, Appreciate recommendation. hold additional diuretics today. Continue telemetry monitoring, monitor I's and O's, monitor and replete electrolytes. ongoing tobacco/alcohol abuse: Counseling done, patient states he will quit both going forward. CELINA S at risk protocol, DT precautions. Nicotine patch. Other chronic medical conditions: Continue with/resume home meds as when able. hx bicuspid aortic valve as per records, valvular heart disease (trace AR, mild TR, TTE 2023) hx CVA PVD hypertension, slightly elevated hx COPD, pulmonary nodule, patient follows with [facility] underwriter chronic hyponatremia/SIADH as per records, stable. epilepsy as per records, patient refuses to take Keppra Rx from neurologist DVT prophylaxis. Lovenox subcu DNR /POA, Ms. Lyndsay Colindres [id number]. Text document was generated using [employer] voice recognition software. It may contain grammatical or spelling errors. Kindly contact undersigned for clarification of any documentation item in question. Admission and Anticipated Discharge Date Admission Date: February 21, 2024 Subjective Patient was seen and examined at bedside. Patient reports improvement in the swelling of his legs, patient reports improvement in breathing and cough. Patient denies chest pain, febrile illness, sore throat. Patient reports eating okay and moving bowels okay. Patient states that he will quit smoking and drinking going forward. Will order PT/OT due to unsteadiness noted during getting out of bed by RN. Physical Exam Physical Exam: GENERAL: Comfortable, pleasant, NAD, no respiratory distress SKIN: Pallor, warm HEENT: Pale palpebral conjunctivae, no ptosis, moist buccal mucosa NECK : Supple, no tenderness CHEST : Decreased breath sounds bibasal, no tenderness HEART : RRR, systolic murmur ABDOMEN: No distention, nontender EXTREMITIES : Bilateral LE swelling - trace, without tenderness, no other conspicuous deformities noted NEUROLOGIC : Coherent, no facial asymmetry, no other gross focality Results & Data Results & Data Vital Signs (Past 12 Hours) Vital Signs Temp Pulse Pulse Resp BP Pulse Ox O2 Del Method 02/23/24 15:10 36.4 C L 86 19 127/77 95 Room Air 02/23/24 11:05 36.5 C 86 19 136/79 96 Room Air 02/23/24 07:07 36.7 C 68 18 132/79 97 Room Air 02/23/24 07:00 83 02/23/24 07:00 Room Air
[2024-02-24] MEDS: MELATONIN 3 MG TAB PO PRN (01:57)
[2024-02-24 07:47] LABS: BUN Creatinine Ratio 17.3 (10-20); Creatinine Clr Calc Pharmacy 81.9 ml/min; Magnesium 1.8 mg/dl (1.7-2.4); Phosphorus 2.6 mg/dl (2.5-4.9); Potassium 4.2 mmol/L (3.5-5.1)
--- NOTE | 2024-02-24 12:19 | Cardiology Progress Note ---
Date of Service February 24, 2024 Assessment & Plan (1) Acute heart failure with mildly reduced ejection fraction (HFmrEF, 41-49%): (2) Pleural effusion: (3) Aortic regurgitation: (4) Hyponatremia: Plan Admission on 02/20 with multifactorial volume overload, chronic alcohol u se/abuse (4+ beers per day at home) Received 40 mg of IV furosemide on February 20 and 60 mg of IV furosemide on February 21 Sodium 133 -> 133 -> 129 -> 126 mmol/L Likely syndrome of inappropriate ADH production Echo with bicuspid aortic valve. LVEF mildly reduced, 40 to 45%. Moderate aortic and mitral regurgitation noted along with grade II diastolic dysfunction. HS troponin negative. No symptoms suggest angina. Volume status: Normovolemic. Recommendations: * Stop lisinopril * Restrict oral fluid intake to less than 50 ounces per day * Increase dietary sodium intake * Increase dietary protein intake * If no improvement would add furosemide and seek Nephrology assistance * Must reduce beer intake at home. * Avoid beta-kathleen given aortic insufficiency, underlying pulmonary disease * Continue ASA * Continue statin Admission and Anticipated Discharge Date Admission Date: February 21, 2024 Supervising Physician Co-Signing Physician Notes I spent a total of 30 minutes on the date of service in preparation, delivery, and documentation of the care provided to this patient, excluding any time spent in the performance of separately billed services. I have personally performed a history and physical examination on the patient. I have reviewed the advance practitioner's documentation, and I agree with, and take responsibility for the plan of care. Subjective Asked to reevaluate patient today due to worsening hyponatremia Patient evaluated while eating lunch. Feeling okay. No headaches or unilateral complaints. No chest pain or shortness of breath. No orthopnea, PND, or perip heral edema. Describes urine is yellow Telemetry: Sinus with atrial and ventricular ectopy, heart rates in the 80's. Review of Systems Review of Systems: Complete Review of Systems is as stated above, negative, or noncontributory Physical Exam Physical Exam: General: A&Ox3. NAD. HENT: Normocephalic. Atraumatic. Eyes: PER. Conjunctiva pink, sclera clear. Neck: No JVD. No HJR. Heart: RRR. Grade II/ systolic ejection murmur. Grade I/ diastolic murmur. Lungs: Diminished at the bases however clear to auscultation. Abdomen: +BS. Soft. Nontender. No masses or organomegaly. Extremities: No clubbing, cyanosis, or edema. Limited neurological examination is without focal deficits. Pulses: Posterior tibial=2/4. Results & Data Vital Signs (Past 12 Hours) Vital Signs Temp Pulse Resp BP Pulse Ox O2 Del Method 02/24/24 11:29 36.5 C 76 18 129/72 95 Room Air 02/24/24 07:41 36.8 C 68 20 121/67 96 Room Air 02/24/24 07:00 Room Air 02/24/24 03:25 36.6 C 77 18 123/75 94 Room Air Laboratory Results Comprehensive Metabolic Panel 02/24/24 Range/Units 06:49 Sodium 126 L (136-145) mmol/L Potassium 4.2 (3.5-5.1) mmol/L Chloride 98 (98-107) mmol/L Carbon Dioxide 22 (21-32) mmol/L BUN 13 (6-23) mg/dl Creatinine 0.75 (0.6-1.4) mg/dl Glucose 87 (70-99(Fasting)) mg/dl Calcium 8.0 L (8.6-10.3) mg/dl Intake and Output 02/23/24 02/24/24 02/24/24 22:59 06:59 14:59 Intake Total 200 / 940 300 / 940 Output Total 1000 / 1150 150 / 150 Balance 200 / -210 -700 / -210 -150 / -150 Intake: Oral 200 / 940 300 / 940 Output: Urine 1000 / 1150 150 / 150 Other: # Unmeasured Voids 1 Weight 67 kg Weight Measurement Method Built in [facility]
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
--- NOTE | 2024-02-24 14:04 | Hospitalist Progress Note ---
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 He is being managed for the following: Acute CHF: Patient presented with shortness of breath, associated cough and lower extremity swelling. Admitting chest imaging with bilateral pleural effusion with basilar consolidation/collapse. BNP elevated at 1044 Echo with EF of 40 to 45%, left ventricular systolic function is mildly reduced, mild global hypokinesis of the left ventricle noted, mild concentric LVH noted. Status post IV diuresis with improvement in his BLE swelling and shortness of breath. Na level dropped. lisinopril stopped, holding diuretics. Cardiology on board Continue telemetry monitoring, monitor I's and O's, monitor and replete electrolytes. Hyponatremia: baseline Na level around 130. Creating complication optimizing GDMT for his Acute HFrEF. FR to 1500 mL and increase protein content in diet. nephro consult to help w/ hyponatremia. ongoing tobacco/alcohol abuse: Counseling done, patient states he will quit both going forward. CELINA S at risk protocol, DT precautions. Nicotine patch. Other chronic medical conditions: Continue with/resume home meds as when able. 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 epilepsy as per records, patient refuses to take Keppra Rx from neurologist DVT prophylaxis. Lovenox subcu DNR /POA, Ms. Lyndsay Colindres [phone]. Text document was generated using Flipter voice recognition software. It may contain grammatical or spelling errors. Kindly contact undersigned for clarification of any documentation item in question. Admission and Anticipated Discharge Date Admission Date: February 21, 2024 Subjective Patient was seen and examined at bedside. Patient was lying in bed, on room air, NAD, resting comfortably. Patient denies nausea, vomiting, headache, dizziness. Patient denies shortness of breath or chest pain. Patient reports improvement in BLE swelling. Patient was made aware of decreasing sodium trend, need for further management while in hospital and not being able to discharge/not safe to discharge today. Patient has been anxious to go home since admission. Patient's was given phone call at bedside and updated her on plan of care. Both of them voiced understanding and were agreeable to go through inpatient management in the hospital. Physical Exam Physical Exam: GENERAL: Comfortable, pleasant, NAD, no respiratory distress SKIN: Pallor, warm HEENT: Pale palpebral conjunctivae, no ptosis, moist buccal mucosa NECK : Supple, no tenderness CHEST : Decreased breath sounds bibasal, no tenderness HEART : RRR, systolic murmur ABDOMEN: No distention, nontender EXTREMITIES : Bilateral LE swelling - trace, without tenderness, no other conspicuous deformities noted NEUROLOGIC : Coherent, no facial asymmetry, no other gross focality Results & Data Results & Data Vital Signs (Past 12 Hours) Vital Signs Temp Pulse Resp BP Pulse Ox O2 Del Method 02/24/24 11:29 36.5 C 76 18 129/72 95 Room Air 02/24/24 07:41 36.8 C 68 20 121/67 96 Room Air 02/24/24 07:00 Room Air 02/24/24 03:25 36.6 C 77 18 123/75 94 Room Air
[2024-02-24 15:12] LABS: BUN Creatinine Ratio 18.6 (10-20); Calcium 8.3 mg/dl (8.6-10.3); Creatinine Clr Calc Pharmacy 71.4 ml/min; Potassium 4.8 mmol/L (3.5-5.1)
[2024-02-24] MEDS: FUROSEMIDE 40 MG/4 ML VIAL IV ONE (17:00)
[2024-02-24 17:04] LABS: Appearance Urine Clear (Clear); Bilirubin Urine Negative (Negative); Blood Urine Negative (Negative); Color Urine Yellow; Glucose Urine UA Negative (Negative); Ketones Urine Negative (Negative); Leukocyte Esterase Urine Negative (Negative); Nitrite Urine Negative (Negative); Protein Urine Negative (Negative); Specific Gravity Urine 1.016 (1.000-1.030); Urobilinogen Urine Negative (Negative)
[2024-02-24 17:18] LABS: Urine Potassium 60.6 mmol/L
[2024-02-25 06:40] LABS: Hematocrit (blood only) 36.1 % (42.0-52.0); Hemoglobin 13.1 g/dl (14.0-18.0); Mean Corpuscular Hemoglobin 32.2 pg (25.0-34.0); Mean Corpuscular Hgb Conc 36.3 g/dL (32.0-36.0); Mean Corpuscular Volume 88.7 fL (80.0-100.0); Mean Platelet Volume 9.4 fL (9.4-12.4); Platelet Count 232 K/uL (130-400); RDW Coefficient of Variation 12.3 % (11.5-14.5); Red Blood Count 4.07 M/uL (4.70-6.10); White Blood Count 6.03 K/ul (4.8-10.8)
[2024-02-25 07:15] LABS: Calcium 8.1 mg/dl (8.6-10.3); Phosphorus 2.7 mg/dl (2.5-4.9); Potassium 3.8 mmol/L (3.5-5.1)
[2024-02-25] MEDS: POTASSIUM CHLORIDE CRTAB 20 MEQ TABCR PO STA (08:39)
--- NOTE | 2024-02-25 15:45 | Hospitalist Progress Note ---
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 He is being managed for the following: Acute CHF: Patient presented with shortness of breath, associated cough and lower extremity swelling. Admitting chest imaging with bilateral pleural effusion with basilar consolidation/collapse. BNP elevated at 1044 Echo with EF of 40 to 45%, left ventricular systolic function is mildly reduced, mild global hypokinesis of the left ventricle noted, mild concentric LVH noted. Status post IV diuresis with improvement in his BLE swelling and shortness of breath. Na level dropped. lisinopril stopped, nephro managing diuretics. Cardiology evaled, pt f/u cards in 2-4 weeks on dc. Continue telemetry monitoring, monitor I's and O's, monitor and replete electrolytes. Hyponatremia: baseline Na level around 130. Creating complication optimizing GDMT for his Acute HFrEF. FR to 1500 mL and increase protein content in diet. nephro consult to help w/ hyponatremia. await further recs. ongoing tobacco/alcohol abuse: Counseling done, patient states he will quit both going forward. CELINA S at risk protocol, DT precautions. Nicotine patch. Other chronic medical conditions: Continue with/resume home meds as when able. 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 epilepsy as per records, patient refuses to take Keppra Rx from neurologist DVT prophylaxis. Lovenox subcu DNR /POA, Ms. Lyndsay Colindres [phone]. Pt's updated over the phone, answered all her questions. Text document was generated using [employer] voice recognition software. It may contain grammatical or spelling errors. Kindly contact undersigned for clarification of any documentation item in question. Admission and Anticipated Discharge Date Admission Date: February 21, 2024 Subjective Patient was seen and examined at bedside. Patient was lying in bed, on room air, NAD, resting comfortably. Patient denies nausea, vomiting, headache, dizziness. Patient denies shortness of breath or chest pain. Patient reports improved BLE swelling. Physical Exam Physical Exam: GENERAL: Comfortable, pleasant, NAD, no respiratory distress SKIN: Pallor, warm HEENT: Pale palpebral conjunctivae, no ptosis, moist buccal mucosa NECK : Supple, no tenderness CHEST : Decreased breath sounds bibasal, no tenderness HEART : RRR, systolic murmur ABDOMEN: No distention, nontender EXTREMITIES : Bilateral LE swelling - trace, without tenderness, no other conspicuous deformities noted NEUROLOGIC : Coherent, no facial asymmetry, no other gross focality Results & Data Results & Data Vital Signs (Past 12 Hours) Vital Signs Temp Pulse Resp BP Pulse Ox O2 Del Method 02/25/24 15:30 36.6 C 73 18 116/72 94 Room Air 02/25/24 11:23 36.5 C 94 H 18 128/76 95 Room Air 02/25/24 07:35 36.6 C 67 16 103/62 90 Room Air
--- NOTE | 2024-02-25 16:17 | Nephrology Progress Note ---
Date of Service February 25, 2024 Assessment & Plan (1) Chronic hyponatremia: Plan: improving chronic hyponatremia which is likely multifactorial > currently w/ ongoing mild volume overload and acute HF. historically though w/ COPD, EtOH abuse, malnutrition, lung nodule more an SIADH picture. reports lots of adherence issues re avoiding EtOH or following FR or low Na diet or taking medications as OP serum osms 272; urine osms 519, Armando 13 prior to starting lasix CTA 02/20 w/ moderate BL pleural effusions continue -daily standing weights <2 gm Na diet -continue 1.5 L FR -strict I/O -daily BMP -maintain eukalemia >> started k 20 mEq tid after 40 mEq dose he had this am >>started lasix 40 mg IV bid (2) Acute heart failure with mildly reduced ejection fraction (HFmrEF, 41-49%): Plan: one time lasix dose 02/23 and now standing bid 40 mg IV FR/<2 gm Na/ standing weights (3) SIADH (syndrome of inappropriate ADH production): Plan: by definition this is a euvolemic state and this pt has mild vol OL >> lasix tx and sodium/fluid limits and standing wts the same >>encouraged high protein intake Admission and Anticipated Discharge Date Admission Date: February 21, 2024 Subjective no interval events clinically. continues to state he feels well, no sob, no edema. Review of Systems 2 Review of Systems: All systems reviewed & are unremarkable except as noted in Subjective Physical Exam 2 Constitutional: well developed and well nourished; no acute distress (dyspnea not noticed today) Eyes: EOM intact bilaterally ENMT: Mouth: + dry oral mucous membranes Respiratory: normal respiratory effort Auscultation: + diminished lung sounds Cardiovascular: Rate/Rhythm: regular rate and regular rhythm Extremities: + edema (trace dependent) Gastrointestinal (Abdomen): Inspection/Auscultation: normal bowel sounds P ercussion/Palpation: abdomen soft; abdomen nontender Musculoskeletal: Extremities: strength 5/5 throughout Skin: no rashes, warm and dry Results & Data Vital Signs (Past 12 Hours) Vital Signs Temp Pulse Resp BP Pulse Ox O2 Del Method 02/25/24 15:30 36.6 C 73 18 116/72 94 Room Air 02/25/24 11:23 36.5 C 94 H 18 128/76 95 Room Air 02/25/24 07:35 36.6 C 67 16 103/62 90 Room Air Laboratory Results 02/25/24 05:49 02/25/24 05:49
[2024-02-25] MEDS: POTASSIUM CHLORIDE CRTAB 20 MEQ TABCR PO SCH (16:51)
[2024-02-25] MEDS: FUROSEMIDE 40 MG/4 ML VIAL IV SCH (16:51)
[2024-02-26 03:52] VITALS: O2SAT 95
[2024-02-26 07:16] LABS: BUN Creatinine Ratio 23.5 (10-20); Calcium 8.5 mg/dl (8.6-10.3); Creatinine Clr Calc Pharmacy 68.5 ml/min; Magnesium 1.7 mg/dl (1.7-2.4); Potassium 4.1 mmol/L (3.5-5.1)
[2024-02-26 07:30] VITALS: RESP 18; TEMP 98.4
--- NOTE | 2024-02-26 11:02 | Nephrology Progress Note ---
Date of Service February 26, 2024 Assessment & Plan Admission and Anticipated Discharge Date Admission Date: February 21, 2024 Subjective Assessment & Plan (1) Chronic hyponatremia: Plan: improving chronic hyponatremia which is likely multifactorial. had some volume overload and acute HF. Historically though w/ COPD, EtOH abuse, malnutrition, lung nodule more -- SIADH picture. reports lots of adherence issues re avoiding EtOH or following FR or low Na diet or taking medications as OP serum osms 272; urine osms 519, Armando 13 prior to starting lasix CTA 02/20 w/ moderate BL pleural effusions continue daily standing weights <2 gm Na diet -continue 1.5 L FR -strict I/O -daily BMP Appears totally edema free now. Will recommend lasix 40 bid and Kcl 20 bid for Outpt. Needs labs again later this week ( prefer )--renal panel, UA, urine Osm--nephro RN to order under my name. f/u Nephrology within next 2 week. exact date after lab results in few days (2) Acute heart failure with mildly reduced ejection fraction (HFmrEF, 41-49%): Plan: one time lasix dose 02/23 and now standing bid 40 mg IV FR/<2 gm Na/ standing weights Discussed with primary team. Subjective no interval events clinically. continues to state he feels well, no sob, no edema. wants to go home Review of Systems Review of Systems: All systems reviewed & are unremarkable except as noted in Subjective Physical Exam Constitutional: well developed and well nourished; no acute distress (dyspnea not noticed today) Eyes: EOM intact bilaterally ENMT: Mouth: + dry oral mucous membranes Respiratory: normal respiratory effort Auscultation: + diminished lung sounds Cardiovascular: Rate/Rhythm: regular rate and regular rhythm Extremities: + edema (trace dependent) Gastrointestinal (Abdomen): Inspection/Auscultation: normal bowel sounds Percussion/Palpation: abdomen soft; abdomen nontender Musculoskeletal: Extremities: strength 5/5 throughout Skin: no rashes, warm and dry Results & Data Vital Signs (Past 12 Hours) Vital Signs Temp Pulse Pulse Resp BP Pulse Ox O2 Del Method 02/26/24 08:21 Room Air 02/26/24 07:29 36.9 C 64 18 123/66 95 Room Air 02/26/24 07:20 62 02/26/24 03:51 36.8 C 58 L 16 122/66 95 Room Air 02/25/24 23:28 79
[2024-02-26 11:25] VITALS: PULSE 70
--- NOTE | 2024-02-26 12:31 | Discharge Summary ---
Date of Service February 26, 2024 Admission HPI Per Admitting Provider History obtained from patient, family, and records. Patient is a fair historian. Medical history significant for bicuspid aortic valve as per records, valvular heart disease (trace AR, mild TR), CVA, PVD, hypertension, COPD, pulmonary nodule, chronic hyponatremia, SIADH as per records, epilepsy as per records, compression fracture status post surgery, MGUS, LUTS, ongoing tobacco/alcohol abuse. Last confinement June 2023 for acute on chronic hyponatremia in the setting of SIADH and alcohol abuse. Patient underwent outpatient bronchoscopy at [facility] 2 weeks ago for enlarging left lower lobe nodule. Acellular specimen. Patient had worsening SOB symptoms overnight with fluid retention. No actual chest pain or new cough symptoms. Compliant with home medications. Patient family unsure about weight gain. IV Lasix administered at the ER. 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 Admission Exam Per Admitting Provider GENERAL: Comfortable, pleasant, slightly anxious, chronically ill, no respiratory distress SKIN: Pallor, warm HEENT: Pale palpebral conjunctivae, no ptosis, dry buccal mucosa NECK : Supple, no tenderness CHEST : Decreased breath sounds, no tenderness HEART : RRR, systolic murmur ABDOMEN: Some distention, nontender EXTREMITIES : Bilateral LE swelling, without tenderness, no other conspicuous deformities noted NEUROLOGIC : Coherent, no facial asymmetry, no other gross focality Principal Diagnosis Acute CHF with reduced ejection fraction Hyponatremia, history of SIADH Ongoing tobacco/alcohol abuse Discharge Exam GENERAL: Comfortable, pleasant, NAD, no respiratory distress SKIN: Pallor, warm HEENT: Pale palpebral conjunctivae, no ptosis, moist buccal mucosa NECK : Supple, no tenderness CHEST : Decreased breath sounds bibasal, no tenderness HEART : RRR, systolic murmur ABDOMEN: No distention, nontender EXTREMITIES : Bilateral LE swelling - trace, without tenderness, no other conspicuous deformities noted NEUROLOGIC : Coherent, no facial asymmetry, no other gross focality Discharge Data Allergies Allergy/AdvReac Type Severity Reaction Status Date / Time fexofenadine Allergy Mild Rash Verified 02/21/24 14:58 losartan Allergy Unknown Unknown - Unverified 02/21/24 14:58 On file w/ [facility] Consultations 02/21/24 20:17 ED Decision to Admit Stat 02/22/24 10:52 Consult Cardiology Routine 02/24/24 09:34 Consult Nephrology Routine Ordered Studies 02/21/24 17:21 CT angio chest PE protocol Stat CT head/brain wo con Stat 02/21/24 20:02 US venous doppler LE RT Stat Hospital Course (1) CHF (congestive heart failure): 73-year-old male with PMH of CVA, PVD, HTN, COPD, pulmonary nodule, chronic hyponatremia, SIADH, epilepsy, compression fracture status post surgery, MGUS, LUTS, ongoing tobacco/alcohol abuse presented with worsening shortness of breath with lower extremity swelling and 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 He was managed for the following: Acute CHF: Patient presented with shortness of breath, associated cough and lower extremity swelling. Admitting chest imaging with bilateral pleural effusion with basilar consolidation/collapse. BNP elevated at 1044 Echo with EF of 40 to 45%, left ventricular systolic function is mildly reduced, mild global hypokinesis of the left ventricle noted, mild concentric LVH noted. Status post IV diuresis with improvement in his BLE swelling and shortness of breath. Na level dropped. lisinopril stopped, nephro helped w/ managing diuresis. Cardiology evaled, pt f/u cards in 2-4 weeks on dc. d/w nephro, plan to dc w/ lasix 40 mg po bid, and kcl 20 meq bid w/ close f/u w/ nephro. Such has been explained to pt's and pt himself. They voiced understanding. Hyponatremia: baseline Na level around 130. Creating complication optimizing GD MT for his Acute HFrEF. FR to 1500 mL and increase protein content in diet. nephro consult to help w/ hyponatremia. appreciate recs. Na 129 today, improving. ongoing tobacco/alcohol abuse: Counseling done, patient states he will quit both going forward. CELINA S at risk protocol, DT precautions. no need for ativan while here x 5 days . Nicotine patch. Other chronic medical conditions: Continue with/resume home meds as when able. 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 epilepsy as per records, patient refuses to take Keppra Rx from neurologist DVT prophylaxis. Lovenox subcu DNR /POA, Ms. Lyndsay Colindres [phone]. Pt's updated over the phone, answered all her questions. Following instructions were communicated to patient's over the phone. Patient is being discharged home with following instruction at the point of discharge: Follow-up with your primary care physician within a week time and likely you will need labs CBC/CMP/magnesium/phosphorus. Strongly recommend that you quit smoking and drinking going forward. You will be sent nicotine patch to help with smoking cessation. Continue to follow-up with your PCP office for ongoing monitoring/management. You were diagnosed with acute CHF, you will be discharged on Lasix. You will need to follow-up with cardiology in 2 to 4 weeks time upon discharge, coordinate with your PCP office to set up the referral. For your low sodium level, stop drinking alcoholic drinks including beer, maintain low-sodium diet [less than 2 g a day], maintain fluid restriction of 1.5 L a day, incorporate protein intake consistently in your diet. You are being discharged on Lasix and potassium tablet. You will need repeat labs preferably [renal panel, urinalysis, urine osmolality], coordinate with your kidney doctor's office to set up the test. You will need to follow-up with kidney doctor within next 2 weeks, this is very important for ongoing management/evaluation. Take your medications as prescribed. Please make sure that you are able to get your medications today by calling your pharmacy before you leave the hospital so that your treatment continuity is not broken. Text document was generated using [employer] voice recognition software. It may contain grammatical or spelling errors. Kindly contact undersigned for clarification of any documentation item in question. Home Health Attestation I certify that this patient is under my care and that I, or a physicians promotions assistant sales marketing working with me, had a face to-face encounter that meets the home health [id number] encounter requirements with this patient. The encounter with the patient was in whole, or in part, for the following medical condition, which is the primary reason for home health care (list medical condition): I certify that, based on my findings, the following services are medically necessary home health services: My clinical findings support the need for the above services because: Further, I certify that my clinical findings support that this patient is homebound (i.e. absences from home require considerable and taxing effort and are for medical reasons or denominational services or infrequently or of short duration when for other reasons) because: Certification for Home Health Services: Based on the above findings, I certify that this patient is confined to the home and needs intermittent fpc care, physical therapy and/or speech therapy or continues to need occupational therapy. The patient is under my care, and I have initiated the establishment of the plan of care. This patient will be followed by a physician who will periodically review the plan of care. Total Time Total Time Spent Total Time Spent (In Minutes): 45 Discharge Plan Discharge Items Patient Disposition: Home - Self-Care Reason For Visit: CHF Discharge Diagnosis: Acute CHF with reduced ejection fraction Hyponatremia, history of SIADH Ongoing tobacco/alcohol abuse Activity: Resume your previous activity Non-emergency contact: Primary Care Provider Call non-emergency contact if: you have any medication questions, your symptoms worsen and your temperature is above 101 Follow-up/Referrals: Conner Pedersen MD [Primary Care Provider] - Diet: Heart Healthy Fluids: 1500ml (6 cups) Addtl Attending Provider Instructions: Follow-up with your primary care physician within a week time and likely you w ill need labs CBC/CMP/magnesium/phosphorus. Strongly recommend that you quit smoking and drinking going forward. You will be sent nicotine patch to help with smoking cessation. Continue to follow-up with your PCP office for ongoing monitoring/management. You were diagnosed with acute CHF, you will be discharged on Lasix. You will need to follow-up with cardiology in 2 to 4 weeks time upon discharge, coordinate with your PCP office to set up the referral. For your low sodium level, stop drinking alcoholic drinks including beer, maintain low-sodium diet [less than 2 g a day], maintain fluid restriction of 1.5 L a day, incorporate protein intake consistently in your diet. You are being discharged on Lasix and potassium tablet. You will need repeat labs preferably coming [renal panel, urinalysis, urine osmolality], coordinate with your kidney doctor's office to set up the tests. You will need to follow-up with kidney doctor within next 2 weeks, this is very important for ongoing management/evaluation. Take your medications as prescribed. Please make sure that you are able to get your medications today by calling your pharmacy before you leave the hospital so that your treatment continuity is not broken. Pending Studies at Discharge: No Stand-Alone Forms: My [facility], Smoking Cessation Medications and DC Order Prescriptions: New nicotine [Nicoderm CQ] 21 mg/24 hr Patch 24 Hour 1 patch transdermal QAM Qty: 28 0RF hydroxyzine HCl 10 mg Tablet 10 mg PO TID PRN (Reason: anxiety) Qty: 30 0RF furosemide 40 mg tablet 40 mg PO BID Qty: 60 0RF potassium chloride 20 mEq tablet extended release 20 meq PO BID Qty: 60 0RF folic acid 1 mg Tablet 1 mg PO QAM 30 Days Qty: 30 0RF Continued atorvastatin [Lipitor] 20 mg tablet 20 mg PO QAM thiamine HCl (vitamin B1) [Vitamin B-1] 100 mg Tablet 100 mg PO QAM Incruse Ellipta 62.5 mcg/actuation blister with device 1 inh INHALATION QAM cholecalciferol (vitamin D3) [Vitamin D3] 25 mcg (1,000 unit) Capsule 25 mcg PO QAM calcium carbonate 600 mg calcium (1,500 mg) Tablet 600 mg PO QAM aspirin [Aspirin Childrens] 81 mg Tablet,Chewable 81 mg PO QAM magnesium oxide 400 mg magnesium Capsule 400 mg PO UD vitamin B complex Tablet 1 tab PO QAM finasteride 5 mg tablet 5 mg PO QAM albuterol sulfate 90 mcg/actuation HFA aerosol inhaler 2 puff INHALATION Q6H PRN (Reason: Wheezing or Shortness of Breath) Discharge Orders: Discharge Order (Routine); Ordered 02/26/24 Ordered By: Deysi Bailey Admission Data Admit Date/Time: 02/21/24 21:34 Attending Provider: Deysi Bailey Admit Provider: Pito Phan Primary Care Provider: Conner Pedersen Other Providers: Pito Phan; Leticia Yoder
[2024-02-26 12:47] VITALS: BP 140/77
== END 2024-02-26 14:31 | disposition home or self-care (01) | DRG 291 ==
LOC: ED 15:49 → 2S 21:34